=== PATIENT | male | born 1945 | race Caucasian/White ===

== ENCOUNTER → 2017-10-29 17:43 | Outpatient (CLI) | payer MEDICARE, SELFPAY ==
--- NOTE | 2017-10-29 18:02 | CT_ITS ---
STUDY: CTA OF RIGHT LOWER EXTREMITY REASON FOR EXAM: Male, 72 years old. Nonhealing right ankle ulcer. RADIATION DOSAGE (If Supplied By Facility): CTDIvol = ( 9.59 ) mGy, DLP = ( 1838.44 ) mGycm TECHNIQUE: Axial CT angiography multi-detector data acquisition was obtained from the pelvis to the right foot following intravenous administration of 100mL ml of Isovue 370 contrast. Axial images and MIP images were reconstructed from the axial data set. Post-processing of the angiographic images was performed, with multiplanar reformation and 3D reconstruction. Individualized dose optimization techniques were used for this CT. TECHNICAL QUALITY: Good COMPARISON: None. Findings: The visualized bowel demonstrates no evidence of obstruction. The appendix is normal. The visualized aorta is normal in caliber. There is no dissection. The right common iliac, internal iliac and external iliac arteries are patent and normal in caliber. The right common femoral artery, superficial femoral artery, deep femoral artery and popliteal artery are patent and normal in caliber. There is a normal three-vessel runoff in the right distal lower extremity with patent anterior tibial, posterior tibial and peroneal arteries. There are no destructive osseous lesions. CT/CTA LWR EXTR W/O & W/DYE IMPRESSION: Normal CT angiogram of the right lower extremity. Electronically Signed: Sebastián Andrade, at 5:34 EDT Tel , Service support ,
[2017-10-29 18:16] LABS: CREATININE FINGERSTICK 1.2 mg/dL (0.70-1.30); EGFR FINGERSTICK > 60.0000 mL/min (>60)
== END ==
PROVIDERS: Family Provider Family Medicine; PCP Family Medicine; Visit Provider Podiatrist Foot & Ankle Surgery
DX: L97.319 Non-pressure chronic ulcer of right ankle with unspecified severity (principal)
CPT/HCPCS: 73706; Q9967

== ENCOUNTER → 2017-12-07 11:15 | Outpatient (CLI) | payer MEDICARE, SELFPAY ==
[2017-12-07 15:38] LABS: Absolute Neutrophil Count 1.6 X10^3/uL (2.0-7.7); Basophil# 0.01 X10^3/uL; Basophil% 0.2 % (0-1); Eosinophils% 2.3 % (0-5); Hematocrit 38.8 % (40-54); Hemoglobin 12.5 g/dl (13.0-16.5); Lymphocyte % 30.2 % (19-41); Mean Corp Hgb Conc 32.2 g/gl (32-36); Mean Corpuscular Hgb 28.9 pg (27.0-32.0); Mean Corpuscular Volume 89.8 fL (80-94); Mean Platelet Vol. 12.3 fl (6.2-12.0); Monocyte# 1.27 X10^3/uL; Monocyte% 29.5 % (0-10); Neutrophil # 1.57 X10^3/uL (2.7-7.7); Neutrophil % 36.4 % (47-70); Platelet Count 140 K/mm3 (150-450); RBC Distribution Width CV 16.2 % (11.6-14.6); RBC Distribution Width SD 52.9 fl (35.1-43.9); Red Blood Count 4.32 M/mm3 (4.6-6.2); White Blood Count 4.3 K/mm3 (4.4-11.0)
[2017-12-07 16:01] LABS: POSITIVE COUNT NO; POSITIVE DIFFERENTIAL NO; POSITIVE MORPHOLOGY NO
[2017-12-07 16:02] LABS: Anion Gap 7 (5-15); BUN 26 mg/dL (7-18); BUN/Creat Ratio 20.3 RATIO (10-20); Calcium,Total 8.7 mg/dL (8.5-10.1); Chloride 109 mmol/L (98-107); Creatinine, Serum 1.28 mg/dL (0.70-1.30); EST Glomerular Filtration Rate 59 mL/min (>60); Est Glom Filt Rate - Afr Amer 71 mL/min (>60); Glucose 100 mg/dL (74-106); Potassium 4.3 mmol/L (3.5-5.1); Sodium Level 143 mmol/L (136-145); T4 Free Direct 1.02 ng/dL (0.76-1.46); Thyroid Stim Hormone (TSH) 2.61 uIU/mL (0.358-3.74)
== END ==
PROVIDERS: Family Provider Family Medicine; PCP Family Medicine; Visit Provider Family Medicine
DX: I10 Essential (primary) hypertension (principal); E03.9 Hypothyroidism, unspecified; R68.82 Decreased libido
CPT/HCPCS: 36415; 80048; 84403; 84439; 84443; 85025

== ENCOUNTER → 2017-12-29 13:17 | Outpatient (CLI) | payer MEDICARE, SELFPAY ==
[2017-12-29 15:57] LABS: Absolute Lymphocyte Count 1.59 X10^3/ul (0.83-4.51); Absolute Neutrophil Count 2.5 X10^3/uL (2.0-7.7); Basophil# 0.01 X10^3/uL; Basophil% 0.2 % (0-1); Eosinophil# 0.15 X10^3/uL; Eosinophils% 2.5 % (0-5); Hematocrit 38.1 % (40-54); Hemoglobin 12.6 g/dl (13.0-16.5); Lymphocyte # 1.59 X10^3/ul (4.0); Lymphocyte % 26.4 % (19-41); Mean Corp Hgb Conc 33.1 g/gl (32-36); Mean Corpuscular Hgb 28.9 pg (27.0-32.0); Mean Corpuscular Volume 87.4 fL (80-94); Mean Platelet Vol. 11.4 fl (6.2-12.0); Monocyte# 1.79 X10^3/uL; Monocyte% 29.7 % (0-10); Neutrophil # 2.45 X10^3/uL (2.7-7.7); Neutrophil % 40.5 % (47-70); Platelet Count 168 K/mm3 (150-450); RBC Distribution Width CV 15.9 % (11.6-14.6); Red Blood Count 4.36 M/mm3 (4.6-6.2)
[2017-12-29 16:13] LABS: Differential Indicated SCAN CRITERIA MET; POSITIVE COUNT NO; POSITIVE DIFFERENTIAL YES; POSITIVE MORPHOLOGY NO
[2017-12-29 16:19] LABS: Anisocytosis RARE; Macrocytosis RARE; Platelet Estimate ADEQUATE (ADEQ)
[2017-12-30 14:28] LABS: Pathologist Review Reviewed
== END ==
PROVIDERS: Family Provider Family Medicine; PCP Family Medicine; Visit Provider Family Medicine
DX: D61.818 Other pancytopenia (principal)
CPT/HCPCS: 36415; 85025

== ENCOUNTER → 2018-03-23 07:11 | Outpatient (CLI) | payer MEDICARE, SELFPAY | PROVIDERS: Family Provider Family Medicine; PCP Family Medicine | DX: M86.8X7 Other osteomyelitis, ankle and foot (principal); T81.31XA Disruption of external operation (surgical) wound, not elsewhere classified, initial encounter; Y83.9 Surgical procedure, unspecified as the cause of abnormal reaction of the patient, or of later complication, without mention of misadventure at the time of the procedure; I10 Essential (primary) hypertension; M10.9 Gout, unspecified; E03.9 Hypothyroidism, unspecified; E78.5 Hyperlipidemia, unspecified; E66.9 Obesity, unspecified; Z68.38 Body mass index [BMI] 38.0-38.9, adult; Z71.3 Dietary counseling and surveillance; Z79.899 Other long term (current) drug therapy | CPT/HCPCS: 11042; 73721 ==

== ENCOUNTER 2018-04-02 14:00 | Outpatient (RCR) | payer MEDICARE, SELFPAY ==
[2018-03-16 08:55] VITALS: BMI 38.1
--- NOTE | 2018-03-16 10:19 | PCM.WC.HP ---
(1) Surgical wound, non healing Status: Chronic Current Visit: Yes Qualifiers: Encounter type: initial encounter Qualified Code(s): T81.89XA - Other complications of procedures, not elsewhere classified, initial encounter Code(s): T81.89XA - Other complications of procedures, not elsewhere classified, initial encounter (2) Delayed surgical wound healing Status: Chronic Current Visit: Yes Qualifiers: Encounter type: initial encounter Qualified Code(s): T81.89XA - Other complications of procedures, not elsewhere classified, initial encounter Code(s): T81.89XA - Other complications of procedures, not elsewhere classified, initial encounter (3) Swelling of lower limb Status: Chronic Current Visit: Yes Code(s): M79.89 - Other specified soft tissue disorders (4) Edema of leg Status: Chronic Current Visit: Yes Code(s): R60.0 - Localized edema (5) Hypertension Status: Chronic Current Visit: No Code(s): I10 - Essential (primary) hypertension (6) Hypothyroidism Status: Chronic Current Visit: No Code(s): E03.9 - Hypothyroidism, unspecified (7) Gout Status: Chronic Current Visit: No Code(s): M10.9 - Gout, unspecified (8) Erectile dysfunction Status: Chronic Current Visit: No Code(s): N52.9 - Male erectile dysfunction, unspecified (9) Hyperlipidemia Status: Chronic Current Visit: No Code(s): E78.5 - Hyperlipidemia, unspecified (10) Dehiscence of surgical wound Status: Chronic Current Visit: Yes Qualifiers: Encounter type: initial encounter Qualified Code(s): T81.31XA - Disruption of external operation (surgical) wound, not elsewhere classified, initial encounter Code(s): T81.31XA - Disruption of external operation (surgical) wound, not elsewhere classified, initial encounter History of Present Illness Date of Service: 03/16/18 Chief Complaint: 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 On August 26, 2016, the patient underwent right ankle fusion by Dr. Julio Cesar Giraldo. The patient subsequently developed complications. Apparently, a screw broke, and required reoperation. Additional hardware was placed. Additional healing complications occurred, and the patient underwent a series of subsequent surgeries. A total of 6 surgical procedures have been performed. Review of records indicates that a right tibial talocalcaneal fusion and right subtalar joint fusion and calcaneal osteotomy was performed on May 08, 2017. Allogenic skin grafting was performed on September 04, 2017. Application of a soft tissue silo painter was performed on January 14, 2018. At this time, the patient has a persisting open wound on the right lateral malleolus. He has recently been evaluated by another podiatric specialist, Dr. Harper, and diagnostic testing has been ordered, which is to include an MRI of the right ankle, and noninvasive lower extremity arterial assessment. The patient indicates that he has been using collagenase Santyl topically on a daily basis. Past Medical History Past Medical History: Chronic Problems Surgical wound, non healing (Chronic) Delayed surgical wound healing (Chronic) Swelling of lower limb (Chronic) Edema of leg (Chronic) Hypertension (Chronic) Hypothyroidism (Chronic) Gout (Chronic) Erectile dysfunction (Chronic) Hyperlipidemia (Chronic) Dehiscence of surgical wound (Chronic) Past Medical History: The patient has a history of hypertension, hypothyroidism status post thyroidectomy, hyperlipidemia, gout, and erectile dysfunction. The patient's history is negative for myocardial infarction, congestive heart failure, cerebrovascular accident, cancer, diabetes mellitus, renal disease, and pulmonary disease. He has a history of kidney stones. Surgical History: - - The patient is undergone a total of 6 surgical procedures of his right ankle. He is known to have indwelling metal hardware in the right ankle joint. He has a history of thyroidectomy, lumbar surgery, and transurethral kidney stone surgery. Allergies/Adverse Reactions: Allergies indomethacin Allergy (Verified 03/15/14 14:25) Other Home Medications: Ambulatory Orders Medication Instructions Recorded Allopurinol [Zyloprim] 300 mg PO DAILY 03/15/14 Levothyroxine [Synthroid] 100 mcg PO DAILY 03/15/14 Potassium Citrate [Urocit-K] 15 meq PO BID 03/15/14 Simvastatin [Zocor] 20 mg PO QHS 03/15/14 Sulindac [Clinoril] 200 mg PO DAILY 03/15/14 - Family History Paternal - - The patient's father at age of 90 with history of cerebrovascular accident. The patient's mother at the age of 96 from old age. Social History: The patient is . He is a retired college coach and teacher. He denies use of alcohol and tobacco products. Lives: Spouse/ Significant Other Smoking Status: Never smoker Tobacco Use: Non-smoker Alcohol: None Drugs: None Review of Systems Constitutional: Denies: Chills, Fever, Weight Change Eyes: Denies: Pain, Vision Change HEENT: Denies: Difficulty Hearing, Difficulty Swallowing, Sinus Congestion Cardiovascular: Denies: Chest Pain, Palpitations Respiratory: Denies: Cough, Shortness of Breath Gastrointestinal: Denies: Diarrhea, Nausea, Vomiting Genitourinary: Denies: Dysuria, Hematuria Endocrine: Denies: Heat/ Cold Intolerance, Polydipsia, Polyuria Hematologic/ Lymphatic: Denies: Easy Bruising, Easy Bleeding - Physical Exam General: Alert, Oriented x3, Cooperative, No apparent distress, Well developed, Well nourished HEENT: Atraumatic, PERRLA, EOMI, Normocephalic Oral: Moist Mucosa, No Gingival or Mucosal Lesions/ Ulcerations Neck: Supple, No JVD, Negative Carotid Bruits, Negative Hepatojugular Reflux, No Nodes, No Nuchal Rigidity, Trachea Midline Lungs: Clear to auscultation, Normal air movement, No rhonchi, No wheeze, No rales Cardiovascular: Regular rate, Regular Rhythm, Normal S1, Normal S2, No murmurs Abdomen: Soft, Non Tender, Non-Distended, Obese Extremities: No clubbing, No cyanosis, No Calf Tenderness, - - Swelling is noted about the right ankle. A long longitudinal surgical incision is noted on the lateral aspect of the distal right calf extending over the right lateral malleolus. In the inferior portion of this surgical incision, which is generally well approximated and healed, there is an open wound overlying the right lateral malleolus. Probing and visualization does not reveal exposed bone. There is a moderate amount of bioburden. Dimensions are documented elsewhere. There is no sign of obvious infection or cellulitis. However, cultures have been obtained by swab, for both aerobic and anaerobic growth. Skin: No rashes Wound Measurements and Assessment WC - Nurse 1 - General Ulcer Measurement Start: 03/16/18 08:55 Freq: Status: Active Protocol: Activity Type Activity Date Activity User E-Sign Co-Sign Detail Recorded Client Recorded Date Recorded By Document 03/16/18 08:55 [id number] 03/16/18 09:32 08/14/18 08:55 Wound Center Nurse 1 [Ulcer Assessment] #2 LEFT 4TH TOE -Combined with other wound No -Current Size (cm) - Length 0.2 -Current Size (cm) - Width 0.2 -Current Size (cm) - Depth 0.1 -Total Square Cm 0.04 -Date of Last Picture (Recall this 03/16/18 field) -Photo Taken Yes -Epithelialization Large 67-100% -Exudate Amt None Present (0 %) -Wound Margin Thickened -Granulation Amt None Present (0 %) -Texture (Jennifer-wound Skin Appearance) Callus -Temperature (Jennifer-wound Skin No Abnormality Appearance) (Pt Warm) -Tenderness on Palpation (Jennifer-wound No Skin Appearance) -Ulcer Cleansing Rinsed/ Irrigated with Saline -Foul Odor after Cleansing No -Anesthetic Used 5% Lidocaine Gel #1 RIGHT ANKLE -Combined with other wound No -Current Size (cm) - Length 2.5 -Current Size (cm) - Width 0.8 -Current Size (cm) - Depth 1.8 -Total Square Cm 2.00 -Date of Last Picture (Recall this 03/16/18 field) -Photo Taken Yes -Epithelialization None Present -Tunneling No -Undermining/Tunneling No -Circular Undermining No -Exudate Amt Medium (34-66%) -Exudate Type Serosanguineous -Wound Margin Distinct, Outline Attached -Granulation Amt Small (1-33%) -Granulation Quality [place]assett Red -Slough/Fibrin Yes -Necrosis Amt None Present (0 %) -Necrotic Tissue Type Adherent Slough -Texture (Jennifer-wound Skin Appearance) Assessed Localized Edema -Moisture (Jennifer-wound Skin Appearance No Abnormality ) Assessed -Color (Jennifer-wound Skin Appearance) No Abnormality Assessed -Temperature (Jennifer-wound Skin No Abnormality Appearance) (Pt Warm) -Tenderness on Palpation (Jennifer-wound No Skin Appearance) -Ulcer Cleansing Rinsed/ Irrigated with Saline -Foul Odor after Cleansing No -Anesthetic Used 5% Lidocaine Gel [Edema Assessment] -Lower Limb Edema Present Yes -Right Calf (cm) 40.5 -Right Ankle (cm) 30 -Left Calf (cm) 40 -Left Ankle (cm) 25 WC - Nurse 2 - General Ulcer CM Notes Start: 03/16/18 08:55 Freq: Status: Active Protocol: Activity Type Activity Date Activity User E-Sign Co-Sign Detail Recorded Client Recorded Date Recorded By Document 03/16/18 09:54 [id number] 03/16/18 10:11 03/16/18 09:54 Wound Center Nurse 2 [Procedure/Treatment] #2 LEFT 4TH TOE -Time 09:54 #1 RIGHT ANKLE -Time 09:54 -Correct Patient Yes -Correct Side, Site, Position Yes -Correct Procedure Yes -Procedure Performed Yes -Type of Procedure Debridement -Clinical Debridement Subcutaneous -Post Debridement Size (cm) - Length 3.3 -Post Debridement Size (cm) - Width 0.9 -Post Debridement Size (cm) - Depth 2.0 -Total Square Cm 2.97 -Wound/Ulcer Outcome Not Healed -Ulcer Cleansing Rinsed/ Irrigated with Saline -Foul Odor after Cleansing No -Bioengineered Tissue No -Topical Lidocaine (%) 4 -Lidocaine (ml) 5 -Bleeding Controlled with NA -Treatment Response Procedure Tolerated Well [See Physician Procedure note for Specifics] Pain Scale: 0-10 Numeric [Pain] -Is Patient Pain Free? Yes Neurological: Cranial nerves II-XII grossly intact, Neuro grossly intact Psych/Mental Status: Normal Affect, Appropriate, Alert and oriented to time, place, person, mood and affect Debridement Note Post-Debridement Measurements/Treatment WC - Nurse 2 - General Ulcer CM Notes Start: 03/16/18 08:55 Freq: Status: Active Protocol: Activity Type Activity Date Activity User E-Sign Co-Sign Detail Recorded Client Recorded Date Recorded By Document 03/16/18 09:54 [id number] 03/16/18 10:11 03/16/18 09:54 Wound Center Nurse 2 #2 LEFT 4TH TOE -Time 09:54 #1 RIGHT ANKLE -Time 09:54 -Correct Patient Yes -Correct Side, Site, Position Yes -Correct Procedure Yes -Procedure Performed Yes -Type of Procedure Debridement -Clinical Debridement Subcutaneous -Post Debridement Size (cm) - Length 3.3 -Post Debridement Size (cm) - Width 0.9 -Post Debridement Size (cm) - Depth 2.0 -Total Square Cm 2.97 -Wound/Ulcer Outcome Not Healed -Ulcer Cleansing Rinsed/ Irrigated with Saline -Foul Odor after Cleansing No -Bioengineered Tissue No -Topical Lidocaine (%) 4 -Lidocaine (ml) 5 -Bleeding Controlled with NA -Treatment Response Procedure Tolerated Well Pain Scale: 0-10 Numeric Is Patient Pain Free? Yes Laterality: Right - Lateral ankle dehiscence Type of Debridement: Excisional debridement Anesthesia Used: 4% Lidocaine Solution Depth: Down to and including healthy tissue, in the subcutaneous layer Percentage of wound debrided: 100 Instrument Used: 3mm curette Severity: Fat Layer Exposed Amount of bleeding with debridement: Mild Bleeding Controlled with: Compression and gauze Patient tolerated procedure well Assessment/Plan Active Problems Surgical wound, non healing (Chronic) Delayed surgical wound healing (Chronic) Swelling of lower limb (Chronic) Edema of leg (Chronic) Dehiscence of surgical wound (Chronic) Assessment: This is a 72-year-old male who underwent right ankle surgery in August 2016. He has undergone 5 subsequent surgeries, related to complications from the initial surgical event. He presents at this time with a surgical wound dehiscence/nonhealing surgical wound on the right lateral malleolus. He is otherwise generally healthy, but for gout, erectile dysfunction, and hypertension. Plan: We have instructed the patient to continue the use of collagenase Santyl topically on a daily basis. Leg elevation has been recommended, to minimize the swelling of the right ankle. He is to avoid prolonged idle sitting. Nutritional optimization has been recommended, though the patient admits to a good inadequate diet. We are to obtain laboratory studies, including a CBC, conference of metabolic profile, and a serum prealbumin. One of the patient's foot and ankle specialists, Dr. Harper, has ordered an MRI of the right ankle, as well as a noninvasive lower extremity arterial study. The MRI will help to discern the possible presence of osteomyelitis. Issues in this regard have been discussed with the patient, and his at the bedside. We will await the results of these diagnostic studies. We will also await the results of wound cultures, obtained today. Patient is to return in 1 week for reassessment. If osteomyelitis is confirmed, the patient may be a candidate for hyperbaric oxygen therapy. This has been briefly discussed with the patient and his . The patient is not a smoker. Influenza vaccine was not administered today. Patient weighs 266 pounds. He stands 5 feet 10 inches tall. His BMI is 38.1, which places him in a class II obesity category. Weight loss has been recommended, and collaboration with his primary care physician has been recommended.
[2018-03-16 12:41] LABS: Hematocrit 39.2 % (40-54); Hemoglobin 12.9 g/dl (13.0-16.5); Mean Corp Hgb Conc 32.9 g/gl (32-36); Mean Corpuscular Hgb 29.9 pg (27.0-32.0); Mean Corpuscular Volume 90.7 fL (80-94); Mean Platelet Vol. 12.6 fl (6.2-12.0); Platelet Count 124 K/mm3 (150-450); RBC Distribution Width CV 15.8 % (11.6-14.6); RBC Distribution Width SD 51.5 fl (35.1-43.9); Red Blood Count 4.32 M/mm3 (4.6-6.2); Scan Indicated on CBC? Y/N NO; White Blood Count 5.9 K/mm3 (4.4-11.0)
[2018-03-16 13:29] LABS: ALB/GLOB Ratio 1.1 RATIO (0.9-2.4); AST(SGOT) 11 U/L (15-37); Alanine Aminotransfer ALT/SGPT 19 U/L (16-61); Albumin, Serum 3.8 g/dL (3.2-5.0); Alkaline Phosphatase 133 U/L (45-117); Anion Gap 6 (5-15); BUN 26 mg/dL (7-18); BUN/Creat Ratio 23.4 RATIO (10-20); Calcium,Total 8.5 mg/dL (8.5-10.1); Chloride 108 mmol/L (98-107); Creatinine, Serum 1.11 mg/dL (0.70-1.30); EST Glomerular Filtration Rate 69 mL/min (>60); Est Glom Filt Rate - Afr Amer 84 mL/min (>60); Estimated Creatinine Clearance 63.03 ml/min; Globulin 3.4 g/dL (2.2-4.2); Glucose 80 mg/dL (74-106); Potassium 4.4 mmol/L (3.5-5.1); Protein, Total 7.2 g/dL (6.4-8.2); Sodium Level 140 mmol/L (136-145)
[2018-03-23 09:52] VITALS: BP 134/78; PULSE 64; RESP 16; TEMP 36.3; BMI 38.1
--- NOTE | 2018-03-23 10:31 | PCM.WC.HP ---
(1) Surgical wound, non healing Status: Chronic Current Visit: Yes Qualifiers: Encounter type: initial encounter Qualified Code(s): T81.89XA - Other complications of procedures, not elsewhere classified, initial encounter Code(s): T81.89XA - Other complications of procedures, not elsewhere classified, initial encounter (2) Delayed surgical wound healing Status: Chronic Current Visit: Yes Qualifiers: Encounter type: initial encounter Qualified Code(s): T81.89XA - Other complications of procedures, not elsewhere classified, initial encounter Code(s): T81.89XA - Other complications of procedures, not elsewhere classified, initial encounter (3) Swelling of lower limb Status: Chronic Current Visit: Yes Code(s): M79.89 - Other specified soft tissue disorders (4) Edema of leg Status: Chronic Current Visit: Yes Code(s): R60.0 - Localized edema (5) Hypertension Status: Chronic Current Visit: No Code(s): I10 - Essential (primary) hypertension (6) Hypothyroidism Status: Chronic Current Visit: No Code(s): E03.9 - Hypothyroidism, unspecified (7) Gout Status: Chronic Current Visit: No Code(s): M10.9 - Gout, unspecified (8) Erectile dysfunction Status: Chronic Current Visit: No Code(s): N52.9 - Male erectile dysfunction, unspecified (9) Hyperlipidemia Status: Chronic Current Visit: No Code(s): E78.5 - Hyperlipidemia, unspecified (10) Dehiscence of surgical wound Status: Chronic Current Visit: Yes Qualifiers: Encounter type: initial encounter Qualified Code(s): T81.31XA - Disruption of external operation (surgical) wound, not elsewhere classified, initial encounter Code(s): T81.31XA - Disruption of external operation (surgical) wound, not elsewhere classified, initial encounter History of Present Illness Date of Service: 03/23/18 Chief Complaint: 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 On August 26, 2016, the patient underwent right ankle fusion by Dr. Julio Cesar Giraldo. The patient subsequently developed complications. Apparently, a screw broke, and required reoperation. Additional hardware was placed. Additional healing complications occurred, and the patient underwent a series of subsequent surgeries. A total of 6 surgical procedures have been performed. Review of records indicates that a right tibial talocalcaneal fusion and right subtalar joint fusion and calcaneal osteotomy was performed on May 08, 2017. Allogenic skin grafting was performed on September 04, 2017. Application of a soft tissue first front ventilator was performed on January 14, 2018. At this time, the patient has a persisting open wound on the right lateral malleolus. He has recently been evaluated by another podiatric specialist, Dr. oHod, and diagnostic testing has been ordered, which is to include an MRI of the right ankle, and noninvasive lower extremity arterial assessment. The patient indicates that he has been using collagenase Santyl topically on a daily basis. Past Medical History Past Medical History: Chronic Problems Surgical wound, non healing (Chronic) Delayed surgical wound healing (Chronic) Swelling of lower limb (Chronic) Edema of leg (Chronic) Hypertension (Chronic) Hypothyroidism (Chronic) Gout (Chronic) Erectile dysfunction (Chronic) Hyperlipidemia (Chronic) Dehiscence of surgical wound (Chronic) Surgical History: - - The patient is undergone a total of 6 surgical procedures of his right ankle. He is known to have indwelling metal hardware in the right ankle joint. He has a history of thyroidectomy, lumbar surgery, and transurethral kidney stone surgery. Allergies/Adverse Reactions: Allergies indomethacin Allergy (Verified 03/15/14 14:25) Other Home Medications: Ambulatory Orders Medication Instructions Recorded Allopurinol [Zyloprim] 300 mg PO DAILY 03/15/14 Levothyroxine [Synthroid] 100 mcg PO DAILY 03/15/14 Potassium Citrate [Urocit-K] 15 meq PO BID 03/15/14 Simvastatin [Zocor] 20 mg PO QHS 03/15/14 Sulindac [Clinoril] 200 mg PO DAILY 03/15/14 - Family History Paternal - - The patient's father at age of 90 with history of cerebrovascular accident. The patient's mother at the age of 96 from old age. Lives: Spouse/ Significant Other Smoking Status: Never smoker Tobacco Use: Non-smoker Alcohol: None Drugs: None Review of Systems Constitutional: Denies: Chills, Fever, Weight Change Eyes: Denies: Pain, Vision Change HEENT: Denies: Difficulty Hearing, Difficulty Swallowing, Sinus Congestion Cardiovascular: Denies: Chest Pain, Palpitations Respiratory: Denies: Cough, Shortness of Breath Gastrointestinal: Denies: Diarrhea, Nausea, Vomiting Genitourinary: Denies: Dysuria, Hematuria Endocrine: Denies: Heat/ Cold Intolerance, Polydipsia, Polyuria Hematologic/ Lymphatic: Denies: Easy Bruising, Easy Bleeding - Physical Exam Vital Signs Temp Pulse Resp BP 97.3 F L 64 16 134/78 H 03/23/18 09:52 03/23/18 09:52 03/23/18 09:52 03/23/18 09:52 General: Alert, Oriented x3, Cooperative, No apparent distress, Well developed, Well nourished HEENT: Atraumatic, PERRLA, EOMI, Normocephalic Oral: Moist Mucosa Neck: No JVD Lungs: Normal air movement Abdomen: Non-Distended Extremities: No clubbing, No cyanosis, No Calf Tenderness, - - Slight swelling edema persist in the right ankle. The open wound on the right lateral malleolus persists, but appears slightly smaller in size. Dimensions are documented elsewhere. The wound is generally pink and healthy in appearance, with a moderate amount of bioburden. Skin: No rashes Wound Measurements and Assessment WC - Nurse 1 - General Ulcer Measurement Start: 03/16/18 08:55 Freq: Status: Active Protocol: Activity Type Activity Date Activity User E-Sign Co-Sign Detail Recorded Client Recorded Date Recorded By Document 03/23/18 09:52 [facility] [id number] 03/23/18 10:00 [facility] 03/23/18 09:52 Wound Center Nurse 1 [Ulcer Assessment] #1 RIGHT ANKLE -Combined with other wound No -Current Size (cm) - Length 3.3 -Current Size (cm) - Width 0.8 -Current Size (cm) - Depth 1.2 -Total Square Cm 2.64 -Photo Taken No -Epithelialization None Present -Tunneling No -Undermining/Tunneling No -Circular Undermining No -Exudate Amt Small (1-33%) -Exudate Type Serosanguineous -Wound Margin Distinct, Outline Attached -Granulation Amt Small (1-33%) -Granulation Quality Red -Slough/Fibrin Yes -Necrosis Amt Large (67-100%) -Necrotic Tissue Type Adherent Slough -Texture (Jennifer-wound Skin Appearance) Scarring -Moisture (Jennifer-wound Skin Appearance Dry/Scaly ) -Color (Jennifer-wound Skin Appearance) Assessed -Temperature (Jennifer-wound Skin No Abnormality Appearance) (Pt Warm) -Tenderness on Palpation (Jennifer-wound No Skin Appearance) -Ulcer Cleansing Rinsed/ Irrigated with Saline -Foul Odor after Cleansing No -Anesthetic Used 4% Lidocaine Solution [Edema Assessment] -Lower Limb Edema Present Yes -Right Calf (cm) 38 -Right Ankle (cm) 27.1 Musculoskeletal: No Muscle Wasting Neurological: Cranial nerves II-XII grossly intact, Neuro grossly intact Psych/Mental Status: Normal Affect, Appropriate, Alert and oriented to time, place, person, mood and affect Debridement Note Post-Debridement Measurements/Treatment WC - Nurse 2 - General Ulcer CM Notes Start: 03/16/18 08:55 Freq: Status: Active Protocol: Activity Type Activity Date Activity User E-Sign Co-Sign Detail Recorded Client Recorded Date Recorded By Document 03/16/18 09:54 [facility] [id number] 03/16/18 10:11 [facility] 03/16/18 09:54 Wound Center Nurse 2 #2 LEFT 4TH TOE -Time 09:54 #1 RIGHT ANKLE -Time 09:54 -Correct Patient Yes -Correct Side, Site, Position Yes -Correct Procedure Yes -Procedure Performed Yes -Type of Procedure Debridement -Clinical Debridement Subcutaneous -Post Debridement Size (cm) - Length 3.3 -Post Debridement Size (cm) - Width 0.9 -Post Debridement Size (cm) - Depth 2.0 -Total Square Cm 2.97 -Wound/Ulcer Outcome Not Healed -Ulcer Cleansing Rinsed/ Irrigated with Saline -Foul Odor after Cleansing No -Bioengineered Tissue No -Topical Lidocaine (%) 4 -Lidocaine (ml) 5 -Bleeding Controlled with NA -Treatment Response Procedure Tolerated Well Pain Scale: 0-10 Numeric Is Patient Pain Free? Yes Laterality: Right - Lateral malleolus Type of Debridement: Excisional debridement Anesthesia Used: 4% Lidocaine Solution Depth: Down to and including healthy tissue, in the subcutaneous layer Percentage of wound debrided: 100 Instrument Used: 3mm curette Severity: Fat Layer Exposed Amount of bleeding with debridement: Mild Bleeding Controlled with: Compression and gauze Patient tolerated procedure well Assessment/Plan Active Problems Surgical wound, non healing (Chronic) Delayed surgical wound healing (Chronic) Swelling of lower limb (Chronic) Edema of leg (Chronic) Dehiscence of surgical wound (Chronic) Assessment: This is a 72-year-old male who underwent right ankle surgery in August 2016. He has undergone 5 subsequent surgeries, related to complications from the initial surgical event. He presents at this time with a surgical wound dehiscence/nonhealing surgical wound on the right lateral malleolus. He is otherwise generally healthy, but for gout, erectile dysfunction, and hypertension. Culture results have revealed the presence of Klebsiella oxytoca, and the patient has been started on Augmentin 875 mg twice daily for 10 days. A Corynebacterium species has also been isolated, which would likely require intravenous antibiotic treatment with an agent such as vancomycin, if felt to be warranted and clinically significant. The patient has undergone laboratory testing, with results as follows: White blood count 5.9, hemoglobin 12.9, hematocrit 39.2, platelets 124,000, glucose 80, BUN 26, creatinine 1.11, total protein 7.2, albumin 3.8, AST 11, alkaline phosphatase 133, ALT 19, sodium 140, potassium 4.4, chloride 108, serum prealbumin 19.0. An MRI of the right ankle has been performed earlier today, the results of which remain pending. Plan: We have instructed the patient to continue the use of collagenase Santyl topically on a daily basis. This will be continued on a daily basis. Leg elevation has been recommended, to minimize the swelling of the right ankle. He is to avoid prolonged idle sitting. Nutritional optimization has been recommended, though the patient admits to a well-balanced, adequate diet. One of the patient's foot and ankle specialists, Dr. Hood, has ordered an MRI of the right ankle, and we will await results. The MRI will help to discern the possible presence of osteomyelitis. Issues in this regard have been discussed with the patient. Because of the results of the patient's cultures, and the concerns as to the possible presence of osteomyelitis, we are to request a consultation with the Infectious Disease service. The patient is to be started on Augmentin 875 mg p.o. twice daily for 10 days. We will await consultation with the Infectious Disease service as to additional recommendations. Patient is to return in 1 week for reassessment. If osteomyelitis is confirmed, the patient may be a candidate for hyperbaric oxygen therapy. This has been briefly discussed with the patient. We are to consider the use of negative pressure therapy, such as the SNAP VAC, and we will seek preliminary preapproval. The patient is to return in 1 week for reassessment. It is noted that the patient's Podiatric surgeon, Dr. Hood, has ordered angiography of the right lower extremity. However, the patient underwent a CTA of the right lower extremity in October of this year, revealing no evidence of significant arterial occlusive disease in the right lower extremity. These results will be brought to Dr. Hood's attention. The patient is not a smoker. Influenza vaccine was not administered today. Patient weighs 266 pounds. He stands 5 feet 10 inches tall. His BMI is 38.1, which places him in a class II obesity category. Weight loss has been recommended, and collaboration with his primary care physician has been recommended.
[2018-03-30 08:11] VITALS: BP 129/75; PULSE 70; RESP 16; TEMP 35.8; BMI 38.1
--- NOTE | 2018-03-30 08:51 | PCM.WC.HP ---
(1) Surgical wound, non healing Status: Chronic Current Visit: Yes Qualifiers: Encounter type: subsequent encounter Qualified Code(s): T81.89XD - Other complications of procedures, not elsewhere classified, subsequent encounter Code(s): T81.89XA - Other complications of procedures, not elsewhere classified, initial encounter (2) Delayed surgical wound healing Status: Chronic Current Visit: Yes Qualifiers: Encounter type: subsequent encounter Qualified Code(s): T81.89XD - Other complications of procedures, not elsewhere classified, subsequent encounter Code(s): T81.89XA - Other complications of procedures, not elsewhere classified, initial encounter (3) Swelling of lower limb Status: Chronic Current Visit: Yes Code(s): M79.89 - Other specified soft tissue disorders (4) Edema of leg Status: Chronic Current Visit: Yes Code(s): R60.0 - Localized edema (5) Hypertension Status: Chronic Current Visit: No Code(s): I10 - Essential (primary) hypertension (6) Hypothyroidism Status: Chronic Current Visit: No Code(s): E03.9 - Hypothyroidism, unspecified (7) Gout Status: Chronic Current Visit: No Code(s): M10.9 - Gout, unspecified (8) Erectile dysfunction Status: Chronic Current Visit: No Code(s): N52.9 - Male erectile dysfunction, unspecified (9) Hyperlipidemia Status: Chronic Current Visit: No Code(s): E78.5 - Hyperlipidemia, unspecified (10) Dehiscence of surgical wound Status: Chronic Current Visit: Yes Qualifiers: Encounter type: subsequent encounter Qualified Code(s): T81.31XD - Disruption of external operation (surgical) wound, not elsewhere classified, subsequent encounter Code(s): T81.31XA - Disruption of external operation (surgical) wound, not elsewhere classified, initial encounter (11) Osteomyelitis of ankle Status: Chronic Current Visit: Yes Qualifiers: Laterality: right Code(s): M86.9 - Osteomyelitis, unspecified History of Present Illness Date of Service: 03/30/18 Chief Complaint: 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 On August 26, 2016, the patient underwent right ankle fusion by Dr. Julio Cesar Giraldo. The patient subsequently developed complications. Apparently, a screw broke, and required reoperation. Additional hardware was placed. Additional healing complications occurred, and the patient underwent a series of subsequent surgeries. A total of 6 surgical procedures have been performed. Review of records indicates that a right tibial talocalcaneal fusion and right subtalar joint fusion and calcaneal osteotomy was performed on May 08, 2017. Allogenic skin grafting was performed on September 04, 2017. Application of a soft tissue tooth cutter spur was performed on January 14, 2018. At this time, the patient has a persisting open wound on the right lateral malleolus. He has recently been evaluated by another podiatric specialist, Dr. Hood, and diagnostic testing has been ordered, which is to include an MRI of the right ankle, and noninvasive lower extremity arterial assessment. The patient indicates that he has been using collagenase Santyl topically on a daily basis. Past Medical History Past Medical History: Chronic Problems Surgical wound, non healing (Chronic) Delayed surgical wound healing (Chronic) Swelling of lower limb (Chronic) Edema of leg (Chronic) Hypertension (Chronic) Hypothyroidism (Chronic) Gout (Chronic) Erectile dysfunction (Chronic) Hyperlipidemia (Chronic) Dehiscence of surgical wound (Chronic) Osteomyelitis of ankle (Chronic) Surgical History: - - The patient is undergone a total of 6 surgical procedures of his right ankle. He is known to have indwelling metal hardware in the right ankle joint. He has a history of thyroidectomy, lumbar surgery, and transurethral kidney stone surgery. Allergies/Adverse Reactions: Allergies indomethacin Allergy (Verified 03/15/14 14:25) Other Home Medications: Ambulatory Orders Medication Instructions Recorded Allopurinol [Zyloprim] 300 mg PO DAILY 03/15/14 Levothyroxine [Synthroid] 100 mcg PO DAILY 03/15/14 Potassium Citrate [Urocit-K] 15 meq PO BID 03/15/14 Simvastatin [Zocor] 20 mg PO QHS 03/15/14 Sulindac [Clinoril] 200 mg PO DAILY 03/15/14 - Family History Paternal - - The patient's father at age of 90 with history of cerebrovascular accident. The patient's mother at the age of 96 from old age. Lives: Spouse/ Significant Other Smoking Status: Never smoker Tobacco Use: Non-smoker Alcohol: None Drugs: None Review of Systems Constitutional: Denies: Chills, Fever, Weight Change Eyes: Denies: Pain, Vision Change HEENT: Denies: Difficulty Hearing, Difficulty Swallowing, Sinus Congestion Cardiovascular: Denies: Chest Pain, Palpitations Respiratory: Denies: Cough, Shortness of Breath Gastrointestinal: Denies: Diarrhea, Nausea, Vomiting Genitourinary: Denies: Dysuria, Hematuria Endocrine: Denies: Heat/ Cold Intolerance, Polydipsia, Polyuria Hematologic/ Lymphatic: Denies: Easy Bruising, Easy Bleeding - Physical Exam Vital Signs Temp Pulse Resp BP 96.4 F L 70 16 129/75 H 03/30/18 08:11 03/30/18 08:11 03/30/18 08:11 03/30/18 08:11 General: Alert, Oriented x3, Cooperative, No apparent distress, Well developed, Well nourished HEENT: Atraumatic, PERRLA, EOMI, Normocephalic Oral: Moist Mucosa Neck: No JVD Lungs: Normal air movement Abdomen: Non-Distended Extremities: No clubbing, No cyanosis, No Calf Tenderness, - - Only minimal edema is noted in the right lower extremity. The chronic, nonhealing wound on the right lateral malleolus is little changed in appearance. It is generally clean, pink, and healthy. There is a moderate amount of bioburden. There is no obvious sign of infection or cellulitis. Dimensions are documented elsewhere. Skin: No rashes Wound Measurements and Assessment - Nurse 1 - General Ulcer Measurement Start: 03/16/18 08:55 Freq: Status: Active Protocol: Activity Type Activity Date Activity User E-Sign Co-Sign Detail Recorded Client Recorded Date Recorded By Document 03/30/18 08:11 [id number] 03/30/18 08:17 03/30/18 08:11 Wound Center Nurse 1 [Ulcer Assessment] #1 RIGHT ANKLE -Combined with other wound No -Current Size (cm) - Length 2.7 -Current Size (cm) - Width 0.6 -Current Size (cm) - Depth 0.5 -Total Square Cm 1.62 -Photo Taken No -Epithelialization None Present -Tunneling No -Undermining/Tunneling No -Circular Undermining No -Exudate Amt Medium (34-66%) -Exudate Type Serosanguineous -Wound Margin Distinct, Outline Attached -Granulation Amt Medium (34-66%) -Granulation Quality [place] Red -Slough/Fibrin Yes -Necrosis Amt None Present (0 %) -Necrotic Tissue Type Adherent Slough -Texture (Jennifer-wound Skin Appearance) No Abnormality Assessed -Moisture (Jennifer-wound Skin Appearance No Abnormality ) Assessed -Color (Jennifer-wound Skin Appearance) No Abnormality Assessed -Temperature (Jennifer-wound Skin No Abnormality Appearance) (Pt Warm) -Tenderness on Palpation (Jennifer-wound Yes Skin Appearance) -Ulcer Cleansing Rinsed/ Irrigated with Saline -Foul Odor after Cleansing No -Anesthetic Used 4% Lidocaine Solution [Edema Assessment] -Lower Limb Edema Present NA Musculoskeletal: No Muscle Wasting Neurological: Cranial nerves II-XII grossly intact, Neuro grossly intact Psych/Mental Status: Normal Affect, Appropriate, Alert and oriented to time, place, person, mood and affect Debridement Note Post-Debridement Measurements/Treatment WC - Nurse 2 - General Ulcer CM Notes Start: 03/16/18 08:55 Freq: Status: Active Protocol: Activity Type Activity Date Activity User E-Sign Co-Sign Detail Recorded Client Recorded Date Recorded By Document 03/16/18 09:54 [id number] 03/16/18 10:11 03/16/18 09:54 Wound Center Nurse 2 #2 LEFT 4TH TOE -Time 09:54 #1 RIGHT ANKLE -Time 09:54 -Correct Patient Yes -Correct Side, Site, Position Yes -Correct Procedure Yes -Procedure Performed Yes -Type of Procedure Debridement -Clinical Debridement Subcutaneous -Post Debridement Size (cm) - Length 3.3 -Post Debridement Size (cm) - Width 0.9 -Post Debridement Size (cm) - Depth 2.0 -Total Square Cm 2.97 -Wound/Ulcer Outcome Not Healed -Ulcer Cleansing Rinsed/ Irrigated with Saline -Foul Odor after Cleansing No -Bioengineered Tissue No -Topical Lidocaine (%) 4 -Lidocaine (ml) 5 -Bleeding Controlled with NA -Treatment Response Procedure Tolerated Well Pain Scale: 0-10 Numeric Is Patient Pain Free? Yes Laterality: Right - Lateral malleolus Type of Debridement: Excisional debridement Anesthesia Used: 4% Lidocaine Solution Depth: Down to and including healthy tissue, in the subcutaneous layer Percentage of wound debrided: 100 Instrument Used: 5mm curette Severity: Fat Layer Exposed Amount of bleeding with debridement: Mild Bleeding Controlled with: Compression and gauze Patient tolerated procedure well Assessment/Plan Active Problems Surgical wound, non healing (Chronic) Delayed surgical wound healing (Chronic) Swelling of lower limb (Chronic) Edema of leg (Chronic) Dehiscence of surgical wound (Chronic) Osteomyelitis of ankle (Chronic) Assessment: This is a 72-year-old male who underwent right ankle surgery in August 2016. He has undergone 5 subsequent surgeries, related to complications from the initial surgical event. He presents at this time with a surgical wound dehiscence/nonhealing surgical wound on the right lateral malleolus. He is otherwise generally healthy, but for gout, erectile dysfunction, and hypertension. Culture results have revealed the presence of Klebsiella oxytoca, and the patient has been started on Augmentin 875 mg twice daily for 10 days. A Corynebacterium species has also been isolated, which would likely require intravenous antibiotic treatment with an agent such as vancomycin, if felt to be warranted and clinically significant. The patient has undergone laboratory testing, with results as follows: White blood count 5.9, hemoglobin 12.9, hematocrit 39.2, platelets 124,000, glucose 80, BUN 26, creatinine 1.11, total protein 7.2, albumin 3.8, AST 11, alkaline phosphatase 133, ALT 19, sodium 140, potassium 4.4, chloride 108, serum prealbumin 19.0. An MRI of the right ankle has been performed on 03/23/2018, which reveals postoperative changes, resection of the distal fibula, and findings consistent with osteomyelitis. Plan: We are to transition from the use of collagenase Santyl topically, to the use of the Snap VAC. The Snap VAC will be applied today, and changed twice weekly. Leg elevation has been recommended, to minimize the swelling of the right ankle. He is to avoid prolonged idle sitting. Nutritional optimization has been recommended, though the patient admits to a well-balanced, adequate diet. The patient is currently taking Augmentin 875 mg p.o. twice daily. This is to be continued for the next 10-14 days. He has an appointment with Dr. Jolly, infectious disease specialist. His appointment is next week on Thursday. In addition, it is felt that the patient will warrant continued management by a podiatric surgeon. He has requested that we seek such expertise locally. Therefore, we will consult Dr. Ellis, a member of our wound center clinical panel. Of note, with documented osteomyelitis, there is concern about the presence of remaining hardware in the right ankle joint. Review of the patient's MRI images may determine whether there is a likelihood of involvement of the stabilizing metal hardware. Patient is to return in 1 week for reassessment. As mentioned, consultations are to be arranged with the Podiatry service and Infectious Disease service. The complicated nature of the patient's medical issues will benefit from a multidisciplinary approach. The issue of possible role for hyperbaric oxygen therapy has also been considered. All issues have been discussed with the patient. The patient is to return in 1 week for reassessment. The patient is not a smoker. Influenza vaccine was not administered today. Patient weighs 266 pounds. He stands 5 feet 10 inches tall. His BMI is 38.1, which places him in a class II obesity category. Weight loss has been recommended, and collaboration with his primary care physician has been recommended.
[2018-04-02 13:54] VITALS: BP 131/80; PULSE 74; RESP 16; TEMP 36; BMI 38.1
== END 2018-04-02 23:59 ==
LOC: WC 14:00
PROVIDERS: Family Provider Family Medicine; PCP Family Medicine; Visit Provider Surgery
DX: T81.31XA Disruption of external operation (surgical) wound, not elsewhere classified, initial encounter (principal); Y83.9 Surgical procedure, unspecified as the cause of abnormal reaction of the patient, or of later complication, without mention of misadventure at the time of the procedure; M10.9 Gout, unspecified; E03.9 Hypothyroidism, unspecified; E78.5 Hyperlipidemia, unspecified; I10 Essential (primary) hypertension; Z79.899 Other long term (current) drug therapy; E66.9 Obesity, unspecified; Z68.38 Body mass index [BMI] 38.0-38.9, adult; Z71.3 Dietary counseling and surveillance
CPT/HCPCS: 11042; 80053; 84134; 85027; 87070; 87075; 87077; 87186; 87205; 97607; 99212; 99213; G0463

== ENCOUNTER 2018-04-23 09:00 | Outpatient (RCR) | payer MEDICARE, SELFPAY ==
[2018-04-03 01:43] VITALS: BP 131/80; PULSE 74; RESP 16; TEMP 36
[2018-04-06 10:58] VITALS: BP 124/78; PULSE 68; RESP 18; TEMP 36.7
--- NOTE | 2018-04-06 12:09 | PCM.WC.HP ---
(1) Surgical wound, non healing Status: Chronic Current Visit: Yes Qualifiers: Encounter type: subsequent encounter Code(s): T81.89XA - Other complications of procedures, not elsewhere classified, initial encounter (2) Delayed surgical wound healing Status: Chronic Current Visit: Yes Qualifiers: Encounter type: subsequent encounter Code(s): T81.89XA - Other complications of procedures, not elsewhere classified, initial encounter (3) Swelling of lower limb Status: Chronic Current Visit: Yes Code(s): M79.89 - Other specified soft tissue disorders (4) Edema of leg Status: Chronic Current Visit: Yes Code(s): R60.0 - Localized edema (5) Hypertension Status: Chronic Current Visit: No Code(s): I10 - Essential (primary) hypertension (6) Hypothyroidism Status: Chronic Current Visit: No Code(s): E03.9 - Hypothyroidism, unspecified (7) Gout Status: Chronic Current Visit: No Code(s): M10.9 - Gout, unspecified (8) Erectile dysfunction Status: Chronic Current Visit: No Code(s): N52.9 - Male erectile dysfunction, unspecified (9) Hyperlipidemia Status: Chronic Current Visit: No Code(s): E78.5 - Hyperlipidemia, unspecified (10) Dehiscence of surgical wound Status: Chronic Current Visit: Yes Qualifiers: Encounter type: subsequent encounter Code(s): T81.31XA - Disruption of external operation (surgical) wound, not elsewhere classified, initial encounter (11) Osteomyelitis of ankle Status: Chronic Current Visit: Yes Qualifiers: Laterality: right Code(s): M86.9 - Osteomyelitis, unspecified History of Present Illness Date of Service: 04/06/18 Chief Complaint: 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 On August 26, 2016, the patient underwent right ankle fusion by Dr. Julio Cesar Giraldo. The patient subsequently developed complications. Apparently, a screw broke, and required reoperation. Additional hardware was placed. Additional healing complications occurred, and the patient underwent a series of subsequent surgeries. A total of 6 surgical procedures have been performed. Review of records indicates that a right tibial talocalcaneal fusion and right subtalar joint fusion and calcaneal osteotomy was performed on May 08, 2017. Allogenic skin grafting was performed on September 04, 2017. Application of a soft tissue body and frame man was performed on January 14, 2018. At this time, the patient has a persisting open wound on the right lateral malleolus. He has recently been evaluated by another podiatric specialist, Dr. Hood, and diagnostic testing has been ordered, which is to include an MRI of the right ankle, and noninvasive lower extremity arterial assessment. The patient indicates that he had been using collagenase Santyl topically on a daily basis. Past Medical History Past Medical History: Chronic Problems Surgical wound, non healing (Chronic) Delayed surgical wound healing (Chronic) Swelling of lower limb (Chronic) Edema of leg (Chronic) Hypertension (Chronic) Hypothyroidism (Chronic) Gout (Chronic) Erectile dysfunction (Chronic) Hyperlipidemia (Chronic) Dehiscence of surgical wound (Chronic) Osteomyelitis of ankle (Chronic) Surgical History: - - The patient is undergone a total of 6 surgical procedures of his right ankle. He is known to have indwelling metal hardware in the right ankle joint. He has a history of thyroidectomy, lumbar surgery, and transurethral kidney stone surgery. Allergies/Adverse Reactions: Allergies indomethacin Allergy (Verified 03/15/14 14:25) Other Home Medications: Ambulatory Orders Medication Instructions Recorded Allopurinol [Zyloprim] 300 mg PO DAILY 03/15/14 Levothyroxine [Synthroid] 100 mcg PO DAILY 03/15/14 Potassium Citrate [Urocit-K] 15 meq PO BID 03/15/14 Simvastatin [Zocor] 20 mg PO QHS 03/15/14 Sulindac [Clinoril] 200 mg PO DAILY 03/15/14 - Family History Paternal - - The patient's father at age of 90 with history of cerebrovascular accident. The patient's mother at the age of 96 from old age. Smoking Status: Never smoker Tobacco Use: Non-smoker Review of Systems Constitutional: Denies: Chills, Fever, Weight Change Eyes: Denies: Pain, Vision Change HEENT: Denies: Difficulty Hearing, Difficulty Swallowing, Sinus Congestion Cardiovascular: Denies: Chest Pain, Palpitations Respiratory: Denies: Cough, Shortness of Breath Gastrointestinal: Denies: Diarrhea, Nausea, Vomiting Genitourinary: Denies: Dysuria, Hematuria Endocrine: Denies: Heat/ Cold Intolerance, Polydipsia, Polyuria Hematologic/ Lymphatic: Denies: Easy Bruising, Easy Bleeding - Physical Exam Vital Signs Temp Pulse Resp BP 98.0 F 68 18 124/78 H 04/06/18 10:58 04/06/18 10:58 04/06/18 10:58 04/06/18 10:58 General: Alert, Oriented x3, Cooperative, No apparent distress, Well developed, Well nourished HEENT: Atraumatic, PERRLA, EOMI, Normocephalic Oral: Moist Mucosa Neck: No JVD Lungs: Normal air movement Abdomen: Non-Distended Extremities: No clubbing, No cyanosis, No Calf Tenderness, - - Mild swelling and edema persist in the right lower extremity. The surgical wound on the right lateral malleolus is little changed in appearance. It is slightly smaller in size. There is no significant periwound erythema or cellulitis. The wound itself is generally pink and healthy in appearance. Dimensions are documented elsewhere. Skin: No rashes Wound Measurements and Assessment WC - Nurse 1 - General Ulcer Measurement Start: 04/06/18 10:58 Freq: Status: Active Protocol: Activity Type Activity Date Activity User E-Sign Co-Sign Detail Recorded Client Recorded Date Recorded By Document 04/06/18 10:58 [email or web address] [id number] 04/06/18 11:07 ANDREW 04/06/18 10:58 Wound Center Nurse 1 [Ulcer Assessment] #1 RIGHT ANKLE -Combined with other wound No -Current Size (cm) - Length 2.4 -Current Size (cm) - Width 0.6 -Current Size (cm) - Depth 1.4 -Total Square Cm 1.44 -Photo Taken No -Epithelialization Small 1-33% -Tunneling No -Undermining/Tunneling No -Circular Undermining No -Exudate Amt Small (1-33%) -Exudate Type Serosanguineous -Wound Margin Flat & Intact -Granulation Amt Large (67-100%) -Granulation Quality Red -Slough/Fibrin Yes -Necrosis Amt Small (1-33%) -Necrotic Tissue Type Adherent Slough -Structure Exposed N/A -Texture (Jennifer-wound Skin Appearance) Assessed Localized Edema Scarring -Moisture (Jennifer-wound Skin Appearance Assessed ) Dry/Scaly -Color (Jennifer-wound Skin Appearance) Assessed -Temperature (Jennifer-wound Skin No Abnormality Appearance) (Pt Warm) -Tenderness on Palpation (Jennifer-wound No Skin Appearance) -Ulcer Cleansing Wound Cleanser -Foul Odor after Cleansing No -Anesthetic Used 4% Lidocaine Solution [Edema Assessment] -Lower Limb Edema Present Yes -Right Calf (cm) 39.5 -Right Ankle (cm) 28.6 Neurological: Cranial nerves II-XII grossly intact, Neuro grossly intact Psych/Mental Status: Normal Affect, Appropriate, Alert and oriented to time, place, person, mood and affect Debridement Note Laterality: Right - Lateral malleolus Type of Debridement: Excisional debridement Anesthesia Used: 4% Lidocaine Solution Depth: Down to and including healthy tissue, in the subcutaneous layer Percentage of wound debrided: 100 Instrument Used: 5mm curette Severity: Fat Layer Exposed Amount of bleeding with debridement: Mild Bleeding Controlled with: Compression and gauze Patient tolerated procedure well Assessment/Plan Active Problems Surgical wound, non healing (Chronic) Delayed surgical wound healing (Chronic) Swelling of lower limb (Chronic) Edema of leg (Chronic) Dehiscence of surgical wound (Chronic) Osteomyelitis of ankle (Chronic) Assessment: This is a 72-year-old male who underwent right ankle surgery in August 2016. He has undergone 5 subsequent surgeries, related to complications from the initial surgical event. He presents at this time with a surgical wound dehiscence/nonhealing surgical wound on the right lateral malleolus. He is otherwise generally healthy, but for gout, erectile dysfunction, and hypertension. Culture results have revealed the presence of Klebsiella oxytoca, and the patient has been started on Augmentin 875 mg twice daily for 10 days. A Corynebacterium species has also been isolated, which would likely require intravenous antibiotic treatment with an agent such as vancomycin, if felt to be warranted and clinically significant. The patient has undergone laboratory testing, with results as follows: White blood count 5.9, hemoglobin 12.9, hematocrit 39.2, platelets 124,000, glucose 80, BUN 26, creatinine 1.11, total protein 7.2, albumin 3.8, AST 11, alkaline phosphatase 133, ALT 19, sodium 140, potassium 4.4, chloride 108, serum prealbumin 19.0. An MRI of the right ankle has been performed on 03/23/2018, which reveals postoperative changes, resection of the distal fibula, and findings consistent with osteomyelitis. Plan: The Snap VAC will be continued, and changed twice weekly. Leg elevation has been recommended, to minimize the swelling of the right ankle. He is to avoid prolonged idle sitting. Nutritional optimization has been recommended, though the patient admits to a well-balanced, adequate diet. The patient is currently taking Augmentin 875 mg p.o. twice daily. This is to be continued for the next 7-10 days. He has an appointment with Dr. Jolly, infectious disease specialist, tomorrow. Dr. Jolly's recommendations will be awaited. In addition, it is felt that the patient will warrant continued management by a podiatric surgeon. He has requested that we seek such expertise locally. Therefore, we will consult Dr. Ellis, a member of our wound center clinical panel. Of note, with documented osteomyelitis, there is concern about the presence of remaining hardware in the right ankle joint. Review of the patient's MRI images may determine whether there is a likelihood of involvement of the stabilizing metal hardware. Patient is to return in 1 week for reassessment. As mentioned, consultations are to be arranged with the Podiatry service and Infectious Disease service. The complicated nature of the patient's medical issues will benefit from a multidisciplinary approach. The issue of possible role for hyperbaric oxygen therapy has also been considered. All issues have been discussed with the patient. The patient is to return in 1 week for reassessment. The patient is not a smoker. Influenza vaccine was not administered today. Patient weighs 266 pounds. He stands 5 feet 10 inches tall. His BMI is 38.1, which places him in a class II obesity category. Weight loss has been recommended, and collaboration with his primary care physician has been recommended.
[2018-04-07 10:20] VITALS: BP 129/76; PULSE 72; RESP 16; TEMP 36.7
--- NOTE | 2018-04-07 10:26 | WC ---
Seen in Consult with Infection Disease (Dr. Bonifacio Jolly) SNaP VAC applied after consult appointment.
--- NOTE | 2018-04-07 12:15 | PCM.HP.ID ---
Problem List (1) Osteomyelitis of ankle Status: Chronic Qualifiers: Laterality: right Reason for Consult: osteo Consulted by: Dr. 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 Reports previous surgeries were done in [place] but was told he did have infection at that time. Did have some short courses of abx around time of surgeries. Referred to wound care center here. MRI showed osteo. Swab (+) for klebs and diphtheroids. He reports being on augmentin for about a month now, and leg is doing better. Minimal drainage, no redness, no pain. No fever, no n/v/d with abx. Full ROS performed and neg except as noted above. - Medical History Past Medical History (Chronic Problems): Chronic Problems Surgical wound, non healing (Chronic) Delayed surgical wound healing (Chronic) Swelling of lower limb (Chronic) Edema of leg (Chronic) Hypertension (Chronic) Hypothyroidism (Chronic) Gout (Chronic) Erectile dysfunction (Chronic) Hyperlipidemia (Chronic) Dehiscence of surgical wound (Chronic) Osteomyelitis of ankle (Chronic) Allergies/Adverse Reactions: Allergies indomethacin Allergy (Verified 03/15/14 14:25) Other Home Medications: Ambulatory Orders Medication Instructions Recorded Allopurinol [Zyloprim] 300 mg PO DAILY 03/15/14 Levothyroxine [Synthroid] 100 mcg PO DAILY 03/15/14 Potassium Citrate [Urocit-K] 15 meq PO BID 03/15/14 Simvastatin [Zocor] 20 mg PO QHS 03/15/14 Sulindac [Clinoril] 200 mg PO DAILY 03/15/14 - Social History Tobacco Use: non-smoker Vital Signs Temp Pulse Resp BP 98.0 F 72 16 129/76 H 04/07/18 10:20 04/07/18 10:20 04/07/18 10:20 04/07/18 10:20 Weight: 120.656 kg - Other Studies Radiology: [] reviewed Other Studies: [] Route of nutrition/ use of supplements: [] Nutritional Intake: [] IV Site: [] Cespedes Catheter: [] - Physical Exam General: Alert, Oriented x3, Cooperative, No apparent distress HEENT: Atraumatic, PERRLA, EOMI Neck: Supple, No Nodes Lungs: Clear to auscultation, Normal air movement Cardiovascular: Regular rate, Regular Rhythm, Murmur Abdomen: Bowel Sounds Present, Soft, Non Tender, Non-Distended Extremities: Edema - mild Skin: Ulcer/ Wound - R lateral ankle ulcer with packing in place, no surrounding redness Musculoskeletal: No Tenderness to Palpation of Joints or Extremities Neurological: Cranial nerves II-XII grossly intact - Assessment/Plan Antibiotics: [] Assessment/Plan: [] R ankle osteo with hardware in place - recent superficial cx with k.oxytoca and corynebacterium. Hard to say if the same bacteria are present in the bone, but he does seem to be responding well to augmentin. I don't see a need at this point to add any iv abx. With hardware in place, likely cannot cure this infection. Options would be surgical debridement and hardware removal vs continuing with po abx indefinitely. Would have him complete 2 more weeks of augmentin and after that point may be able to decrease to once daily dosing of keflex 500mg for fci suppression. Dr. Ellis is going to eval as well. I wrote rx for augmentin. Thank you, d/w nursing, will follow as needed.
[2018-04-13 12:05] VITALS: BP 143/83; PULSE 65; RESP 18; TEMP 36.1
--- NOTE | 2018-04-13 12:48 | PCM.WC.HP ---
(1) Surgical wound, non healing Status: Chronic Current Visit: Yes Qualifiers: Encounter type: subsequent encounter Code(s): T81.89XA - Other complications of procedures, not elsewhere classified, initial encounter (2) Delayed surgical wound healing Status: Chronic Current Visit: Yes Qualifiers: Encounter type: subsequent encounter Code(s): T81.89XA - Other complications of procedures, not elsewhere classified, initial encounter (3) Swelling of lower limb Status: Chronic Current Visit: Yes Code(s): M79.89 - Other specified soft tissue disorders (4) Edema of leg Status: Chronic Current Visit: Yes Code(s): R60.0 - Localized edema (5) Hypertension Status: Chronic Current Visit: No Code(s): I10 - Essential (primary) hypertension (6) Hypothyroidism Status: Chronic Current Visit: No Code(s): E03.9 - Hypothyroidism, unspecified (7) Gout Status: Chronic Current Visit: No Code(s): M10.9 - Gout, unspecified (8) Erectile dysfunction Status: Chronic Current Visit: No Code(s): N52.9 - Male erectile dysfunction, unspecified (9) Hyperlipidemia Status: Chronic Current Visit: No Code(s): E78.5 - Hyperlipidemia, unspecified (10) Dehiscence of surgical wound Status: Chronic Current Visit: Yes Qualifiers: Encounter type: subsequent encounter Code(s): T81.31XA - Disruption of external operation (surgical) wound, not elsewhere classified, initial encounter (11) Osteomyelitis of ankle Status: Chronic Current Visit: Yes Qualifiers: Laterality: right Code(s): M86.9 - Osteomyelitis, unspecified History of Present Illness Date of Service: 04/13/18 Chief Complaint: 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 On August 26, 2016, the patient underwent right ankle fusion by Dr. Julio Cesar Giraldo. The patient subsequently developed complications. Apparently, a screw broke, and required reoperation. Additional hardware was placed. Additional healing complications occurred, and the patient underwent a series of subsequent surgeries. A total of 6 surgical procedures have been performed. Review of records indicates that a right tibial talocalcaneal fusion and right subtalar joint fusion and calcaneal osteotomy was performed on May 08, 2017. Allogenic skin grafting was performed on September 04, 2017. Application of a soft tissue recovery auditor was performed on January 14, 2018. At this time, the patient has a persisting open wound on the right lateral malleolus. He has recently been evaluated by another podiatric specialist, Dr. Hood, and diagnostic testing was ordered, which included an MRI of the right ankle. On an MRI performed on March 23, 2018, there is evidence of osteomyelitis. Past Medical History Past Medical History: Chronic Problems Surgical wound, non healing (Chronic) Delayed surgical wound healing (Chronic) Swelling of lower limb (Chronic) Edema of leg (Chronic) Hypertension (Chronic) Hypothyroidism (Chronic) Gout (Chronic) Erectile dysfunction (Chronic) Hyperlipidemia (Chronic) Dehiscence of surgical wound (Chronic) Osteomyelitis of ankle (Chronic) Surgical History: - - The patient is undergone a total of 6 surgical procedures of his right ankle. He is known to have indwelling metal hardware in the right ankle joint. He has a history of thyroidectomy, lumbar surgery, and transurethral kidney stone surgery. Allergies/Adverse Reactions: Allergies indomethacin Allergy (Verified 03/15/14 14:25) Other Home Medications: Ambulatory Orders Medication Instructions Recorded Allopurinol [Zyloprim] 300 mg PO DAILY 03/15/14 Levothyroxine [Synthroid] 100 mcg PO DAILY 03/15/14 Potassium Citrate [Urocit-K] 15 meq PO BID 03/15/14 Simvastatin [Zocor] 20 mg PO QHS 03/15/14 Sulindac [Clinoril] 200 mg PO DAILY 03/15/14 - Family History Paternal - - The patient's father at age of 90 with history of cerebrovascular accident. The patient's mother at the age of 96 from old age. Smoking Status: Never smoker Tobacco Use: Non-smoker Review of Systems Constitutional: Denies: Chills, Fever, Weight Change Eyes: Denies: Pain, Vision Change HEENT: Denies: Difficulty Hearing, Difficulty Swallowing, Sinus Congestion Cardiovascular: Denies: Chest Pain, Palpitations Respiratory: Denies: Cough, Shortness of Breath Gastrointestinal: Denies: Diarrhea, Nausea, Vomiting Genitourinary: Denies: Dysuria, Hematuria Endocrine: Denies: Heat/ Cold Intolerance, Polydipsia, Polyuria Hematologic/ Lymphatic: Denies: Easy Bruising, Easy Bleeding - Physical Exam Vital Signs Temp Pulse Resp BP 97.0 F L 65 18 143/83 H 04/13/18 12:05 04/13/18 12:05 04/13/18 12:05 04/13/18 12:05 General: Alert, Oriented x3, Cooperative, No apparent distress, Well developed, Well nourished HEENT: Atraumatic, PERRLA, EOMI, Normocephalic Oral: Moist Mucosa Neck: No JVD Lungs: Normal air movement Abdomen: Non-Distended Extremities: No clubbing, No cyanosis, No Calf Tenderness, - - Swelling about the right ankle persists. The open surgical wound overlying the right lateral malleolus persists, though is slightly smaller in size. There is no significant drainage noted. There is no significant erythema or cellulitis. The ulceration is generally pink and healthy in appearance. Dimensions are documented elsewhere. Skin: No rashes Wound Measurements and Assessment WC - Nurse 1 - General Ulcer Measurement Start: 04/06/18 10:58 Freq: Status: Active Protocol: Activity Type Activity Date Activity User E-Sign Co-Sign Detail Recorded Client Recorded Date Recorded By Document 04/13/18 12:05 [id number] 04/13/18 12:07 04/13/18 12:05 Wound Center Nurse 1 [Ulcer Assessment] #1 RIGHT ANKLE -Combined with other wound No -Current Size (cm) - Length 2.1 -Current Size (cm) - Width 0.4 -Current Size (cm) - Depth 1.7 -Total Square Cm 0.84 -Date of Last Picture (Recall this 04/13/18 field) -Photo Taken Yes -Epithelialization Small 1-33% -Tunneling No -Undermining/Tunneling No -Circular Undermining No -Classification - Thickness Full Thickness without Exposed Support Structure -Exudate Amt Small (1-33%) -Exudate Type Serosanguineous -Wound Margin Distinct, Outline Attached -Granulation Amt Large (67-100%) -Granulation Quality Red -Slough/Fibrin Yes -Necrosis Amt Small (1-33%) -Necrotic Tissue Type Adherent Slough -Structure Exposed Fascia Fat Layer Exposed -Texture (Jennifer-wound Skin Appearance) Assessed Localized Edema -Moisture (Jennifer-wound Skin Appearance No Abnormality ) Assessed -Color (Jennifer-wound Skin Appearance) No Abnormality Assessed -Temperature (Jennifer-wound Skin No Abnormality Appearance) (Pt Warm) -Tenderness on Palpation (Jennifer-wound No Skin Appearance) -Ulcer Cleansing Rinsed/ Irrigated with Saline -Foul Odor after Cleansing No -Anesthetic Used 5% Lidocaine Gel [Edema Assessment] -Lower Limb Edema Present Yes -Right Calf (cm) 36.0 -Right Ankle (cm) 27.0 - Nurse 2 - General Ulcer CM Notes Start: 04/06/18 10:58 Freq: Status: Active Protocol: Activity Type Activity Date Activity User E-Sign Co-Sign Detail Recorded Client Recorded Date Recorded By Document 04/13/18 12:32 [id number] 04/13/18 12:45 04/13/18 12:32 Wound Center Nurse 2 [Procedure/Treatment] #1 RIGHT ANKLE -Time 12:32 -Correct Patient Yes -Correct Side, Site, Position Yes -Correct Procedure Yes -Procedure Performed Yes -Type of Procedure Debridement -Clinical Debridement Subcutaneous -Post Debridement Size (cm) - Length 3.0 -Post Debridement Size (cm) - Width 0.8 -Post Debridement Size (cm) - Depth 1.2 -Total Square Cm 2.40 -Wound/Ulcer Outcome Not Healed -Ulcer Cleansing Rinsed/ Irrigated with Saline -Foul Odor after Cleansing No -Bioengineered Tissue No -Bleeding Controlled with NA -Treatment Response Procedure Tolerated Well [See Physician Procedure note for Specifics] Pain Scale: 0-10 Numeric [Pain] -Is Patient Pain Free? Yes Neurological: Cranial nerves II-XII grossly intact, Neuro grossly intact Psych/Mental Status: Normal Affect, Appropriate, Alert and oriented to time, place, person, mood and affect Debridement Note Post-Debridement Measurements/Treatment - Nurse 2 - General Ulcer CM Notes Start: 04/06/18 10:58 Freq: Status: Active Protocol: Activity Type Activity Date Activity User E-Sign Co-Sign Detail Recorded Client Recorded Date Recorded By Document 04/06/18 12:10 [id number] 04/06/18 12:11 Document 04/13/18 12:32 [id number] 04/13/18 12:45 04/06/18 04/13/18 12:10 12:32 Wound Center Nurse 2 #1 RIGHT ANKLE -Time 12:11 12:32 -Correct Patient Yes Yes -Correct Side, Site, Position Yes Yes -Correct Procedure Yes Yes -Procedure Performed Yes Yes -Type of Procedure Debridement Debridement -Clinical Debridement Subcutaneous Subcutaneous -Post Debridement Size (cm) - Length 2.6 3.0 -Post Debridement Size (cm) - Width 1.8 0.8 -Post Debridement Size (cm) - Depth 0.9 1.2 -Total Square Cm 4.68 2.40 -Wound/Ulcer Outcome Not Healed Not Healed -Ulcer Cleansing Rinsed/ Rinsed/ Irrigated with Irrigated with Saline Saline -Foul Odor after Cleansing No No -Bioengineered Tissue No No -Bleeding Controlled with NA NA -Treatment Response Procedure Procedure Tolerated Well Tolerated Well Pain Scale: 0-10 Numeric Is Patient Pain Free? Yes Yes Laterality: Right - Lateral malleolus Type of Debridement: Excisional debridement Anesthesia Used: 4% Lidocaine Solution Depth: Down to and including healthy tissue, in the subcutaneous layer Percentage of wound debrided: 100 Instrument Used: 5mm curette Severity: Fat Layer Exposed Amount of bleeding with debridement: Mild Bleeding Controlled with: Compression and gauze Patient tolerated procedure well Assessment/Plan Active Problems Surgical wound, non healing (Chronic) Delayed surgical wound healing (Chronic) Swelling of lower limb (Chronic) Edema of leg (Chronic) Dehiscence of surgical wound (Chronic) Osteomyelitis of ankle (Chronic) Assessment: This is a 72-year-old male who underwent right ankle surgery in August 2016. He has undergone 5 subsequent surgeries, related to complications from the initial surgical event. He presents at this time with a surgical wound dehiscence/nonhealing surgical wound on the right lateral malleolus. He is otherwise generally healthy, but for gout, erectile dysfunction, and hypertension. Culture results have revealed the presence of Klebsiella oxytoca, and the patient has been started on Augmentin 875 mg twice daily for 10 days. A Corynebacterium species has also been isolated, which would likely require intravenous antibiotic treatment with an agent such as vancomycin, if felt to be warranted and clinically significant. The patient has undergone laboratory testing, with results as follows: White blood count 5.9, hemoglobin 12.9, hematocrit 39.2, platelets 124,000, glucose 80, BUN 26, creatinine 1.11, total protein 7.2, albumin 3.8, AST 11, alkaline phosphatase 133, ALT 19, sodium 140, potassium 4.4, chloride 108, serum prealbumin 19.0. An MRI of the right ankle has been performed on 03/23/2018, which reveals postoperative changes, resection of the distal fibula, and findings consistent with osteomyelitis. The patient has recently been evaluated by Dr. Jolly, Infectious Disease specialist. Dr. Jolly has indicated that I do not see a need at this point to add any intravenous antibiotics. With hardware in place, likely cannot cure this infection. Options would be surgical debridement and hardware removal versus continuing with p.o. antibiotics indefinitely. Dr. Jolly has extended his oral antibiotic regimen of augmentation for 2 more weeks, followed by Keflex 500 mg p.o. daily for long-term suppression. Plan: The Snap VAC will be continued, and changed twice weekly. Leg elevation has been recommended, to minimize the swelling of the right ankle. He is to avoid prolonged idle sitting. Nutritional optimization has been recommended, though the patient admits to a well-balanced, adequate diet. The patient is currently taking Augmentin 875 mg p.o. twice daily. Thereafter, the recommendations of Dr. Jolly will be implemented. It is felt that the patient will require continued management by a podiatric surgeon. He has requested that we seek such expertise locally. Therefore, we will consult Dr. Ellis, a member of our wound center clinical panel. Of note, with documented osteomyelitis, there is concern about the presence of remaining hardware in the right ankle joint. We will await the recommendations of podiatry consultation. Patient is to return in 1 week for reassessment. The complicated nature of the patient's medical issues will benefit from a multidisciplinary approach. The issue of possible role for hyperbaric oxygen therapy has also been considered. All issues have been discussed with the patient. The patient is to return in 1 week for reassessment. The patient is not a smoker. Influenza vaccine was not administered today. Patient weighs 266 pounds. He stands 5 feet 10 inches tall. His BMI is 38.1, which places him in a class II obesity category. Weight loss has been recommended, and collaboration with his primary care physician has been recommended.
--- NOTE | 2018-04-13 12:53 | HP.PCM_ITS ---
(1) Surgical wound, non healing Status: Chronic Current Visit: Yes Qualifiers: Encounter type: subsequent encounter Code(s): T81.89XA - Other complications of procedures, not elsewhere classified , initial encounter (2) Delayed surgical wound healing Status: Chronic Current Visit: Yes Qualifiers: Encounter type: subsequent encounter Code(s): T81.89XA - Other complications of procedures, not elsewhere classified , initial encounter (3) Swelling of lower limb Status: Chronic Current Visit: Yes Code(s): M79.89 - Other specified soft tissue disorders (4) Edema of leg Status: Chronic Current Visit: Yes Code(s): R60.0 - Localized edema (5) Hypertension Status: Chronic Current Visit: No Code(s): I10 - Essential (primary) hypertension (6) Hypothyroidism Status: Chronic Current Visit: No Code(s): E03.9 - Hypothyroidism, unspecified (7) Gout Status: Chronic Current Visit: No Code(s): M10.9 - Gout, unspecified (8) Erectile dysfunction Status: Chronic Current Visit: No Code(s): N52.9 - Male erectile dysfunction , unspecified (9) Hyperlipidemia Status: Chronic Current Visit: No Code(s): E78.5 - Hyperlipidemia, unspecified (10) Dehiscence of surgical wound Status: Chronic Current Visit: Yes Qualifiers: Encounter type: subsequent encounter Code(s): T81.31XA - Disruption of external operation (surgical) wound, not elsewhere classified, initial encounter (11) Osteomyelitis of ankle Status: Chronic Current Visit: Yes Qualifiers: Laterality: right Code(s): M86.9 - Osteomyelitis, unspecified History of Present Illness Date of Service: 04/13/18 Chief Complaint: 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 On August 26, 2016, the patient underwent right ankle fusion by Dr. Julio Cesar Giraldo. The patient subsequently developed complications. Apparently, a screw broke, and required reoperation. Additional hardware was placed. Additional healing complications occurred, and the patient underwent a series of subsequent surgeries. A total of 6 surgical procedures have been performed. Review of records indicates that a right tibial talocalcaneal fusion and right subtalar joint fusion and calcaneal osteotomy was performed on May 08, 2017. Allogenic skin grafting was performed on September 04, 2017. Application of a soft tissue long chain beamer was performed on January 14, 2018. At this time, the patient has a persisting open wound on the right lateral malleolus. He has recently been evaluated by another podiatric specialist, Dr. Hood, and diagnostic testing was ordered, which included an MRI of the right ankle. On an MRI performed on March 23, 2018, there is evidence of osteomyelitis. Past Medical History Past Medical History: Chronic Problems Surgical wound, non healing (Chronic) Delayed surgical wound healing (Chronic) Swelling of lower limb (Chronic) Edema of leg (Chronic) Hypertension (Chronic) Hypothyroidism (Chronic) Gout (Chronic) Erectile dysfunction (Chronic) Hyperlipidemia (Chronic) Dehiscence of surgical wound (Chronic) Osteomyelitis of ankle (Chronic) Surgical History: - - The patient is undergone a total of 6 surgical procedures of his right ankle. He is known to have indwelling metal hardware in the right ankle joint. He has a history of thyroidectomy, lumbar surgery, and transurethral kidney stone surgery. Allergies/Adverse Reactions: Allergies indomethacin Allergy (Verified 03/15/14 14:25) Other Home Medications: Ambulatory Orders Medication Instructions Recorded Allopurinol [Zyloprim] 300 mg PO DAILY 03/15/14 Levothyroxine [Synthroid] 100 mcg PO DAILY 03/15/14 Potassium Citrate [Urocit-K] 15 meq PO BID 03/15/14 Simvastatin [Zocor] 20 mg PO QHS 03/15/14 Sulindac [Clinoril] 200 mg PO DAILY 03/15/14 - Family History Paternal - - The patient's father at age of 90 with history of cerebrovascular accident. The patient's mother at the age of 96 from old age. Smoking Status: Never smoker Tobacco Use: Non-smoker Review of Systems Constitutional: Denies: Chills, Fever, Weight Change Eyes: Denies: Pain, Vision Change HEENT: Denies: Difficulty Hearing, Difficulty Swallowing, Sinus Congestion Cardiovascular: Denies: Chest Pain, Palpitations Respiratory: Denies: Cough, Shortness of Breath Gastrointestinal: Denies: Diarrhea, Nausea, Vomiting Genitourinary: Denies: Dysuria, Hematuria Endocrine: Denies: Heat/ Cold Intolerance, Polydipsia, Polyuria Hematologic/ Lymphatic: Denies: Easy Bruising, Easy Bleeding - Physical Exam Vital Signs Temp Pulse Resp BP 97.0 F L 65 18 143/83 H 04/13/18 12:05 04/13/18 12:05 04/13/18 12:05 04/13/18 12:05 General: Alert, Oriented x3, Cooperative, No apparent distress, Well developed, Well nourished HEENT: Atraumatic, PERRLA, EOMI, Normocephalic Oral: Moist Mucosa Neck: No JVD Lungs: Normal air movement Abdomen: Non-Distended Extremities: No clubbing, No cyanosis, No Calf Tenderness, - - Swelling about the right ankle persists. The open surgical wound overlying the right lateral malleolus persists, though is slightly smaller in size. There is no significant drainage noted. There is no significant erythema or cellulitis. The ulceration is generally pink and healthy in appearance. Dimensions are documented elsewhere. Skin: No rashes Wound Measurements and Assessment WC - Nurse 1 - General Ulcer Measurement Start: 04/06/18 10:58 Freq: Status: Active Protocol: Activity Type Activity Date Activity User E-Sign Co-Sign Detail Recorded Client Recorded Date Recorded By Document 04/13/18 12:05 [id number] 04/13/18 12:07 04/13/18 12:05 Wound Center Nurse 1 [Ulcer Assessment] #1 RIGHT ANKLE -Combined with other wound No -Current Size (cm) - Length 2.1 -Current Size (cm) - Width 0.4 -Current Size (cm) - Depth 1.7 -Total Square Cm 0.84 -Date of Last Picture (Recall this 04/13/18 field) -Photo Taken Yes -Epithelialization Small 1-33% -Tunneling No -Undermining/Tunneling No -Circular Undermining No -Classification - Thickness Full Thickness without Exposed Support Structure -Exudate Amt Small (1-33%) -Exudate Type Serosanguineous -Wound Margin Distinct, Outline Attached -Granulation Amt Large (67-100%) -Granulation Quality Red -Slough/Fibrin Yes -Necrosis Amt Small (1-33%) -Necrotic Tissue Type Adherent Slough -Structure Exposed Fascia Fat Layer Exposed -Texture (Jennifer-wound Skin Appearance) Assessed Localized Edema -Moisture (Jennifer-wound Skin Appearance No Abnormality ) Assessed -Color (Jennifer-wound Skin Appearance) No Abnormality Assessed -Temperature (Jennifer-wound Skin No Abnormality Appearance) (Pt Warm) -Tenderness on Palpation (Jennifer-wound No Skin Appearance) -Ulcer Cleansing Rinsed/ Irrigated with Saline -Foul Odor after Cleansing No -Anesthetic Used 5% Lidocaine Gel [Edema Assessment] -Lower Limb Edema Present Yes -Right Calf (cm) 36.0 -Right Ankle (cm) 27.0 - Nurse 2 - General Ulcer CM Notes Start: 04/06/18 10:58 Freq: Status: Active Protocol: Activity Type Activity Date Activity User E-Sign Co-Sign Detail Recorded Client Recorded Date Recorded By Document 04/13/18 12:32 [id number] 04/13/18 12:45 04/13/18 12:32 Wound Center Nurse 2 [Procedure/Treatment] #1 RIGHT ANKLE -Time 12:32 -Correct Patient Yes -Correct Side, Site, Position Yes -Correct Procedure Yes -Procedure Performed Yes -Type of Procedure Debridement -Clinical Debridement Subcutaneous -Post Debridement Size (cm) - Length 3.0 -Post Debridement Size (cm) - Width 0.8 -Post Debridement Size (cm) - Depth 1.2 -Total Square Cm 2.40 -Wound/Ulcer Outcome Not Healed -Ulcer Cleansing Rinsed/ Irrigated with Saline -Foul Odor after Cleansing No -Bioengineered Tissue No -Bleeding Controlled with NA -Treatment Response Procedure Tolerated Well [See Physician Procedure note for Specifics] Pain Scale: 0-10 Numeric [Pain] -Is Patient Pain Free? Yes Neurological: Cranial nerves II-XII grossly intact, Neuro grossly intact Psych/Mental Status: Normal Affect, Appropriate, Alert and oriented to time, place, person, mood and affect Debridement Note Post-Debridement Measurements/Treatment - Nurse 2 - General Ulcer CM Notes Start: 04/06/18 10:58 Freq: Status: Active Protocol: Activity Type Activity Date Activity User E-Sign Co-Sign Detail Recorded Client Recorded Date Recorded By Document 04/06/18 12:10 [id number] 04/06/18 12:11 Document 04/13/18 12:32 [id number] 04/13/18 12:45 04/06/18 04/13/18 12:10 12:32 Wound Center Nurse 2 #1 RIGHT ANKLE -Time 12:11 12:32 -Correct Patient Yes Yes -Correct Side, Site, Position Yes Yes -Correct Procedure Yes Yes -Procedure Performed Yes Yes -Type of Procedure Debridement Debridement -Clinical Debridement Subcutaneous Subcutaneous -Post Debridement Size (cm) - Length 2.6 3.0 -Post Debridement Size (cm) - Width 1.8 0.8 -Post Debridement Size (cm) - Depth 0.9 1.2 -Total Square Cm 4.68 2.40 -Wound/Ulcer Outcome Not Healed Not Healed -Ulcer Cleansing Rinsed/ Rinsed/ Irrigated with Irrigated with Saline Saline -Foul Odor after Cleansing No No -Bioengineered Tissue No No -Bleeding Controlled with NA NA -Treatment Response Procedure Procedure Tolerated Well Tolerated Well Pain Scale: 0-10 Numeric Is Patient Pain Free? Yes Yes Laterality: Right - Lateral malleolus Type of Debridement: Excisional debridement Anesthesia Used: 4% Lidocaine Solution Depth: Down to and including healthy tissue, in the subcutaneous layer Percentage of wound debrided: 100 Instrument Used: 5mm curette Severity: Fat Layer Exposed Amount of bleeding with debridement: Mild Bleeding Controlled with: Compression and gauze Patient tolerated procedure well Assessment/Plan Active Problems Surgical wound, non healing (Chronic) Delayed surgical wound healing (Chronic) Swelling of lower limb (Chronic) Edema of leg (Chronic) Dehiscence of surgical wound (Chronic) Osteomyelitis of ankle (Chronic) Assessment: This is a 72-year-old male who underwent right ankle surgery in August 2016. He has undergone 5 subsequent surgeries, related to complications from the initial surgical event. He presents at this time with a surgical wound dehiscence/nonhealing surgical wound on the right lateral malleolus. He is otherwise generally healthy, but for gout, erectile dysfunction, and hypertension. Culture results have revealed the presence of Klebsiella oxytoca, and the patient has been started on Augmentin 875 mg twice daily for 10 days. A Corynebacterium species has also been isolated, which would likely require intravenous antibiotic treatment with an agent such as vancomycin, if felt to be warranted and clinically significant. The patient has undergone laboratory testing, with results as follows: White blood count 5.9 , hemoglobin 12.9, hematocrit 39.2, platelets 124,000, glucose 80, BUN 26, creatinine 1.11, total protein 7.2, albumin 3.8, AST 11, alkaline phosphatase 133, ALT 19, sodium 140, potassium 4.4, chloride 108, serum prealbumin 19.0. An MRI of the right ankle has been performed on 03/23/2018, which reveals postoperative changes, resection of the distal fibula, and findings consistent with osteomyelitis. The patient has recently been evaluated by Dr. Jolly, Infectious Disease specialist. Dr. Jolly has indicated that I do not see a need at this point to add any intravenous antibiotics. With hardware in place , likely cannot cure this infection. Options would be surgical debridement and hardware removal versus continuing with p.o. antibiotics indefinitely. Dr. Jolly has extended his oral antibiotic regimen of augmentation for 2 more weeks, followed by Keflex 500 mg p.o. daily for long-term suppression. Plan: The Snap VAC will be continued, and changed twice weekly. Leg elevation has been recommended, to minimize the swelling of the right ankle. He is to avoid prolonged idle sitting. Nutritional optimization has been recommended, though the patient admits to a well-balanced, adequate diet. The patient is currently taking Augmentin 875 mg p.o. twice daily. Thereafter, the recommendations of Dr. Jolly will be implemented. It is felt that the patient will require continued management by a podiatric surgeon. He has requested that we seek such expertise locally. Therefore, we will consult Dr. Ellis, a member of our wound center clinical panel. Of note, with documented osteomyelitis, there is concern about the presence of remaining hardware in the right ankle joint. We will await the recommendations of podiatry consultation. Patient is to return in 1 week for reassessment. The complicated nature of the patient's medical issues will benefit from a multidisciplinary approach. The issue of possible role for hyperbaric oxygen therapy has also been considered. All issues have been discussed with the patient. The patient is to return in 1 week for reassessment. The patient is not a smoker. Influenza vaccine was not administered today. Patient weighs 266 pounds. He stands 5 feet 10 inches tall. His BMI is 38.1, which places him in a class II obesity category. Weight loss has been recommended, and collaboration with his primary care physician has been recommended.
--- NOTE | 2018-04-14 09:34 | WC ---
CONSULT-Dr. Abebe Ellis from referral Dr. Shamika Lundberg Spoke with Dr. Ellis today during her clinic regarding consult. She reviewed recent MRI. Plan is to schedule Mr. Martinez in her office for work-up, then transition back to the Wound Center. Demographics and Dr. Iverson faxed to her office.
[2018-04-20 11:25] VITALS: BP 127/79; PULSE 72; RESP 18; TEMP 36.3
--- NOTE | 2018-04-20 12:01 | PCM.WC.HP ---
(1) Surgical wound, non healing Status: Chronic Current Visit: Yes Qualifiers: Encounter type: subsequent encounter Code(s): T81.89XA - Other complications of procedures, not elsewhere classified, initial encounter (2) Delayed surgical wound healing Status: Chronic Current Visit: Yes Qualifiers: Encounter type: subsequent encounter Code(s): T81.89XA - Other complications of procedures, not elsewhere classified, initial encounter (3) Swelling of lower limb Status: Chronic Current Visit: Yes Code(s): M79.89 - Other specified soft tissue disorders (4) Edema of leg Status: Chronic Current Visit: Yes Code(s): R60.0 - Localized edema (5) Hypertension Status: Chronic Current Visit: No Code(s): I10 - Essential (primary) hypertension (6) Hypothyroidism Status: Chronic Current Visit: No Code(s): E03.9 - Hypothyroidism, unspecified (7) Gout Status: Chronic Current Visit: No Code(s): M10.9 - Gout, unspecified (8) Erectile dysfunction Status: Chronic Current Visit: No Code(s): N52.9 - Male erectile dysfunction, unspecified (9) Hyperlipidemia Status: Chronic Current Visit: No Code(s): E78.5 - Hyperlipidemia, unspecified (10) Dehiscence of surgical wound Status: Chronic Current Visit: Yes Qualifiers: Encounter type: subsequent encounter Code(s): T81.31XA - Disruption of external operation (surgical) wound, not elsewhere classified, initial encounter (11) Osteomyelitis of ankle Status: Chronic Current Visit: Yes Qualifiers: Laterality: right Code(s): M86.9 - Osteomyelitis, unspecified History of Present Illness Date of Service: 04/20/18 Chief Complaint: 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 On August 26, 2016, the patient underwent right ankle fusion by Dr. Julio Cesar Giraldo. The patient subsequently developed complications. Apparently, a screw broke, and required reoperation. Additional hardware was placed. Additional healing complications occurred, and the patient underwent a series of subsequent surgeries. A total of 6 surgical procedures have been performed. Review of records indicates that a right tibial talocalcaneal fusion and right subtalar joint fusion and calcaneal osteotomy was performed on May 08, 2017. Allogenic skin grafting was performed on September 04, 2017. Application of a soft tissue caddy was performed on January 14, 2018. At this time, the patient has a persisting open wound on the right lateral malleolus. He has recently been evaluated by another podiatric specialist, Dr. Hood, and diagnostic testing was ordered, which included an MRI of the right ankle. On an MRI performed on March 23, 2018, there is evidence of osteomyelitis. Past Medical History Past Medical History: Chronic Problems Surgical wound, non healing (Chronic) Delayed surgical wound healing (Chronic) Swelling of lower limb (Chronic) Edema of leg (Chronic) Hypertension (Chronic) Hypothyroidism (Chronic) Gout (Chronic) Erectile dysfunction (Chronic) Hyperlipidemia (Chronic) Dehiscence of surgical wound (Chronic) Osteomyelitis of ankle (Chronic) Surgical History: - - The patient is undergone a total of 6 surgical procedures of his right ankle. He is known to have indwelling metal hardware in the right ankle joint. He has a history of thyroidectomy, lumbar surgery, and transurethral kidney stone surgery. Allergies/Adverse Reactions: Allergies indomethacin Allergy (Verified 03/15/14 14:25) Other Home Medications: Ambulatory Orders Medication Instructions Recorded Allopurinol [Zyloprim] 300 mg PO DAILY 03/15/14 Levothyroxine [Synthroid] 100 mcg PO DAILY 03/15/14 Potassium Citrate [Urocit-K] 15 meq PO BID 03/15/14 Simvastatin [Zocor] 20 mg PO QHS 03/15/14 Sulindac [Clinoril] 200 mg PO DAILY 03/15/14 - Family History Paternal - - The patient's father at age of 90 with history of cerebrovascular accident. The patient's mother at the age of 96 from old age. Smoking Status: Never smoker Tobacco Use: Non-smoker Review of Systems Constitutional: Denies: Chills, Fever, Weight Change Eyes: Denies: Pain, Vision Change HEENT: Denies: Difficulty Hearing, Difficulty Swallowing, Sinus Congestion Cardiovascular: Denies: Chest Pain, Palpitations Respiratory: Denies: Cough, Shortness of Breath Gastrointestinal: Denies: Diarrhea, Nausea, Vomiting Genitourinary: Denies: Dysuria, Hematuria Endocrine: Denies: Heat/ Cold Intolerance, Polydipsia, Polyuria Hematologic/ Lymphatic: Denies: Easy Bruising, Easy Bleeding - Physical Exam Vital Signs Temp Pulse Resp BP 97.3 F L 72 18 127/79 H 04/20/18 11:25 04/20/18 11:25 04/20/18 11:25 04/20/18 11:25 General: Alert, Oriented x3, Cooperative, No apparent distress, Well developed, Well nourished HEENT: Atraumatic, PERRLA, EOMI, Normocephalic Oral: Moist Mucosa Neck: No JVD Lungs: Normal air movement Abdomen: Non-Distended Extremities: No clubbing, No cyanosis, No edema, No Calf Tenderness, - - The open surgical wound on the lateral aspect of the right ankle is slightly smaller in size. It is pink and generally healthy in appearance. There is no sign of infection or cellulitis. Dimensions are documented elsewhere. Skin: No rashes Wound Measurements and Assessment WC - Nurse 1 - General Ulcer Measurement Start: 04/06/18 10:58 Freq: Status: Active Protocol: Activity Type Activity Date Activity User E-Sign Co-Sign Detail Recorded Client Recorded Date Recorded By Document 04/20/18 11:25 DL [id number] 04/20/18 11:34 DL 04/20/18 11:25 Wound Center Nurse 1 [Ulcer Assessment] #1 RIGHT ANKLE -Current Size (cm) - Length 1.7 -Current Size (cm) - Width 0.5 -Current Size (cm) - Depth 0.2 -Total Square Cm 0.85 -Photo Taken No -Exudate Amt Small (1-33%) -Exudate Type Serosanguineous -Wound Margin Distinct, Outline Attached -Granulation Amt Large (67-100%) -Granulation Quality Red -Necrosis Amt None Present (0 %) -Structure Exposed N/A -Texture (Jennifer-wound Skin Appearance) Scarring -Moisture (Jennifer-wound Skin Appearance No Abnormality ) -Color (Jennifer-wound Skin Appearance) No Abnormality -Temperature (Jennifer-wound Skin No Abnormality Appearance) (Pt Warm) -Ulcer Cleansing Wound Cleanser -Foul Odor after Cleansing No -Anesthetic Used 4% Lidocaine Solution [Edema Assessment] -Right Calf (cm) 38.5 -Right Ankle (cm) 26.5 WC - Nurse 2 - General Ulcer CM Notes Start: 04/06/18 10:58 Freq: Status: Active Protocol: Activity Type Activity Date Activity User E-Sign Co-Sign Detail Recorded Client Recorded Date Recorded By Document 04/20/18 11:43 [id number] 04/20/18 11:51 04/20/18 11:43 Wound Center Nurse 2 [Procedure/Treatment] #1 RIGHT ANKLE -Time 11:46 -Correct Patient Yes -Correct Side, Site, Position Yes -Correct Procedure Yes -Procedure Performed Yes -Type of Procedure Debridement -Clinical Debridement Subcutaneous -Post Debridement Size (cm) - Length 1.7 -Post Debridement Size (cm) - Width 0.5 -Post Debridement Size (cm) - Depth 0.2 -Total Square Cm 0.85 -Wound/Ulcer Outcome Not Healed -Ulcer Cleansing Not Cleansed -Bioengineered Tissue No -Bleeding Controlled with NA -Treatment Response Procedure Tolerated Well [See Physician Procedure note for Specifics] Pain Scale: 0-10 Numeric [Pain] -Is Patient Pain Free? Yes Musculoskeletal: No Muscle Wasting Neurological: Cranial nerves II-XII grossly intact, Neuro grossly intact Psych/Mental Status: Normal Affect, Appropriate, Alert and oriented to time, place, person, mood and affect Debridement Note Post-Debridement Measurements/Treatment WC - Nurse 2 - General Ulcer CM Notes Start: 04/06/18 10:58 Freq: Status: Active Protocol: Activity Type Activity Date Activity User E-Sign Co-Sign Detail Recorded Client Recorded Date Recorded By Document 04/06/18 12:10 [id number] 04/06/18 12:11 Document 04/13/18 12:32 [id number] 04/13/18 12:45 Document 04/20/18 11:43 [id number] 04/20/18 11:51 04/06/18 04/13/18 04/20/18 12:10 12:32 11:43 Wound Center Nurse 2 #1 RIGHT ANKLE -Time 12:11 12:32 11:46 -Correct Patient Yes Yes Yes -Correct Side, Site, Position Yes Yes Yes -Correct Procedure Yes Yes Yes -Procedure Performed Yes Yes Yes -Type of Procedure Debridement Debridement Debridement -Clinical Debridement Subcutaneous Subcutaneous Subcutaneous -Post Debridement Size (cm) - Length 2.6 3.0 1.7 -Post Debridement Size (cm) - Width 1.8 0.8 0.5 -Post Debridement Size (cm) - Depth 0.9 1.2 0.2 -Total Square Cm 4.68 2.40 0.85 -Wound/Ulcer Outcome Not Healed Not Healed Not Healed -Ulcer Cleansing Rinsed/ Rinsed/ Not Cleansed Irrigated with Irrigated with Saline Saline -Foul Odor after Cleansing No No -Bioengineered Tissue No No No -Bleeding Controlled with NA NA NA -Treatment Response Procedure Procedure Procedure Tolerated Well Tolerated Well Tolerated Well Pain Scale: 0-10 Numeric Is Patient Pain Free? Yes Yes Yes Laterality: Right - Lateral malleolus Type of Debridement: Excisional debridement Anesthesia Used: 4% Lidocaine Solution Depth: Down to and including healthy tissue, in the subcutaneous layer Percentage of wound debrided: 100 Instrument Used: 7mm curette Severity: Fat Layer Exposed Amount of bleeding with debridement: Mild Bleeding Controlled with: Compression and gauze Patient tolerated procedure well Assessment/Plan Active Problems Surgical wound, non healing (Chronic) Delayed surgical wound healing (Chronic) Swelling of lower limb (Chronic) Edema of leg (Chronic) Dehiscence of surgical wound (Chronic) Osteomyelitis of ankle (Chronic) Assessment: This is a 72-year-old male who underwent right ankle surgery in August 2016. He has undergone 5 subsequent surgeries, related to complications from the initial surgical event. He presents at this time with a surgical wound dehiscence/nonhealing surgical wound on the right lateral malleolus. He is otherwise generally healthy, but for gout, erectile dysfunction, and hypertension. Culture results have revealed the presence of Klebsiella oxytoca, and the patient has been started on Augmentin 875 mg twice daily for 10 days. A Corynebacterium species has also been isolated, which would likely require intravenous antibiotic treatment with an agent such as vancomycin, if felt to be warranted and clinically significant. The patient has been seen by Dr. Jolly, infectious disease specialist, and his recommendations have been noted. He has recommended completion of the current prescription for augmentation, then long-term suppression using Keflex 500 mg p.o. daily. The patient has undergone laboratory testing, with results as follows: White blood count 5.9, hemoglobin 12.9, hematocrit 39.2, platelets 124,000, glucose 80, BUN 26, creatinine 1.11, total protein 7.2, albumin 3.8, AST 11, alkaline phosphatase 133, ALT 19, sodium 140, potassium 4.4, chloride 108, serum prealbumin 19.0. An MRI of the right ankle has been performed on 03/23/2018, which reveals postoperative changes, resection of the distal fibula, and findings consistent with osteomyelitis. As mentioned, the patient has recently been evaluated by Dr. Jolly, Infectious Disease specialist. Dr. Jolly has indicated that I do not see a need at this point to add any intravenous antibiotics. With hardware in place, likely cannot cure this infection. Options would be surgical debridement and hardware removal versus continuing with p.o. antibiotics indefinitely. Dr. Jolly has extended his oral antibiotic regimen of augmentation for 2 more weeks, followed by Keflex 500 mg p.o. daily for long-term suppression. Plan: The Snap VAC will be continued, and changed twice weekly. Leg elevation has been recommended, to minimize the swelling of the right ankle. He is to avoid prolonged idle sitting. Nutritional optimization has been recommended, though the patient admits to a well-balanced, adequate diet. The patient is currently taking Augmentin 875 mg p.o. twice daily. Thereafter, the recommendations of Dr. Jolly will be implemented. It is felt that the patient will require continued management by a podiatric surgeon. He has requested that we seek such expertise locally. We have consulted with Dr. Ellis, and her recommendations have been reviewed. She has scheduled the patient for CT scan in the near future, and surgical intervention may subsequently be warranted or recommended. Of note, with documented osteomyelitis, there is concern about the presence of remaining hardware in the right ankle joint. Patient is to return in 2 weeks for reassessment. In the interim, he will be traveling to [place] to visit family. The complicated nature of the patient's medical issues will benefit from a continue multidisciplinary approach. The issue of possible role for hyperbaric oxygen therapy has also been considered. All issues have been discussed with the patient. The patient is to return in 2 weeks for reassessment. The patient is not a smoker. Influenza vaccine was not administered today. Patient weighs 266 pounds. He stands 5 feet 10 inches tall. His BMI is 38.1, which places him in a class II obesity category. Weight loss has been recommended, and collaboration with his primary care physician has been recommended.
--- NOTE | 2018-04-20 12:07 | HP.PCM_ITS ---
(1) Surgical wound, non healing Status: Chronic Current Visit: Yes Qualifiers: Encounter type: subsequent encounter Code(s): T81.89XA - Other complications of procedures, not elsewhere classified , initial encounter (2) Delayed surgical wound healing Status: Chronic Current Visit: Yes Qualifiers: Encounter type: subsequent encounter Code(s): T81.89XA - Other complications of procedures, not elsewhere classified , initial encounter (3) Swelling of lower limb Status: Chronic Current Visit: Yes Code(s): M79.89 - Other specified soft tissue disorders (4) Edema of leg Status: Chronic Current Visit: Yes Code(s): R60.0 - Localized edema (5) Hypertension Status: Chronic Current Visit: No Code(s): I10 - Essential (primary) hypertension (6) Hypothyroidism Status: Chronic Current Visit: No Code(s): E03.9 - Hypothyroidism, unspecified (7) Gout Status: Chronic Current Visit: No Code(s): M10.9 - Gout, unspecified (8) Erectile dysfunction Status: Chronic Current Visit: No Code(s): N52.9 - Male erectile dysfunction , unspecified (9) Hyperlipidemia Status: Chronic Current Visit: No Code(s): E78.5 - Hyperlipidemia, unspecified (10) Dehiscence of surgical wound Status: Chronic Current Visit: Yes Qualifiers: Encounter type: subsequent encounter Code(s): T81.31XA - Disruption of external operation (surgical) wound, not elsewhere classified, initial encounter (11) Osteomyelitis of ankle Status: Chronic Current Visit: Yes Qualifiers: Laterality: right Code(s): M86.9 - Osteomyelitis, unspecified History of Present Illness Date of Service: 04/20/18 Chief Complaint: 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 On August 26, 2016, the patient underwent right ankle fusion by Dr. Julio Cesar Giraldo. The patient subsequently developed complications. Apparently, a screw broke, and required reoperation. Additional hardware was placed. Additional healing complications occurred, and the patient underwent a series of subsequent surgeries. A total of 6 surgical procedures have been performed. Review of records indicates that a right tibial talocalcaneal fusion and right subtalar joint fusion and calcaneal osteotomy was performed on May 08, 2017. Allogenic skin grafting was performed on September 04, 2017. Application of a soft tissue home companion was performed on January 14, 2018. At this time, the patient has a persisting open wound on the right lateral malleolus. He has recently been evaluated by another podiatric specialist, Dr. Hood, and diagnostic testing was ordered, which included an MRI of the right ankle. On an MRI performed on March 23, 2018, there is evidence of osteomyelitis. Past Medical History Past Medical History: Chronic Problems Surgical wound, non healing (Chronic) Delayed surgical wound healing (Chronic) Swelling of lower limb (Chronic) Edema of leg (Chronic) Hypertension (Chronic) Hypothyroidism (Chronic) Gout (Chronic) Erectile dysfunction (Chronic) Hyperlipidemia (Chronic) Dehiscence of surgical wound (Chronic) Osteomyelitis of ankle (Chronic) Surgical History: - - The patient is undergone a total of 6 surgical procedures of his right ankle. He is known to have indwelling metal hardware in the right ankle joint. He has a history of thyroidectomy, lumbar surgery, and transurethral kidney stone surgery. Allergies/Adverse Reactions: Allergies indomethacin Allergy (Verified 03/15/14 14:25) Other Home Medications: Ambulatory Orders Medication Instructions Recorded Allopurinol [Zyloprim] 300 mg PO DAILY 03/15/14 Levothyroxine [Synthroid] 100 mcg PO DAILY 03/15/14 Potassium Citrate [Urocit-K] 15 meq PO BID 03/15/14 Simvastatin [Zocor] 20 mg PO QHS 03/15/14 Sulindac [Clinoril] 200 mg PO DAILY 03/15/14 - Family History Paternal - - The patient's father at age of 90 with history of cerebrovascular accident. The patient's mother at the age of 96 from old age. Smoking Status: Never smoker Tobacco Use: Non-smoker Review of Systems Constitutional: Denies: Chills, Fever, Weight Change Eyes: Denies: Pain, Vision Change HEENT: Denies: Difficulty Hearing, Difficulty Swallowing, Sinus Congestion Cardiovascular: Denies: Chest Pain, Palpitations Respiratory: Denies: Cough, Shortness of Breath Gastrointestinal: Denies: Diarrhea, Nausea, Vomiting Genitourinary: Denies: Dysuria, Hematuria Endocrine: Denies: Heat/ Cold Intolerance, Polydipsia, Polyuria Hematologic/ Lymphatic: Denies: Easy Bruising, Easy Bleeding - Physical Exam Vital Signs Temp Pulse Resp BP 97.3 F L 72 18 127/79 H 04/20/18 11:25 04/20/18 11:25 04/20/18 11:25 04/20/18 11:25 General: Alert, Oriented x3, Cooperative, No apparent distress, Well developed, Well nourished HEENT: Atraumatic, PERRLA, EOMI, Normocephalic Oral: Moist Mucosa Neck: No JVD Lungs: Normal air movement Abdomen: Non-Distended Extremities: No clubbing, No cyanosis, No edema, No Calf Tenderness, - - The open surgical wound on the lateral aspect of the right ankle is slightly smaller in size. It is pink and generally healthy in appearance. There is no sign of infection or cellulitis. Dimensions are documented elsewhere. Skin: No rashes Wound Measurements and Assessment WC - Nurse 1 - General Ulcer Measurement Start: 04/06/18 10:58 Freq: Status: Active Protocol: Activity Type Activity Date Activity User E-Sign Co-Sign Detail Recorded Client Recorded Date Recorded By Document 04/20/18 11:25 DL [id number] 04/20/18 11:34 DL 04/20/18 11:25 Wound Center Nurse 1 [Ulcer Assessment] #1 RIGHT ANKLE -Current Size (cm) - Length 1.7 -Current Size (cm) - Width 0.5 -Current Size (cm) - Depth 0.2 -Total Square Cm 0.85 -Photo Taken No -Exudate Amt Small (1-33%) -Exudate Type Serosanguineous -Wound Margin Distinct, Outline Attached -Granulation Amt Large (67-100%) -Granulation Quality Red -Necrosis Amt None Present (0 %) -Structure Exposed N/A -Texture (Jennifer-wound Skin Appearance) Scarring -Moisture (Jennifer-wound Skin Appearance No Abnormality ) -Color (Jennifer-wound Skin Appearance) No Abnormality -Temperature (Jennifer-wound Skin No Abnormality Appearance) (Pt Warm) -Ulcer Cleansing Wound Cleanser -Foul Odor after Cleansing No -Anesthetic Used 4% Lidocaine Solution [Edema Assessment] -Right Calf (cm) 38.5 -Right Ankle (cm) 26.5 WC - Nurse 2 - General Ulcer CM Notes Start: 04/06/18 10:58 Freq: Status: Active Protocol: Activity Type Activity Date Activity User E-Sign Co-Sign Detail Recorded Client Recorded Date Recorded By Document 04/20/18 11:43 [id number] 04/20/18 11:51 04/20/18 11:43 Wound Center Nurse 2 [Procedure/Treatment] #1 RIGHT ANKLE -Time 11:46 -Correct Patient Yes -Correct Side, Site, Position Yes -Correct Procedure Yes -Procedure Performed Yes -Type of Procedure Debridement -Clinical Debridement Subcutaneous -Post Debridement Size (cm) - Length 1.7 -Post Debridement Size (cm) - Width 0.5 -Post Debridement Size (cm) - Depth 0.2 -Total Square Cm 0.85 -Wound/Ulcer Outcome Not Healed -Ulcer Cleansing Not Cleansed -Bioengineered Tissue No -Bleeding Controlled with NA -Treatment Response Procedure Tolerated Well [See Physician Procedure note for Specifics] Pain Scale: 0-10 Numeric [Pain] -Is Patient Pain Free? Yes Musculoskeletal: No Muscle Wasting Neurological: Cranial nerves II-XII grossly intact, Neuro grossly intact Psych/Mental Status: Normal Affect, Appropriate, Alert and oriented to time, place, person, mood and affect Debridement Note Post-Debridement Measurements/Treatment WC - Nurse 2 - General Ulcer CM Notes Start: 04/06/18 10:58 Freq: Status: Active Protocol: Activity Type Activity Date Activity User E-Sign Co-Sign Detail Recorded Client Recorded Date Recorded By Document 04/06/18 12:10 [email or web address] 04/06/18 12:11 Document 04/13/18 12:32 [id number] 04/13/18 12:45 Document 04/20/18 11:43 [id number] 04/20/18 11:51 04/06/18 04/13/18 04/20/18 12:10 12:32 11:43 Wound Center Nurse 2 #1 RIGHT ANKLE -Time 12:11 12:32 11:46 -Correct Patient Yes Yes Yes -Correct Side, Site, Position Yes Yes Yes -Correct Procedure Yes Yes Yes -Procedure Performed Yes Yes Yes -Type of Procedure Debridement Debridement Debridement -Clinical Debridement Subcutaneous Subcutaneous Subcutaneous -Post Debridement Size (cm) - Length 2.6 3.0 1.7 -Post Debridement Size (cm) - Width 1.8 0.8 0.5 -Post Debridement Size (cm) - Depth 0.9 1.2 0.2 -Total Square Cm 4.68 2.40 0.85 -Wound/Ulcer Outcome Not Healed Not Healed Not Healed -Ulcer Cleansing Rinsed/ Rinsed/ Not Cleansed Irrigated with Irrigated with Saline Saline -Foul Odor after Cleansing No No -Bioengineered Tissue No No No -Bleeding Controlled with NA NA NA -Treatment Response Procedure Procedure Procedure Tolerated Well Tolerated Well Tolerated Well Pain Scale: 0-10 Numeric Is Patient Pain Free? Yes Yes Yes Laterality: Right - Lateral malleolus Type of Debridement: Excisional debridement Anesthesia Used: 4% Lidocaine Solution Depth: Down to and including healthy tissue, in the subcutaneous layer Percentage of wound debrided: 100 Instrument Used: 7mm curette Severity: Fat Layer Exposed Amount of bleeding with debridement: Mild Bleeding Controlled with: Compression and gauze Patient tolerated procedure well Assessment/Plan Active Problems Surgical wound, non healing (Chronic) Delayed surgical wound healing (Chronic) Swelling of lower limb (Chronic) Edema of leg (Chronic) Dehiscence of surgical wound (Chronic) Osteomyelitis of ankle (Chronic) Assessment: This is a 72-year-old male who underwent right ankle surgery in August 2016. He has undergone 5 subsequent surgeries, related to complications from the initial surgical event. He presents at this time with a surgical wound dehiscence/nonhealing surgical wound on the right lateral malleolus. He is otherwise generally healthy, but for gout, erectile dysfunction, and hypertension. Culture results have revealed the presence of Klebsiella oxytoca, and the patient has been started on Augmentin 875 mg twice daily for 10 days. A Corynebacterium species has also been isolated, which would likely require intravenous antibiotic treatment with an agent such as vancomycin, if felt to be warranted and clinically significant. The patient has been seen by Dr. Jolly, infectious disease specialist, and his recommendations have been noted. He has recommended completion of the current prescription for augmentation, then long-term suppression using Keflex 500 mg p.o. daily. The patient has undergone laboratory testing, with results as follows: White blood count 5.9, hemoglobin 12.9, hematocrit 39.2, platelets 124, 000, glucose 80, BUN 26, creatinine 1.11, total protein 7.2, albumin 3.8, AST 11 , alkaline phosphatase 133, ALT 19, sodium 140, potassium 4.4, chloride 108, serum prealbumin 19.0. An MRI of the right ankle has been performed on 2017, which reveals postoperative changes, resection of the distal fibula, and findings consistent with osteomyelitis. As mentioned, the patient has recently been evaluated by Dr. Jolly, Infectious Disease specialist. Dr. Jolly has indicated that I do not see a need at this point to add any intravenous antibiotics. With hardware in place, likely cannot cure this infection. Options would be surgical debridement and hardware removal versus continuing with p.o. antibiotics indefinitely. Dr. Jolly has extended his oral antibiotic regimen of augmentation for 2 more weeks, followed by Keflex 500 mg p.o. daily for long-term suppression. Plan: The Snap VAC will be continued, and changed twice weekly. Leg elevation has been recommended, to minimize the swelling of the right ankle. He is to avoid prolonged idle sitting. Nutritional optimization has been recommended, though the patient admits to a well-balanced, adequate diet. The patient is currently taking Augmentin 875 mg p.o. twice daily. Thereafter, the recommendations of Dr. Jolly will be implemented. It is felt that the patient will require continued management by a podiatric surgeon. He has requested that we seek such expertise locally. We have consulted with Dr. Ellis, and her recommendations have been reviewed. She has scheduled the patient for CT scan in the near future, and surgical intervention may subsequently be warranted or recommended. Of note, with documented osteomyelitis, there is concern about the presence of remaining hardware in the right ankle joint. Patient is to return in 2 weeks for reassessment. In the interim, he will be traveling to [place] to visit family. The complicated nature of the patient's medical issues will benefit from a continue multidisciplinary approach. The issue of possible role for hyperbaric oxygen therapy has also been considered. All issues have been discussed with the patient. The patient is to return in 2 weeks for reassessment. The patient is not a smoker. Influenza vaccine was not administered today. Patient weighs 266 pounds. He stands 5 feet 10 inches tall. His BMI is 38.1, which places him in a class II obesity category. Weight loss has been recommended, and collaboration with his primary care physician has been recommended.
[2018-04-23 09:17] VITALS: BP 131/71; PULSE 70; RESP 18; TEMP 36.3
== END 2018-05-02 23:59 ==
LOC: WC 09:00
PROVIDERS: Family Provider Family Medicine; PCP Family Medicine; Visit Provider Surgery
DX: T81.31XA Disruption of external operation (surgical) wound, not elsewhere classified, initial encounter (principal); E78.5 Hyperlipidemia, unspecified; I10 Essential (primary) hypertension; M79.89 Other specified soft tissue disorders; R60.0 Localized edema; M86.671 Other chronic osteomyelitis, right ankle and foot; M10.9 Gout, unspecified; Z79.899 Other long term (current) drug therapy; E03.9 Hypothyroidism, unspecified; E66.9 Obesity, unspecified; Z68.38 Body mass index [BMI] 38.0-38.9, adult; Z71.3 Dietary counseling and surveillance
CPT/HCPCS: 11042; 97607; 99212; 99213; G0463

== ENCOUNTER → 2018-05-04 13:14 | Outpatient (CLI) | payer MEDICARE, SELFPAY ==
--- NOTE | 2018-05-04 13:18 | CT_ITS ---
STUDY: CT RIGHT ANKLE WITHOUT CONTRAST REASON FOR EXAM: Male, 72 years old. OSTEOMYELITIS RT LOWER EXT, SURG X 7, NON UNION ANKLE FUSION RADIATION DOSAGE (If Supplied By Facility): CTDIvol = ( 15.35 ) mGy, DLP = ( 466.28 ) mGycm TECHNIQUE: Thin section transaxial imaging of the ankle was obtained, with sagittal and coronal reconstructed images. Individualized dose optimization techniques were used for this CT. COMPARISON: None. FINDINGS: There is arthrodesis of the tibiotalar joint with solid bony bridging involving 60% of the anterior aspect of the joint space. There is arthrodesis of the subtalar joint is at least 70% bony bridging at the posterior subtalar joint space. There is periosteal bone formation in the distal tibia consistent with chronic osteomyelitis. There is demineralization of the osseous structures suggesting osteopenia due to disuse. Normal navicular-cuneiform, cuneiform tarsal bones and intercuneiform articulations. Normal tarsometatarsal articulations and visualized metatarsi. There is a skin defect at the lateral aspect of the ankle. CT/Extremity Lower without Contra IMPRESSION: There is periosteal bone formation in the distal tibia consistent with chronic osteomyelitis. There is arthrodesis of the tibiotalar joint with solid bony bridging involving 60% of the anterior aspect of the joint space. There is arthrodesis of the subtalar joint is at least 70% bony bridging at the posterior subtalar joint space. Electronically Signed: Radha Murphy MD at 9:49 EDT Tel , Service support ,
== END ==
PROVIDERS: Family Provider Family Medicine; PCP Family Medicine; Referring Provider Podiatrist; Visit Provider Podiatrist
DX: M86.271 Subacute osteomyelitis, right ankle and foot (principal); M96.0 Pseudarthrosis after fusion or arthrodesis; T81.31XA Disruption of external operation (surgical) wound, not elsewhere classified, initial encounter; Y83.8 Other surgical procedures as the cause of abnormal reaction of the patient, or of later complication, without mention of misadventure at the time of the procedure; I10 Essential (primary) hypertension; E78.5 Hyperlipidemia, unspecified; M79.89 Other specified soft tissue disorders; R60.0 Localized edema; E03.9 Hypothyroidism, unspecified; M10.9 Gout, unspecified; Z79.899 Other long term (current) drug therapy
CPT/HCPCS: 71046; 73700

== ENCOUNTER → 2018-05-26 08:38 | Outpatient (CLI) | payer SELFPAY ==
[2018-05-26 12:23] LABS: ALB/GLOB Ratio 1.1 RATIO (0.9-2.4); AST(SGOT) 11 U/L (15-37); Alanine Aminotransfer ALT/SGPT 20 U/L (16-61); Alkaline Phosphatase 152 U/L (45-117); Anion Gap 7 (5-15); BUN 27 mg/dL (7-18); BUN/Creat Ratio 23.5 RATIO (10-20); Calcium,Total 8.5 mg/dL (8.5-10.1); Chloride 106 mmol/L (98-107); Creatinine, Serum 1.15 mg/dL (0.70-1.30); EST Glomerular Filtration Rate 67 mL/min (>60); Est Glom Filt Rate - Afr Amer 80 mL/min (>60); Globulin 3.5 g/dL (2.2-4.2); Glucose 99 mg/dL (74-106); Protein, Total 7.5 g/dL (6.4-8.2); Sodium Level 141 mmol/L (136-145)
[2018-05-26 12:24] LABS: Absolute Neutrophil Count 3.2 X10^3/uL (2.0-7.7); Basophil# 0.01 X10^3/uL; Basophil% 0.2 % (0-1); Eosinophil# 0.08 X10^3/uL; Eosinophils% 1.2 % (0-5); Hematocrit 39.6 % (40-54); Hemoglobin 12.8 g/dl (13.0-16.5); Lymphocyte % 21.1 % (19-41); Mean Corp Hgb Conc 32.3 g/gl (32-36); Mean Corpuscular Hgb 29.4 pg (27.0-32.0); Mean Platelet Vol. 12.6 fl (6.2-12.0); Monocyte% 27.1 % (0-10); Platelet Count 125 K/mm3 (150-450); RBC Distribution Width CV 15.1 % (11.6-14.6); RBC Distribution Width SD 49.4 fl (35.1-43.9); Red Blood Count 4.35 M/mm3 (4.6-6.2); White Blood Count 6.7 K/mm3 (4.4-11.0)
[2018-05-26 12:26] LABS: Differential Indicated SCAN CRITERIA MET; POSITIVE COUNT YES; POSITIVE DIFFERENTIAL YES; POSITIVE MORPHOLOGY YES
[2018-05-27 13:27] LABS: Pathologist Review Reviewed
== END ==
PROVIDERS: Family Provider Family Medicine; PCP Family Medicine; Visit Provider Family Medicine
DX: Z01.818 Encounter for other preprocedural examination (principal)
CPT/HCPCS: 36415; 80053; 85025

== ENCOUNTER 2018-06-01 09:30 | Outpatient (RCR) | payer MEDICARE, SELFPAY ==
[2018-05-03 01:17] VITALS: BP 131/71; PULSE 70; RESP 18; TEMP 36.3
[2018-05-04 09:06] VITALS: BP 137/76; PULSE 66; RESP 16; TEMP 36.2
--- NOTE | 2018-05-04 10:03 | PCM.WC.HP ---
(1) Surgical wound, non healing Status: Chronic Current Visit: Yes Qualifiers: Encounter type: subsequent encounter Code(s): T81.89XA - Other complications of procedures, not elsewhere classified, initial encounter (2) Delayed surgical wound healing Status: Chronic Current Visit: Yes Qualifiers: Encounter type: subsequent encounter Code(s): T81.89XA - Other complications of procedures, not elsewhere classified, initial encounter (3) Swelling of lower limb Status: Chronic Current Visit: Yes Code(s): M79.89 - Other specified soft tissue disorders (4) Edema of leg Status: Chronic Current Visit: Yes Code(s): R60.0 - Localized edema (5) Hypertension Status: Chronic Current Visit: No Code(s): I10 - Essential (primary) hypertension (6) Hypothyroidism Status: Chronic Current Visit: No Code(s): E03.9 - Hypothyroidism, unspecified (7) Gout Status: Chronic Current Visit: No Code(s): M10.9 - Gout, unspecified (8) Erectile dysfunction Status: Chronic Current Visit: No Code(s): N52.9 - Male erectile dysfunction, unspecified (9) Hyperlipidemia Status: Chronic Current Visit: No Code(s): E78.5 - Hyperlipidemia, unspecified (10) Dehiscence of surgical wound Status: Chronic Current Visit: Yes Qualifiers: Encounter type: subsequent encounter Code(s): T81.31XA - Disruption of external operation (surgical) wound, not elsewhere classified, initial encounter (11) Osteomyelitis of ankle Status: Chronic Current Visit: Yes Code(s): M86.9 - Osteomyelitis, unspecified History of Present Illness Chief Complaint: 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 On August 26, 2016, the patient underwent right ankle fusion by Dr. Julio Cesar Giraldo. The patient subsequently developed complications. Apparently, a screw broke, and required reoperation. Additional hardware was placed. Additional healing complications occurred, and the patient underwent a series of subsequent surgeries. A total of 6 surgical procedures have been performed. Review of records indicates that a right tibial talocalcaneal fusion and right subtalar joint fusion and calcaneal osteotomy was performed on May 08, 2017. Allogenic skin grafting was performed on September 04, 2017. Application of a soft tissue packing line worker was performed on January 14, 2018. At this time, the patient has a persisting open wound on the right lateral malleolus. On an MRI performed on March 23, 2018, there is evidence of osteomyelitis. Past Medical History Past Medical History: Chronic Problems Surgical wound, non healing (Chronic) Delayed surgical wound healing (Chronic) Swelling of lower limb (Chronic) Edema of leg (Chronic) Hypertension (Chronic) Hypothyroidism (Chronic) Gout (Chronic) Erectile dysfunction (Chronic) Hyperlipidemia (Chronic) Dehiscence of surgical wound (Chronic) Osteomyelitis of ankle (Chronic) Surgical History: - - The patient is undergone a total of 6 surgical procedures of his right ankle. He is known to have indwelling metal hardware in the right ankle joint. He has a history of thyroidectomy, lumbar surgery, and transurethral kidney stone surgery. Allergies/Adverse Reactions: Allergies indomethacin Allergy (Verified 03/15/14 14:25) Other Home Medications: Ambulatory Orders Medication Instructions Recorded Allopurinol [Zyloprim] 300 mg PO DAILY 03/15/14 Levothyroxine [Synthroid] 100 mcg PO DAILY 03/15/14 Potassium Citrate [Urocit-K] 15 meq PO BID 03/15/14 Simvastatin [Zocor] 20 mg PO QHS 03/15/14 Sulindac [Clinoril] 200 mg PO DAILY 03/15/14 - Family History Paternal - - The patient's father at age of 90 with history of cerebrovascular accident. The patient's mother at the age of 96 from old age. Smoking Status: Never smoker Tobacco Use: Non-smoker Review of Systems Constitutional: Denies: Chills, Fever, Weight Change Eyes: Denies: Pain, Vision Change HEENT: Denies: Difficulty Hearing, Difficulty Swallowing, Sinus Congestion Cardiovascular: Denies: Chest Pain, Palpitations Respiratory: Denies: Cough, Shortness of Breath Gastrointestinal: Denies: Diarrhea, Nausea, Vomiting Genitourinary: Denies: Dysuria, Hematuria Endocrine: Denies: Heat/ Cold Intolerance, Polydipsia, Polyuria Hematologic/ Lymphatic: Denies: Easy Bruising, Easy Bleeding - Physical Exam Vital Signs Temp Pulse Resp BP 97.1 F L 66 16 137/76 H 05/04/18 09:06 05/04/18 09:06 05/04/18 09:06 05/04/18 09:06 General: Alert, Oriented x3, Cooperative, No apparent distress, Well developed, Well nourished HEENT: Atraumatic, PERRLA, EOMI, Normocephalic Oral: Moist Mucosa Neck: No JVD Lungs: Normal air movement Abdomen: Non-Distended Extremities: No clubbing, No cyanosis, No Calf Tenderness, - - Mild swelling and edema persists in the distal right lower extremity. The open wound on the right lateral malleolus is relatively unchanged, though slightly smaller in size. The base of the wound is generally pink and healthy in appearance, with active granulation tissue. There is no obvious sign of infection or cellulitis. There is a moderate amount of bioburden. Dimensions are documented elsewhere. Skin: No rashes Wound Measurements and Assessment WC - Nurse 1 - General Ulcer Measurement Start: 05/04/18 09:06 Freq: Status: Active Protocol: Activity Type Activity Date Activity User E-Sign Co-Sign Detail Recorded Client Recorded Date Recorded By Document 05/04/18 09:06 ANDREW [id number] 05/04/18 09:12 ANDREW 05/04/18 09:06 Wound Center Nurse 1 [Ulcer Assessment] #1 RIGHT ANKLE -Combined with other wound No -Current Size (cm) - Length 2.3 -Current Size (cm) - Width 0.5 -Current Size (cm) - Depth 1.0 -Total Square Cm 1.15 -Photo Taken No -Epithelialization Small 1-33% -Tunneling No -Undermining/Tunneling No -Circular Undermining No -Exudate Amt Small (1-33%) -Exudate Type Serosanguineous -Wound Margin Thickened & Rolled Under -Granulation Amt Large (67-100%) -Granulation Quality Red -Slough/Fibrin Yes -Necrosis Amt Small (1-33%) -Necrotic Tissue Type Adherent Slough -Structure Exposed N/A -Texture (Jennifer-wound Skin Appearance) Assessed Localized Edema Scarring -Moisture (Jennifer-wound Skin Appearance Assessed ) Dry/Scaly -Color (Jennifer-wound Skin Appearance) Assessed -Temperature (Jennifer-wound Skin No Abnormality Appearance) (Pt Warm) -Tenderness on Palpation (Jennifer-wound No Skin Appearance) -Ulcer Cleansing Wound Cleanser -Foul Odor after Cleansing No -Anesthetic Used 4% Lidocaine Solution [Edema Assessment] -Lower Limb Edema Present Yes -Right Calf (cm) 38.7 -Right Ankle (cm) 26.4 WC - Nurse 2 - General Ulcer CM Notes Start: 05/04/18 09:06 Freq: Status: Active Protocol: Activity Type Activity Date Activity User E-Sign Co-Sign Detail Recorded Client Recorded Date Recorded By Document 05/04/18 09:45 DV [id number] 05/04/18 09:53 DV 05/04/18 09:45 Wound Center Nurse 2 [Procedure/Treatment] #1 RIGHT ANKLE -Time 09:50 -Correct Patient Yes -Correct Side, Site, Position Yes -Correct Procedure Yes -Procedure Performed Yes -Type of Procedure Debridement -Clinical Debridement Subcutaneous -Post Debridement Size (cm) - Length 2.5 -Post Debridement Size (cm) - Width 0.5 -Post Debridement Size (cm) - Depth 1.5 -Total Square Cm 1.25 -Wound/Ulcer Outcome Not Healed -Foul Odor after Cleansing Yes -Bioengineered Tissue No -Bleeding Controlled with Pressure -Treatment Response Procedure Tolerated Well [See Physician Procedure note for Specifics] Pain Scale: 0-10 Numeric [Pain] -Is Patient Pain Free? Yes Musculoskeletal: No Muscle Wasting Neurological: Cranial nerves II-XII grossly intact, Neuro grossly intact Psych/Mental Status: Normal Affect, Appropriate, Alert and oriented to time, place, person, mood and affect Debridement Note Post-Debridement Measurements/Treatment - Nurse 2 - General Ulcer CM Notes Start: 05/04/18 09:06 Freq: Status: Active Protocol: Activity Type Activity Date Activity User E-Sign Co-Sign Detail Recorded Client Recorded Date Recorded By Document 05/04/18 09:45 DV [id number] 05/04/18 09:53 DV 05/04/18 09:45 Wound Center Nurse 2 #1 RIGHT ANKLE -Time 09:50 -Correct Patient Yes -Correct Side, Site, Position Yes -Correct Procedure Yes -Procedure Performed Yes -Type of Procedure Debridement -Clinical Debridement Subcutaneous -Post Debridement Size (cm) - Length 2.5 -Post Debridement Size (cm) - Width 0.5 -Post Debridement Size (cm) - Depth 1.5 -Total Square Cm 1.25 -Wound/Ulcer Outcome Not Healed -Foul Odor after Cleansing Yes -Bioengineered Tissue No -Bleeding Controlled with Pressure -Treatment Response Procedure Tolerated Well Pain Scale: 0-10 Numeric Is Patient Pain Free? Yes Laterality: Right - Lateral malleolus Type of Debridement: Excisional debridement Anesthesia Used: 4% Lidocaine Solution Depth: Down to and including healthy tissue, in the subcutaneous layer Percentage of wound debrided: 100 Instrument Used: 3mm curette Severity: Fat Layer Exposed Amount of bleeding with debridement: Mild Bleeding Controlled with: Compression and gauze Patient tolerated procedure well Assessment/Plan Active Problems Surgical wound, non healing (Chronic) Delayed surgical wound healing (Chronic) Swelling of lower limb (Chronic) Edema of leg (Chronic) Dehiscence of surgical wound (Chronic) Osteomyelitis of ankle (Chronic) Assessment: This is a 72-year-old male who underwent right ankle surgery in August 2016. He has undergone 5 subsequent surgeries, related to complications from the initial surgical event. He presents at this time with a surgical wound dehiscence/nonhealing surgical wound on the right lateral malleolus. He is otherwise generally healthy, but for gout, erectile dysfunction, and hypertension. Culture results have revealed the presence of Klebsiella oxytoca, and the patient was treated with Augmentin 875 mg twice daily. A Corynebacterium species has also been isolated, which would likely require intravenous antibiotic treatment with an agent such as vancomycin, if felt to be warranted and clinically significant. The patient has been seen by Dr. Jolly, infectious disease specialist, and his recommendations have been noted. He has recommended completion of the current prescription for augmentation, then long-term suppression using Keflex 500 mg p.o. daily. The patient has undergone laboratory testing, with results as follows: White blood count 5.9, hemoglobin 12.9, hematocrit 39.2, platelets 124,000, glucose 80, BUN 26, creatinine 1.11, total protein 7.2, albumin 3.8, AST 11, alkaline phosphatase 133, ALT 19, sodium 140, potassium 4.4, chloride 108, serum prealbumin 19.0. An MRI of the right ankle has been performed on 03/23/2018, which reveals postoperative changes, resection of the distal fibula, and findings consistent with osteomyelitis. As mentioned, the patient has recently been evaluated by Dr. Jolly, Infectious Disease specialist. Dr. Jolly has indicated that I do not see a need at this point to add any intravenous antibiotics. With hardware in place, likely cannot cure this infection. Options would be surgical debridement and hardware removal versus continuing with p.o. antibiotics indefinitely. Dr. Jolly has extended his oral antibiotic regimen of Keflex 500 mg p.o. daily for long-term suppression. Plan: The Snap VAC will be continued, and changed twice weekly. Leg elevation has been recommended, to minimize the swelling of the right ankle. He is to avoid prolonged idle sitting. Nutritional optimization has been recommended, though the patient admits to a well-balanced, adequate diet. The patient is currently taking Keflex 500 mg p.o. daily. We have consulted with Dr. Ellis, and her recommendations have been reviewed. She has scheduled the patient for CT scan, which is scheduled for later today. Depending on the findings of CT scan, surgical intervention may subsequently be warranted or recommended. Of note, with documented osteomyelitis, there is concern about the presence of remaining hardware in the right ankle joint. Patient is to return in 1 week for reassessment. The complicated nature of the patient's medical issues will benefit from a continued multidisciplinary approach. The issue of possible role for hyperbaric oxygen therapy has also been considered. All issues have been discussed with the patient. Management will continue with the assistance of Dr. Jolly and Dr. Ellis. The patient is not a smoker. Influenza vaccine was not administered today. Patient weighs 266 pounds. He stands 5 feet 10 inches tall. His BMI is 38.1, which places him in a class II obesity category. Weight loss has been recommended, and collaboration with his primary care physician has been recommended.
[2018-05-11 09:38] VITALS: BP 141/79; PULSE 62; RESP 18; TEMP 36.5
--- NOTE | 2018-05-11 10:06 | HP.PCM_ITS ---
(1) Surgical wound, non healing Status: Chronic Current Visit: Yes Qualifiers: Encounter type: subsequent encounter Code(s): T81.89XA - Other complications of procedures, not elsewhere classified, initial encounter (2) Delayed surgical wound healing Status: Chronic Current Visit: Yes Qualifiers: Encounter type: subsequent encounter Code(s): T81.89XA - Other complications of procedures, not elsewhere classified, initial encounter (3) Swelling of lower limb Status: Chronic Current Visit: Yes Code(s): M79.89 - Other specified soft tissue disorders (4) Edema of leg Status: Chronic Current Visit: Yes Code(s): R60.0 - Localized edema (5) Hypertension Status: Chronic Current Visit: No Code(s): I10 - Essential (primary) hypertension (6) Hypothyroidism Status: Chronic Current Visit: No Code(s): E03.9 - Hypothyroidism, unspecified (7) Gout Status: Chronic Current Visit: No Code(s): M10.9 - Gout, unspecified (8) Erectile dysfunction Status: Chronic Current Visit: No Code(s): N52.9 - Male erectile dysfunction, unspecified (9) Hyperlipidemia Status: Chronic Current Visit: No Code(s): E78.5 - Hyperlipidemia, unspecified (10) Dehiscence of surgical wound Status: Chronic Current Visit: Yes Qualifiers: Encounter type: subsequent encounter Code(s): T81.31XA - Disruption of external operation (surgical) wound, not elsewhere classified, initial encounter (11) Osteomyelitis of ankle Status: Chronic Current Visit: Yes Code(s): M86.9 - Osteomyelitis, unspecified History of Present Illness Chief Complaint: 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 On August 26, 2016, the patient underwent right ankle fusion by Dr. Julio Cesar Giraldo. The patient subsequently developed complications. Apparently, a screw broke, and required reoperation. Additional hardware was placed. Additional healing complications occurred, and the patient underwent a series of subsequent surgeries. A total of 6 surgical procedures have been performed. Review of records indicates that a right tibial talocalcaneal fusion and right subtalar joint fusion and calcaneal osteotomy was performed on May 08, 2017. Allogenic skin grafting was performed on September 04, 2017. Application of a soft tissue backing in machine tender was performed on January 14, 2018. At this time, the patient has a persisting open wound on the right lateral malleolus. On an MRI performed on March 23, 2018, there is evidence of osteomyelitis. Past Medical History Past Medical History: Chronic Problems Surgical wound, non healing (Chronic) Delayed surgical wound healing (Chronic) Swelling of lower limb (Chronic) Edema of leg (Chronic) Hypertension (Chronic) Hypothyroidism (Chronic) Gout (Chronic) Erectile dysfunction (Chronic) Hyperlipidemia (Chronic) Dehiscence of surgical wound (Chronic) Osteomyelitis of ankle (Chronic) Surgical History: - - The patient is undergone a total of 6 surgical procedures of his right ankle. He is known to have indwelling metal hardware in the right ankle joint. He has a history of thyroidectomy, lumbar surgery, and transurethral kidney stone surgery. Allergies/Adverse Reactions: Allergies indomethacin Allergy (Verified 03/15/14 14:25) Other Home Medications: Ambulatory Orders Medication Instructions Recorded Allopurinol [Zyloprim] 300 mg PO DAILY 03/15/14 Levothyroxine [Synthroid] 100 mcg PO DAILY 03/15/14 Potassium Citrate [Urocit-K] 15 meq PO BID 03/15/14 Simvastatin [Zocor] 20 mg PO QHS 03/15/14 Sulindac [Clinoril] 200 mg PO DAILY 03/15/14 - Family History Paternal - - The patient's father at age of 90 with history of cerebrovascular accident. The patient's mother at the age of 96 from old age. Smoking Status: Never smoker Tobacco Use: Non-smoker Review of Systems Constitutional: Denies: Chills, Fever, Weight Change Eyes: Denies: Pain, Vision Change HEENT: Denies: Difficulty Hearing, Difficulty Swallowing, Sinus Congestion Cardiovascular: Denies: Chest Pain, Palpitations Respiratory: Denies: Cough, Shortness of Breath Gastrointestinal: Denies: Diarrhea, Nausea, Vomiting Genitourinary: Denies: Dysuria, Hematuria Endocrine: Denies: Heat/ Cold Intolerance, Polydipsia, Polyuria Hematologic/ Lymphatic: Denies: Easy Bruising, Easy Bleeding - Physical Exam Vital Signs Temp Pulse Resp BP 97.7 F L 62 18 141/79 H 05/11/18 09:38 05/11/18 09:38 05/11/18 09:38 05/11/18 09:38 General: Alert, Oriented x3, Cooperative, No apparent distress, Well developed, Well nourished HEENT: Atraumatic, PERRLA, EOMI, Normocephalic Oral: Moist Mucosa Neck: No JVD Lungs: Normal air movement Abdomen: Non-Distended Extremities: No clubbing, No cyanosis, No Calf Tenderness, - - Slight swelling is noted in the distal right lower extremity. The open surgical wound of the right lateral malleolus persists. It is slightly smaller in size. Dimensions are documented elsewhere. There is no sign of infection or cellulitis involving the soft tissues. There is a small amount of bioburden. Skin: No rashes Wound Measurements and Assessment WC - Nurse 1 - General Ulcer Measurement Start: 05/04/18 09:06 Freq: Status: Active Protocol: Activity Type Activity Date Activity User E-Sign Co-Sign Detail Recorded Client Recorded Date Recorded By Document 05/11/18 09:38 DL [id number] 10 09:40 DL 05/11/18 09:38 Wound Center Nurse 1 [Ulcer Assessment] #1 RIGHT ANKLE -Current Size (cm) - Length 2.2 -Current Size (cm) - Width 0.5 -Current Size (cm) - Depth 0.3 -Total Square Cm 1.10 -Photo Taken No -Exudate Amt Small (1-33%) -Exudate Type Serosanguineous -Wound Margin Distinct, Outline Attached -Granulation Amt Large (67-100%) -Granulation Quality Red -Necrosis Amt Small (1-33%) -Necrotic Tissue Type Adherent Slough -Structure Exposed N/A -Texture (Jennifer-wound Skin Appearance) Scarring -Moisture (Jennifer-wound Skin Appearance No Abnormality ) -Color (Jennifer-wound Skin Appearance) No Abnormality -Temperature (Jennifer-wound Skin No Abnormality Appearance) (Pt Warm) -Tenderness on Palpation (Jennifer-wound No Skin Appearance) -Ulcer Cleansing Wound Cleanser -Foul Odor after Cleansing No -Anesthetic Used 4% Lidocaine Solution [Edema Assessment] -Right Calf (cm) 37.5 -Right Ankle (cm) 27 WC - Nurse 2 - General Ulcer CM Notes Start: 05/04/18 09:06 Freq: Status: Active Protocol: Activity Type Activity Date Activity User E-Sign Co-Sign Detail Recorded Client Recorded Date Recorded By Document 05/11/18 09:46 JS [id number] 05/11/18 09:47 05/11/18 09:46 Wound Center Nurse 2 [Procedure/Treatment] #1 RIGHT ANKLE -Time 09:46 -Correct Patient Yes -Correct Side, Site, Position Yes -Correct Procedure Yes -Wound/Ulcer Outcome Not Healed -Ulcer Cleansing Rinsed/ Irrigated with Saline -Foul Odor after Cleansing No -Bioengineered Tissue No -Bleeding Controlled with NA [See Physician Procedure note for Specifics] Pain Scale: 0-10 Numeric [Pain] -Is Patient Pain Free? Yes Musculoskeletal: No Muscle Wasting Neurological: Cranial nerves II-XII grossly intact, Neuro grossly intact Psych/Mental Status: Normal Affect, Appropriate, Alert and oriented to time, place, person, mood and affect Debridement Note Post-Debridement Measurements/Treatment WC - Nurse 2 - General Ulcer CM Notes Start: 05/04/18 09:06 Freq: Status: Active Protocol: Activity Type Activity Date Activity User E-Sign Co-Sign Detail Recorded Client Recorded Date Recorded By Document 05/04/18 09:45 [id number] 05/04/18 09:53 DV Document 05/11/18 09:46 [id number] 05/11/18 09:47 05/04/18 05/11/18 09:45 09:46 Wound Center Nurse 2 #1 RIGHT ANKLE -Time 09:50 09:46 -Correct Patient Yes Yes -Correct Side, Site, Position Yes Yes -Correct Procedure Yes Yes -Procedure Performed Yes -Type of Procedure Debridement -Clinical Debridement Subcutaneous -Post Debridement Size (cm) - Length 2.5 -Post Debridement Size (cm) - Width 0.5 -Post Debridement Size (cm) - Depth 1.5 -Total Square Cm 1.25 -Wound/Ulcer Outcome Not Healed Not Healed -Ulcer Cleansing Rinsed/ Irrigated with Saline -Foul Odor after Cleansing Yes No -Bioengineered Tissue No No -Bleeding Controlled with Pressure NA -Treatment Response Procedure Tolerated Well Pain Scale: 0-10 Numeric Is Patient Pain Free? Yes Yes Laterality: Right - Lateral malleolus Type of Debridement: Excisional debridement Anesthesia Used: 4% Lidocaine Solution Depth: Down to and including healthy tissue, in the subcutaneous layer Percentage of wound debrided: 100 Instrument Used: 7mm curette Severity: Fat Layer Exposed Amount of bleeding with debridement: Mild Bleeding Controlled with: Compression and gauze Patient tolerated procedure well Assessment/Plan Active Problems Surgical wound, non healing (Chronic) Delayed surgical wound healing (Chronic) Swelling of lower limb (Chronic) Edema of leg (Chronic) Dehiscence of surgical wound (Chronic) Osteomyelitis of ankle (Chronic) Assessment: This is a 72-year-old male who underwent right ankle surgery in August 2016. He has undergone 5 subsequent surgeries, related to complications from the initial surgical event. He presents at this time with a surgical wound dehiscence/nonhealing surgical wound on the right lateral malleolus. He is otherwise generally healthy, but for gout, erectile dysfunction, and hypertension. Culture results have revealed the presence of Klebsiella oxytoca, and the patient was treated with Augmentin 875 mg twice daily. A Corynebacterium species has also been isolated, which would likely require intravenous antibiotic treatment with an agent such as vancomycin, if felt to be warranted and clinically significant. The patient has been seen by Dr. Jolly, infectious disease specialist, and his recommendations have been noted. He has recommended completion of the current prescription for augmentation, then long-term suppression using Keflex 500 mg p.o. daily. The patient has undergone laboratory testing, with results as follows: White blood count 5.9, hemoglobin 12.9, hematocrit 39.2, platelets 124,000, glucose 80, BUN 26, creatinine 1.11, total protein 7.2, albumin 3.8, AST 11, alkaline phosphatase 133, ALT 19, sodium 140, potassium 4.4, chloride 108, serum prealbumin 19.0. An MRI of the right ankle has been performed on 03/23/2018, which reveals postoperative changes, resection of the distal fibula, and findings consistent with osteomyelitis. As mentioned, the patient has recently been evaluated by Dr. Jolly, Infectious Disease specialist. Dr. Jolly has indicated that I do not see a need at this point to add any intravenous antibiotics. With hardware in place, likely cannot cure this infection. Options would be surgical debridement and hardware removal versus continuing with p.o. antibiotics indefinitely. Dr. Jolly has extended his oral antibiotic regimen of Keflex 500 mg p.o. daily for long-term suppression. A CT scan of the right ankle has been performed, as requested by Dr. Ellis. The results reveal findings consistent with chronic osteomyelitis. Plan: The Snap VAC will be continued, and changed twice weekly. Leg elevation has been recommended, to minimize the swelling of the right ankle. He is to avoid prolonged idle sitting. Nutritional optimization has been recommended, though the patient admits to a well-balanced, adequate diet. The patient is currently taking Keflex 500 mg p.o. daily. We have consulted with Dr. Ellis, and her recommendations have been reviewed. It is understood that she has reviewed the patient's recent CT scan results, and has plans to proceed with surgical intervention, and removal of some hardware. It is understood that Dr. Ellis will proceed with surgery once insurance preauthorization has been fin alized. The patient is to remain on oral antibiotic, as previously recommended by Dr. Jolly. With documented chronic osteomyelitis, it appears as though the patient is a candidate for hyperbaric oxygen therapy. This has been discussed with the patient in detail. Dictations for hyperbaric oxygen therapy appear to exist, and a review of the patient's past medical history reveals no evidence of significant medical problems which would contraindicate the initiation of hyperbaric oxygen therapy. The patient denies a history of significant cardiovascular, pulmonary, or other medical problems which would serve as a contraindication to hyperbaric oxygen therapy. In this regard, a chest x-ray will be obtained to assure no presence of significant cardiopulmonary diseases. Patient is to return in 1 week for reassessment. The complicated nature of the patient's medical issues will benefit from a continued multidisciplinary approach. Management will continue with the assistance of Dr. Jolly and Dr. Ellis. The patient is not a smoker. Influenza vaccine was not administered today. Patient weighs 266 pounds. He stands 5 feet 10 inches tall. His BMI is 38.1, which places him in a class II obesity category. Weight loss has been recommended, and collaboration with his primary care physician has been recommended.
--- NOTE | 2018-05-11 10:40 | RAD_ITS ---
STUDY: X-RAY CHEST REASON FOR EXAM: Male, 72 years old. HBO therapy. TECHNIQUE: Frontal and lateral views of the chest. COMPARISON: Chest x-ray report of March 20, 2012. FINDINGS: The lungs are mildly hyperexpanded and there are granulomatous calcifications. There is no demonstrated pleural abnormality. There is borderline cardiomegaly. Normal mediastinum and mónica. Normal visualized pulmonary arteries. There is atherosclerotic calcification of the aortic arch with tortuosity. Normal visualized thoracic spine. Normal visualized ribs, clavicles, and shoulders. There is no demonstrated abnormality of the visualized soft tissue structures of the upper abdomen. RAD/Chest PA and Lateral IMPRESSION: Borderline cardiomegaly with mild hyperexpansion. No acute pathology. Electronically Signed: David Thompson MD at 14:37 EDT , Service support ,
[2018-05-18 09:25] VITALS: BP 141/73; PULSE 65; RESP 18; TEMP 35.6
--- NOTE | 2018-05-18 10:22 | PCM.WC.HP ---
(1) Surgical wound, non healing Status: Chronic Current Visit: Yes Qualifiers: Encounter type: subsequent encounter Code(s): T81.89XA - Other complications of procedures, not elsewhere classified, initial encounter (2) Delayed surgical wound healing Status: Chronic Current Visit: Yes Qualifiers: Encounter type: subsequent encounter Code(s): T81.89XA - Other complications of procedures, not elsewhere classified, initial encounter (3) Swelling of lower limb Status: Chronic Current Visit: Yes Code(s): M79.89 - Other specified soft tissue disorders (4) Edema of leg Status: Chronic Current Visit: Yes Code(s): R60.0 - Localized edema (5) Hypertension Status: Chronic Current Visit: No Code(s): I10 - Essential (primary) hypertension (6) Hypothyroidism Status: Chronic Current Visit: No Code(s): E03.9 - Hypothyroidism, unspecified (7) Gout Status: Chronic Current Visit: No Code(s): M10.9 - Gout, unspecified (8) Erectile dysfunction Status: Chronic Current Visit: No Code(s): N52.9 - Male erectile dysfunction, unspecified (9) Hyperlipidemia Status: Chronic Current Visit: No Code(s): E78.5 - Hyperlipidemia, unspecified (10) Dehiscence of surgical wound Status: Chronic Current Visit: Yes Qualifiers: Encounter type: subsequent encounter Code(s): T81.31XA - Disruption of external operation (surgical) wound, not elsewhere classified, initial encounter (11) Osteomyelitis of ankle Status: Chronic Current Visit: Yes Code(s): M86.9 - Osteomyelitis, unspecified History of Present Illness Chief Complaint: 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 On August 26, 2016, the patient underwent right ankle fusion by Dr. Julio Cesar Giraldo. The patient subsequently developed complications. Apparently, a screw broke, and required reoperation. Additional hardware was placed. Additional healing complications occurred, and the patient underwent a series of subsequent surgeries. A total of 6 surgical procedures have been performed. Review of records indicates that a right tibial talocalcaneal fusion and right subtalar joint fusion and calcaneal osteotomy was performed on May 08, 2017. Allogenic skin grafting was performed on September 04, 2017. Application of a soft tissue fraternity adviser was performed on January 14, 2018. At this time, the patient has a persisting open wound on the right lateral malleolus. On an MRI performed on March 23, 2018, there is evidence of osteomyelitis. Past Medical History Past Medical History: Chronic Problems Surgical wound, non healing (Chronic) Delayed surgical wound healing (Chronic) Swelling of lower limb (Chronic) Edema of leg (Chronic) Hypertension (Chronic) Hypothyroidism (Chronic) Gout (Chronic) Erectile dysfunction (Chronic) Hyperlipidemia (Chronic) Dehiscence of surgical wound (Chronic) Osteomyelitis of ankle (Chronic) Surgical History: - - The patient is undergone a total of 6 surgical procedures of his right ankle. He is known to have indwelling metal hardware in the right ankle joint. He has a history of thyroidectomy, lumbar surgery, and transurethral kidney stone surgery. Allergies/Adverse Reactions: Allergies indomethacin Allergy (Verified 03/15/14 14:25) Other Home Medications: Ambulatory Orders Medication Instructions Recorded Allopurinol [Zyloprim] 300 mg PO DAILY 03/15/14 Levothyroxine [Synthroid] 100 mcg PO DAILY 03/15/14 Potassium Citrate [Urocit-K] 15 meq PO BID 03/15/14 Simvastatin [Zocor] 20 mg PO QHS 03/15/14 Sulindac [Clinoril] 200 mg PO DAILY 03/15/14 - Family History Paternal - - The patient's father at age of 90 with history of cerebrovascular accident. The patient's mother at the age of 96 from old age. Smoking Status: Never smoker Tobacco Use: Non-smoker Review of Systems Constitutional: Denies: Chills, Fever, Weight Change Eyes: Denies: Pain, Vision Change HEENT: Denies: Difficulty Hearing, Difficulty Swallowing, Sinus Congestion Cardiovascular: Denies: Chest Pain, Palpitations Respiratory: Denies: Cough, Shortness of Breath Gastrointestinal: Denies: Diarrhea, Nausea, Vomiting Genitourinary: Denies: Dysuria, Hematuria Endocrine: Denies: Heat/ Cold Intolerance, Polydipsia, Polyuria Hematologic/ Lymphatic: Denies: Easy Bruising, Easy Bleeding - Physical Exam Vital Signs Temp Pulse Resp BP 96.0 F L 65 18 141/73 H 05/18/18 09:25 05/18/18 09:25 05/18/18 09:25 10/16/18 09:25 General: Alert, Oriented x3, Cooperative, No apparent distress, Well developed, Well nourished HEENT: Atraumatic, PERRLA, EOMI, Normocephalic Oral: Moist Mucosa Neck: No JVD Lungs: Normal air movement Abdomen: Non-Distended Extremities: No clubbing, No cyanosis, No Calf Tenderness, - - Mild edema is noted of the right ankle. The open surgical wound on the lateral aspect of the right ankle persists, but is much smaller in size. There is evidence of peripheral epithelialization. The base of the wound is pink and healthy in appearance, with active granulation tissue. There is no obvious sign of infection or cellulitis Skin: No rashes Wound Measurements and Assessment WC - Nurse 1 - General Ulcer Measurement Start: 05/04/18 09:06 Freq: Status: Active Protocol: Activity Type Activity Date Activity User E-Sign Co-Sign Detail Recorded Client Recorded Date Recorded By Document 05/18/18 09:25 [id number] 05/18/18 09:32 ANDREW 05/18/18 09:25 Wound Center Nurse 1 [Ulcer Assessment] #1 RIGHT ANKLE -Combined with other wound No -Current Size (cm) - Length 1.4 -Current Size (cm) - Width 0.3 -Current Size (cm) - Depth 0.9 -Total Square Cm 0.42 -Photo Taken Yes -Epithelialization Medium 34-66% -Tunneling No -Undermining/Tunneling No -Circular Undermining No -Exudate Amt Small (1-33%) -Exudate Type Serosanguineous -Wound Margin Flat & Intact -Granulation Amt Large (67-100%) -Granulation Quality Red -Slough/Fibrin Yes -Necrosis Amt Small (1-33%) -Necrotic Tissue Type Adherent Slough -Structure Exposed N/A -Texture (Jennifer-wound Skin Appearance) Assessed Localized Edema Scarring -Moisture (Jennifer-wound Skin Appearance Assessed ) Dry/Scaly -Color (Jennifer-wound Skin Appearance) Assessed -Temperature (Jennifer-wound Skin No Abnormality Appearance) (Pt Warm) -Tenderness on Palpation (Jennifer-wound No Skin Appearance) -Ulcer Cleansing Wound Cleanser -Foul Odor after Cleansing No -Anesthetic Used 4% Lidocaine Solution [Edema Assessment] -Lower Limb Edema Present Yes -Right Calf (cm) 38.0 -Right Ankle (cm) 28.3 WC - Nurse 2 - General Ulcer CM Notes Start: 05/04/18 09:06 Freq: Status: Active Protocol: Activity Type Activity Date Activity User E-Sign Co-Sign Detail Recorded Client Recorded Date Recorded By Document 05/18/18 10:19 JS [id number] 05/18/18 10:20 JS 05/18/18 10:19 Wound Center Nurse 2 [Procedure/Treatment] #1 RIGHT ANKLE -Time 10:19 -Correct Patient Yes -Correct Side, Site, Position Yes -Correct Procedure Yes -Procedure Performed Yes -Type of Procedure Debridement -Clinical Debridement Subcutaneous -Post Debridement Size (cm) - Length 1.5 -Post Debridement Size (cm) - Width 0.4 -Post Debridement Size (cm) - Depth 0.9 -Total Square Cm 0.60 -Wound/Ulcer Outcome Not Healed -Ulcer Cleansing Rinsed/ Irrigated with Saline -Foul Odor after Cleansing No -Bioengineered Tissue No -Topical Lidocaine (%) 4 -Lidocaine (ml) 5 -Bleeding Controlled with NA -Treatment Response Procedure Tolerated Well [See Physician Procedure note for Specifics] Pain Scale: 0-10 Numeric [Pain] -Is Patient Pain Free? Yes Musculoskeletal: No Muscle Wasting Neurological: Cranial nerves II-XII grossly intact, Neuro grossly intact Psych/Mental Status: Normal Affect, Appropriate, Alert and oriented to time, place, person, mood and affect Debridement Note Post-Debridement Measurements/Treatment - Nurse 2 - General Ulcer CM Notes Start: 05/04/18 09:06 Freq: Status: Active Protocol: Activity Type Activity Date Activity User E-Sign Co-Sign Detail Recorded Client Recorded Date Recorded By Document 05/04/18 09:45 DV [id number] 05/04/18 09:53 DV Document 05/11/18 09:46 JS [id number] 05/11/18 09:47 JS Document 05/18/18 10:19 JS [id number] 05/18/18 10:20 JS 05/04/18 05/11/18 05/18/18 09:45 09:46 10:19 Wound Center Nurse 2 #1 RIGHT ANKLE -Time 09:50 09:46 10:19 -Correct Patient Yes Yes Yes -Correct Side, Site, Position Yes Yes Yes -Correct Procedure Yes Yes Yes -Procedure Performed Yes Yes Yes -Type of Procedure Debridement Debridement Debridement -Clinical Debridement Subcutaneous Subcutaneous Subcutaneous -Post Debridement Size (cm) - Length 2.5 2.2 1.5 -Post Debridement Size (cm) - Width 0.5 0.5 0.4 -Post Debridement Size (cm) - Depth 1.5 0.3 0.9 -Total Square Cm 1.25 1.10 0.60 -Wound/Ulcer Outcome Not Healed Failed Flap Not Healed -Ulcer Cleansing Rinsed/ Rinsed/ Irrigated with Irrigated with Saline Saline -Foul Odor after Cleansing Yes No No -Bioengineered Tissue No No No -Topical Lidocaine (%) 4 -Lidocaine (ml) 5 -Bleeding Controlled with Pressure NA NA -Treatment Response Procedure Procedure Tolerated Well Tolerated Well Pain Scale: 0-10 Numeric Is Patient Pain Free? Yes Yes Yes Laterality: Right - Lateral malleolus Type of Debridement: Excisional debridement Anesthesia Used: 4% Lidocaine Solution Depth: Down to and including healthy tissue, in the subcutaneous layer Percentage of wound debrided: 100 Instrument Used: - - 1 mm curette Severity: Fat Layer Exposed Amount of bleeding with debridement: Mild Bleeding Controlled with: Compression and gauze Patient tolerated procedure well Assessment/Plan Clinical Impression(s) from Imaging Studies Chest X-Ray 05/11/18 10:40 IMPRESSION: Borderline cardiomegaly with mild hyperexpansion. No acute pathology. Electronically Signed: David Thompson MD at 14:37 EDT , Service support , Active Problems Nonunion of arthrodesis (Acute) Infected hardware in right lower extremity (Acute) Ulcer of right lower extremity with fat layer exposed (Acute) Surgical wound, non healing (Chronic) Delayed surgical wound healing (Chronic) Swelling of lower limb (Chronic) Edema of leg (Chronic) Dehiscence of surgical wound (Chronic) Osteomyelitis of ankle (Chronic) Assessment: This is a 72-year-old male who underwent right ankle surgery in August 2016. He has undergone 5 subsequent surgeries, related to complications from the initial surgical event. He presents at this time with a surgical wound dehiscence/nonhealing surgical wound on the right lateral malleolus. He is otherwise generally healthy, but for gout, erectile dysfunction, and hypertension. Culture results have revealed the presence of Klebsiella oxytoca, and the patient was treated with Augmentin 875 mg twice daily. A Corynebacterium species has also been isolated, which would likely require intravenous antibiotic treatment with an agent such as vancomycin, if felt to be warranted and clinically significant. The patient has been seen by Dr. Jolly, infectious disease specialist, and his recommendations have been noted. He has recommended completion of the current prescription for augmentation, then long-term suppression using Keflex 500 mg p.o. daily. The patient has undergone laboratory testing, with results as follows: White blood count 5.9, hemoglobin 12.9, hematocrit 39.2, platelets 124,000, glucose 80, BUN 26, creatinine 1.11, total protein 7.2, albumin 3.8, AST 11, alkaline phosphatase 133, ALT 19, sodium 140, potassium 4.4, chloride 108, serum prealbumin 19.0. An MRI of the right ankle has been performed on 03/23/2018, which reveals postoperative changes, resection of the distal fibula, and findings consistent with osteomyelitis. As mentioned, the patient has recently been evaluated by Dr. Jolly, Infectious Disease specialist. Dr. Jolly has indicated that I do not see a need at this point to add any intravenous antibiotics. With hardware in place, likely cannot cure this infection. Options would be surgical debridement and hardware removal versus continuing with p.o. antibiotics indefinitely. Dr. Jolly has extended his oral antibiotic regimen of Keflex 500 mg p.o. daily for long-term suppression. A CT scan of the right ankle has been performed, as requested by Dr. Ellis. The results reveal findings consistent with chronic osteomyelitis. Plan: The Snap VAC will be continued, and changed twice weekly. Leg elevation has been recommended, to minimize the swelling of the right ankle. He is to avoid prolonged idle sitting. Nutritional optimization has been recommended, though the patient admits to a well-balanced, adequate diet. The patient is currently taking Keflex 500 mg p.o. daily. His prescription has been renewed. We have consulted with Dr. Ellis, and her recommendations have been reviewed. It is understood that she has reviewed the patient's recent CT scan results, and has plans to proceed with surgical intervention, and removal of hardware. The patient's surgical intervention is scheduled for June 08, 2018. The patient is to remain on oral antibiotic, as previously recommended by Dr. Jolly. With documented chronic osteomyelitis, it appears as though the patient is a candidate for hyperbaric oxygen therapy. This has been discussed with the patient in detail. Indications for hyperbaric oxygen therapy appear to exist, and a review of the patient's past medical history reveals no evidence of significant medical problems which would contraindicate the initiation of hyperbaric oxygen therapy. The patient denies a history of significant cardiovascular, pulmonary, or other medical problems which would serve as a contraindication to hyperbaric oxygen therapy. In this regard, a chest x-ray will be obtained to assure no presence of significant cardiopulmonary diseases. Patient is to return in 1 week for reassessment. The complicated nature of the patient's medical issues will benefit from a continued multidisciplinary approach. Management will continue with the assistance of Dr. Jolly and Dr. Ellis. The patient will return in 2 weeks for reassessment. In the interim, the Snap VAC will be changed weekly. The patient is not a smoker. Influenza vaccine was not administered today. Patient weighs 266 pounds. He stands 5 feet 10 inches tall. His BMI is 38.1, which places him in a class II obesity category. Weight loss has been recommended, and collaboration with his primary care physician has been recommended.
--- NOTE | 2018-05-18 10:27 | HP.PCM_ITS ---
(1) Surgical wound, non healing Status: Chronic Current Visit: Yes Qualifiers: Encounter type: subsequent encounter Code(s): T81.89XA - Other complications of procedures, not elsewhere classified, initial encounter (2) Delayed surgical wound healing Status: Chronic Current Visit: Yes Qualifiers: Encounter type: subsequent encounter Code(s): T81.89XA - Other complications of procedures, not elsewhere classified, initial encounter (3) Swelling of lower limb Status: Chronic Current Visit: Yes Code(s): M79.89 - Other specified soft tissue disorders (4) Edema of leg Status: Chronic Current Visit: Yes Code(s): R60.0 - Localized edema (5) Hypertension Status: Chronic Current Visit: No Code(s): I10 - Essential (primary) hypertension (6) Hypothyroidism Status: Chronic Current Visit: No Code(s): E03.9 - Hypothyroidism, unspecified (7) Gout Status: Chronic Current Visit: No Code(s): M10.9 - Gout, unspecified (8) Erectile dysfunction Status: Chronic Current Visit: No Code(s): N52.9 - Male erectile dysfunction, unspecified (9) Hyperlipidemia Status: Chronic Current Visit: No Code(s): E78.5 - Hyperlipidemia, unspecified (10) Dehiscence of surgical wound Status: Chronic Current Visit: Yes Qualifiers: Encounter type: subsequent encounter Code(s): T81.31XA - Disruption of external operation (surgical) wound, not elsewhere classified, initial encounter (11) Osteomyelitis of ankle Status: Chronic Current Visit: Yes Code(s): M86.9 - Osteomyelitis, unspecified History of Present Illness Chief Complaint: 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 On August 26, 2016, the patient underwent right ankle fusion by Dr. Julio Cesar Giraldo. The patient subsequently developed complications. Apparently, a screw broke, and required reoperation. Additional hardware was placed. Additional healing complications occurred, and the patient underwent a series of subsequent surgeries. A total of 6 surgical procedures have been performed. Review of records indicates that a right tibial talocalcaneal fusion and right subtalar joint fusion and calcaneal osteotomy was performed on May 08, 2017. Allogenic skin grafting was performed on September 04, 2017. Application of a soft tissue entry level accounting clerk was performed on January 14, 2018. At this time, the patient has a persisting open wound on the right lateral malleolus. On an MRI performed on March 23, 2018, there is evidence of osteomyelitis. Past Medical History Past Medical History: Chronic Problems Surgical wound, non healing (Chronic) Delayed surgical wound healing (Chronic) Swelling of lower limb (Chronic) Edema of leg (Chronic) Hypertension (Chronic) Hypothyroidism (Chronic) Gout (Chronic) Erectile dysfunction (Chronic) Hyperlipidemia (Chronic) Dehiscence of surgical wound (Chronic) Osteomyelitis of ankle (Chronic) Surgical History: - - The patient is undergone a total of 6 surgical procedures of his right ankle. He is known to have indwelling metal hardware in the right ankle joint. He has a history of thyroidectomy, lumbar surgery, and transurethral kidney stone surgery. Allergies/Adverse Reactions: Allergies indomethacin Allergy (Verified 03/15/14 14:25) Other Home Medications: Ambulatory Orders Medication Instructions Recorded Allopurinol [Zyloprim] 300 mg PO DAILY 03/15/14 Levothyroxine [Synthroid] 100 mcg PO DAILY 03/15/14 Potassium Citrate [Urocit-K] 15 meq PO BID 03/15/14 Simvastatin [Zocor] 20 mg PO QHS 03/15/14 Sulindac [Clinoril] 200 mg PO DAILY 03/15/14 - Family History Paternal - - The patient's father at age of 90 with history of cerebrovascular accident. The patient's mother at the age of 96 from old age. Smoking Status: Never smoker Tobacco Use: Non-smoker Review of Systems Constitutional: Denies: Chills, Fever, Weight Change Eyes: Denies: Pain, Vision Change HEENT: Denies: Difficulty Hearing, Difficulty Swallowing, Sinus Congestion Cardiovascular: Denies: Chest Pain, Palpitations Respiratory: Denies: Cough, Shortness of Breath Gastrointestinal: Denies: Diarrhea, Nausea, Vomiting Genitourinary: Denies: Dysuria, Hematuria Endocrine: Denies: Heat/ Cold Intolerance, Polydipsia, Polyuria Hematologic/ Lymphatic: Denies: Easy Bruising, Easy Bleeding - Physical Exam Vital Signs Temp Pulse Resp BP 96.0 F L 65 18 141/73 H 05/18/18 09:25 05/18/18 09:25 05/18/18 09:25 10/16/18 09:25 General: Alert, Oriented x3, Cooperative, No apparent distress, Well developed, Well nourished HEENT: Atraumatic, PERRLA, EOMI, Normocephalic Oral: Moist Mucosa Neck: No JVD Lungs: Normal air movement Abdomen: Non-Distended Extremities: No clubbing, No cyanosis, No Calf Tenderness, - - Mild edema is noted of the right ankle. The open surgical wound on the lateral aspect of the right ankle persists, but is much smaller in size. There is evidence of peripheral epithelialization. The base of the wound is pink and healthy in appearance, with active granulation tissue. There is no obvious sign of infection or cellulitis Skin: No rashes Wound Measurements and Assessment WC - Nurse 1 - General Ulcer Measurement Start: 05/04/18 09:06 Freq: Status: Active Protocol: Activity Type Activity Date Activity User E-Sign Co-Sign Detail Recorded Client Recorded Date Recorded By Document 05/18/18 09:25 [id number] 05/18/18 09:32 ANDREW 05/18/18 09:25 Wound Center Nurse 1 [Ulcer Assessment] #1 RIGHT ANKLE -Combined with other wound No -Current Size (cm) - Length 1.4 -Current Size (cm) - Width 0.3 -Current Size (cm) - Depth 0.9 -Total Square Cm 0.42 -Photo Taken Yes -Epithelialization Medium 34-66% -Tunneling No -Undermining/Tunneling No -Circular Undermining No -Exudate Amt Small (1-33%) -Exudate Type Serosanguineous -Wound Margin Flat & Intact -Granulation Amt Large (67-100%) -Granulation Quality Red -Slough/Fibrin Yes -Necrosis Amt Small (1-33%) -Necrotic Tissue Type Adherent Slough -Structure Exposed N/A -Texture (Jennifer-wound Skin Appearance) Assessed Localized Edema Scarring -Moisture (Jennifer-wound Skin Appearance Assessed ) Dry/Scaly -Color (Jennifer-wound Skin Appearance) Assessed -Temperature (Jennifer-wound Skin No Abnormality Appearance) (Pt Warm) -Tenderness on Palpation (Jennifer-wound No Skin Appearance) -Ulcer Cleansing Wound Cleanser -Foul Odor after Cleansing No -Anesthetic Used 4% Lidocaine Solution [Edema Assessment] -Lower Limb Edema Present Yes -Right Calf (cm) 38.0 -Right Ankle (cm) 28.3 WC - Nurse 2 - General Ulcer CM Notes Start: 05/04/18 09:06 Freq: Status: Active Protocol: Activity Type Activity Date Activity User E-Sign Co-Sign Detail Recorded Client Recorded Date Recorded By Document 05/18/18 10:19 JS [id number] 05/18/18 10:20 JS 05/18/18 10:19 Wound Center Nurse 2 [Procedure/Treatment] #1 RIGHT ANKLE -Time 10:19 -Correct Patient Yes -Correct Side, Site, Position Yes -Correct Procedure Yes -Procedure Performed Yes -Type of Procedure Debridement -Clinical Debridement Subcutaneous -Post Debridement Size (cm) - Length 1.5 -Post Debridement Size (cm) - Width 0.4 -Post Debridement Size (cm) - Depth 0.9 -Total Square Cm 0.60 -Wound/Ulcer Outcome Not Healed -Ulcer Cleansing Rinsed/ Irrigated with Saline -Foul Odor after Cleansing No -Bioengineered Tissue No -Topical Lidocaine (%) 4 -Lidocaine (ml) 5 -Bleeding Controlled with NA -Treatment Response Procedure Tolerated Well [See Physician Procedure note for Specifics] Pain Scale: 0-10 Numeric [Pain] -Is Patient Pain Free? Yes Musculoskeletal: No Muscle Wasting Neurological: Cranial nerves II-XII grossly intact, Neuro grossly intact Psych/Mental Status: Normal Affect, Appropriate, Alert and oriented to time, place, person, mood and affect Debridement Note Post-Debridement Measurements/Treatment - Nurse 2 - General Ulcer CM Notes Start: 05/04/18 09:06 Freq: Status: Active Protocol: Activity Type Activity Date Activity User E-Sign Co-Sign Detail Recorded Client Recorded Date Recorded By Document 05/04/18 09:45 DV [id number] 05/04/18 09:53 DV Document 05/11/18 09:46 JS [id number] 05/11/18 09:47 JS Document 05/18/18 10:19 JS [id number] 05/18/18 10:20 JS 05/04/18 05/11/18 05/18/18 09:45 09:46 10:19 Wound Center Nurse 2 #1 RIGHT ANKLE -Time 09:50 09:46 10:19 -Correct Patient Yes Yes Yes -Correct Side, Site, Position Yes Yes Yes -Correct Procedure Yes Yes Yes -Procedure Performed Yes Yes Yes -Type of Procedure Debridement Debridement Debridement -Clinical Debridement Subcutaneous Subcutaneous Subcutaneous -Post Debridement Size (cm) - Length 2.5 2.2 1.5 -Post Debridement Size (cm) - Width 0.5 0.5 0.4 -Post Debridement Size (cm) - Depth 1.5 0.3 0.9 -Total Square Cm 1.25 1.10 0.60 -Wound/Ulcer Outcome Not Healed Failed Flap Not Healed -Ulcer Cleansing Rinsed/ Rinsed/ Irrigated with Irrigated with Saline Saline -Foul Odor after Cleansing Yes No No -Bioengineered Tissue No No No -Topical Lidocaine (%) 4 -Lidocaine (ml) 5 -Bleeding Controlled with Pressure NA NA -Treatment Response Procedure Procedure Tolerated Well Tolerated Well Pain Scale: 0-10 Numeric Is Patient Pain Free? Yes Yes Yes Laterality: Right - Lateral malleolus Type of Debridement: Excisional debridement Anesthesia Used: 4% Lidocaine Solution Depth: Down to and including healthy tissue, in the subcutaneous layer Percentage of wound debrided: 100 Instrument Used: - - 1 mm curette Severity: Fat Layer Exposed Amount of bleeding with debridement: Mild Bleeding Controlled with: Compression and gauze Patient tolerated procedure well Assessment/Plan Clinical Impression(s) from Imaging Studies Chest X-Ray 05/11/18 10:40 IMPRESSION: Borderline cardiomegaly with mild hyperexpansion. No acute pathology. Electronically Signed: David Thompson MD at 14:37 EDT , Service support , Active Problems Nonunion of arthrodesis (Acute) Infected hardware in right lower extremity (Acute) Ulcer of right lower extremity with fat layer exposed (Acute) Surgical wound, non healing (Chronic) Delayed surgical wound healing (Chronic) Swelling of lower limb (Chronic) Edema of leg (Chronic) Dehiscence of surgical wound (Chronic) Osteomyelitis of ankle (Chronic) Assessment: This is a 72-year-old male who underwent right ankle surgery in August 2016. He has undergone 5 subsequent surgeries, related to complications from the initial surgical event. He presents at this time with a surgical wound dehiscence/nonhealing surgical wound on the right lateral malleolus. He is otherwise generally healthy, but for gout, erectile dysfunction, and hypertension. Culture results have revealed the presence of Klebsiella oxytoca, and the patient was treated with Augmentin 875 mg twice daily. A Corynebacterium species has also been isolated, which would likely require intravenous antibiotic treatment with an agent such as vancomycin, if felt to be warranted and clinically significant. The patient has been seen by Dr. Jolly, infectious disease specialist, and his recommendations have been note d. He has recommended completion of the current prescription for augmentation, then long-term suppression using Keflex 500 mg p.o. daily. The patient has undergone laboratory testing, with results as follows: White blood count 5.9, hemoglobin 12.9, hematocrit 39.2, platelets 124,000, glucose 80, BUN 26, creatinine 1.11, total protein 7.2, albumin 3.8, AST 11, alkaline phosphatase 133, ALT 19, sodium 140, potassium 4.4, chloride 108, serum prealbumin 19.0. An MRI of the right ankle has been performed on 03/23/2018, which reveals postoperative changes, resection of the distal fibula, and findings consistent with osteomyelitis. As mentioned, the patient has recently been evaluated by Dr. Jolly, Infectious Disease specialist. Dr. Jolly has indicated that I do not see a need at this point to add any intravenous antibiotics. With hardware in place, likely cannot cure this infection. Options would be surgical debridement and hardware removal versus continuing with p.o. antibiotics indefinitely. Dr. Jolly has extended his oral antibiotic regimen of Keflex 500 mg p.o. daily for long-term suppression. A CT scan of the right ankle has been performed, as requested by Dr. Ellis. The results reveal findings consistent with chronic osteomyelitis. Plan: The Snap VAC will be continued, and changed twice weekly. Leg elevation has been recommended, to minimize the swelling of the right ankle. He is to avoid prolonged idle sitting. Nutritional optimization has been recommended, though the patient admits to a well-balanced, adequate diet. The patient is currently taking Keflex 500 mg p.o. daily. His prescription has been renewed. We have consulted with Dr. Ellis, and her recommendations have been reviewed. It is understood that she has reviewed the patient's recent CT scan results, and has plans to proceed with surgical intervention, and removal of hardware. The patient's surgical intervention is scheduled for June 08, 2018. The patient is to remain on oral antibiotic, as previously recommended by Dr. Jolly. With documented chronic osteomyelitis, it appears as though the patient is a candidate for hyperbaric oxygen therapy. This has been discussed with the patient in detail. Indications for hyperbaric oxygen therapy appear to exist, and a review of the patient's past medical history reveals no evidence o f significant medical problems which would contraindicate the initiation of hyperbaric oxygen therapy. The patient denies a history of significant cardiovascular, pulmonary, or other medical problems which would serve as a contraindication to hyperbaric oxygen therapy. In this regard, a chest x-ray will be obtained to assure no presence of significant cardiopulmonary diseases. Patient is to return in 1 week for reassessment. The complicated nature of the patient's medical issues will benefit from a continued multidisciplinary approach. Management will continue with the assistance of Dr. Jolly and Dr. Ellis. The patient will return in 2 weeks for reassessment. In the interim, the Snap VAC will be changed weekly. The patient is not a smoker. Influenza vaccine was not administered today. Patient weighs 266 pounds. He stands 5 feet 10 inches tall. His BMI is 38.1, which places him in a class II obesity category. Weight loss has been recommended, and collaboration with his primary care physician has been recommended.
[2018-05-25 09:20] VITALS: BP 133/62; PULSE 69; RESP 18; TEMP 36.8
[2018-06-01 09:25] VITALS: BP 137/78; PULSE 71; RESP 18; TEMP 36.2
--- NOTE | 2018-06-01 10:20 | PCM.WC.HP ---
(1) Surgical wound, non healing Status: Chronic Current Visit: Yes Qualifiers: Encounter type: subsequent encounter Code(s): T81.89XA - Other complications of procedures, not elsewhere classified, initial encounter (2) Delayed surgical wound healing Status: Chronic Current Visit: Yes Qualifiers: Encounter type: subsequent encounter Code(s): T81.89XA - Other complications of procedures, not elsewhere classified, initial encounter (3) Swelling of lower limb Status: Chronic Current Visit: Yes Code(s): M79.89 - Other specified soft tissue disorders (4) Edema of leg Status: Chronic Current Visit: Yes Code(s): R60.0 - Localized edema (5) Hypertension Status: Chronic Current Visit: No Code(s): I10 - Essential (primary) hypertension (6) Hypothyroidism Status: Chronic Current Visit: No Code(s): E03.9 - Hypothyroidism, unspecified (7) Gout Status: Chronic Current Visit: No Code(s): M10.9 - Gout, unspecified (8) Erectile dysfunction Status: Chronic Current Visit: No Code(s): N52.9 - Male erectile dysfunction, unspecified (9) Hyperlipidemia Status: Chronic Current Visit: No Code(s): E78.5 - Hyperlipidemia, unspecified (10) Dehiscence of surgical wound Status: Chronic Current Visit: Yes Qualifiers: Encounter type: subsequent encounter Code(s): T81.31XA - Disruption of external operation (surgical) wound, not elsewhere classified, initial encounter (11) Osteomyelitis of ankle Status: Chronic Current Visit: Yes Code(s): M86.9 - Osteomyelitis, unspecified History of Present Illness Chief Complaint: 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 On August 26, 2016, the patient underwent right ankle fusion by Dr. Julio Cesar Giraldo. The patient subsequently developed complications. Apparently, a screw broke, and required reoperation. Additional hardware was placed. Additional healing complications occurred, and the patient underwent a series of subsequent surgeries. A total of 6 surgical procedures have been performed. Review of records indicates that a right tibial talocalcaneal fusion and right subtalar joint fusion and calcaneal osteotomy was performed on May 08, 2017. Allogenic skin grafting was performed on September 04, 2017. Application of a soft tissue director food safety was performed on January 14, 2018. At this time, the patient has a persisting open wound on the right lateral malleolus. On an MRI performed on March 23, 2018, there is evidence of osteomyelitis. On a CT scan performed on May 04, 2018, there is also evidence of osteomyelitis. Past Medical History Past Medical History: Chronic Problems Surgical wound, non healing (Chronic) Delayed surgical wound healing (Chronic) Swelling of lower limb (Chronic) Edema of leg (Chronic) Hypertension (Chronic) Hypothyroidism (Chronic) Gout (Chronic) Erectile dysfunction (Chronic) Hyperlipidemia (Chronic) Dehiscence of surgical wound (Chronic) Osteomyelitis of ankle (Chronic) Surgical History: - - The patient is undergone a total of 6 surgical procedures of his right ankle. He is known to have indwelling metal hardware in the right ankle joint. He has a history of thyroidectomy, lumbar surgery, and transurethral kidney stone surgery. Allergies/Adverse Reactions: Allergies indomethacin Allergy (Verified 03/15/14 14:25) Other Home Medications: Ambulatory Orders Medication Instructions Recorded Allopurinol [Zyloprim] 300 mg PO DAILY 03/15/14 Levothyroxine [Synthroid] 100 mcg PO DAILY 03/15/14 Potassium Citrate [Urocit-K] 15 meq PO BID 03/15/14 Simvastatin [Zocor] 20 mg PO QHS 03/15/14 Sulindac [Clinoril] 200 mg PO DAILY 03/15/14 - Family History Paternal - - The patient's father at age of 90 with history of cerebrovascular accident. The patient's mother at the age of 96 from old age. Smoking Status: Never smoker Tobacco Use: Non-smoker Review of Systems Constitutional: Denies: Chills, Fever, Weight Change Eyes: Denies: Pain, Vision Change HEENT: Denies: Difficulty Hearing, Difficulty Swallowing, Sinus Congestion Cardiovascular: Denies: Chest Pain, Palpitations Respiratory: Denies: Cough, Shortness of Breath Gastrointestinal: Denies: Diarrhea, Nausea, Vomiting Genitourinary: Denies: Dysuria, Hematuria Endocrine: Denies: Heat/ Cold Intolerance, Polydipsia, Polyuria Hematologic/ Lymphatic: Denies: Easy Bruising, Easy Bleeding - Physical Exam Vital Signs Temp Pulse Resp BP 97.1 F L 71 18 137/78 H 06/01/18 09:25 06/01/18 09:25 06/01/18 09:25 06/01/18 09:25 General: Alert, Oriented x3, Cooperative, No apparent distress, Well developed, Well nourished HEENT: Atraumatic, PERRLA, EOMI, Normocephalic Oral: Moist Mucosa Neck: No JVD Lungs: Normal air movement Abdomen: Non-Distended Extremities: No clubbing, No cyanosis, No Calf Tenderness, - - The surgical wound on the right lateral malleolus is slightly smaller in size. There is no sign of infection or cellulitis. Dimensions are documented elsewhere. There is a small amount of bioburden. Skin: No rashes Wound Measurements and Assessment WC - Nurse 1 - General Ulcer Measurement Start: 05/04/18 09:06 Freq: Status: Active Protocol: Activity Type Activity Date Activity User E-Sign Co-Sign Detail Recorded Client Recorded Date Recorded By Document 06/01/18 09:25 DL [id number] 06/01/18 09:32 DL 06/01/18 09:25 Wound Center Nurse 1 [Ulcer Assessment] #1 RIGHT ANKLE -Current Size (cm) - Length 0.5 -Current Size (cm) - Width 0.2 -Current Size (cm) - Depth 0.3 -Total Square Cm 0.10 -Photo Taken No -Exudate Amt None Present (0 %) -Wound Margin Distinct, Outline Attached -Granulation Amt Large (67-100%) -Granulation Quality Apollo -Necrosis Amt Small (1-33%) -Necrotic Tissue Type Adherent Slough -Structure Exposed N/A -Texture (Jennifer-wound Skin Appearance) Scarring -Moisture (Jennifer-wound Skin Appearance Maceration ) -Color (Jennifer-wound Skin Appearance) No Abnormality -Temperature (Jennifer-wound Skin No Abnormality Appearance) (Pt Warm) -Ulcer Cleansing Wound Cleanser -Foul Odor after Cleansing No -Anesthetic Used 5% Lidocaine Gel [Edema Assessment] -Right Calf (cm) 36 -Right Ankle (cm) 26.2 WC - Nurse 2 - General Ulcer CM Notes Start: 05/04/18 09:06 Freq: Status: Active Protocol: Activity Type Activity Date Activity User E-Sign Co-Sign Detail Recorded Client Recorded Date Recorded By Document 06/01/18 10:05 [email or web address] [id number] 06/01/18 10:14 JS 06/01/18 10:05 Wound Center Nurse 2 [Procedure/Treatment] #1 RIGHT ANKLE -Time 10:06 -Correct Patient Yes -Correct Side, Site, Position Yes -Correct Procedure Yes -Procedure Performed Yes -Type of Procedure Debridement -Clinical Debridement Subcutaneous -Post Debridement Size (cm) - Length 0.5 -Post Debridement Size (cm) - Width 0.2 -Post Debridement Size (cm) - Depth 0.3 -Total Square Cm 0.10 -Wound/Ulcer Outcome Not Healed -Ulcer Cleansing Rinsed/ Irrigated with Saline -Foul Odor after Cleansing No -Bioengineered Tissue No -Topical Lidocaine (%) 5 -Bleeding Controlled with NA -Treatment Response Procedure Tolerated Well [See Physician Procedure note for Specifics] Pain Scale: 0-10 Numeric [Pain] -Is Patient Pain Free? Yes Musculoskeletal: No Muscle Wasting Neurological: Cranial nerves II-XII grossly intact, Neuro grossly intact Psych/Mental Status: Normal Affect, Appropriate, Alert and oriented to time, place, person, mood and affect Debridement Note Post-Debridement Measurements/Treatment WC - Nurse 2 - General Ulcer CM Notes Start: 05/04/18 09:06 Freq: Status: Active Protocol: Activity Type Activity Date Activity User E-Sign Co-Sign Detail Recorded Client Recorded Date Recorded By Document 05/04/18 09:45 DV [id number] 05/04/18 09:53 DV Document 05/11/18 09:46 JS [id number] 05/11/18 09:47 JS Document 05/18/18 10:19 JS [id number] 05/18/18 10:20 JS Document 06/01/18 10:05 JS [id number] 06/01/18 10:14 JS 05/04/18 05/11/18 05/18/18 09:45 09:46 10:19 Wound Center Nurse 2 #1 RIGHT ANKLE -Time 09:50 09:46 10:19 -Correct Patient Yes Yes Yes -Correct Side, Site, Position Yes Yes Yes -Correct Procedure Yes Yes Yes -Procedure Performed Yes Yes Yes -Type of Procedure Debridement Debridement Debridement -Clinical Debridement Subcutaneous Subcutaneous Subcutaneous -Post Debridement Size (cm) - Length 2.5 2.2 1.5 -Post Debridement Size (cm) - Width 0.5 0.5 0.4 -Post Debridement Size (cm) - Depth 1.5 0.3 0.9 -Total Square Cm 1.25 1.10 0.60 -Wound/Ulcer Outcome Not Healed Failed Flap Not Healed -Ulcer Cleansing Rinsed/ Rinsed/ Irrigated with Irrigated with Saline Saline -Foul Odor after Cleansing Yes No No -Bioengineered Tissue No No No -Topical Lidocaine (%) 4 -Lidocaine (ml) 5 -Bleeding Controlled with Pressure NA NA -Treatment Response Procedure Procedure Tolerated Well Tolerated Well Pain Scale: 0-10 Numeric Is Patient Pain Free? Yes Yes Yes 06/01/18 10:05 Wound Center Nurse 2 #1 RIGHT ANKLE -Time 10:06 -Correct Patient Yes -Correct Side, Site, Position Yes -Correct Procedure Yes -Procedure Performed Yes -Type of Procedure Debridement -Clinical Debridement Subcutaneous -Post Debridement Size (cm) - Length 0.5 -Post Debridement Size (cm) - Width 0.2 -Post Debridement Size (cm) - Depth 0.3 -Total Square Cm 0.10 -Wound/Ulcer Outcome Not Healed -Ulcer Cleansing Rinsed/ Irrigated with Saline -Foul Odor after Cleansing No -Bioengineered Tissue No -Topical Lidocaine (%) 5 -Lidocaine (ml) -Bleeding Controlled with NA -Treatment Response Procedure Tolerated Well Pain Scale: 0-10 Numeric Is Patient Pain Free? Yes Laterality: Right - Lateral malleolus Type of Debridement: Excisional debridement Anesthesia Used: 5% Lidocaine Gel Depth: Down to and including healthy tissue, in the subcutaneous layer Percentage of wound debrided: 100 Instrument Used: - - 1 mm curette Severity: Fat Layer Exposed Amount of bleeding with debridement: Mild Bleeding Controlled with: Compression and gauze Patient tolerated procedure well Assessment/Plan Clinical Impression(s) from Imaging Studies Chest X-Ray 05/11/18 10:40 IMPRESSION: Borderline cardiomegaly with mild hyperexpansion. No acute pathology. Electronically Signed: David Thompson MD at 14:37 EDT , Service support , Active Problems Nonunion of arthrodesis (Acute) Infected hardware in right lower extremity (Acute) Ulcer of right lower extremity with fat layer exposed (Acute) Surgical wound, non healing (Chronic) Delayed surgical wound healing (Chronic) Swelling of lower limb (Chronic) Edema of leg (Chronic) Dehiscence of surgical wound (Chronic) Osteomyelitis of ankle (Chronic) Assessment: This is a 72-year-old male who underwent right ankle surgery in August 2016. He has undergone 5 subsequent surgeries, related to complications from the initial surgical event. He presents at this time with a surgical wound dehiscence/nonhealing surgical wound on the right lateral malleolus. He is otherwise generally healthy, but for gout, erectile dysfunction, and hypertension. Culture results have revealed the presence of Klebsiella oxytoca, and the patient was treated with Augmentin 875 mg twice daily. A Corynebacterium species has also been isolated, which would likely require intravenous antibiotic treatment with an agent such as vancomycin, if felt to be warranted and clinically significant. The patient has been seen by Dr. Jolly, infectious disease specialist, and his recommendations have been noted. He has recommended completion of the current prescription for augmentation, then long-term suppression using Keflex 500 mg p.o. daily. The patient has undergone laboratory testing, with results as follows: White blood count 5.9, hemoglobin 12.9, hematocrit 39.2, platelets 124,000, glucose 80, BUN 26, creatinine 1.11, total protein 7.2, albumin 3.8, AST 11, alkaline phosphatase 133, ALT 19, sodium 140, potassium 4.4, chloride 108, serum prealbumin 19.0. An MRI of the right ankle has been performed on 03/23/2018, which reveals postoperative changes, resection of the distal fibula, and findings consistent with osteomyelitis. As mentioned, the patient has recently been evaluated by Dr. Jolly, Infectious Disease specialist. Dr. Jolly has indicated that I do not see a need at this point to add any intravenous antibiotics. With hardware in place, likely cannot cure this infection. Options would be surgical debridement and hardware removal versus continuing with p.o. antibiotics indefinitely. Dr. Jolly has extended his oral antibiotic regimen of Keflex 500 mg p.o. daily for long-term suppression. A CT scan and MRI of the right ankle have been performed. The results reveal findings consistent with chronic osteomyelitis. Plan: The Snap VAC will be continued, and changed twice weekly. Leg elevation has been recommended, to minimize the swelling of the right ankle. He is to avoid prolonged idle sitting. Nutritional optimization has been recommended, though the patient admits to a well-balanced, adequate diet. The patient is currently taking Keflex 500 mg p.o. daily. His prescription has been renewed. We have consulted with Dr. Ellis, and her recommendations have been reviewed. It is understood that she has reviewed the patient's recent CT scan results, and has plans to proceed with surgical intervention, and removal of hardware. The patient's surgical intervention is scheduled for June 08, 2018. The patient is to remain on oral antibiotic, as previously recommended by Dr. Jolly. With documented chronic osteomyelitis, it appears as though the patient is a candidate for hyperbaric oxygen therapy. This has been discussed with the patient in detail. Indications for hyperbaric oxygen therapy appear to exist, and a review of the patient's past medical history reveals no evidence of significant medical problems which would contraindicate the initiation of hyperbaric oxygen therapy. The patient denies a history of significant cardiovascular, pulmonary, or other medical problems which would serve as a contraindication to hyperbaric oxygen therapy. In this regard, a chest x-ray will be obtained to assure no presence of significant cardiopulmonary diseases. Patient is to return in 1 week for reassessment. The complicated nature of the patient's medical issues will benefit from a continued multidisciplinary approach. Management will continue with the assistance of Dr. Jolly and Dr. Ellis. The patient has an appointment with Dr. Ellis later this week, and surgery scheduled for next week. His follow-up will likely continue with her subsequently. In the interim, the Snap VAC will be continued. The patient is not a smoker. Influenza vaccine was not administered today. Patient weighs 266 pounds. He stands 5 feet 10 inches tall. His BMI is 38.1, which places him in a class II obesity category. Weight loss has been recommended, and collaboration with his primary care physician has been recommended.
--- NOTE | 2018-06-01 10:25 | HP.PCM_ITS ---
(1) Surgical wound, non healing Status: Chronic Current Visit: Yes Qualifiers: Encounter type: subsequent encounter Code(s): T81.89XA - Other complications of procedures, not elsewhere classified, initial encounter (2) Delayed surgical wound healing Status: Chronic Current Visit: Yes Qualifiers: Encounter type: subsequent encounter Code(s): T81.89XA - Other complications of procedures, not elsewhere classified, initial encounter (3) Swelling of lower limb Status: Chronic Current Visit: Yes Code(s): M79.89 - Other specified soft tissue disorders (4) Edema of leg Status: Chronic Current Visit: Yes Code(s): R60.0 - Localized edema (5) Hypertension Status: Chronic Current Visit: No Code(s): I10 - Essential (primary) hypertension (6) Hypothyroidism Status: Chronic Current Visit: No Code(s): E03.9 - Hypothyroidism, unspecified (7) Gout Status: Chronic Current Visit: No Code(s): M10.9 - Gout, unspecified (8) Erectile dysfunction Status: Chronic Current Visit: No Code(s): N52.9 - Male erectile dysfunction, unspecified (9) Hyperlipidemia Status: Chronic Current Visit: No Code(s): E78.5 - Hyperlipidemia, unspecified (10) Dehiscence of surgical wound Status: Chronic Current Visit: Yes Qualifiers: Encounter type: subsequent encounter Code(s): T81.31XA - Disruption of external operation (surgical) wound, not elsewhere classified, initial encounter (11) Osteomyelitis of ankle Status: Chronic Current Visit: Yes Code(s): M86.9 - Osteomyelitis, unspecified History of Present Illness Chief Complaint: 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 On August 26, 2016, the patient underwent right ankle fusion by Dr. Julio Cesar Giraldo. The patient subsequently developed complications. Apparently, a screw broke, and required reoperation. Additional hardware was placed. Additional healing complications occurred, and the patient underwent a series of subsequent surgeries. A total of 6 surgical procedures have been performed. Review of records indicates that a right tibial talocalcaneal fusion and right subtalar joint fusion and calcaneal osteotomy was performed on May 08, 2017. Allogenic skin grafting was performed on September 04, 2017. Application of a soft tissue final finisher was performed on January 14, 2018. At this time, the patient has a persisting open wound on the right lateral malleolus. On an MRI performed on March 23, 2018, there is evidence of osteomyelitis. On a CT scan performed on May 04, 2018, there is also evidence of osteomyelitis. Past Medical History Past Medical History: Chronic Problems Surgical wound, non healing (Chronic) Delayed surgical wound healing (Chronic) Swelling of lower limb (Chronic) Edema of leg (Chronic) Hypertension (Chronic) Hypothyroidism (Chronic) Gout (Chronic) Erectile dysfunction (Chronic) Hyperlipidemia (Chronic) Dehiscence of surgical wound (Chronic) Osteomyelitis of ankle (Chronic) Surgical History: - - The patient is undergone a total of 6 surgical procedures of his right ankle. He is known to have indwelling metal hardware in the right ankle joint. He has a history of thyroidectomy, lumbar surgery, and transurethral kidney stone surgery. Allergies/Adverse Reactions: Allergies indomethacin Allergy (Verified 03/15/14 14:25) Other Home Medications: Ambulatory Orders Medication Instructions Recorded Allopurinol [Zyloprim] 300 mg PO DAILY 03/15/14 Levothyroxine [Synthroid] 100 mcg PO DAILY 03/15/14 Potassium Citrate [Urocit-K] 15 meq PO BID 03/15/14 Simvastatin [Zocor] 20 mg PO QHS 03/15/14 Sulindac [Clinoril] 200 mg PO DAILY 03/15/14 - Family History Paternal - - The patient's father at age of 90 with history of cerebrovascular accident. The patient's mother at the age of 96 from old age. Smoking Status: Never smoker Tobacco Use: Non-smoker Review of Systems Constitutional: Denies: Chills, Fever, Weight Change Eyes: Denies: Pain, Vision Change HEENT: Denies: Difficulty Hearing, Difficulty Swallowing, Sinus Congestion Cardiovascular: Denies: Chest Pain, Palpitations Respiratory: Denies: Cough, Shortness of Breath Gastrointestinal: Denies: Diarrhea, Nausea, Vomiting Genitourinary: Denies: Dysuria, Hematuria Endocrine: Denies: Heat/ Cold Intolerance, Polydipsia, Polyuria Hematologic/ Lymphatic: Denies: Easy Bruising, Easy Bleeding - Physical Exam Vital Signs Temp Pulse Resp BP 97.1 F L 71 18 137/78 H 06/01/18 09:25 06/01/18 09:25 06/01/18 09:25 06/01/18 09:25 General: Alert, Oriented x3, Cooperative, No apparent distress, Well developed, Well nourished HEENT: Atraumatic, PERRLA, EOMI, Normocephalic Oral: Moist Mucosa Neck: No JVD Lungs: Normal air movement Abdomen: Non-Distended Extremities: No clubbing, No cyanosis, No Calf Tenderness, - - The surgical wound on the right lateral malleolus is slightly smaller in size. There is no s ign of infection or cellulitis. Dimensions are documented elsewhere. There is a small amount of bioburden. Skin: No rashes Wound Measurements and Assessment WC - Nurse 1 - General Ulcer Measurement Start: 05/04/18 09:06 Freq: Status: Active Protocol: Activity Type Activity Date Activity User E-Sign Co-Sign Detail Recorded Client Recorded Date Recorded By Document 06/01/18 09:25 DL [id number] 06/01/18 09:32 DL 06/01/18 09:25 Wound Center Nurse 1 [Ulcer Assessment] #1 RIGHT ANKLE -Current Size (cm) - Length 0.5 -Current Size (cm) - Width 0.2 -Current Size (cm) - Depth 0.3 -Total Square Cm 0.10 -Photo Taken No -Exudate Amt None Present (0 %) -Wound Margin Distinct, Outline Attached -Granulation Amt Large (67-100%) -Granulation Quality [place] -Necrosis Amt Small (1-33%) -Necrotic Tissue Type Adherent Slough -Structure Exposed N/A -Texture (Jennifer-wound Skin Appearance) Scarring -Moisture (Jennifer-wound Skin Appearance Maceration ) -Color (Jennifer-wound Skin Appearance) No Abnormality -Temperature (Jennifer-wound Skin No Abnormality Appearance) (Pt Warm) -Ulcer Cleansing Wound Cleanser -Foul Odor after Cleansing No -Anesthetic Used 5% Lidocaine Gel [Edema Assessment] -Right Calf (cm) 36 -Right Ankle (cm) 26.2 WC - Nurse 2 - General Ulcer CM Notes Start: 05/04/18 09:06 Freq: Status: Active Protocol: Activity Type Activity Date Activity User E-Sign Co-Sign Detail Recorded Client Recorded Date Recorded By Document 06/01/18 10:05 [email or web address] [id number] 06/01/18 10:14 JS 06/01/18 10:05 Wound Center Nurse 2 [Procedure/Treatment] #1 RIGHT ANKLE -Time 10:06 -Correct Patient Yes -Correct Side, Site, Position Yes -Correct Procedure Yes -Procedure Performed Yes -Type of Procedure Debridement -Clinical Debridement Subcutaneous -Post Debridement Size (cm) - Length 0.5 -Post Debridement Size (cm) - Width 0.2 -Post Debridement Size (cm) - Depth 0.3 -Total Square Cm 0.10 -Wound/Ulcer Outcome Not Healed -Ulcer Cleansing Rinsed/ Irrigated with Saline -Foul Odor after Cleansing No -Bioengineered Tissue No -Topical Lidocaine (%) 5 -Bleeding Controlled with NA -Treatment Response Procedure Tolerated Well [See Physician Procedure note for Specifics] Pain Scale: 0-10 Numeric [Pain] -Is Patient Pain Free? Yes Musculoskeletal: No Muscle Wasting Neurological: Cranial nerves II-XII grossly intact, Neuro grossly intact Psych/Mental Status: Normal Affect, Appropriate, Alert and oriented to time, place, person, mood and affect Debridement Note Post-Debridement Measurements/Treatment WC - Nurse 2 - General Ulcer CM Notes Start: 05/04/18 09:06 Freq: Status: Active Protocol: Activity Type Activity Date Activity User E-Sign Co-Sign Detail Recorded Client Recorded Date Recorded By Document 05/04/18 09:45 DV [id number] 05/04/18 09:53 DV Document 05/11/18 09:46 JS [id number] 05/11/18 09:47 JS Document 05/18/18 10:19 JS [id number] 05/18/18 10:20 JS Document 06/01/18 10:05 JS [id number] 06/01/18 10:14 JS 05/04/18 05/11/18 05/18/18 09:45 09:46 10:19 Wound Center Nurse 2 #1 RIGHT ANKLE -Time 09:50 09:46 10:19 -Correct Patient Yes Yes Yes -Correct Side, Site, Position Yes Yes Yes -Correct Procedure Yes Yes Yes -Procedure Performed Yes Yes Yes -Type of Procedure Debridement Debridement Debridement -Clinical Debridement Subcutaneous Subcutaneous Subcutaneous -Post Debridement Size (cm) - Length 2.5 2.2 1.5 -Post Debridement Size (cm) - Width 0.5 0.5 0.4 -Post Debridement Size (cm) - Depth 1.5 0.3 0.9 -Total Square Cm 1.25 1.10 0.60 -Wound/Ulcer Outcome Not Healed Failed Flap Not Healed -Ulcer Cleansing Rinsed/ Rinsed/ Irrigated with Irrigated with Saline Saline -Foul Odor after Cleansing Yes No No -Bioengineered Tissue No No No -Topical Lidocaine (%) 4 -Lidocaine (ml) 5 -Bleeding Controlled with Pressure NA NA -Treatment Response Procedure Procedure Tolerated Well Tolerated Well Pain Scale: 0-10 Numeric Is Patient Pain Free? Yes Yes Yes 06/01/18 10:05 Wound Center Nurse 2 #1 RIGHT ANKLE -Time 10:06 -Correct Patient Yes -Correct Side, Site, Position Yes -Correct Procedure Yes -Procedure Performed Yes -Type of Procedure Debridement -Clinical Debridement Subcutaneous -Post Debridement Size (cm) - Length 0.5 -Post Debridement Size (cm) - Width 0.2 -Post Debridement Size (cm) - Depth 0.3 -Total Square Cm 0.10 -Wound/Ulcer Outcome Not Healed -Ulcer Cleansing Rinsed/ Irrigated with Saline -Foul Odor after Cleansing No -Bioengineered Tissue No -Topical Lidocaine (%) 5 -Lidocaine (ml) -Bleeding Controlled with NA -Treatment Response Procedure Tolerated Well Pain Scale: 0-10 Numeric Is Patient Pain Free? Yes Laterality: Right - Lateral malleolus Type of Debridement: Excisional debridement Anesthesia Used: 5% Lidocaine Gel Depth: Down to and including healthy tissue, in the subcutaneous layer Percentage of wound debrided: 100 Instrument Used: - - 1 mm curette Severity: Fat Layer Exposed Amount of bleeding with debridement: Mild Bleeding Controlled with: Compression and gauze Patient tolerated procedure well Assessment/Plan Clinical Impression(s) from Imaging Studies Chest X-Ray 05/11/18 10:40 IMPRESSION: Borderline cardiomegaly with mild hyperexpansion. No acute pathology. Electronically Signed: David Thompson MD at 14:37 EDT , Service support , Active Problems Nonunion of arthrodesis (Acute) Infected hardware in right lower extremity (Acute) Ulcer of right lower extremity with fat layer exposed (Acute) Surgical wound, non healing (Chronic) Delayed surgical wound healing (Chronic) Swelling of lower limb (Chronic) Edema of leg (Chronic) Dehiscence of surgical wound (Chronic) Osteomyelitis of ankle (Chronic) Assessment: This is a 72-year-old male who underwent right ankle surgery in August 2016. He has undergone 5 subsequent surgeries, related to complications from the initial surgical event. He presents at this time with a surgical wound dehiscence/nonhealing surgical wound on the right lateral malleolus. He is otherwise generally healthy, but for gout, erectile dysfunction, and hypertension. Culture results have revealed the presence of Klebsiella oxytoca, and the patient was treated with Augmentin 875 mg twice daily. A Corynebacterium species has also been isolated, which would likely require intravenous antibiotic treatment with an agent such as vancomycin, if felt to be warranted and clinically significant. The patient has been seen by Dr. Jolly, infectious disease specialist, and his recommendations have been noted. He has recommended completion of the current prescription for augmentation, then long-term suppression using Keflex 500 mg p.o. daily. The patient has undergone laboratory testing, with results as follows: White blood count 5.9, hemoglobin 12.9, hematocrit 39.2, platelets 124,000, glucose 80, BUN 26, creatinine 1.11, total protein 7.2, albumin 3.8, AST 11, alkaline p hosphatase 133, ALT 19, sodium 140, potassium 4.4, chloride 108, serum prealbumin 19.0. An MRI of the right ankle has been performed on 03/23/2018, which reveals postoperative changes, resection of the distal fibula, and findings consistent with osteomyelitis. As mentioned, the patient has recently been evaluated by Dr. Jolly, Infectious Disease specialist. Dr. Jolly has indicated that I do not see a need at this point to add any intravenous antibiotics. With hardware in place, likely cannot cure this infection. Options would be surgical debridement and hardware removal versus continuing with p.o. antibiotics indefinitely. Dr. Jolly has extended his oral antibiotic regimen of Keflex 500 mg p.o. daily for long-term suppression. A CT scan and MRI of the right ankle have been performed. The results reveal findings consistent with chronic osteomyelitis. Plan: The Snap VAC will be continued, and changed twice weekly. Leg elevation has been recommended, to minimize the swelling of the right ankle. He is to avoid prolonged idle sitting. Nutritional optimization has been recommended, though the patient admits to a well-balanced, adequate diet. The patient is currently taking Keflex 500 mg p.o. daily. His prescription has been renewed. We have consulted with Dr. Ellis, and her recommendations have been reviewed. It is understood that she has reviewed the patient's recent CT scan results, and has plans to proceed with surgical intervention, and removal of hardware. The patient's surgical intervention is scheduled for June 08, 2018. The patient is to remain on oral antibiotic, as previously recommended by Dr. Jolly. With documented chronic osteomyelitis, it appears as though the patient is a candidate for hyperbaric oxygen therapy. This has been discussed with the patient in detail. Indications for hyperbaric oxygen therapy appear to exist, and a review of the patient's past medical history reveals no evidence of significant medical problems which would contraindicate the initiation of hyperbaric oxygen therapy. The patient denies a history of significant cardiovascular, pulmonary, or other medical problems which would serve as a contraindication to hyperbaric oxygen therapy. In this regard, a chest x-ray will be obtained to assure no presence of significant cardiopulmonary diseases. Patient is to return in 1 week for reassessment. The complicated nature of the patient's medical issues will benefit from a continued multidisciplinary approach. Management will continue with the assistance of Dr. Jolly and Dr. Ellis. The patient has an appointment with Dr. Ellis later this week, and surgery scheduled for next week. His follow-up will likely continue with her subsequently. In the interim, the Snap VAC will be continued. The patient is not a smoker. Influenza vaccine was not administered today. Patient weighs 266 pounds. He stands 5 feet 10 inches tall. His BMI is 38.1, which places him in a class II obesity category. Weight loss has been recommended, and collaboration with his primary care physician has been recommended.
== END 2018-06-02 23:59 ==
LOC: WC 09:30
PROVIDERS: Family Provider Family Medicine; PCP Family Medicine; Referring Provider Surgery; Visit Provider Surgery
DX: T81.31XA Disruption of external operation (surgical) wound, not elsewhere classified, initial encounter (principal); Y83.8 Other surgical procedures as the cause of abnormal reaction of the patient, or of later complication, without mention of misadventure at the time of the procedure; R60.0 Localized edema; I10 Essential (primary) hypertension; M79.89 Other specified soft tissue disorders; E03.9 Hypothyroidism, unspecified; E78.5 Hyperlipidemia, unspecified; M10.9 Gout, unspecified; Z79.899 Other long term (current) drug therapy
CPT/HCPCS: 11042; 71046; 97605; 97607

== ENCOUNTER 2018-06-11 07:27 | Day surgery (SDC) | payer MEDICARE, SELFPAY ==
[2018-06-11] VITALS (7 sets, daily range): BP systolic 94–137; BP diastolic 69–77; PULSE 55–63; RESP 16; TEMP 36.2–36.9; O2SAT 92–97; BMI 37.2
--- NOTE | 2018-06-11 | BON_PTH ---
PATIENT: THEODORA COLMENARES LOC: [facility] – [place] U#:[id number] AGE/SX: 72/M ROOM: RE06/11/[address]: Dr. Tali Ellis DPM : 1945 BED: DIS: 06/11/2018 SPEC #: [id number] RECD: 06/11/18 15:48 STATUS: LOIDA RETed #: [id number] ABDI: 06/11/18 00:[address]: Tali Ellis DEPT: SURGICAL PATHOLOGY RECD BY: Andrez Grimes ENTERED: 06/14/18 08:13 SP TYPE: Bone OTHR DR: Dr. Aurelio Sierra MD Tissues: A - Bone of ankle, NOS C - Bone of ankle, NOS Procedures: Decalcification bone/plaque Surgery Specimen Level III HEADER OPERATION: Foot, removal hardware, debridement ankle, arthrodesis with bone PRE-OP DIAGNOSIS: Osteomyelitis of right ankle TISSUE SUBMITTED: A. Talus bone biopsy, B. Calcaneus bone biopsy MICROSCOPIC DIAGNOSIS A. Talus bone, biopsy: A piece of bone with reactive changes, negative for acute osteomyelitis. B. Calcaneus bone, biopsy: A piece of bone with attached soft tissue with reactive changes, negative for acute osteomyelitis. TAHIRA:mitchell 06/17/18 MICROSCOPIC DESCRIPTION Slides are reviewed. GROSS DESCRIPTION A. Received in fixative is one container labeled with the patient's name and designated talus bone. The specimen consists of piece of melchor bone measuring 0.5 x 0.5 x 0.3 cm. The entire specimen is submitted in one cassette after decalcification. B. Received in fixative is one container labeled with the patient's name and designated calcaneal bone. The specimen consists of a core biopsy of melchor bone measuring 0.7 cm in length and 0.3 cm in diameter. The entire specimen is submitted in one cassette after decalcification. TAHIRA:mitchell 06/14/18 TC: 5 CPT: 06238j5, 80291i0
--- NOTE | 2018-06-11 09:00 | RAD_ITS ---
STUDY: X-RAY - RIGHT FOOT CLINICAL: Male, 72 years old. Hardware removal. Debridement. Bone graft. TECHNIQUE: 7 C-arm view(s) of the foot. 126.5 seconds fluoroscopy time. COMPARISON: None. FINDINGS: Numerous C-arm views from the OR show removal and replacement of screws through the distal ankle and visualized foot. Correlate with procedure note. Electronically Signed: Sharad Vasquez MD at 16:13 EST , Service support , RAD/Foot min 3 Views
[2018-06-11] MEDS: Cefazolin 2 GM in 0.9% Normal Saline 100 ML IV (09:12)
[2018-06-11] MEDS: Bupivacaine Mpf 0.5% 30 ML VIAL (09:25)
[2018-06-11] MEDS: Calcium Chloride 1 GM/10 ML Syringe (12:50)
[2018-06-11] MEDS: Heparin 10,000 UNITS/10 ML Vial 10000 UNITS (12:50)
--- NOTE | 2018-06-11 14:01 | DCINST_ITS ---
Discharge Activity: May Not Drive Weight Bearing Status: No weight bearing Keep extremity elevated above heart level: Right Leg Call your doctor if your incision/area has: Continuous Slow Oozing, Sudden Increased Bleeding, Increased Pain/ Swelling, Increased Redness, Foul Smelling Discharge Call your doctor if you observe: Fever of 101 or Higher, Calf discomfort, Uncontrolled pain Cleanse incision/area with: Keep Dressing Clean & Dry Allergies/Adverse Reactions: Allergies indomethacin Allergy (Verified 06/04/18 09:57) Other Medications to take at Discharge Allopurinol [Zyloprim] 300 mg PO DAILY 03/15/14 Levothyroxine [Synthroid] 150 mcg PO DAILY 03/15/14 Potassium Citrate [Urocit-K] 15 meq PO BID 03/15/14 Simvastatin [Zocor] 20 mg PO QHS 03/15/14 Sulindac [Clinoril] 200 mg PO BID 03/15/14 Cephalexin [Keflex] 500 mg PO DAILY 06/04/18 Primary Care Physician: Aurelio Sierra MD [Primary Care Provider] - Test Results: Test results from this visit will be discussed in further detail at your follow- up appointment, if applicable. Please Follow Up With: Tali Ellis DPM When: next wed at wound healing center. call [phone] sooner if questions Proposed Discharge Date: 06/11/18
--- NOTE | 2018-06-11 14:07 | OP.PN_ITS ---
Problem List (1) Hardware complicating wound infection Status: Chronic Qualifiers: Encounter type: sequela Qualified Code(s): T84.7XXS - Infection and inflammatory reaction due to other internal orthopedic prosthetic devices, implants and grafts, sequela (2) Osteomyelitis Status: Suspected Qualifiers: Osteomyelitis type: other chronic Osteomyelitis location: ankle Laterality: right Qualified Code(s): M86.671 - Other chronic osteomyelitis, right ankle and foot (3) Ulcer of right lower extremity with fat layer exposed Status: Chronic (4) Nonunion of arthrodesis Status: Chronic Immediate Post-Op Note Date of Procedure: 06/11/18 - Assistants: Grover Mora, PGY3, Felipa Faulkner PGY2 Primary Surgeon/Physician: Tali Ellis DPM missile inspector preflight: none Pre-Operative Diagnosis: retained hardware right ankle and foot. rule out osteomyelitis of talus and calcaneus right. non healing lateral ankle ulcer. partial non union ankle arthrodesis Post-Operative Diagnosis: retained hardware right ankle and foot. rule out osteomyelitis of talus and calcaneus right. non healing lateral ankle ulcer. partial non union ankle arthrodesis Surgery/Procedure Performed:: attempted hardware removal right foot and ankle. application of bone graft and bone marrow aspirate to non union part of ankle arthrodesis (harvested from ipsilateral tibia), right. debridement of ankle ulcer and application of advanced wound care product, amniofill. bone biopsy of right talus and calcaneus Description of Surgical Findings:: hemostasis controlled no purulence see detailed operation report complication: retained screw with hardware removal attempt The patient tolerated the procedure and anesthesia well. He was transported to the pacu with vitals stable and vascular status intact to right lower extremity. Post operative xrays were reviewed. Orders were placed electronically Estimated Blood Loss: <200 mL Specimen's removed: -talus bone biopsy (pathology and microbiology for aerobic, anearobic, acid fast, fungal). -calcaneus bone biopsy (pathology and microbiology for aerobic, anearobic, acid fast, fungal) Type of Anesthesia:: General, Local - Preoperative: 17 cc of 1: 1 mixture of 1% lidocaine plain and 0.5% Marcaine plain administered in standard ankle block fashion right lower extremity Postoperative: 15 cc of 1: 1 mixture of 1% lidocaine plain and 0.5% Marcaine plain administered in standard ankle block and infiltrated surgical site fashion right lower extremity - Admit VTE Documentation VTE Present on Admission: No VTE Mechan Device Prophylaxis: SCD's VTE Pharm Prophylaxis ordered?: No Reason prophylaxis not ordered:: Treatment Not Indicated
--- NOTE | 2018-06-11 23:48 | OP.PCM_ITS ---
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 rule out osteomyelitis of talus and calcaneus rig ht. non healing lateral ankle ulcer. partial non union ankle arthrodesis Post-Operative Diagnosis: retained hardware right ankle and foot (painful and suspected infectious source). rule out osteomyelitis of talus and calcaneus right. non healing lateral ankle ulcer. partial non union ankle arthrodesis Surgery/Procedure Performed:: attempted hardware removal right foot and ankle. application of bone graft and bone marrow aspirate to non union part of ankle arthrodesis (harvested from ipsilateral tibia), right. debridement of ankle ulcer and application of advanced wound care product, amniofill. bone biopsy of right talus and calcaneus Description of Surgical Findings:: hemostasis: Well-padded pneumatic right thigh tourniquet, 350 mmHg Materials: Demineralized bone matrix (5cc) mixed with bone marrow aspirate harvested and processed with arteriocyte protocol (4cc), 100 mg amniofill (mimedx), 2-0 Vicryl, 3-0 nylon Findings: no purulence Complications: retained screw with hardware removal attempt manager multimedia: none Type of Anesthesia:: General, Local - Preoperative: 17 cc of 1: 1 mixture of 1% lidocaine plain and 0.5% Marcaine plain administered in standard ankle block fashion right lower extremity Postoperative: 15 cc of 1: 1 mixture of 1% lidoca ine plain and 0.5% Marcaine plain administered in standard ankle block and infiltrated surgical site fashion right lower extremity Specimen's removed: -talus bone biopsy (pathology and microbiology for aerobic, anearobic, acid fast, fungal). -calcaneus bone biopsy (pathology and microbiology for aerobic, anearobic, acid fast, fungal) Estimated Blood Loss (mL): <200 mL Description of Procedure: Indications: This 72-year-old male with significant past medical history of hypothyroidism, history of gout, hypertension, anemia, obesity underwent previous ankle arthrodesis with multiple revisions. He has continued ongoing delays in ulcer healing with recurrent intermittent infections. He has seen multiple providers for these conditions and had numerous revisional surgeries. He presented to me for additional opinion and for hardware removal attempt per infectious disease recommendations. Clinically he does have some irritation with the posterior calcaneus screw. He has an ongoing deep probing nonhealing wound to the lateral ankle which has demonstrated multiple bacterial growth scenarios. He has been treated at the wound healing center with Dr. Lundberg and has most recently had wound VAC applied. A recent MRI that was ordered for his infectious workup demonstrated edema in the talus and calcaneus with some cystic changes in which osteomyelitis was a concern versus this this also may be a finding of trauma from multiple revisional surgeries. Given his intermittent infection scenarios and positive wound cultures the former is a concern. He obtained a preoperative CT scan and x-rays to get a better understanding of the trajectory of the hardware and also to confirm arthrodesis success. Approximately 70% of the subtalar joint is successfully fused and the 60% of the anterior ankle arthrodesis site has osseous bridging. Clinically his vascular status is intact and his right ankle remains in a rectus position. The preoperative indications, planned procedure, possible benefits, risks, complications, and anticipated healing time management were discussed in detail the patient. No guarantees are made. He understands complications and risks include but are not limited to the following: Swelling, pain, scarring, continued delayed or nonhealing, continued retained hardware after attempted removal, infection, blood clot, allergic reaction, need for revisional surgery, amputation, loss of limb, function, life. The surgical limb and consent were signed. I answered all his questions. His preoperative H & P, clearance, and all diagnostic data was closely reviewed. Procedure in detail: The patient was transported to the operating room via cart and placed on the operating table in supine position. Final verification patient, surgery, limb designation was performed via the timeout procedure. A well-padded pneumatic right thigh tourniquet was placed and the right limb was bumped to allow good exposure. General anesthesia was initiated by the anesthesia team and local anesthesia was administered by the podiatry team. The right lower extremity was prepped and draped in the usual aseptic manner. Surgery began in the following manner: Attention was first directed to the proximal medial tibia just adjacent to the tibial tuberosity. This site was selected to obtain the bone marrow aspirate. A 1 cm incision was made through the skin and blunt dissection was performed right down to the tibial crest. A trocar was entered with gentle tamping, and 60 cc of bone marrow aspirate was obtained. The trocar was removed and saline irrigation was performed. The skin was reapproximated with nylon suture. A gauze and Tegaderm were applied. This was processed according to standard protocol via arteriocyte, and was set aside for later incorporation into the arthrodesis revisional site. Next, under intraoperative fluoroscopy guidance to the calcaneus screw entry point to the posterior lateral aspect was confirmed. A 1 cm linear incision was made through the skin and blunt dissection was performed down through the soft tissue until the screw was identified. Care was taken to identify, protect, and retract all neurovascular structures at this point and throughout the remainder of surgery. This was a headless compression cannulated screw from [employer] and an osteotome was used to chisel the bony overgrowth away from the screw head. This was removed in total without difficulty. Next attention was directed to the screw that entered from the anterior lateral ankle and further extended across the tibiotalar arthrodesis site. Again fluoroscopy was utilized to find the screw entry point through the lateral talus area. An Esmarch bandage was used to exsanguinate the limb and the tourniquet was inflated at this time. A 2 cm linear incision was made through the skin and blunt dissection was performed through the soft tissue and adjacent to the tendinous structure site until the screw was directly visualized. Bony overgrowth was removed from around the screw head and was noted that the guidepin was not able to enter into this screw. There was deformity of the screw head and there appeared to be an item in the screw shaft that did not allow the guidewire entry. I suspect part of the wire or previous screw snaker tractor driver may have been cold welded into this area. Attempted removal of the screw with standard screwdriver, screw extraction device, drilling into the screw with hardware removal instruments, and resection with winston bur, trephine around the screw and manual removal via pliar instrumentation was performed. The screw was not removed and attempted removal was discontinued to avoid adjacent tissue damage and to preserve the remaining anterior ankle arthrodesis site. Saline irrigation was performed. Attention was next directed to the anterior medial ankle where the other screw head was buried and located to the dorsal medial aspect of the talus. Fluoroscopy was used to identify this location and the guidewire was slipped into the screw canal. Osteotome was used to resect bony overgrowth and a screwdriver was used to remove this in total without difficulty. Other buried and broken hardware deep within the subtalar joint with adjacent bone overgrowth were left intact to avoid destruction of other tissue structures. The tourniquet was deflated at this time and capillary refill time was brisk to all digits of the right foot. No pulsatile bleeding was noted. The adjacent hardware bone and soft tissue appeared healthy without purulence, necrosis or local signs of infection. Next a Edvin needle biopsy instrument trocar was entered into the talus at the lateral site and a bone biopsy was obtained; this was sent to pathology and microbiology. Attention was next directed to the lateral sinus tarsi area in which a linear incision was made distal to the ulcer site of the skin and a Edvin needle biopsy kit was entered into both areas of the calcaneus. This was taken as a bone biopsy from an area that had increased bone marrow edema as noted on the previously reviewed MRI images, and this was an area of potential c oncern for osteomyelitis. This was sent to pathology and microbiology for further testing as well. Next, the lateral incision was extended and the nonunion portion of the posterior aspect of the tibiotalar joint was identified under fluoroscopy and a drill was used to debride this site. An Esmarch bandage was used to exsanguinate the limb and the tourniquet was inflated at this time to allow good exposure and to prevent the next applied bone graft and bone marrow aspirate from being washed away with hematogenous drainage. The previously extracted bone marrow aspirate was mixed with demineralized bone matrix and was applied into the created aformentioned voids and previous nonunion site with the goal of scaffolding and healing. Next, attention was directed to the previous nonhealing ulcer site. It is noted that there has been progressive epithelialization at this site however there is still a defect. It measures about 5 mm x 3 mm with a depth of 7 millimeters. Post debridement the ulcer site measured 7 mm x 5 mm by 18 mm. This excision of the ulcer now communicated with the previously aformentioned lateral foot and ankle incision site that was used to augment the nonunion site. One hundred milligrams of amniofill was gently placed into this chronic site and incorporation into the adjacent tissues was noted once moistened with the hematogenous drainage. Deep closure was obtained to all sites with 2-0 Vicryl and the skin edges were reapproximated with 3-0 nylon utilizing horizontal mattress technique. The ulcer site was partially closed with retention sutures. The tourniquet was deflated and capillary refill time was noted to all digits of the right foot. His dorsalis pedis pulse was also palpable. Additional PPP was administered to all incision sites and this was covered with Adaptic, 4 x 4 gauze, abdominal pads, Kerlix, lateral, and Boris wrap. An additional posterior mold was applied with the ankle in a rectus position in a well-padded manner. After procedure: The patient tolerated the procedure and anesthesia well. He was transferred to the PACU with vital signs stable and vascular status intact to the right lower extremity. He was advised to ice and elevate his lower extremity for pain and inflammation management. He was advised to remain nonweightbearing to the right lower extremity and to keep his dressing and posterior mold splint clean, dry, and intact until follow-up next Thursday at the wound healing center. It is noted he has a knee roller and other assistive devices to help with this. He was prescribed tramadol for pain control and he was already advised on safe and proper use. He was advised to keep pressure off of the wound site. To avoid too much external rotation of his limb to keep pressure off of the lateral inc ision sites. His obtained microbiology and pathology specimens are noted and I will follow the reports closely. Postoperative x-rays were obtained demonstrating removal of some of the hardware. There were no acute injuries. Clinically his ankle remains in stable position. All of his postoperative orders were entered electronically. He will be discharged home upon continued stability. Tali Ellis DPM, [facility]
== END 2018-06-11 15:15 | disposition home or self-care (01) ==
LOC: SDC 07:28 → AC 07:30
PROVIDERS: Family Provider Family Medicine; PCP Family Medicine; Referring Provider Podiatrist; Visit Provider Podiatrist
PROC: (CPT 11042; principal; 2018-06-11 08:45)
DX: T84.7XXA Infection and inflammatory reaction due to other internal orthopedic prosthetic devices, implants and grafts, initial encounter (principal); L97.912 Non-pressure chronic ulcer of unspecified part of right lower leg with fat layer exposed; M96.0 Pseudarthrosis after fusion or arthrodesis; I10 Essential (primary) hypertension; E78.5 Hyperlipidemia, unspecified; E03.9 Hypothyroidism, unspecified; M10.9 Gout, unspecified; E66.9 Obesity, unspecified; Z68.37 Body mass index [BMI] 37.0-37.9, adult; Z79.899 Other long term (current) drug therapy
CPT/HCPCS: 11042; 20220; 20240; 20680; 27870; 38220; 73630; 76000; 87015; 87070; 87075; 87102; 87116; 87205; 87206; 88304; 88311; J7120; J2405

== ENCOUNTER 2018-06-30 10:00 | Outpatient (RCR) | payer SELFPAY ==
[2018-06-03 01:17] VITALS: BP 137/78; PULSE 71; RESP 18; TEMP 36.2
[2018-06-16 09:32] VITALS: BP 139/83; PULSE 71; RESP 18; TEMP 36.4
--- NOTE | 2018-06-16 10:40 | PN.PCM_ITS ---
(1) Ulcer of right lower extremity with fat layer exposed Status: Acute Current Visit: Yes Code(s): L97.912 - Non-pressure chronic ulcer of unspecified part of right lower leg with fat layer exposed (2) Delayed wound healing Status: Chronic Current Visit: Yes Code(s): T14.8XXD - Other injury of unspecified body region, subsequent encounter (3) Malnutrition Status: Chronic Current Visit: Yes Code(s): E46 - Unspecified protein- calorie malnutrition (4) Edema of leg Status: Chronic Current Visit: Yes Code(s): R60.0 - Localized edema (5) Infected hardware in right lower extremity Status: Suspected Current Visit: Yes Code(s): T84.7XXA - Infection and inflammatory reaction due to other internal orthopedic prosthetic devices, implants and grafts, initial encounter (6) Nonunion of arthrodesis Status: Chronic Current Visit: Yes (7) Osteomyelitis Status: Suspected Current Visit: Yes Qualifiers: Code(s): M86.9 - Osteomyelitis, unspecified Type of Wound Date of Service: 06/16/18 Chief Complaint: Chronic nonhealing surgical wound of the right lateral malleolus. Concern of osteomyelitis and infected hardware. 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 Additional healing complications occurred, and the patient underwent a series of subsequent surgeries. He had surgery on June 11, 2018 for removal of potentially infected hardware, bone biopsy of the talus and the calcaneus for workup of osteomyelitis, minimally invasive debridement of the posterior aspect of the nonunion ankle arthrodesis site with application of bone marrow aspirate (harvested from the right limb) and bone graft, excisional debridement of the nonhealing ulcer site with application of advanced wound care product (amniofil). he denies fever, chill, nausea, vomiting, Shortness of breath, chest pain, calf pain. He denies pain to the surgical site. He is with his today. He is His dressing clean dry and intact as advised and elevates this limb. His Anette brace is being made at this time and he is already been casted. Progress of Wound: Stable - Physical Exam Vital Signs Temp Pulse Resp BP 97.5 F L 71 18 139/83 H 06/16/18 09:32 06/16/18 09:32 06/16/18 09:32 06/16/18 09:32 General: Alert, Oriented x3, Cooperative HEENT: Atraumatic Extremities: No cyanosis, Capillary Refill Less than 3 Seconds, No Calf Tenderness - Negative Polo bilateral, Edema - Mild, Peripheral Pulses Normal, - - Rectus stable ankle maintained right lower extremity no passive motion available at this arthrodesis site Skin: Ulcer/ Wound - Surgical incision site are well coapted in the line with nylon sutures in place and located at the lateral hindfoot/ankle, anterior medial and anterior lateral ankle/foot the ulcer excision site is also intact with amnio fill incorporating in nicely. There is no deep tissue exposure visualized Wound Measurements and Assessment WC - Nurse 1 - General Ulcer Measurement Start: 06/16/18 09:31 Freq: Status: Active Protocol: Activity Type Activity Date Activity User E-Sign Co-Sign Detail Recorded Client Recorded Date Recorded By Document 06/16/18 09:32 DL [id number] 06/16/18 09:52 DL 06/16/18 09:32 Wound Center Nurse 1 [Ulcer Assessment] #1 RIGHT ANKLE, Incision -Current Size (cm) - Length 0.1 -Current Size (cm) - Width 0.1 -Current Size (cm) - Depth 0.1 -Total Square Cm 0.01 -Photo Taken Yes -Exudate Amt Small (1-33%) -Exudate Type Serosanguineous -Wound Margin Flat & Intact -Texture (Jennifer-wound Skin Appearance) Localized Edema Scarring -Moisture (Jennifer-wound Skin Appearance No Abnormality ) -Color (Jennifer-wound Skin Appearance) Hemosiderin Staining -Temperature (Jennifer-wound Skin No Abnormality Appearance) (Pt Warm) -Tenderness on Palpation (Jennifer-wound No Skin Appearance) -Ulcer Cleansing Wound Cleanser -Foul Odor after Cleansing No [Edema Assessment] -Right Calf (cm) 35 -Right Ankle (cm) 25.5 WC - Nurse 2 - General Ulcer CM Notes Start: 06/16/18 09:31 Freq: Status: Active Protocol: Activity Type Activity Date Activity User E-Sign Co-Sign Detail Recorded Client Recorded Date Recorded By Document 06/16/18 10:15 TM [id number] 06/16/18 10:23 TM 06/16/18 10:15 Wound Center Nurse 2 [Procedure/Treatment] #1 RIGHT ANKLE, Incision -Time 10:15 -Correct Patient Yes -Correct Side, Site, Position Yes -Correct Procedure Yes -Procedure Performed Yes -Wound/Ulcer Outcome Healed- Surgical Closure -Ulcer Cleansing Rinsed/ Irrigated with Saline -Foul Odor after Cleansing No -Bioengineered Tissue No -Bleeding Controlled with NA -Other sutures intact covered with wound veil steri strips betadine to suture -Treatment Response Procedure Tolerated Well [See Physician Procedure note for Specifics] Pain Scale: 0-10 Numeric [Pain] -Is Patient Pain Free? Yes Debridement Note Post-Debridement Measurements/Treatment WC - Nurse 2 - General Ulcer CM Notes Start: 06/16/18 09:31 Freq: Status: Active Protocol: Activity Type Activity Date Activity User E-Sign Co-Sign Detail Recorded Client Recorded Date Recorded By Document 06/16/18 10:15 [id number] 06/16/18 10:23 06/16/18 10:15 Wound Center Nurse 2 #1 RIGHT ANKLE, Incision -Time 10:15 -Correct Patient Yes -Correct Side, Site, Position Yes -Correct Procedure Yes -Procedure Performed Yes -Wound/Ulcer Outcome Healed- Surgical Closure -Ulcer Cleansing Rinsed/ Irrigated with Saline -Foul Odor after Cleansing No -Bioengineered Tissue No -Bleeding Controlled with NA -Other sutures intact covered with wound veil steri strips betadine to suture -Treatment Response Procedure Tolerated Well Pain Scale: 0-10 Numeric Is Patient Pain Free? Yes No debridement was completed today - The amniofill is incorporating and well and no debridement was performed to this site or the surgical incision sites that have sutures in place Assessment/Plan Active Problems (Last Updated 06/04/18 @ 10:26 by Jessica Benavides) Edema of leg (Chronic) Ulcer of right lower extremity with fat layer exposed (Acute) Nonunion of arthrodesis (Chronic) Delayed wound healing (Chronic) Malnutrition (Chronic) Assessment: He is now status post right lower extremity hardware removal, bone biopsy of the talus and calcaneus, minimally invasive debridement and augmentation of the nonunion posterior ankle arthrodesis site with bone marrow aspirate and bone graft, excisional debridement of nonhealing ulcer with application of advanced wound care products, amniofil performed on 06/11/2018. 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 Rule out osteomyelitis of the talus and calcaneus. Infectious and painful hardware right foot and ankle. Nonunion posterior aspect of ankle arthrodesis. Delayed healing. Malnutrition Plan: I reviewed and discussed his case today. Debridement was not performed. The surgical site was evaluated. Adaptic and gauze bolster was applied to the nonhealing chronic ulcer excision site that had the advanced wound care product place. This was secured in place with Steri-Strips. Additional Betadine light gauze were applied to the other incision sites and this was wrapped with additional gauze abdominal pads Kerlix, cast padding, and the posterior mold splint was reapplied to keep the ankle in a rectus position. He was reassured no signs of infection or necrosis are noted. To keep this clean dry and intact until follow-up in clinic next week. His preliminary microbiology reports from the bone biopsies are back without bacterial growth so far. I will monitor for these final results. His pathology on biopsy results are also pending. He understands his most symptomatic screws were successfully removed and the one screw course and ankle was unable to be retrieved without causing significant surrounding tissue damage; this was left in place. He has been casted for ankle-foot orthotic, Anette brace, and this will be applied upon receipt and once his incision sites are healed. He understands this is a complicated course and his already demonstrated significant delays in healing. I recommend he continue with improved nutrition supplements with Blair to optimize healing and to keep pressure off of all sites. To return to the wound healing center in 1 week or call sooner if he has any questions or concerns.
[2018-06-23 09:58] VITALS: BP 125/75; PULSE 70; RESP 18; TEMP 36.6
--- NOTE | 2018-06-23 11:06 | PN.PCM_ITS ---
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 Code(s): L97.912 - Non-pressure chronic ulcer of unspecified part of right lower leg with fat layer exposed (2) Delayed wound healing Status: Chronic Code(s): T14.8XXD - Other injury of unspecified body region, subsequent encounter (3) Malnutrition Status: Chronic Code(s): E46 - Unspecified protein-calorie malnutrition (4) Edema of leg Status: Chronic Code(s): R60.0 - Localized edema (5) Infected hardware in right lower extremity Status: Resolved Code(s): T84.7XXA - Infection and inflammatory reaction due to other internal orthopedic prosthetic devices, implants and grafts, initial encounter (6) Nonunion of arthrodesis Status: Chronic (7) Osteomyelitis Status: Ruled-out Qualifiers: Code(s): M86.9 - Osteomyelitis, unspecified Type of Wound Date of Service: 06/23/18 Chief Complaint: Chronic nonhealing surgical wound of the right lateral malleolus. Concern of osteomyelitis and infected hardware. 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 Additional healing complications occurred, and the patient underwent a series of subsequent surgeries. He had surgery on June 11, 2018 for removal of potentially infected hardware, bone biopsy of the talus and the calcaneus for workup of osteomyelitis, minimally invasive debridement of the posterior aspect of the nonunion ankle arthrodesis site with application of bone marrow aspirate (harvested from the right limb) and bone graft, excisional debridement of the nonhealing ulcer site with application of advanced wound care product (amniofil). he denies fever, chill, nausea, vomiting, Shortness of breath, chest pain, calf pain. He denies pain to the surgical site. He is with his today. He is kept his dressing clean dry and intact as advised and elevates this limb. His Anette brace is being made at this time and he is already been casted. Progress of Wound: Stable - Physical Exam Vital Signs Temp Pulse Resp BP 97.8 F 70 18 125/75 H 06/23/18 09:58 06/23/18 09:58 06/23/18 09:58 06/23/18 09:58 General: Alert, Oriented x3, Cooperative Extremities: No cyanosis, Capillary Refill Less than 3 Seconds, No Calf Tenderness - Negative [place] right, Diminished Peripheral Pulses, Edema, - - Rectus right ankle noted arthrodesis site without motion available passively Skin: Ulcer/ Wound - No purulence, erythema, streaking, odor, or infection. Granulation tissue to the ulcer site that had amnio fill previously applied. The other incision sites are well aligned and coapted with nylon suture in plac e. The peripheral skin is hairless and atrophic. Wound Measurements and Assessment WC - Nurse 1 - General Ulcer Measurement Start: 06/16/18 09:31 Freq: Status: Active Protocol: Activity Type Activity Date Activity User E-Sign Co-Sign Detail Recorded Client Recorded Date Recorded By Document 06/23/18 09:58 [email or web address] [id number] 06/23/18 10:09 SKYLA 06/23/18 09:58 Wound Center Nurse 1 [Ulcer Assessment] #1 RIGHT ANKLE, Incision -Current Size (cm) - Length 0.1 -Current Size (cm) - Width 0.1 -Current Size (cm) - Depth 0.1 -Total Square Cm 0.01 -Photo Taken No -Exudate Amt Small (1-33%) -Exudate Type Sanguineous -Wound Margin Distinct, Outline Attached -Granulation Amt Large (67-100%) -Granulation Quality [place] -Necrosis Amt Small (1-33%) -Necrotic Tissue Type Adherent Slough -Structure Exposed N/A -Texture (Jennifer-wound Skin Appearance) Localized Edema Scarring -Moisture (Jennifer-wound Skin Appearance Dry/Scaly ) -Color (Jennifer-wound Skin Appearance) Erythema Hemosiderin Staining -Temperature (Jennifer-wound Skin No Abnormality Appearance) (Pt Warm) -Ulcer Cleansing Wound Cleanser -Foul Odor after Cleansing No -Anesthetic Used 4% Lidocaine Solution [Edema Assessment] -Right Calf (cm) 35 -Right Ankle (cm) 25.2 - Nurse 2 - General Ulcer CM Notes Start: 06/16/18 09:31 Freq: Status: Active Protocol: Activity Type Activity Date Activity User E-Sign Co-Sign Detail Recorded Client Recorded Date Recorded By Document 06/23/18 10:32 ANDREW [id number] 06/23/18 10:33 ANDREW 06/23/18 10:32 Wound Center Nurse 2 [Procedure/Treatment] #1 RIGHT ANKLE, Incision -Correct Patient No -Correct Side, Site, Position No -Correct Procedure No -Procedure Performed No [See Physician Procedure note for Specifics] Pain Scale: 0-10 Numeric [Pain] -Is Patient Pain Free? Yes Musculoskeletal: No Tenderness to Palpation of Joints or Extremities, Muscle Wasting Neurological: - - Lack of normal epicritic sensation noted to light touch Psych/Mental Status: Normal Affect, Appropriate Debridement Note Post-Debridement Measurements/Treatment WC - Nurse 2 - General Ulcer CM Notes Start: 06/16/18 09:31 Freq: Status: Active Protocol: Activity Type Activity Date Activity User E-Sign Co-Sign Detail Recorded Client Recorded Date Recorded By Document 06/16/18 10:15 TM [id number] 06/16/18 10:23 Document 06/23/18 10:32 [id number] 06/23/18 10:33 06/16/18 06/23/18 10:15 10:32 Wound Center Nurse 2 #1 RIGHT ANKLE, Incision -Time 10:15 -Correct Patient Yes No -Correct Side, Site, Position Yes No -Correct Procedure Yes No -Procedure Performed Yes No -Wound/Ulcer Outcome Healed- Surgical Closure -Ulcer Cleansing Rinsed/ Irrigated with Saline -Foul Odor after Cleansing No -Bioengineered Tissue No -Bleeding Controlled with NA -Other sutures intact covered with wound veil steri strips betadine to suture -Treatment Response Procedure Tolerated Well Pain Scale: 0-10 Numeric Is Patient Pain Free? Yes Yes No debridement was completed today Assessment/Plan Assessment: He is now status post right lower extremity hardware removal, bone biopsy of the talus and calcaneus, minimally invasive debridement and augmentation of the nonunion posterior ankle arthrodesis site with bone marrow aspirate and bone graft, excisional debridement of nonhealing ulcer with application of advanced wound care products, amniofil performed on 06/11/2018. 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 Rule out osteomyelitis of the talus and calcaneus. Infectious and painful hardware r ight foot and ankle. Nonunion posterior aspect of ankle arthrodesis. Delayed healing. Malnutrition Plan: I reviewed and discussed his case today. Debridement was not performed. The surgical site was evaluated. Jackeline and gauze bolster was applied to the nonhealing chronic ulcer excision site that had the advanced wound care product place in the operating room previously. He was advised to changes every 1-2 days. Additional plain gauze were applied to the other incision sites and this was wrapped with additional gauze abdominal pads Kerlix, cast padding, and the posterior mold splint was reapplied to keep the ankle in a rectus position. He was reassured no signs of infection or necrosis are noted. His final microbiology reports from the bone biopsies are back without bacterial growth so far. His final pathology on biopsy results were reviewed and discussed as negative for osteomyelitis. He understands his most symptomatic screws were successfully removed and the one screw course and ankle was unable to be retrieved without causing significant surrounding tissue damage; this was left in place. He has been casted for ankle-foot orthotic, Anette brace, and this will be applied upon receipt and once his incision sites are healed. He understands this is a complicated course and his already demonstrated significant delays in healing. I recommend he continue with improved nutrition supplements with Blair to optimize healing and to keep pressure off of all sites. To return to the wound healing center in 1 week or call sooner if he has any questions or concerns.
[2018-06-30 09:53] VITALS: BP 139/79; PULSE 77; RESP 18; TEMP 36
--- NOTE | 2018-06-30 11:48 | PN.PCM_ITS ---
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 Current Visit: Yes Code(s): L97.912 - Non-pressure chronic ulcer of unspecified part of right lower leg with fat layer exposed (2) Delayed wound healing Status: Chronic Current Visit: Yes Code(s): T14.8XXD - Other injury of unspecified body region, subsequent encounter (3) Malnutrition Status: Chronic Current Visit: Yes Code(s): E46 - Unspecified protein- calorie malnutrition (4) Edema of leg Status: Chronic Current Visit: Yes Code(s): R60.0 - Localized edema (5) Infected hardware in right lower extremity Status: Resolved Current Visit: Yes Qualifiers: Encounter type: sequela Qualified Code(s): T84.7XXS - Infection and inflammatory reaction due to other internal orthopedic prosthetic devices, implants and grafts, sequela Code(s): T84.7XXA - Infection and inflammatory reaction due to other internal orthopedic prosthetic devices, implants and grafts, initial encounter (6) Nonunion of arthrodesis Status: Chronic Current Visit: Yes (7) Osteomyelitis Status: Ruled-out Current Visit: Yes Qualifiers: Code(s): M86.9 - Osteomyelitis, unspecified Type of Wound Date of Service: 06/30/18 Chief Complaint: Chronic nonhealing surgical wound of the right lateral ankle. 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 Additional healing complications occurred, and the patient underwent a series of subsequent surgeries. He had surgery on June 11, 2018 for removal of potentially infected hardware, bone biopsy of the talus and the calcaneus for workup of osteomyelitis which was negative, minimally invasive debridement of the posterior aspect of the nonunion ankle arthrodesis site with application of bone marrow aspirate (harvested from the right limb) and bone graft, excisional debridement of the nonhealing ulcer site with application of advanced wound care product (amniofil). He denies fever, chill, nausea, vomiting, shortness of breath, chest pain, and calf pain. He denies pain to the surgical site. He is with his today. Progress of Wound: Stable - Physical Exam Vital Signs Temp Pulse Resp BP 96.8 F L 77 18 139/79 H 06/30/18 09:53 06/30/18 09:53 06/30/18 09:53 06/30/18 09:53 General: Alert, Oriented x3, Cooperative Extremities: No cyanosis, Capillary Refill Less than 3 Seconds, No Calf Tenderness, Edema, Peripheral Pulses Normal - Palpable DP pulse right Skin: Ulcer/ Wound - No purulence, erythema, skin, odor, or infection or probe to bone right lower extremity. The incision sites are well coapted and aligned even with suture removal performed today. There is no dehiscence. Steri-Strips were applied. The peripheral skin is hairless and atrophic. The wound bed remains granular Wound Measurements and Assessment WC - Nurse 1 - General Ulcer Measurement Start: 06/16/18 09:31 Freq: Status: Active Protocol: Activity Type Activity Date Activity User E-Sign Co-Sign Detail Recorded Client Recorded Date Recorded By Document 06/30/18 09:53 DL [id number] 06/30/18 10:02 DL 06/30/18 09:53 Wound Center Nurse 1 [Ulcer Assessment] #1 RIGHT ANKLE, Incision -Current Size (cm) - Length 1 -Current Size (cm) - Width 1 -Current Size (cm) - Depth 0.2 -Total Square Cm 1 -Photo Taken No -Exudate Amt Small (1-33%) -Exudate Type Serosanguineous -Wound Margin Thickened & Rolled Under -Granulation Amt Small (1-33%) -Granulation Quality Red -Necrosis Amt Small (1-33%) -Necrotic Tissue Type Adherent Slough -Structure Exposed N/A -Texture (Jennifer-wound Skin Appearance) Scarring -Moisture (Jennifer-wound Skin Appearance No Abnormality ) -Color (Jennifer-wound Skin Appearance) No Abnormality -Temperature (Jennifer-wound Skin No Abnormality Appearance) (Pt Warm) -Tenderness on Palpation (Jennifer-wound No Skin Appearance) -Ulcer Cleansing Wound Cleanser -Foul Odor after Cleansing No -Anesthetic Used 5% Lidocaine Gel [Edema Assessment] -Right Calf (cm) 35 -Right Ankle (cm) 24 WC - Nurse 2 - General Ulcer CM Notes Start: 06/16/18 09:31 Freq: Status: Active Protocol: Activity Type Activity Date Activity User E-Sign Co-Sign Detail Recorded Client Recorded Date Recorded By Document 06/30/18 10:34 TM [id number] 06/30/18 10:35 TM 06/30/18 10:34 Wound Center Nurse 2 [Procedure/Treatment] #1 RIGHT ANKLE, Incision -Time 10:35 -Correct Patient Yes -Correct Side, Site, Position Yes -Correct Procedure Yes -Procedure Performed Yes -Type of Procedure Debridement -Clinical Debridement Subcutaneous -Post Debridement Size (cm) - Length 0.6 -Post Debridement Size (cm) - Width 1.5 -Post Debridement Size (cm) - Depth 0.8 -Total Square Cm 0.90 -Wound/Ulcer Outcome Not Healed -Ulcer Cleansing Rinsed/ Irrigated with Saline -Foul Odor after Cleansing No -Bioengineered Tissue No -Topical Lidocaine (%) 4 -Bleeding Controlled with Pressure -Treatment Response Procedure Tolerated Well [See Physician Procedure note for Specifics] Pain Scale: 0-10 Numeric [Pain] -Is Patient Pain Free? Yes Musculoskeletal: No Tenderness to Palpation of Joints or Extremities, Muscle Wasting, - - Rectus right ankle with no passive range of motion available at the arthrodesis site. Active range of motion digits right foot Neurological: - - Lack of epicritic sensation normal light touch right lower extremity Psych/Mental Status: Normal Affect, Appropriate Debridement Note Post-Debridement Measurements/Treatment WC - Nurse 2 - General Ulcer CM Notes Start: 06/16/18 09:31 Freq: Status: Active Protocol: Activity Type Activity Date Activity User E-Sign Co-Sign Detail Recorded Client Recorded Date Recorded By Document 06/16/18 10:15 [id number] 06/16/18 10:23 Document 06/23/18 10:32 [id number] 06/23/18 10:33 Document 06/30/18 10:34 [id number] 06/30/18 10:35 06/16/18 06/23/18 06/30/18 10:15 10:32 10:34 Wound Center Nurse 2 #1 RIGHT ANKLE, Incision -Time 10:15 10:35 -Correct Patient Yes No Yes -Correct Side, Site, Position Yes No Yes -Correct Procedure Yes No Yes -Procedure Performed Yes No Yes -Type of Procedure Debridement -Clinical Debridement Subcutaneous -Post Debridement Size (cm) - Length 0.6 -Post Debridement Size (cm) - Width 1.5 -Post Debridement Size (cm) - Depth 0.8 -Total Square Cm 0.90 -Wound/Ulcer Outcome Healed- Not Healed Surgical Closure -Ulcer Cleansing Rinsed/ Rinsed/ Irrigated with Irrigated with Saline Saline -Foul Odor after Cleansing No No -Bioengineered Tissue No No -Topical Lidocaine (%) 4 -Bleeding Controlled with NA Pressure -Other sutures intact covered with wound veil steri strips betadine to suture -Treatment Response Procedure Procedure Tolerated Well Tolerated Well Pain Scale: 0-10 Numeric Is Patient Pain Free? Yes Yes Yes Wound debrided: lateral ankle Laterality: Right Type of Debridement: Excisional debridement Anesthesia Used: 5% Lidocaine Gel Depth: in the subcutaneous layer Percentage of wound debrided: 100 Instrument Used: #15 blade Tissue Removed: fibrous, devitalized subcutaneous, biofilm, slough Severity: Fat Layer Exposed Amount of bleeding with debridement: Mild Bleeding Controlled with: Pressure Patient tolerated procedure well Assessment/Plan Active Problems (Last Updated 06/04/18 @ 10:26 by Jessica Benavides) Edema of leg (Chronic) Ulcer of right lower extremity with fat layer exposed (Chronic) Nonunion of arthrodesis (Chronic) Delayed wound healing (Chronic) Malnutrition (Chronic) Assessment: He is now status post right lower extremity hardware removal, bone biopsy of the talus and calcaneus which was negative for osteomyelitis, minimally invasive debridement and augmentation of the nonunion posterior ankle arthrodesis site with bone marrow aspirate and bone graft, excisional debridement of nonhealing ulcer with application of advanced wound care products, amniofil performed on 06/11/2018. 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 Nonunion posterior aspect of ankle arthrodesis. Delayed healing. Malnutrition Plan: I reviewed and discussed his case today. Debridement was performed today as noted in the clinical panel. The surgical site was evaluated. Jackeline and gauze bolster was applied to the nonhealing chronic ulcer excision site that had the advanced wound care product place in the operating room previously. He was advised to changes every 1-2 days. Suture removal was performed. Additional plain gauze were applied to the other incision sites and this was wrapped with additional gauze abdominal pads Kerlix, cast padding, and the posterior mold splint was reapplied to keep the ankle in a rectus position. He was reassured no signs of infection or necrosis are noted. I do recommend application of advanced wound care product, epi cord. Prior authorization will be initiated at this time. The indication, planned procedure, benefits, risks, and anticipated healing time management was discussed in detail with him. He understands this is a staged application. He is amenable to proceed forward. His final microbiology reports from the bone biopsies are back without bacterial growth so far. His final pathology on biopsy results were reviewed and discussed as negative for osteomyelitis. He understands his most symptomatic screws were successfully removed and the one screw course and ankle was unable to be re trieved without causing significant surrounding tissue damage; this was left in place. He has been casted for ankle-foot orthotic, Anette brace, and he will get fitted for this at the foot [facility] ankle Center next Thursday. He understands this is a complicated course and his already demonstrated significant delays in healing. I recommend he continue with improved nutrition supplements with Blair to optimize healing and to keep pressure off of all sites. To return to the wound healing center in 1 week or call sooner if he has any questions or concerns.
== END 2018-07-02 23:59 ==
LOC: WC 10:00
PROVIDERS: Family Provider Family Medicine; PCP Family Medicine; Referring Provider Surgery; Visit Provider Podiatrist
DX: T84.7XXA Infection and inflammatory reaction due to other internal orthopedic prosthetic devices, implants and grafts, initial encounter (principal); Y79.8 Miscellaneous orthopedic devices associated with adverse incidents, not elsewhere classified; R60.0 Localized edema; L97.312 Non-pressure chronic ulcer of right ankle with fat layer exposed
CPT/HCPCS: 11042; 99212; 99213; G0463

== ENCOUNTER 2018-07-28 09:45 | Outpatient (RCR) | payer MEDICARE, SELFPAY ==
[2018-06-14 15:21] VITALS: BMI 37.7
[2018-07-03 01:07] VITALS: BP 139/79; PULSE 77; RESP 18; TEMP 36
[2018-07-07 08:14] VITALS: BP 133/82; PULSE 72; RESP 16; TEMP 36.5; BMI 37.7
--- NOTE | 2018-07-07 09:56 | PCM.WC.PN ---
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 Additional healing complications occurred, and the patient underwent a series of subsequent surgeries. He had surgery on June 11, 2018 for removal of potentially infected hardware, bone biopsy of the talus and the calcaneus for workup of osteomyelitis which was negative, minimally invasive debridement of the posterior aspect of the nonunion ankle arthrodesis site with application of bone marrow aspirate (harvested from the right limb) and bone graft, excisional debridement of the nonhealing ulcer site with application of advanced wound care product (amniofil). He denies fever, chill, nausea, vomiting, shortness of breath, chest pain, and calf pain. He denies pain to the surgical site. He is with his today. Progress of Wound: Stable - Physical Exam Vital Signs Temp Pulse Resp BP 97.7 F L 72 16 133/82 H 07/07/18 08:14 07/07/18 08:14 07/07/18 08:14 07/07/18 08:14 General: Alert, Oriented x3, Cooperative Extremities: No cyanosis, No edema, Capillary Refill Less than 3 Seconds, No Calf Tenderness - Negative Luis Daniel and Polo signs, Diminished Peripheral Pulses Skin: Ulcer/ Wound - No purulence, erythema, streaking, odor, or infection. Peripheral skin is atrophic. Wound Measurements and Assessment WC - Nurse 1 - General Ulcer Measurement Start: 07/07/18 08:14 Freq: Status: Active Protocol: Activity Type Activity Date Activity User E-Sign Co-Sign Detail Recorded Client Recorded Date Recorded By Document 07/07/18 08:14 MW [id number] 07/07/18 08:17 MW 07/07/18 08:14 Wound Center Nurse 1 [Ulcer Assessment] #1 RIGHT ANKLE, Incision -Combined with other wound No -Current Size (cm) - Length 2.0 -Current Size (cm) - Width 0.5 -Current Size (cm) - Depth 0.4 -Total Square Cm 1.00 -Photo Taken No -Epithelialization None Present -Tunneling No -Undermining/Tunneling No -Circular Undermining No -Exudate Amt Small (1-33%) -Exudate Type Serosanguineous -Wound Margin Distinct, Outline Attached -Granulation Amt Small (1-33%) -Granulation Quality [place] -Slough/Fibrin Yes -Necrosis Amt Large (67-100%) -Necrotic Tissue Type Adherent Slough -Structure Exposed N/A -Texture (Jennifer-wound Skin Appearance) Assessed Scarring -Moisture (Jennifer-wound Skin Appearance Assessed ) Dry/Scaly -Color (Jennifer-wound Skin Appearance) No Abnormality Assessed -Temperature (Jennifer-wound Skin No Abnormality Appearance) (Pt Warm) -Tenderness on Palpation (Jennifer-wound No Skin Appearance) -Ulcer Cleansing Rinsed/ Irrigated with Saline -Foul Odor after Cleansing No -Anesthetic Used 4% Lidocaine Solution [Edema Assessment] -Lower Limb Edema Present Yes -Right Calf (cm) 37.0 -Right Ankle (cm) 25.5 WC - Nurse 2 - General Ulcer CM Notes Start: 07/07/18 08:14 Freq: Status: Active Protocol: Activity Type Activity Date Activity User E-Sign Co-Sign Detail Recorded Client Recorded Date Recorded By Document 07/07/18 08:36 JF [id number] 07/07/18 08:39 JF 07/07/18 08:36 Wound Center Nurse 2 [Procedure/Treatment] #1 RIGHT ANKLE, Incision -Time 08:37 -Correct Patient Yes -Correct Side, Site, Position Yes -Correct Procedure Yes -Procedure Performed Yes -Type of Procedure Debridement -Clinical Debridement Subcutaneous -Post Debridement Size (cm) - Length 2.0 -Post Debridement Size (cm) - Width 0.6 -Post Debridement Size (cm) - Depth 0.4 -Total Square Cm 1.20 -Wound/Ulcer Outcome Not Healed -Ulcer Cleansing Rinsed/ Irrigated with Saline -Foul Odor after Cleansing No -Bioengineered Tissue Yes -Type of bioengineered Tissue EPIFIX -Expiration Date 01/31/23 -Product Lot Number [id number] -Percent Used 100 -Saline Lot Number [id number] -Bleeding Controlled with Pressure -Offloading No -Treatment Response Procedure Tolerated Well [See Physician Procedure note for Specifics] Pain Scale: 0-10 Numeric [Pain] -Is Patient Pain Free? Yes Musculoskeletal: No Tenderness to Palpation of Joints or Extremities, Muscle Wasting, - - Rectus right ankle with no passive motion available at the arthrodesis site Neurological: - Psych/Mental Status: Normal Affect, Appropriate Debridement Note Post-Debridement Measurements/Treatment WC - Nurse 2 - General Ulcer CM Notes Start: 07/07/18 08:14 Freq: Status: Active Protocol: Activity Type Activity Date Activity User E-Sign Co-Sign Detail Recorded Client Recorded Date Recorded By Document 07/07/18 08:36 JF [id number] 07/07/18 08:39 ANDREW 07/07/18 08:36 Wound Center Nurse 2 #1 RIGHT ANKLE, Incision -Time 08:37 -Correct Patient Yes -Correct Side, Site, Position Yes -Correct Procedure Yes -Procedure Performed Yes -Type of Procedure Debridement -Clinical Debridement Subcutaneous -Post Debridement Size (cm) - Length 2.0 -Post Debridement Size (cm) - Width 0.6 -Post Debridement Size (cm) - Depth 0.4 -Total Square Cm 1.20 -Wound/Ulcer Outcome Not Healed -Ulcer Cleansing Rinsed/ Irrigated with Saline -Foul Odor after Cleansing No -Bioengineered Tissue Yes -Type of bioengineered Tissue EPIFIX -Expiration Date 01/31/23 -Product Lot Number [id number] -Percent Used 100 -Saline Lot Number [id number] -Bleeding Controlled with Pressure -Offloading No -Treatment Response Procedure Tolerated Well Pain Scale: 0-10 Numeric Is Patient Pain Free? Yes Wound debrided: lateral ankle Laterality: Right Type of Debridement: Excisional debridement Anesthesia Used: 5% Lidocaine Gel Depth: in the subcutaneous layer Percentage of wound debrided: 100 Instrument Used: #15 blade Tissue Removed: fibrous, devitalized subcutaneous, biofilm, slough Severity: Fat Layer Exposed Amount of bleeding with debridement: Mild Bleeding Controlled with: Pressure Patient tolerated procedure well Assessment/Plan Assessment: He is now status post right lower extremity hardware removal, bone biopsy of the talus and calcaneus which was negative for osteomyelitis, minimally invasive debridement and augmentation of the nonunion posterior ankle arthrodesis site with bone marrow aspirate and bone graft, excisional debridement of nonhealing ulcer with application of advanced wound care products, amniofil performed on 06/11/2018. 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 Nonunion posterior aspect of ankle arthrodesis. Delayed healing. Malnutrition Plan: I reviewed and discussed his case today. Debridement was performed today as noted in the clinical panel. The surgical site was evaluated. Advanced wound care product, epi fix, was approved and applied today according to standard protocol. Verbal consent was obtained and this was secured in place at the wound veil and Steri-Strips. He tolerated this well. He was advised to keep this clean, dry, and intact until follow-up next week. Additional plain gauze were applied to the other incision sites and this was wrapped with additional gauze abdominal pads Kerlix, cast padding, and the posterior mold splint was reapplied to keep the ankle in a rectus position. He was reassured no signs of infection or necrosis are noted. His final microbiology reports from the bone biopsies are back without bacterial growth so far. His final pathology on biopsy results were reviewed and discussed as negative for osteomyelitis. He understands his most symptomatic screws were successfully removed and the one screw course and ankle was unable to be retrieved without causing significant surrounding tissue damage; this was left in place. He has been casted for ankle-foot orthotic, Anette brace, and he will get fitted for this at the foot [facility] ankle Center this upcoming Thursday. He understands this is a complicated course and his already demonstrated significant delays in healing. I recommend he continue with improved nutrition supplements with Blair to optimize healing and to keep pressure off of all sites. To return to the wound healing center in 1 week or call sooner if he has any questions or concerns.
[2018-07-14 08:49] VITALS: BP 146/71; PULSE 70; RESP 16; TEMP 37.1; BMI 37.7
--- NOTE | 2018-07-14 09:54 | PCM.WC.PN ---
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 Additional healing complications occurred, and the patient underwent a series of subsequent surgeries. He had surgery on June 11, 2018 for removal of potentially infected hardware, bone biopsy of the talus and the calcaneus for workup of osteomyelitis which was negative, minimally invasive debridement of the posterior aspect of the nonunion ankle arthrodesis site with application of bone marrow aspirate (harvested from the right limb) and bone graft, excisional debridement of the nonhealing ulcer site with application of advanced wound care product (amniofil). He denies fever, chill, nausea, vomiting, shortness of breath, chest pain, and calf pain. He denies pain to the surgical site. He has is recently dispensed a [employer] brace with him today. Progress of Wound: Stable - Physical Exam Vital Signs Temp Pulse Resp BP 98.7 F 70 16 146/71 H 07/14/18 08:49 07/14/18 08:49 07/14/18 08:49 07/14/18 08:49 General: Alert, Oriented x3, Cooperative Extremities: No cyanosis, Capillary Refill Less than 3 Seconds, No Calf Tenderness - Negative Polo sign right, Diminished Peripheral Pulses, Edema - Controlled and mild right lower extremity, - - Rectus right ankle position maintained without passive motion available Skin: Ulcer/ Wound - No purulence, erythema, streaking, odor, or infection lower extremity. The lateral ankle ulcer site is deep with granular base or sinus drainage. There is no probe to bone or joint. There is a skin discontinuity also to the dorsal right foot with granulation tissue and peripheral skin peeling. There is no deep tissue exposure here necrosis. All the peripheral skin is hairless and atrophic right lower extremity Wound Measurements and Assessment WC - Nurse 1 - General Ulcer Measurement Start: 07/07/18 08:14 Freq: Status: Active Protocol: Activity Type Activity Date Activity User E-Sign Co-Sign Detail Recorded Client Recorded Date Recorded By Document 07/14/18 08:49 [id number] 07/14/18 08:54 DV 07/14/18 08:49 Wound Center Nurse 1 [Ulcer Assessment] #1 RIGHT ANKLE, Incision -Combined with other wound No -Current Size (cm) - Length 1.0 -Current Size (cm) - Width 0.5 -Current Size (cm) - Depth 0.5 -Total Square Cm 0.50 -Photo Taken Yes -Epithelialization None Present -Tunneling No -Undermining/Tunneling No -Circular Undermining No -Classification - Thickness Full Thickness without Exposed Support Structure -Exudate Amt Small (1-33%) -Exudate Type Serous -Wound Margin Indistinct, Non -Visible -Granulation Amt None Present (0 %) -Necrosis Amt None Present (0 %) -Necrotic Tissue Type Adherent Slough -Structure Exposed N/A -Texture (Jennifer-wound Skin Appearance) No Abnormality Assessed -Moisture (Jennifer-wound Skin Appearance No Abnormality ) Assessed -Color (Jennifer-wound Skin Appearance) No Abnormality Assessed -Temperature (Jennifer-wound Skin No Abnormality Appearance) (Pt Warm) -Tenderness on Palpation (Jennifer-wound No Skin Appearance) -Ulcer Cleansing Rinsed/ Irrigated with Saline -Foul Odor after Cleansing No WC - Nurse 2 - General Ulcer CM Notes Start: 07/07/18 08:14 Freq: Status: Active Protocol: Activity Type Activity Date Activity User E-Sign Co-Sign Detail Recorded Client Recorded Date Recorded By Document 07/14/18 09:05 [id number] 07/14/18 09:06 07/14/18 09:05 Wound Center Nurse 2 [Procedure/Treatment] -Time 09:05 -Correct Patient Yes -Correct Side, Site, Position Yes -Correct Procedure Yes -Procedure Performed Yes -Type of Procedure Debridement -Clinical Debridement Subcutaneous -Post Debridement Size (cm) - Length 1.1 -Post Debridement Size (cm) - Width 0.5 -Post Debridement Size (cm) - Depth 0.5 -Total Square Cm 0.55 -Wound/Ulcer Outcome Not Healed -Ulcer Cleansing Rinsed/ Irrigated with Saline -Foul Odor after Cleansing No -Bioengineered Tissue Yes -Type of bioengineered Tissue EPIFIX -Expiration Date 01/31/23 -Product Lot Number [id number] -Percent Used 100 -Saline Lot Number [id number] -Bleeding Controlled with Pressure -Offloading No -Treatment Response Procedure Tolerated Well [See Physician Procedure note for Specifics] Pain Scale: 0-10 Numeric [Pain] -Is Patient Pain Free? Yes Musculoskeletal: No Tenderness to Palpation of Joints or Extremities, Muscle Wasting Neurological: - - Lack of epicritic sensation light touch right lower extremity Psych/Mental Status: Normal Affect, Appropriate Debridement Note Post-Debridement Measurements/Treatment WC - Nurse 2 - General Ulcer CM Notes Start: 07/07/18 08:14 Freq: Status: Active Protocol: Activity Type Activity Date Activity User E-Sign Co-Sign Detail Recorded Client Recorded Date Recorded By Document 07/07/18 08:36 [id number] 07/07/18 08:39 Document 07/14/18 09:05 [id number] 07/14/18 09:06 07/07/18 07/14/18 08:36 09:05 Wound Center Nurse 2 #1 RIGHT ANKLE, Incision -Time 08:37 09:05 -Correct Patient Yes Yes -Correct Side, Site, Position Yes Yes -Correct Procedure Yes Yes -Procedure Performed Yes Yes -Type of Procedure Debridement Debridement -Clinical Debridement Subcutaneous Subcutaneous -Post Debridement Size (cm) - Length 2.0 1.1 -Post Debridement Size (cm) - Width 0.6 0.5 -Post Debridement Size (cm) - Depth 0.4 0.5 -Total Square Cm 1.20 0.55 -Wound/Ulcer Outcome Not Healed Not Healed -Ulcer Cleansing Rinsed/ Rinsed/ Irrigated with Irrigated with Saline Saline -Foul Odor after Cleansing No No -Bioengineered Tissue Yes Yes -Type of bioengineered Tissue EPIFIX EPIFIX -Expiration Date 01/31/23 01/31/23 -Product Lot Number [id number] -Percent Used 100 100 -Saline Lot Number [id number] -Bleeding Controlled with Pressure Pressure -Offloading No No -Treatment Response Procedure Procedure Tolerated Well Tolerated Well Pain Scale: 0-10 Numeric Is Patient Pain Free? Yes Yes Wound debrided: dorsal rearfoot Laterality: Right Type of Debridement: Excisional debridement Anesthesia Used: 5% Lidocaine Gel Depth: in the subcutaneous layer Percentage of wound debrided: 100 Instrument Used: #15 blade Tissue Removed: fibrous, devitalized subcutaneous, biofilm, slough Severity: Fat Layer Exposed Amount of bleeding with debridement: Mild Bleeding Controlled with: Pressure Patient tolerated procedure well - Additional Wound Wound debrided: lateral ankle Laterality: Right Type of Debridement: Excisional debridement Anesthesia Used: 5% Lidocaine Gel Depth: in the subcutaneous layer Percentage of wound debrided: 100 Instrument Used: #15 blade Tissue Removed: fibrous, devitalized subcutaneous, biofilm, slough Severity: Fat Layer Exposed Amount of bleeding with debridement: Mild Bleeding Controlled with: Pressure Patient tolerated procedure: Patient tolerated procedure well Assessment/Plan Active Problems (Last Updated 06/04/18 @ 10:26 by Jessica Benavides) 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 Nonunion posterior aspect of ankle arthrodesis. Delayed healing. Malnutrition Plan: I reviewed and discussed his case today. Debridement was performed today as noted in the clinical panel. The surgical site was evaluated. Advanced wound care product, epi fix, was approved and applied today according to standard protocol to the lateral ankle and also the dorsal rear foot locations. Verbal consent was obtained and this was secured in place at the wound veil and Steri-Strips. A snap wound VAC was also applied according to standard protocol and he was advised to keep this in place for a week. He tolerated this well. He was advised to keep this clean, dry, and intact until follow-up next week. To continue Anette brace use to keep his ankle in a rectus position at this time and to reduce tension and forces at his recently arthrodesis revision site. Compliance importance was discussed. He was reassured no signs of infection or necrosis are noted. His final microbiology reports from the bone biopsies are back without bacterial growth so far. His final pathology on biopsy results were reviewed and discussed as negative for osteomyelitis. He understands this is a complicated course and his already demonstrated significant delays in healing. I recommend he continue with improved nutrition supplements with Blair to optimize healing and to keep pressure off of all sites. To return to the wound healing center in 1 week or call sooner if he has any questions or concerns.
--- NOTE | 2018-07-14 09:59 | PN.PCM_ITS ---
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 Additional healing complications occurred, and the patient underwent a series of subsequent surgeries. He had surgery on June 11, 2018 for removal of potentially infected hardware, bone biopsy of the talus and the calcaneus for workup of osteomyelitis which was negative, minimally invasive debridement of the posterior aspect of the nonunion ankle arthrodesis site with application of bone marrow aspirate (harvested from the right limb) and bone graft, excisional debridement of the nonhealing ulcer site with application of advanced wound care product (amniofil). He denies fever, chill, nausea, vomiting, shortness of breath, chest pain, and calf pain. He denies pain to the surgical site. He has is recently dispensed a [employer] brace with him today. Progress of Wound: Stable - Physical Exam Vital Signs Temp Pulse Resp BP 98.7 F 70 16 146/71 H 07/14/18 08:49 07/14/18 08:49 07/14/18 08:49 07/14/18 08:49 General: Alert, Oriented x3, Cooperative Extremities: No cyanosis, Capillary Refill Less than 3 Seconds, No Calf Tenderness - Negative Polo sign right, Diminished Peripheral Pulses, Edema - Controlled and mild right lower extremity, - - Rectus right ankle position maintained without passive motion available Skin: Ulcer/ Wound - No purulence, erythema, streaking, odor, or infection lower extremity. The lateral ankle ulcer site is deep with granular base or sinus drainage. There is no probe to bone or joint. There is a skin discontinuity also to the dorsal right foot with granulation tissue and peripheral skin peeling. There is no deep tissue exposure here necrosis. All the peripheral skin is hairless and atrophic right lower extremity Wound Measurements and Assessment WC - Nurse 1 - General Ulcer Measurement Start: 07/07/18 08:14 Freq: Status: Active Protocol: Activity Type Activity Date Activity User E-Sign Co-Sign Detail Recorded Client Recorded Date Recorded By Document 07/14/18 08:49 [id number] 07/14/18 08:54 DV 07/14/18 08:49 Wound Center Nurse 1 [Ulcer Assessment] #1 RIGHT ANKLE, Incision -Combined with other wound No -Current Size (cm) - Length 1.0 -Current Size (cm) - Width 0.5 -Current Size (cm) - Depth 0.5 -Total Square Cm 0.50 -Photo Taken Yes -Epithelialization None Present -Tunneling No -Undermining/Tunneling No -Circular Undermining No -Classification - Thickness Full Thickness without Exposed Support Structure -Exudate Amt Small (1-33%) -Exudate Type Serous -Wound Margin Indistinct, Non -Visible -Granulation Amt None Present (0 %) -Necrosis Amt None Present (0 %) -Necrotic Tissue Type Adherent Slough -Structure Exposed N/A -Texture (Jennifer-wound Skin Appearance) No Abnormality Assessed -Moisture (Jennifer-wound Skin Appearance No Abnormality ) Assessed -Color (Jennifer-wound Skin Appearance) No Abnormality Assessed -Temperature (Jennifer-wound Skin No Abnormality Appearance) (Pt Warm) -Tenderness on Palpation (Jennifer-wound No Skin Appearance) -Ulcer Cleansing Rinsed/ Irrigated with Saline -Foul Odor after Cleansing No WC - Nurse 2 - General Ulcer CM Notes Start: 07/07/18 08:14 Freq: Status: Active Protocol: Activity Type Activity Date Activity User E-Sign Co-Sign Detail Recorded Client Recorded Date Recorded By Document 07/14/18 09:05 [id number] 07/14/18 09:06 07/14/18 09:05 Wound Center Nurse 2 [Procedure/Treatment] -Time 09:05 -Correct Patient Yes -Correct Side, Site, Position Yes -Correct Procedure Yes -Procedure Performed Yes -Type of Procedure Debridement -Clinical Debridement Subcutaneous -Post Debridement Size (cm) - Length 1.1 -Post Debridement Size (cm) - Width 0.5 -Post Debridement Size (cm) - Depth 0.5 -Total Square Cm 0.55 -Wound/Ulcer Outcome Not Healed -Ulcer Cleansing Rinsed/ Irrigated with Saline -Foul Odor after Cleansing No -Bioengineered Tissue Yes -Type of bioengineered Tissue EPIFIX -Expiration Date 01/31/23 -Product Lot Number [id number] -Percent Used 100 -Saline Lot Number [id number] -Bleeding Controlled with Pressure -Offloading No -Treatment Response Procedure Tolerated Well [See Physician Procedure note for Specifics] Pain Scale: 0-10 Numeric [Pain] -Is Patient Pain Free? Yes Musculoskeletal: No Tenderness to Palpation of Joints or Extremities, Muscle Wasting Neurological: - - Lack of epicritic sensation light touch right lower extremity Psych/Mental Status: Normal Affect, Appropriate Debridement Note Post-Debridement Measurements/Treatment WC - Nurse 2 - General Ulcer CM Notes Start: 07/07/18 08:14 Freq: Status: Active Protocol: Activity Type Activity Date Activity User E-Sign Co-Sign Detail Recorded Client Recorded Date Recorded By Document 07/07/18 08:36 [id number] 07/07/18 08:39 Document 07/14/18 09:05 [id number] 07/14/18 09:06 07/07/18 07/14/18 08:36 09:05 Wound Center Nurse 2 #1 RIGHT ANKLE, Incision -Time 08:37 09:05 -Correct Patient Yes Yes -Correct Side, Site, Position Yes Yes -Correct Procedure Yes Yes -Procedure Performed Yes Yes -Type of Procedure Debridement Debridement -Clinical Debridement Subcutaneous Subcutaneous -Post Debridement Size (cm) - Length 2.0 1.1 -Post Debridement Size (cm) - Width 0.6 0.5 -Post Debridement Size (cm) - Depth 0.4 0.5 -Total Square Cm 1.20 0.55 -Wound/Ulcer Outcome Not Healed Not Healed -Ulcer Cleansing Rinsed/ Rinsed/ Irrigated with Irrigated with Saline Saline -Foul Odor after Cleansing No No -Bioengineered Tissue Yes Yes -Type of bioengineered Tissue EPIFIX EPIFIX -Expiration Date 01/31/23 01/31/23 -Product Lot Number [id number] -Percent Used 100 100 -Saline Lot Number [id number] -Bleeding Controlled with Pressure Pressure -Offloading No No -Treatment Response Procedure Procedure Tolerated Well Tolerated Well Pain Scale: 0-10 Numeric Is Patient Pain Free? Yes Yes Wound debrided: dorsal rearfoot Laterality: Right Type of Debridement: Excisional debridement Anesthesia Used: 5% Lidocaine Gel Depth: in the subcutaneous layer Percentage of wound debrided: 100 Instrument Used: #15 blade Tissue Removed: fibrous, devitalized subcutaneous, biofilm, slough Severity: Fat Layer Exposed Amount of bleeding with debridement: Mild Bleeding Controlled with: Pressure Patient tolerated procedure well - Additional Wound Wound debrided: lateral ankle Laterality: Right Type of Debridement: Excisional debridement Anesthesia Used: 5% Lidocaine Gel Depth: in the subcutaneous layer Percentage of wound debrided: 100 Instrument Used: #15 blade Tissue Removed: fibrous, devitalized subcutaneous, biofilm, slough Severity: Fat Layer Exposed Amount of bleeding with debridement: Mild Bleeding Controlled with: Pressure Patient tolerated procedure: Patient tolerated procedure well Assessment/Plan Active Problems (Last Updated 06/04/18 @ 10:26 by Jessica Benavides) 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 Nonunion posterior aspect of ankle arthrodesis. Delayed healing. Malnutrition Plan: I reviewed and discussed his case today. Debridement was performed today as noted in the clinical panel. The surgical site was evaluated. Advanced wound care product, epi fix, was approved and applied today according to standard protocol to the lateral ankle and also the dorsal rear foot locations. Verbal consent was obtained and this was secured in place at the wound veil and Steri-Strips. A snap wound VAC was also applied according to standard protocol and he was advised to keep this in place for a week. He tolerated this well. He was advised to keep this clean, dry, and intact until follow-up next week. To continue Anette brace use to keep his ankle in a rectus position at this time and to reduce tension and forces at his recently arthrodesis revision site. Compliance importance was discussed. He was reassured no signs of infection or necrosis are noted. His final microbiology reports from the bone biopsies are back without bacterial growth so far. His final pathology on biopsy results were reviewed and discussed as negative for osteomyelitis. He understands this is a complicated course and his already demonstrated significant delays in healing. I recommend he continue with improved nutrition supplements with Blair to optimize healing and to keep pressure off of all sites. To return to the wound healing center in 1 week or call sooner if he has any questions or concerns.
[2018-07-21 08:52] VITALS: BP 125/53; PULSE 72; RESP 16; TEMP 36.6; BMI 37.7
--- NOTE | 2018-07-21 10:26 | PN.PCM_ITS ---
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 Additional healing complications occurred, and the patient underwent a series of subsequent surgeries. He had surgery on June 11, 2018 for removal of potentially infected hardware, bone biopsy of the talus and the calcaneus for workup of osteomyelitis which was negative, minimally invasive debridement of the posterior aspect of the nonunion ankle arthrodesis site with application of bone marrow aspirate (harvested from the right limb) and bone graft, excisional debridement of the nonhealing ulcer site with application of advanced wound care product (amniofil). He denies fever, chill, nausea, vomiting, shortness of breath, chest pain, and calf pain. He denies pain to the surgical site. He wore a wound vac and posterior splint this past week. Progress of Wound: improving - Physical Exam Vital Signs Temp Pulse Resp BP 97.8 F 72 16 125/53 H 07/21/18 08:52 07/21/18 08:52 07/21/18 08:52 07/21/18 08:52 General: Alert, Oriented x3, Cooperative Extremities: No cyanosis, Capillary Refill Less than 3 Seconds, No Calf Tendern ess - negative aguilar sign right, Diminished Peripheral Pulses, Edema - mild right lower extremity Skin: Ulcer/ Wound - no purulence, no erythema, no streaking, no infection, no deep probing noted. peripheral skin is atrophic. granulation tissue noted in the ulcer bed Wound Measurements and Assessment WC - Nurse 1 - General Ulcer Measurement Start: 07/07/18 08:14 Freq: Status: Active Protocol: Activity Type Activity Date Activity User E-Sign Co-Sign Detail Recorded Client Recorded Date Recorded By Document 07/21/18 08:52 DV [id number] 07/21/18 09:07 DV 07/21/18 08:52 Wound Center Nurse 1 [Ulcer Assessment] #1 RIGHT ANKLE, Incision -Combined with other wound No -Current Size (cm) - Length 1.0 -Current Size (cm) - Width 0.5 -Current Size (cm) - Depth 0.5 -Total Square Cm 0.50 -Photo Taken No -Epithelialization Small 1-33% -Tunneling No -Undermining/Tunneling No -Circular Undermining No -Classification - Thickness Full Thickness without Exposed Support Structure -Exudate Amt Small (1-33%) -Exudate Type Serous -Wound Margin Thickened -Granulation Amt None Present (0 %) -Granulation Quality N/A -Slough/Fibrin No -Necrosis Amt None Present (0 %) -Structure Exposed N/A -Texture (Jennifer-wound Skin Appearance) Assessed Localized Edema -Moisture (Jennifer-wound Skin Appearance No Abnormality ) Assessed -Color (Jennifer-wound Skin Appearance) No Abnormality Assessed -Temperature (Jennifer-wound Skin No Abnormality Appearance) (Pt Warm) -Tenderness on Palpation (Jennifer-wound No Skin Appearance) -Ulcer Cleansing soap -Foul Odor after Cleansing No WC - Nurse 2 - General Ulcer CM Notes Start: 07/07/18 08:14 Freq: Status: Active Protocol: Activity Type Activity Date Activity User E-Sign Co-Sign Detail Recorded Client Recorded Date Recorded By Document 07/21/18 09:20 ANDREW [id number] 07/21/18 09:21 ANDREW 07/21/18 09:20 Wound Center Nurse 2 [Procedure/Treatment] -Time 09:20 -Correct Patient Yes -Correct Side, Site, Position Yes -Correct Procedure Yes -Procedure Performed Yes -Type of Procedure Debridement -Clinical Debridement Subcutaneous -Post Debridement Size (cm) - Length 0.4 -Post Debridement Size (cm) - Width 0.6 -Post Debridement Size (cm) - Depth 0.3 -Total Square Cm 0.24 -Wound/Ulcer Outcome Not Healed -Ulcer Cleansing Rinsed/ Irrigated with Saline -Foul Odor after Cleansing No -Bioengineered Tissue Yes -Type of bioengineered Tissue EPIFIX -Expiration Date 01/31/23 -Product Lot Number [id number] -Percent Used 100 -Saline Lot Number [id number] -Bleeding Controlled with Pressure -Offloading No -Treatment Response Procedure Tolerated Well [See Physician Procedure note for Specifics] Pain Scale: 0-10 Numeric [Pain] -Is Patient Pain Free? Yes Musculoskeletal: No Tenderness to Palpation of Joints or Extremities, Muscle Wasting, - - rectus ankle Neurological: - - lack of normal epicritic sensation via light touch Psych/Mental Status: Normal Affect, Appropriate Debridement Note Post-Debridement Measurements/Treatment WC - Nurse 2 - General Ulcer CM Notes Start: 07/07/18 08:14 Freq: Status: Active Protocol: Activity Type Activity Date Activity User E-Sign Co-Sign Detail Recorded Client Recorded Date Recorded By Document 07/07/18 08:36 [id number] 07/07/18 08:39 Document 07/14/18 09:05 [id number] 07/14/18 09:06 Document 07/21/18 09:20 [id number] 07/21/18 09:21 07/07/18 07/14/18 07/21/18 08:36 09:05 09:20 Wound Center Nurse 2 #1 RIGHT ANKLE, Incision -Time 08:37 09:05 09:20 -Correct Patient Yes Yes Yes -Correct Side, Site, Position Yes Yes Yes -Correct Procedure Yes Yes Yes -Procedure Performed Yes Yes Yes -Type of Procedure Debridement Debridement Debridement -Clinical Debridement Subcutaneous Subcutaneous Subcutaneous -Post Debridement Size (cm) - Length 2.0 1.1 0.4 -Post Debridement Size (cm) - Width 0.6 0.5 0.6 -Post Debridement Size (cm) - Depth 0.4 0.5 0.3 -Total Square Cm 1.20 0.55 0.24 -Wound/Ulcer Outcome Not Healed Not Healed Not Healed -Ulcer Cleansing Rinsed/ Rinsed/ Rinsed/ Irrigated with Irrigated with Irrigated with Saline Saline Saline -Foul Odor after Cleansing No No No -Bioengineered Tissue Yes Yes Yes -Type of bioengineered Tissue EPIFIX EPIFIX EPIFIX -Expiration Date 01/31/23 01/31/23 01/31/23 -Product Lot Number [id number] -Percent Used 100 100 100 -Saline Lot Number [id number] -Bleeding Controlled with Pressure Pressure Pressure -Offloading No No No -Treatment Response Procedure Procedure Procedure Tolerated Well Tolerated Well Tolerated Well Pain Scale: 0-10 Numeric Is Patient Pain Free? 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 Nonunion posterior aspect of ankle arthrodesis. Delayed healing. Malnutrition Plan: I reviewed and discussed his case today. Debridement was performed today as noted in the clinical panel. The surgical site was evaluated. Advanced wound care product, epi fix, was approved and applied today according to standard protocol to the lateral ankle and also the dorsal rear foot locations. Verbal consent was obtained and this was secured in place at the wound veil and Steri-Strips. A snap wound VAC was also applied according to standard protocol and he was advised to keep this in place for a week. He tolerated this well. He was advised to keep this clean, dry, and intact until follow-up next week. To continue Anette or posterior mold brace use to keep his ankle in a rectus position at this time and to reduce tension and forces at his recently arthrodesis revision site. Compliance importance was discussed. He was reassured no signs of infection or necrosis are noted. His final microbiology reports from the bone biopsies are back without bacterial growth so far. His final pathology on biopsy results were reviewed and discussed as negative for osteomyelitis. He understands this is a complicated course and his already demonstrated significant delays in healing. I recommend he continue with improved nutrition supplements with Blair to optimize healing and to keep pressure off of all sites. To return to the wound healing center in 1 week or call sooner if he has any questions or concerns.
[2018-07-28 10:12] VITALS: BMI 37.7
--- NOTE | 2018-07-28 10:53 | PCM.WC.PN ---
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 Additional healing complications occurred, and the patient underwent a series of subsequent surgeries. He had surgery on June 11, 2018 for removal of potentially infected hardware, bone biopsy of the talus and the calcaneus for workup of osteomyelitis which was negative, minimally invasive debridement of the posterior aspect of the nonunion ankle arthrodesis site with application of bone marrow aspirate (harvested from the right limb) and bone graft, excisional debridement of the nonhealing ulcer site with application of advanced wound care product (amniofil). He denies fever, chill, nausea, vomiting, shortness of breath, chest pain, and calf pain. He denies pain to the surgical site. He wore a wound vac and right lower extremity CAM Walker this past week. He is only placed 30% weight on this limb. Progress of Wound: improving - Physical Exam Vital Signs Temp Pulse Resp BP 97.8 F 72 16 125/53 H 07/21/18 08:52 07/21/18 08:52 07/21/18 08:52 07/21/18 08:52 General: Alert, Oriented x3, Cooperative Extremities: No cyanosis, Capillary Refill Less than 3 Seconds, No Calf Tenderness - Negative Luis Daniel and Polo right lower extremity, Diminished Peripheral Pulses, Edema - Mild right lower extremity Skin: Ulcer/ Wound - No purulence, erythema, streaking, odor, or acute signs of infection. The peripheral skin is atrophic. There is a granular healthy base noted. No additional ulcers are noted Wound Measurements and Assessment WC - Nurse 1 - General Ulcer Measurement Start: 07/07/18 08:14 Freq: Status: Active Protocol: Activity Type Activity Date Activity User E-Sign Co-Sign Detail Recorded Client Recorded Date Recorded By Document 07/28/18 10:12 DV [id number] 07/28/18 10:14 DV 12/26/18 10:12 Wound Center Nurse 1 [Ulcer Assessment] #1 RIGHT ANKLE, Incision -Combined with other wound No -Current Size (cm) - Length 1.0 -Current Size (cm) - Width 0.3 -Current Size (cm) - Depth 0.3 -Total Square Cm 0.30 -Photo Taken No -Epithelialization Small 1-33% -Tunneling No -Undermining/Tunneling No -Circular Undermining No -Exudate Amt Small (1-33%) -Exudate Type Serous -Wound Margin Indistinct, Non -Visible -Granulation Amt None Present (0 %) -Granulation Quality N/A -Slough/Fibrin Yes -Necrosis Amt Small (1-33%) -Necrotic Tissue Type Adherent Slough -Structure Exposed N/A -Texture (Jennifer-wound Skin Appearance) No Abnormality Assessed -Moisture (Jennifer-wound Skin Appearance Assessed ) Dry/Scaly -Color (Jennifer-wound Skin Appearance) No Abnormality Assessed -Temperature (Jennifer-wound Skin No Abnormality Appearance) (Pt Warm) -Ulcer Cleansing Rinsed/ Irrigated with Saline -Foul Odor after Cleansing No -Anesthetic Used 4% Lidocaine Solution [Edema Assessment] -Lower Limb Edema Present No -Right Calf (cm) 38.0 -Right Ankle (cm) 25.0 WC - Nurse 2 - General Ulcer CM Notes Start: 07/07/18 08:14 Freq: Status: Active Protocol: Activity Type Activity Date Activity User E-Sign Co-Sign Detail Recorded Client Recorded Date Recorded By Document 07/28/18 10:34 ANDREW [id number] 07/28/18 10:36 JF 07/28/18 10:34 Wound Center Nurse 2 [Procedure/Treatment] #1 RIGHT ANKLE, Incision -Time 10:35 -Correct Patient Yes -Correct Side, Site, Position Yes -Correct Procedure Yes -Procedure Performed Yes -Type of Procedure Debridement -Clinical Debridement Subcutaneous -Post Debridement Size (cm) - Length 1.0 -Post Debridement Size (cm) - Width 0.3 -Post Debridement Size (cm) - Depth 0.3 -Total Square Cm 0.30 -Wound/Ulcer Outcome Not Healed -Ulcer Cleansing Rinsed/ Irrigated with Saline -Foul Odor after Cleansing No -Bioengineered Tissue Yes -Type of bioengineered Tissue EPIFIX -Expiration Date 01/31/23 -Product Lot Number [id number] -Percent Used 100 -Saline Lot Number [id number] -Bleeding Controlled with Pressure -Offloading No -Type of Offloading Camwalker -Treatment Response Procedure Tolerated Well [See Physician Procedure note for Specifics] Pain Scale: 0-10 Numeric [Pain] -Is Patient Pain Free? Yes Musculoskeletal: No Tenderness to Palpation of Joints or Extremities, Muscle Wasting, - - Rectus right ankle unchanged position Neurological: - - lack of sensation to light touch Psych/Mental Status: Normal Affect, Appropriate Debridement Note Post-Debridement Measurements/Treatment WC - Nurse 2 - General Ulcer CM Notes Start: 07/07/18 08:14 Freq: Status: Active Protocol: Activity Type Activity Date Activity User E-Sign Co-Sign Detail Recorded Client Recorded Date Recorded By Document 07/07/18 08:36 [id number] 07/07/18 08:39 Document 07/14/18 09:05 [id number] 07/14/18 09:06 Document 07/21/18 09:20 [id number] 07/21/18 09:21 Document 07/28/18 10:34 [id number] 07/28/18 10:36 07/07/18 07/14/18 07/21/18 08:36 09:05 09:20 Wound Center Nurse 2 #1 RIGHT ANKLE, Incision -Time 08:37 09:05 09:20 -Correct Patient Yes Yes Yes -Correct Side, Site, Position Yes Yes Yes -Correct Procedure Yes Yes Yes -Procedure Performed Yes Yes Yes -Type of Procedure Debridement Debridement Debridement -Clinical Debridement Subcutaneous Subcutaneous Subcutaneous -Post Debridement Size (cm) - Length 2.0 1.1 0.4 -Post Debridement Size (cm) - Width 0.6 0.5 0.6 -Post Debridement Size (cm) - Depth 0.4 0.5 0.3 -Total Square Cm 1.20 0.55 0.24 -Wound/Ulcer Outcome Not Healed Not Healed Not Healed -Ulcer Cleansing Rinsed/ Rinsed/ Rinsed/ Irrigated with Irrigated with Irrigated with Saline Saline Saline -Foul Odor after Cleansing No No No -Bioengineered Tissue Yes Yes Yes -Type of bioengineered Tissue EPIFIX EPIFIX EPIFIX -Expiration Date 01/31/23 01/31/23 01/31/23 -Product Lot Number [id number] -Percent Used 100 100 100 -Saline Lot Number [id number] -Bleeding Controlled with Pressure Pressure Pressure -Offloading No No No -Type of Offloading -Treatment Response Procedure Procedure Procedure Tolerated Well Tolerated Well Tolerated Well Pain Scale: 0-10 Numeric Is Patient Pain Free? Yes Yes Yes 07/28/18 10:34 Wound Center Nurse 2 #1 RIGHT ANKLE, Incision -Time 10:35 -Correct Patient Yes -Correct Side, Site, Position Yes -Correct Procedure Yes -Procedure Performed Yes -Type of Procedure Debridement -Clinical Debridement Subcutaneous -Post Debridement Size (cm) - Length 1.0 -Post Debridement Size (cm) - Width 0.3 -Post Debridement Size (cm) - Depth 0.3 -Total Square Cm 0.30 -Wound/Ulcer Outcome Not Healed -Ulcer Cleansing Rinsed/ Irrigated with Saline -Foul Odor after Cleansing No -Bioengineered Tissue Yes -Type of bioengineered Tissue EPIFIX -Expiration Date 01/31/23 -Product Lot Number [id number] -Percent Used 100 -Saline Lot Number [id number] -Bleeding Controlled with Pressure -Offloading No -Type of Offloading Camwalker -Treatment Response Procedure Tolerated Well Pain Scale: 0-10 Numeric Is Patient Pain Free? 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 Nonunion posterior aspect of ankle arthrodesis. Delayed healing. Malnutrition Plan: I reviewed and discussed his case today. Debridement was performed today as noted in the clinical panel. The surgical site was evaluated. Advanced wound care product, epi fix, was approved and applied today according to standard protocol to the lateral ankle and also the dorsal rear foot locations. Verbal consent was obtained and this was secured in place at the wound veil and Steri-Strips. A snap wound VAC was also applied according to standard protocol and he was advised to keep this in place for a week. He tolerated this well. He was advised to keep this clean, dry, and intact until follow-up next week. To continue Anette or posterior mold brace use to keep his ankle in a rectus position at this time and to reduce tension and forces at his recently arthrodesis revision site. Compliance importance was discussed. He was reassured no signs of infection or necrosis are noted. His final microbiology reports from the bone biopsies are back without bacterial growth so far. His final pathology on biopsy results were reviewed and discussed as negative for osteomyelitis. He understands this is a complicated course and his already demonstrated significant delays in healing. I recommend he continue with improved nutrition supplements with Blair to optimize healing and to keep pressure off of all sites. To wear cam walker and only apply up to 50% weight to the right lower extremity to return to the wound healing center in 1 week or call sooner if he has any questions or concerns.
== END 2018-08-02 23:59 ==
LOC: WC 09:45
PROVIDERS: Family Provider Family Medicine; PCP Family Medicine; Referring Provider Surgery; Visit Provider Podiatrist
DX: M96.0 Pseudarthrosis after fusion or arthrodesis (principal); L97.312 Non-pressure chronic ulcer of right ankle with fat layer exposed; Y83.8 Other surgical procedures as the cause of abnormal reaction of the patient, or of later complication, without mention of misadventure at the time of the procedure
CPT/HCPCS: 15271; 15275; 97607; Q4131

== ENCOUNTER 2018-08-18 09:30 | Outpatient (RCR) | payer MEDICARE, SELFPAY ==
[2018-08-03 00:49] VITALS: BP 125/53; PULSE 72; RESP 16; TEMP 36.6
[2018-08-04 09:58] VITALS: BP 134/75; PULSE 68; RESP 20; TEMP 36; BMI 37.7
--- NOTE | 2018-08-04 10:57 | PN.PCM_ITS ---
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 Right foot ulcer with fat layer exposed, new. 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 Additional healing complications occurred, and the patient underwent a series of subsequent surgeries. He had surgery on June 11, 2018 for removal of potentially infected hardware, bone biopsy of the talus and the calcaneus for workup of osteomyelitis which was negative, minimally inva sive debridement of the posterior aspect of the nonunion ankle arthrodesis site with application of bone marrow aspirate (harvested from the right limb) and bone graft, excisional debridement of the nonhealing ulcer site with application of advanced wound care product (amniofil). He denies fever, chill, nausea, vomiting, shortness of breath, chest pain, and calf pain. He denies pain to the surgical site. He wore a wound vac and right lower extremity CAM Walker this past week. He is only placed 50% weight on this limb. Progress of Wound: improving - Physical Exam Vital Signs Temp Pulse Resp BP 96.8 F L 68 20 H 134/75 H 08/04/18 09:58 08/04/18 09:58 08/04/18 09:58 08/04/18 09:58 General: Alert, Oriented x3, Cooperative Extremities: No cyanosis, Capillary Refill Less than 3 Seconds, No Calf Tenderness - Negative Polo sign right lower extremity. No motion available at the arthrodesis ankle site and this remains in a rectus position. Compartments remain soft on palpation right lower extremity, Diminished Peripheral Pulses, Edema Skin: Ulcer/ Wound - No purulence, erythema, streaking, odor, or infection. There is peripheral epithelialization progressive and noted to the lateral ankle ulcer site. There is a new skin discontinuity to the dorsal right foot at the previous incision site that is granular. There is no deep probing or infection or necrosis. The peripheral skin is very hairless and atrophic. Wound Measurements and Assessment WC - Nurse 1 - General Ulcer Measurement Start: 08/04/18 09:57 Freq: Status: Active Protocol: Activity Type Activity Date Activity User E-Sign Co-Sign Detail Recorded Client Recorded Date Recorded By Document 08/04/18 09:58 [facility] [id number] 08/04/18 10:09 [facility] 08/04/18 09:58 Wound Center Nurse 1 [Ulcer Assessment] #3 R Ant Ankle/Incision site -Current Size (cm) - Length 0.2 -Current Size (cm) - Width 0.2 -Current Size (cm) - Depth 0.3 -Total Square Cm 0.04 -Photo Taken Yes -Exudate Amt Small (1-33%) -Exudate Type Sanguineous -Wound Margin Distinct, Outline Attached -Granulation Amt Small (1-33%) -Granulation Quality Red -Necrosis Amt None Present (0 %) -Structure Exposed N/A -Texture (Jennifer-wound Skin Appearance) Scarring -Moisture (Jennifer-wound Skin Appearance No Abnormality ) -Color (Jennifer-wound Skin Appearance) No Abnormality Hemosiderin Staining -Temperature (Jennifer-wound Skin No Abnormality Appearance) (Pt Warm) -Tenderness on Palpation (Jennifer-wound No Skin Appearance) -Ulcer Cleansing Wound Cleanser -Foul Odor after Cleansing No -Anesthetic Used 4% Lidocaine Solution #1 RIGHT ANKLE, Incision -Current Size (cm) - Length 0.5 -Current Size (cm) - Width 0.2 -Current Size (cm) - Depth 0.1 -Total Square Cm 0.10 -Photo Taken No -Exudate Amt None Present (0 %) -Wound Margin Distinct, Outline Attached -Granulation Amt Large (67-100%) -Granulation Quality [place] -Necrosis Amt Small (1-33%) -Necrotic Tissue Type Adherent Slough -Structure Exposed N/A -Texture (Jennifer-wound Skin Appearance) Scarring -Moisture (Jennifer-wound Skin Appearance No Abnormality ) -Color (Jennifer-wound Skin Appearance) Hemosiderin Staining Rubor -Temperature (Jennifer-wound Skin No Abnormality Appearance) (Pt Warm) -Tenderness on Palpation (Jennifer-wound No Skin Appearance) -Ulcer Cleansing Wound Cleanser -Foul Odor after Cleansing No -Anesthetic Used 4% Lidocaine Solution [Edema Assessment] -Right Calf (cm) 35.5 -Right Ankle (cm) 25 WC - Nurse 2 - General Ulcer CM Notes Start: 08/04/18 09:57 Freq: Status: Active Protocol: Activity Type Activity Date Activity User E-Sign Co-Sign Detail Recorded Client Recorded Date Recorded By Document 08/04/18 10:31 ANDREW [id number] 08/04/18 10:34 ANDREW 08/04/18 10:31 Wound Center Nurse 2 [Procedure/Treatment] #3 R Ant Ankle/Incision site -Time 10:31 -Correct Patient Yes -Correct Side, Site, Position Yes -Correct Procedure Yes -Procedure Performed Yes -Type of Procedure Debridement -Clinical Debridement Subcutaneous -Post Debridement Size (cm) - Length 0.3 -Post Debridement Size (cm) - Width 0.2 -Post Debridement Size (cm) - Depth 0.3 -Total Square Cm 0.06 -Wound/Ulcer Outcome Not Healed -Ulcer Cleansing Rinsed/ Irrigated with Saline -Foul Odor after Cleansing No -Bioengineered Tissue Yes -Type of bioengineered Tissue EPIFIX -Expiration Date 03/03/23 -Product Lot Number [id number] -Percent Used 100 -Saline Lot Number [id number] -Bleeding Controlled with Pressure -Offloading Yes -Type of Offloading Knee Walker -Treatment Response Procedure Tolerated Well #1 RIGHT ANKLE, Incision -Time 10:32 -Correct Patient Yes -Correct Side, Site, Position Yes -Correct Procedure Yes -Procedure Performed Yes -Type of Procedure Debridement -Clinical Debridement Subcutaneous -Post Debridement Size (cm) - Length 0.5 -Post Debridement Size (cm) - Width 0.3 -Post Debridement Size (cm) - Depth 0.1 -Total Square Cm 0.15 -Wound/Ulcer Outcome Not Healed -Ulcer Cleansing Rinsed/ Irrigated with Saline -Foul Odor after Cleansing No -Bioengineered Tissue Yes -Type of bioengineered Tissue EPIFIX -Expiration Date 03/03/23 -Product Lot Number [id number] -Percent Used 100 -Saline Lot Number [id number] -Bleeding Controlled with Pressure -Offloading Yes -Type of Offloading Wedge Shoe -Treatment Response Procedure Tolerated Well [See Physician Procedure note for Specifics] Pain Scale: 0-10 Numeric [Pain] -Is Patient Pain Free? Yes Musculoskeletal: No Tenderness to Palpation of Joints or Extremities, Muscle Wasting Neurological: - - Lack of epicritic sensation light touch right lower extremity Psych/Mental Status: Normal Affect, Appropriate Debridement Note Post-Debridement Measurements/Treatment WC - Nurse 2 - General Ulcer CM Notes Start: 08/04/18 09:57 Freq: Status: Active Protocol: Activity Type Activity Date Activity User E-Sign Co-Sign Detail Recorded Client Recorded Date Recorded By Document 08/04/18 10:31 ANDREW [id number] 08/04/18 10:34 ANDREW 08/04/18 10:31 Wound Center Nurse 2 #3 R Ant Ankle/Incision site -Time 10:31 -Correct Patient Yes -Correct Side, Site, Position Yes -Correct Procedure Yes -Procedure Performed Yes -Type of Procedure Debridement -Clinical Debridement Subcutaneous -Post Debridement Size (cm) - Length 0.3 -Post Debridement Size (cm) - Width 0.2 -Post Debridement Size (cm) - Depth 0.3 -Total Square Cm 0.06 -Wound/Ulcer Outcome Not Healed -Ulcer Cleansing Rinsed/ Irrigated with Saline -Foul Odor after Cleansing No -Bioengineered Tissue Yes -Type of bioengineered Tissue EPIFIX -Expiration Date 03/03/23 -Product Lot Number [id number] -Percent Used 100 -Saline Lot Number [id number] -Bleeding Controlled with Pressure -Offloading Yes -Type of Offloading Knee Walker -Treatment Response Procedure Tolerated Well #1 RIGHT ANKLE, Incision -Time 10:32 -Correct Patient Yes -Correct Side, Site, Position Yes -Correct Procedure Yes -Procedure Performed Yes -Type of Procedure Debridement -Clinical Debridement Subcutaneous -Post Debridement Size (cm) - Length 0.5 -Post Debridement Size (cm) - Width 0.3 -Post Debridement Size (cm) - Depth 0.1 -Total Square Cm 0.15 -Wound/Ulcer Outcome Not Healed -Ulcer Cleansing Rinsed/ Irrigated with Saline -Foul Odor after Cleansing No -Bioengineered Tissue Yes -Type of bioengineered Tissue EPIFIX -Expiration Date 03/03/23 -Product Lot Number [id number] -Percent Used 100 -Saline Lot Number [id number] -Bleeding Controlled with Pressure -Offloading Yes -Type of Offloading Wedge Shoe -Treatment Response Procedure Tolerated Well Pain Scale: 0-10 Numeric Is Patient Pain Free? Yes Wound debrided: dorsal foot Laterality: Right Type of Debridement: Excisional debridement Anesthesia Used: 5% Lidocaine Gel Depth: in the subcutaneous layer Percentage of wound debrided: 100 Instrument Used: #15 blade Tissue Removed: fibrous, devitalized subcutaneous, biofilm, slough Severity: Fat Layer Exposed Amount of bleeding with debridement: Mild Bleeding Controlled with: Pressure Patient tolerated procedure well - Additional Wound Wound debrided: lateral ankle Laterality: Right Type of Debridement: Excisional debridement Anesthesia Used: 5% Lidocaine Gel Depth: in the subcutaneous layer Percentage of wound debrided: 100 Instrument Used: #15 blade Tissue Removed: fibrous, devitalized subcutaneous, biofilm, slough Severity: Fat Layer Exposed Amount of bleeding with debridement: Mild Bleeding Controlled with: Pressure Patient tolerated procedure: Patient tolerated procedure well Assessment/Plan Active Problems (Last Updated 06/04/18 @ 10:26 by Jessica Benavides) Edema of leg (Chronic) 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 Nonunion posterior aspect of ankle arthrodesis. Delayed healing. Malnutrition Plan: I reviewed and discussed his case today. Debridement was performed today as noted in the clinical panel. The surgical site was evaluated. Advanced wound care product, epi fix, was approved and applied today according to standard protocol to the lateral ankle and also the dorsal rear foot locations. Verbal consent was obtained and this was secured in place to both sites at the wound veil and Steri-Strips. A snap wound VAC was also applied according to standard protocol and he was advised to keep this in place for a week. His new right foot ulcer site is noted and this was debrided. He was reassured no infections noted. He tolerated this well. He was advised to keep this clean, dry, and intact until follow-up next week. To continue Anette or posterior mold brace use to keep his ankle in a rectus position at this time and to reduce tension and forces at his recently arthrodesis revision site. Compliance importance was discussed. He was reassured no signs of infection or necrosis are noted. His final microbiology reports from the bone biopsies are back without bacterial growth so far. His final pathology on biopsy results were reviewed and discussed as negative for osteomyelitis. He understands this is a complicated course and his already demonstrated significant delays in healing. I recommend he continue with improved nutrition supplements with Blair to optimize healing and to keep pressure off of all sites. To wear cam walker and only apply up to 50% weight to the right lower extremity to return to the wound healing center in 1 week or call sooner if he has any questions or concerns.
[2018-08-11 10:11] VITALS: BP 144/80; PULSE 65; RESP 16; TEMP 36; BMI 37.7
--- NOTE | 2018-08-11 10:40 | RAD_ITS ---
STUDY: X-RAY - RIGHT ANKLE REASON FOR EXAM: Male, 73 years old. Nonunion ankle. TECHNIQUE: 3 view(s) of the ankle. COMPARISON: None. FINDINGS: Resected distal fibula. Screws are present at the subtalar joint, with a talotibial screw lateral aspect. Severe rotation and disorganization of the talar dome. At least partial fusion between the talar dome and the tibia. At least partial fusion of the subtalar joint, incomplete union. One of the subtalar fixation screws appears to be a fractured screw remnant. Thoracal oblique fracture through the proximal calcaneus, emerging posterior to the subtalar joint, appears to be partially fused. 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 Calcaneus fracture and alignment without loss of Boehler's angle, at least partially fused. Distal fibular resection. Electronically Signed: Shubham Ibarra MD at 8:21 EST Tel , Service support ,
--- NOTE | 2018-08-11 12:20 | PCM.WC.PN ---
(1) Ulcer of right lower extremity with fat layer exposed Status: Resolved Current Visit: Yes Code(s): L97.912 - Non-pressure chronic ulcer of unspecified part of right lower leg with fat layer exposed (2) Ulcer of right foot with fat layer exposed Status: Resolved Current Visit: Yes Code(s): L97.512 - Non-pressure chronic ulcer of other part of right foot with fat layer exposed (3) Edema of leg Status: Chronic Current Visit: Yes Code(s): R60.0 - Localized edema (4) Nonunion of arthrodesis Status: Chronic Current Visit: Yes Type of Wound Date of Service: 08/11/18 Chief Complaint: Chronic ulcer of the right lateral ankle. Right foot ulcer with fat layer exposed. 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 Additional healing complications occurred, and the patient underwent a series of subsequent surgeries. He had surgery on June 11, 2018 for removal of potentially infected hardware, bone biopsy of the talus and the calcaneus for workup of osteomyelitis which was negative, minimally invasive debridement of the posterior aspect of the nonunion ankle arthrodesis site with application of bone marrow aspirate (harvested from the right limb) and bone graft, excisional debridement of the nonhealing ulcer site with application of advanced wound care product (amniofil). He denies fever, chill, nausea, vomiting, shortness of breath, chest pain, and calf pain. He denies pain to the surgical site. He wore a wound vac and right lower extremity CAM Walker this past week. He is only placed 50% weight on this limb. Progress of Wound: Healed - Physical Exam Vital Signs Temp Pulse Resp BP 96.8 F L 65 16 144/80 H 08/11/18 10:11 08/11/18 10:11 08/11/18 10:11 08/11/18 10:11 General: Alert, Oriented x3, Cooperative Extremities: No cyanosis, Capillary Refill Less than 3 Seconds, No Calf Tenderness - Negative Polo sign right lower extremity, Diminished Peripheral Pulses, Edema - Mild right lower extremity, - - Ankle arthrodesis site remains rectus and there is no passive motion available Skin: Ulcer/ Wound - Full epithelialization is noted to the lateral ankle as well as the dorsal right foot. And there is no purulence, erythema, streaking, odor, or infection. The skin is very atrophic and hairless Wound Measurements and Assessment WC - Nurse 1 - General Ulcer Measurement Start: 08/04/18 09:57 Freq: Status: Active Protocol: Activity Type Activity Date Activity User E-Sign Co-Sign Detail Recorded Client Recorded Date Recorded By Document 08/11/18 10:11 ADOLFO [id number] 08/11/18 10:16 DV 08/11/18 10:11 Wound Center Nurse 1 [Ulcer Assessment] #3 R Ant Ankle/Incision site -Combined with other wound No -Current Size (cm) - Length 0.1 -Current Size (cm) - Width 0.1 -Current Size (cm) - Depth 0.1 -Total Square Cm 0.01 -Photo Taken No -Epithelialization Small 1-33% -Tunneling No -Undermining/Tunneling No -Circular Undermining No -Classification - Thickness Full Thickness without Exposed Support Structure -Wound Margin Flat & Intact -Granulation Amt None Present (0 %) -Granulation Quality N/A -Slough/Fibrin No -Necrosis Amt None Present (0 %) -Structure Exposed N/A -Texture (Jennifer-wound Skin Appearance) No Abnormality Assessed -Moisture (Jennifer-wound Skin Appearance No Abnormality ) Assessed -Color (Jennifer-wound Skin Appearance) No Abnormality Assessed -Temperature (Jennifer-wound Skin No Abnormality Appearance) (Pt Warm) -Tenderness on Palpation (Jennifer-wound No Skin Appearance) -Ulcer Cleansing Rinsed/ Irrigated with Saline -Foul Odor after Cleansing No [Edema Assessment] -Lower Limb Edema Present No -Right Calf (cm) 36.7 -Right Ankle (cm) 25.7 - Nurse 2 - General Ulcer CM Notes Start: 08/04/18 09:57 Freq: Status: Active Protocol: Activity Type Activity Date Activity User E-Sign Co-Sign Detail Recorded Client Recorded Date Recorded By Document 08/11/18 10:18 ANDREW [id number] 08/11/18 10:19 ANDREW 08/11/18 10:18 Wound Center Nurse 2 [Procedure/Treatment] #3 R Ant Ankle/Incision site -Correct Patient No -Correct Side, Site, Position No -Correct Procedure No -Procedure Performed No -Post Debridement Size (cm) - Length 0 -Post Debridement Size (cm) - Width 0 -Post Debridement Size (cm) - Depth 0 -Total Square Cm 0 -Wound/Ulcer Outcome Healed- Epithelialized #1 RIGHT ANKLE, Incision -Correct Patient No -Correct Side, Site, Position No -Correct Procedure No -Procedure Performed No -Post Debridement Size (cm) - Length 0 -Post Debridement Size (cm) - Width 0 -Post Debridement Size (cm) - Depth 0 -Total Square Cm 0 -Wound/Ulcer Outcome Healed- Epithelialized [See Physician Procedure note for Specifics] Pain Scale: 0-10 Numeric [Pain] -Is Patient Pain Free? Yes Musculoskeletal: No Tenderness to Palpation of Joints or Extremities, Muscle Wasting, - - Active range of motion digits right foot Neurological: - - Lack of normal epicritic sensation light touch consistent with some neuropathy Psych/Mental Status: Normal Affect, Appropriate Debridement Note Post-Debridement Measurements/Treatment WC - Nurse 2 - General Ulcer CM Notes Start: 08/04/18 09:57 Freq: Status: Active Protocol: Activity Type Activity Date Activity User E-Sign Co-Sign Detail Recorded Client Recorded Date Recorded By Document 08/04/18 10:31 [id number] 08/04/18 10:34 Document 08/11/18 10:18 [id number] 08/11/18 10:19 08/04/18 08/11/18 10:31 10:18 Wound Center Nurse 2 #3 R Ant Ankle/Incision site -Time 10:31 -Correct Patient Yes No -Correct Side, Site, Position Yes No -Correct Procedure Yes No -Procedure Performed Yes No -Type of Procedure Debridement -Clinical Debridement Subcutaneous -Post Debridement Size (cm) - Length 0.3 0 -Post Debridement Size (cm) - Width 0.2 0 -Post Debridement Size (cm) - Depth 0.3 0 -Total Square Cm 0.06 0 -Wound/Ulcer Outcome Not Healed Healed- Epithelialized -Ulcer Cleansing Rinsed/ Irrigated with Saline -Foul Odor after Cleansing No -Bioengineered Tissue Yes -Type of bioengineered Tissue EPIFIX -Expiration Date 03/03/23 -Product Lot Number [id number] -Percent Used 100 -Saline Lot Number [id number] -Bleeding Controlled with Pressure -Offloading Yes -Type of Offloading Knee Walker -Treatment Response Procedure Tolerated Well #1 RIGHT ANKLE, Incision -Time 10:32 -Correct Patient Yes No -Correct Side, Site, Position Yes No -Correct Procedure Yes No -Procedure Performed Yes No -Type of Procedure Debridement -Clinical Debridement Subcutaneous -Post Debridement Size (cm) - Length 0.5 0 -Post Debridement Size (cm) - Width 0.3 0 -Post Debridement Size (cm) - Depth 0.1 0 -Total Square Cm 0.15 0 -Wound/Ulcer Outcome Not Healed Healed- Epithelialized -Ulcer Cleansing Rinsed/ Irrigated with Saline -Foul Odor after Cleansing No -Bioengineered Tissue Yes -Type of bioengineered Tissue EPIFIX -Expiration Date 03/03/23 -Product Lot Number [id number] -Percent Used 100 -Saline Lot Number [id number] -Bleeding Controlled with Pressure -Offloading Yes -Type of Offloading Wedge Shoe -Treatment Response Procedure Tolerated Well Pain Scale: 0-10 Numeric Is Patient Pain Free? Yes Yes No debridement was completed today - The ulcer site has healed Assessment/Plan Active Problems (Last Updated 06/04/18 @ 10:26 by Jessica Benavides) Edema of leg (Chronic) Nonunion of arthrodesis (Chronic) Assessment: He is now status post right lower extremity hardware removal, bone biopsy of the talus and calcaneus which was negative for osteomyelitis, minimally invasive debridement and augmentation of the nonunion posterior ankle arthrodesis site with bone marrow aspirate and bone graft, excisional debridement of nonhealing ulcer with application of advanced wound care products, amniofil performed on 06/11/2018. Right foot ulcer site dorsal -healed today. Chronic right lateral ankle ulcer site -healed today. Nonunion posterior aspect of ankle arthrodesis. Delayed healing. Malnutrition Plan: I reviewed and discussed his case today. Both ulcer sites are healed today with full epithelialization. He was reassured no ulcers or infections are noted. To monitor this closely for return. To discontinue daily dressing changes. I do recommend covering his recently healed lateral ankle heel ulcer site with a bolstered dry gauze; keep this clean and intact until follow-up next week. This will allow continued skin remodeling. To continue Anette or posterior mold brace use to keep his ankle in a rectus position at this time and to reduce tension and forces at his recently arthrodesis revision site. Compliance importance was discussed. To wear cam walker and only apply up to 50% weight to the right lower extremity. An updated right ankle x-ray was ordered and weightbearing progression will be considered after these are reviewed. To return to the wound healing center in 1 week or call sooner if he has any questions or concerns.
--- NOTE | 2018-08-11 12:25 | PN.PCM_ITS ---
(1) Ulcer of right lower extremity with fat layer exposed Status: Resolved Current Visit: Yes Code(s): L97.912 - Non-pressure chronic ulcer of unspecified part of right lower leg with fat layer exposed (2) Ulcer of right foot with fat layer exposed Status: Resolved Current Visit: Yes Code(s): L97.512 - Non-pressure chronic ulcer of other part of right foot with fat layer exposed (3) Edema of leg Status: Chronic Current Visit: Yes Code(s): R60.0 - Localized edema (4) Nonunion of arthrodesis Status: Chronic Current Visit: Yes Type of Wound Date of Service: 08/11/18 Chief Complaint: Chronic ulcer of the right lateral ankle. Right foot ulcer with fat layer exposed. 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 Additional healing complications occurred, and the patient underwent a series of subsequent surgeries. He had surgery on June 11, 2018 for removal of potentially infected hardware, bone biopsy of the talus and the calcaneus for workup of osteomyelitis which was negative, minimally invasive debridement of the posterior aspect of the nonunion ankle arthrodesis site with application of bone marrow aspirate (harvested from the right limb) and bone graft, excisional debridement of the nonhealing ulcer site with application of advanced wound care product (amniofil). He denies fever, chill, nausea, vomiting, shortness of breath, chest pain, and calf pain. He denies pain to the surgical site. He wore a wound vac and right lower extremity CAM Walker this past week. He is only placed 50% weight on this limb. Progress of Wound: Healed - Physical Exam Vital Signs Temp Pulse Resp BP 96.8 F L 65 16 144/80 H 08/11/18 10:11 08/11/18 10:11 08/11/18 10:11 08/11/18 10:11 General: Alert, Oriented x3, Cooperative Extremities: No cyanosis, Capillary Refill Less than 3 Seconds, No Calf Tenderness - Negative Polo sign right lower extremity, Diminished Peripheral Pulses, Edema - Mild right lower extremity, - - Ankle arthrodesis site remains rectus and there is no passive motion available Skin: Ulcer/ Wound - Full epithelialization is noted to the lateral ankle as well as the dorsal right foot. And there is no purulence, erythema, streaking, odor, or infection. The skin is very atrophic and hairless Wound Measurements and Assessment WC - Nurse 1 - General Ulcer Measurement Start: 08/04/18 09:57 Freq: Status: Active Protocol: Activity Type Activity Date Activity User E-Sign Co-Sign Detail Recorded Client Recorded Date Recorded By Document 08/11/18 10:11 ADOLFO [id number] 08/11/18 10:16 DV 08/11/18 10:11 Wound Center Nurse 1 [Ulcer Assessment] #3 R Ant Ankle/Incision site -Combined with other wound No -Current Size (cm) - Length 0.1 -Current Size (cm) - Width 0.1 -Current Size (cm) - Depth 0.1 -Total Square Cm 0.01 -Photo Taken No -Epithelialization Small 1-33% -Tunneling No -Undermining/Tunneling No -Circular Undermining No -Classification - Thickness Full Thickness without Exposed Support Structure -Wound Margin Flat & Intact -Granulation Amt None Present (0 %) -Granulation Quality N/A -Slough/Fibrin No -Necrosis Amt None Present (0 %) -Structure Exposed N/A -Texture (Jennifer-wound Skin Appearance) No Abnormality Assessed -Moisture (Jennifer-wound Skin Appearance No Abnormality ) Assessed -Color (Jennifer-wound Skin Appearance) No Abnormality Assessed -Temperature (Jennifer-wound Skin No Abnormality Appearance) (Pt Warm) -Tenderness on Palpation (Jennifer-wound No Skin Appearance) -Ulcer Cleansing Rinsed/ Irrigated with Saline -Foul Odor after Cleansing No [Edema Assessment] -Lower Limb Edema Present No -Right Calf (cm) 36.7 -Right Ankle (cm) 25.7 - Nurse 2 - General Ulcer CM Notes Start: 08/04/18 09:57 Freq: Status: Active Protocol: Activity Type Activity Date Activity User E-Sign Co-Sign Detail Recorded Client Recorded Date Recorded By Document 08/11/18 10:18 ANDREW [id number] 08/11/18 10:19 ANDREW 08/11/18 10:18 Wound Center Nurse 2 [Procedure/Treatment] #3 R Ant Ankle/Incision site -Correct Patient No -Correct Side, Site, Position No -Correct Procedure No -Procedure Performed No -Post Debridement Size (cm) - Length 0 -Post Debridement Size (cm) - Width 0 -Post Debridement Size (cm) - Depth 0 -Total Square Cm 0 -Wound/Ulcer Outcome Healed- Epithelialized #1 RIGHT ANKLE, Incision -Correct Patient No -Correct Side, Site, Position No -Correct Procedure No -Procedure Performed No -Post Debridement Size (cm) - Length 0 -Post Debridement Size (cm) - Width 0 -Post Debridement Size (cm) - Depth 0 -Total Square Cm 0 -Wound/Ulcer Outcome Healed- Epithelialized [See Physician Procedure note for Specifics] Pain Scale: 0-10 Numeric [Pain] -Is Patient Pain Free? Yes Musculoskeletal: No Tenderness to Palpation of Joints or Extremities, Muscle Wasting, - - Active range of motion digits right foot Neurological: - - Lack of normal epicritic sensation light touch consistent with some neuropathy Psych/Mental Status: Normal Affect, Appropriate Debridement Note Post-Debridement Measurements/Treatment WC - Nurse 2 - General Ulcer CM Notes Start: 08/04/18 09:57 Freq: Status: Active Protocol: Activity Type Activity Date Activity User E-Sign Co-Sign Detail Recorded Client Recorded Date Recorded By Document 08/04/18 10:31 [id number] 08/04/18 10:34 Document 08/11/18 10:18 [id number] 08/11/18 10:19 08/04/18 08/11/18 10:31 10:18 Wound Center Nurse 2 #3 R Ant Ankle/Incision site -Time 10:31 -Correct Patient Yes No -Correct Side, Site, Position Yes No -Correct Procedure Yes No -Procedure Performed Yes No -Type of Procedure Debridement -Clinical Debridement Subcutaneous -Post Debridement Size (cm) - Length 0.3 0 -Post Debridement Size (cm) - Width 0.2 0 -Post Debridement Size (cm) - Depth 0.3 0 -Total Square Cm 0.06 0 -Wound/Ulcer Outcome Not Healed Healed- Epithelialized -Ulcer Cleansing Rinsed/ Irrigated with Saline -Foul Odor after Cleansing No -Bioengineered Tissue Yes -Type of bioengineered Tissue EPIFIX -Expiration Date 03/03/23 -Product Lot Number [id number] -Percent Used 100 -Saline Lot Number [id number] -Bleeding Controlled with Pressure -Offloading Yes -Type of Offloading Knee Walker -Treatment Response Procedure Tolerated Well #1 RIGHT ANKLE, Incision -Time 10:32 -Correct Patient Yes No -Correct Side, Site, Position Yes No -Correct Procedure Yes No -Procedure Performed Yes No -Type of Procedure Debridement -Clinical Debridement Subcutaneous -Post Debridement Size (cm) - Length 0.5 0 -Post Debridement Size (cm) - Width 0.3 0 -Post Debridement Size (cm) - Depth 0.1 0 -Total Square Cm 0.15 0 -Wound/Ulcer Outcome Not Healed Healed- Epithelialized -Ulcer Cleansing Rinsed/ Irrigated with Saline -Foul Odor after Cleansing No -Bioengineered Tissue Yes -Type of bioengineered Tissue EPIFIX -Expiration Date 03/03/23 -Product Lot Number [id number] -Percent Used 100 -Saline Lot Number [id number] -Bleeding Controlled with Pressure -Offloading Yes -Type of Offloading Wedge Shoe -Treatment Response Procedure Tolerated Well Pain Scale: 0-10 Numeric Is Patient Pain Free? Yes Yes No debridement was completed today - The ulcer site has healed Assessment/Plan Active Problems (Last Updated 06/04/18 @ 10:26 by Jessica Benavides) Edema of leg (Chronic) Nonunion of arthrodesis (Chronic) Assessment: He is now status post right lower extremity hardware removal, bone biopsy of the talus and calcaneus which was negative for osteomyelitis, minimally invasive debridement and augmentation of the nonunion posterior ankle arthrodesis site with bone marrow aspirate and bone graft, excisional debri hetal of nonhealing ulcer with application of advanced wound care products, amniofil performed on 06/11/2018. Right foot ulcer site dorsal -healed today. Chronic right lateral ankle ulcer site -healed today. Nonunion posterior aspect of ankle arthrodesis. Delayed healing. Malnutrition Plan: I reviewed and discussed his case today. Both ulcer sites are healed today with full epithelialization. He was reassured no ulcers or infections are noted. To monitor this closely for return. To discontinue daily dressing changes. I do recommend covering his recently healed lateral ankle heel ulcer site with a bolstered dry gauze; keep this clean and intact until follow-up next week. This will allow continued skin remodeling. To continue Anette or posterior mold brace use to keep his ankle in a rectus position at this time and to reduce tension and forces at his recently arthrodesis revision site. Compliance importance was discussed. To wear cam walker and only apply up to 50% weight to the right lower extremity. An updated right ankle x-ray was ordered and weightbearing progression will be considered after these are reviewed. To return to the wound healing center in 1 week or call sooner if he has any questions or concerns.
[2018-08-18 09:07] VITALS: BP 149/92; PULSE 71; RESP 16; TEMP 36.3; BMI 37.7
--- NOTE | 2018-08-18 12:54 | PN.PCM_ITS ---
(1) Ulcer of right lower extremity with fat layer exposed Status: Resolved Current Visit: Yes Code(s): L97.912 - Non-pressure chronic ulcer of unspecified part of right lower leg with fat layer exposed (2) Ulcer of right foot with fat layer exposed Status: Resolved Current Visit: Yes Code(s): L97.512 - Non-pressure chronic ulcer of other part of right foot with fat layer exposed (3) Edema of leg Status: Chronic Current Visit: Yes Code(s): R60.0 - Localized edema (4) Nonunion of arthrodesis Status: Chronic Current Visit: Yes Type of Wound Date of Service: 08/18/18 Chief Complaint: Chronic ulcer of the right lateral ankle healed. Right foot ulcer healed. Nonhealing the posterior aspect of ankle arthrodesis right lower extremity -stable and healing progression History of Wound: This is a 73-year-old male who initially 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 Additional healing complications occurred, and the patient underwent a series of subsequent surgeries. He had surgery on June 11, 2018 for removal of potentially infected hardware, bone biopsy of the talus and the calcaneus for workup of osteomyelitis which was negative, minimally invasive debridement of the posterior aspect of the nonunion ankle arthrodesis site with application of bone marrow aspirate (harvested from the right limb) and bone graft, excisional debridement of the nonhealing ulcer site with application of advanced wound care product (amniofil). He denies fever, chill, nausea, vomiting, shortness of breath, chest pain, and calf pain. He denies pain to the surgical site. He wore a wound vac and right lower extremity CAM Walker this past week. He is only placed 50% weight on this limb. Progress of Wound: Healed - Physical Exam Vital Signs Temp Pulse Resp BP 97.3 F L 71 16 149/92 H 08/18/18 09:07 08/18/18 09:07 08/18/18 09:07 08/18/18 09:07 General: Alert, Oriented x3, Cooperative Extremities: No cyanosis, Capillary Refill Less than 3 Seconds, No Calf Tenderness - Negative Polo sign bilateral, Diminished Peripheral Pulses, Edema - Mild bilateral lower extremities Skin: Ulcer/ Wound - No open lesions, drainage, erythema, streaking, or infection. There is full epithelialization maintained to the right lateral leg and foot Wound Measurements and Assessment WC - Nurse 2 - General Ulcer CM Notes Start: 08/04/18 09:57 Freq: Status: Active Protocol: Activity Type Activity Date Activity User E-Sign Co-Sign Detail Recorded Client Recorded Date Recorded By Document 08/18/18 09:28 [id number] 08/18/18 09:29 08/18/18 09:28 Pain Scale: 0-10 Numeric [Pain] -Is Patient Pain Free? Yes Musculoskeletal: No Tenderness to Palpation of Joints or Extremities, Muscle Wasting, - - Rectus right ankle with no passive motion available at the arthrod esis site Neurological: - - Lack of normal epicritic sensation light touch right lower extremity Psych/Mental Status: Normal Affect, Appropriate Debridement Note Post-Debridement Measurements/Treatment WC - Nurse 2 - General Ulcer CM Notes Start: 08/04/18 09:57 Freq: Status: Active Protocol: Activity Type Activity Date Activity User E-Sign Co-Sign Detail Recorded Client Recorded Date Recorded By Document 08/04/18 10:31 [id number] 08/04/18 10:34 Document 08/11/18 10:18 [id number] 08/11/18 10:19 Document 08/18/18 09:28 [id number] 08/18/18 09:29 08/04/18 08/11/18 08/18/18 10:31 10:18 09:28 Wound Center Nurse 2 #3 R Ant Ankle/Incision site -Time 10:31 -Correct Patient Yes No -Correct Side, Site, Position Yes No -Correct Procedure Yes No -Procedure Performed Yes No -Type of Procedure Debridement -Clinical Debridement Subcutaneous -Post Debridement Size (cm) - Length 0.3 0 -Post Debridement Size (cm) - Width 0.2 0 -Post Debridement Size (cm) - Depth 0.3 0 -Total Square Cm 0.06 0 -Wound/Ulcer Outcome Not Healed Healed- Epithelialized -Ulcer Cleansing Rinsed/ Irrigated with Saline -Foul Odor after Cleansing No -Bioengineered Tissue Yes -Type of bioengineered Tissue EPIFIX -Expiration Date 03/03/23 -Product Lot Number [id number] -Percent Used 100 -Saline Lot Number [id number] -Bleeding Controlled with Pressure -Offloading Yes -Type of Offloading Knee Walker -Treatment Response Procedure Tolerated Well #1 RIGHT ANKLE, Incision -Time 10:32 -Correct Patient Yes No -Correct Side, Site, Position Yes No -Correct Procedure Yes No -Procedure Performed Yes No -Type of Procedure Debridement -Clinical Debridement Subcutaneous -Post Debridement Size (cm) - Length 0.5 0 -Post Debridement Size (cm) - Width 0.3 0 -Post Debridement Size (cm) - Depth 0.1 0 -Total Square Cm 0.15 0 -Wound/Ulcer Outcome Not Healed Healed- Epithelialized -Ulcer Cleansing Rinsed/ Irrigated with Saline -Foul Odor after Cleansing No -Bioengineered Tissue Yes -Type of bioengineered Tissue EPIFIX -Expiration Date 03/03/23 -Product Lot Number [id number] -Percent Used 100 -Saline Lot Number [id number] -Bleeding Controlled with Pressure -Offloading Yes -Type of Offloading Wedge Shoe -Treatment Response Procedure Tolerated Well Pain Scale: 0-10 Numeric Is Patient Pain Free? 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 Calcaneus fracture and alignment without loss of Boehler's angle, at least partially fused. Distal fibular resection. Electronically Signed: Shubham Ibarra MD at 8:21 EST Tel , Service support , Active Problems (Last Updated 06/04/18 @ 10:26 by Jessica Benavides) Edema of leg (Chronic) Nonunion of arthrodesis (Chronic) Assessment: He is now status post right lower extremity hardware removal, bone biopsy of the talus and calcaneus which was negative for osteomyelitis, minimally invasive debridement and augmentation of the nonunion posterior ankle arthrodesis site with bone marrow aspirate and bone graft, excisional debridement of nonhealing ulcer with application of advanced wound care products, amniofil performed on 06/11/2018. Right foot ulcer site dorsal -healed today. Chronic right lateral ankle ulcer site -healed today. Nonunion posterior aspect of ankle arthrodesis. Plan: I reviewed and discussed his case today. Both ulcer sites are healed today with full epithelialization. He was reassured no ulcers or infections are noted. To monitor this closely for return. To discontinue daily dressing changes. It is okay to shower and bathe; I recommend avoiding soaking or hot to the activities. To continue Anette brace use to keep his ankle in a rectus position at this time and to reduce tension and forces at his recently arthrodesis revision site. Compliance importance was discussed. To wear cam walker and only apply up to 80% weight to the right lower extremity. An updated right ankle x-ray was ordered and this was reviewed as a following: There is some osseous bridging suspected to the posterior aspect of the ankle arthrodesis revision site and the ankle remains in a rectus position. I suspect this is not a complete heal healed site and I recommend he continues exigent bone stimulator twice a day. He will call for refills on this service. I answered all his questions. He is discharged from the wound healing center at this time. I recommend he follow-up at the foot and ankle Center in 1 month for postoperative follow-up and updated x-rays.
== END 2018-09-02 23:59 ==
LOC: WC 09:30
PROVIDERS: Family Provider Family Medicine; PCP Family Medicine; Referring Provider Surgery; Visit Provider Podiatrist
DX: M96.0 Pseudarthrosis after fusion or arthrodesis (principal); Y83.8 Other surgical procedures as the cause of abnormal reaction of the patient, or of later complication, without mention of misadventure at the time of the procedure; L97.312 Non-pressure chronic ulcer of right ankle with fat layer exposed; L97.512 Non-pressure chronic ulcer of other part of right foot with fat layer exposed; R60.0 Localized edema
CPT/HCPCS: 15275; 73610; 97607; 99212; 99213; Q4186; G0463

== ENCOUNTER → 2018-09-01 08:39 | Outpatient (CLI) | payer MEDICARE, SELFPAY ==
[2018-08-18 09:07] VITALS: BMI 37.7
[2018-09-01 12:42] LABS: Hematocrit 38.8 % (40-54); Hemoglobin 12.5 g/dl (13.0-16.5); Mean Corp Hgb Conc 32.2 g/gl (32-36); Mean Corpuscular Hgb 29.2 pg (27.0-32.0); Mean Corpuscular Volume 90.7 fL (80-94); Mean Platelet Vol. 12.7 fl (6.2-12.0); Platelet Count 123 K/mm3 (150-450); RBC Distribution Width CV 15.6 % (11.6-14.6); RBC Distribution Width SD 50.6 fl (35.1-43.9); Red Blood Count 4.28 M/mm3 (4.6-6.2); White Blood Count 5.9 K/mm3 (4.4-11.0)
[2018-09-01 12:43] LABS: POSITIVE COUNT YES; POSITIVE DIFFERENTIAL NO
[2018-09-01 12:44] LABS: Differential Indicated MANUAL DIFF; POSITIVE MORPHOLOGY YES
[2018-09-01 12:54] LABS: ALB/GLOB Ratio 1.2 RATIO (0.9-2.4); AST(SGOT) 20 U/L (15-37); Alanine Aminotransfer ALT/SGPT 30 U/L (16-61); Albumin, Serum 3.7 g/dL (3.2-5.0); Alkaline Phosphatase 132 U/L (45-117); Anion Gap 7 (5-15); BUN 19 mg/dL (7-18); BUN/Creat Ratio 18.1 RATIO (10-20); Calcium,Total 8.3 mg/dL (8.5-10.1); Chloride 111 mmol/L (98-107); Creatinine, Serum 1.05 mg/dL (0.70-1.30); EST Glomerular Filtration Rate 74 mL/min (>60); Est Glom Filt Rate - Afr Amer 89 mL/min (>60); Globulin 3.2 g/dL (2.2-4.2); Glucose 96 mg/dL (74-106); PSA,Total - Annual Screen 0.85 ng/mL (0.00-4.00); Protein, Total 6.9 g/dL (6.4-8.2); Sodium Level 142 mmol/L (136-145); T4 Free Direct 1.26 ng/dL (0.76-1.46); Thyroid Stim Hormone (TSH) 0.82 uIU/mL (0.358-3.74); Uric Acid 5.2 mg/dL (3.5-7.2)
[2018-09-01 13:23] LABS: Lymphocyte 34 % (19-41); Monocyte 13 % (0-10); Neutrophil-Band 3 % (0-5); Neutrophil-Segmented 50 % (47-70); Total Cells Counted 100 (MANUAL DIFF)
[2018-09-01 13:24] LABS: Platelet Estimate SLT DEC (ADEQ); Reactive Lymphocyte 1+; Red Cell Morphology NORM C+C NORMAL (NORM C&C)
[2018-09-01 13:26] LABS: Neutrophil # 3.12 X10^3/uL (2.7-7.7)
[2018-09-01 13:27] LABS: Absolute Neutrophil Count 3.1 X10^3/uL (2.0-7.7)
[2018-09-02 10:18] LABS: Pathologist Review Reviewed
== END ==
PROVIDERS: Family Provider Family Medicine; PCP Family Medicine; Visit Provider Family Medicine
DX: E03.9 Hypothyroidism, unspecified (principal); I10 Essential (primary) hypertension; E78.5 Hyperlipidemia, unspecified; M10.9 Gout, unspecified; Z80.42 Family history of malignant neoplasm of prostate; Z12.5 Encounter for screening for malignant neoplasm of prostate
CPT/HCPCS: 36415; 80053; 84153; 84439; 84443; 84550; 85025; G0103

== ENCOUNTER → 2019-01-13 16:43 | Outpatient (CLI) | payer MEDICARE, SELFPAY ==
[2018-10-04 13:05] VITALS: BMI 38.4
[2019-01-06 09:47] VITALS: BMI 38.2
--- NOTE | 2019-01-13 16:46 | CT_ITS ---
HISTORY:ARTHRITIS RIGHT ANKLE-RT ANKLE SURG X 6 YRS, REMOVED MOST HARDWARE-UNABLE TO REMOVE ALL OF HARDWARE ARTHRITIS RIGHT ANKLE-RT ANKLE SURG X 6 YRS, REMOVED MOST HARDWARE-UNABLE TO REMOVE ALL OF HARDWARE EXAMINATION: CT Ankle W/O Contrast TECHNIQUE: Routine bone CT protocol was performed of the right ankle.... 2-D reformats were performed by the technologist. A radiation dose optimization technique was used for this scan. IV Contrast dosage and agent: None. COMPARISON: Radiographs of the right ankle obtained on general none [address] examination May 04, 2018 FINDINGS: SOFT TISSUES: There is a soft tissue defect that is seen at the posterior lateral aspect of the lower leg. This was seen on the prior study This is centered approximately 2.8 cm proximal to the proximal portion of the calcaneus. There is surrounding soft tissue thickening and probable scarring. This is increased when compared to prior study. The soft tissue thickening extends superiorly to the tip of the resected fibula and inferiorly into the foot and ankle extending anteriorly along the metatarsals. There is subcutaneous edema and that is seen circumferentially at the level of the ankle and extending into the foot. No radiopaque foreign body. BONES/JOINTS: Resection of the distal fibula similar to prior study Prior arthrodesis of the tibiotalar joint. Multiple gallstones are seen within the tibia. There is a cannulated screw that is seen extending from the posterior medial tibial metaphysis extending into the subtalar joint remnant. Lucency surrounds this screw distally. There is an incomplete arthrodesis involving the tibiotalar joint with fragmentation noted. Multiple ghost holes from orthopedic hardware are also noted. There are 2 screws seen within the tibiotalar joint near what would have been the angle of [place]iss[place]. Lucency surrounds the most proximal vertically oriented screw as well as the distal portion of the more anterior screw. There is also a screw is seen extending obliquely through the calcaneus from posterior to the region of the mid calcaneus. This hardware was all seen on the prior study. There is diffuse osteopenia. Cystic changes seen within the anterior talus which has progressed when compared to prior study. From the posterior calcaneus to the posterior talus has been removed. Partial ankylosis involving the medial malleolus with the talus similar to prior study Cystic changes involving the anterior calcaneus are similar. Osseous fragments seen at the lateral aspect of the calcaneus are similar. There are osseous fragments also seen anterior to the area of the prior tibiotalar joint that are similar. Osseous fragments seen posterior to the prior tibiotalar joint have slightly increased suspect for increased heterotopic ossification. Subchondral sclerosis at the navicular with joint space narrowing at the talonavicular joint similar prior study. There is marked loss of joint space at the second and third tarsometatarsal joints which is again similar to prior study. 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 The orthopedic hardware screws remain with the exception of a screw that from the calcaneus to the talus posteriorly. It is been removed. There is a palpable defect seen at the posterior lateral aspect of the lower leg as discussed. Associated scarring and soft tissue thickening. Fat stranding/edema is seen surrounding the ankle and extending into the foot.. The scarring has increased when compared prior study There is increased lucency involving the talocalcaneal arthrodesis on today's study. This may be secondary to an underlying chronic infectious process. Correlate clinically. Osteopenia Subchondral cyst in the tarsal bones. There is narrowing of the tarsometatarsal joints must marked at the second and third. There is also narrowing of the talonavicular joint. Similar to prior study Individualized dose optimization techniques were used for this CT. at 1811 Reported and signed by: Bia Jiménez DO Electronically Signed: Bia Jiménez DO at 18:09 EDT Tel , Service support ,
== END ==
PROVIDERS: Family Provider Family Medicine; PCP Family Medicine
DX: M21.071 Valgus deformity, not elsewhere classified, right ankle (principal); M19.071 Primary osteoarthritis, right ankle and foot; M96.0 Pseudarthrosis after fusion or arthrodesis
CPT/HCPCS: 73700

== ENCOUNTER → 2019-02-01 07:38 | Outpatient (CLI) | payer MEDICARE, SELFPAY ==
[2019-01-24 14:15] VITALS: BMI 38.0
[2019-02-01] VITALS (9 sets, daily range): BP systolic 116–155; BP diastolic 78–98; PULSE 58–68; RESP 12–19; TEMP 36.9; O2SAT 91–98; BMI 38.0
--- NOTE | 2019-02-01 | BMB_PTH ---
PATIENT: THEODORA COLMENARES LOC: [place] U#:[id number] AGE/SX: 80/M ROOM: RE02/01/[address]: Dr. Thor Terrell MD : 1945 BED: DIS: SPEC #: [id number] RECD: 02/01/19 13:54 STATUS: LOIDA REQ #: [id number] ABDI: 02/01/19 00:[address]: Thor Terrell DEPT: BONE MARROW RECD BY: Andrez Grimes ENTERED: 02/01/19 13:54 SP TYPE: BMB MOMO DR: Dr. Aurelio Sierra MD Tissues: A - Bone marrow, NOS B - Bone marrow, NOS C - Bone marrow, NOS Procedures: Decalcification bone/plaque Bone Marrow Aspiration Bone Marrow Core Biopsy Iron Stain Bone Marrow HEADER OPERATION: Bone marrow aspiration and biopsy PRE-OP DIAGNOSIS: Persistent monocytosis TISSUE SUBMITTED: A - Core, B - Clot, C - Smears, and send outs (flow, cytogenetics, AML and MDS) BONE MARROW DIAGNOSIS Right hip bone marrow biopsy, clot and aspiration: Hypercellular bone marrow for age (approximately 60%). Mild dysmegakaryopoiesis with occasional hypolobated forms. Increased stainable iron (2/4) without ringed sideroblasts. Peripheral thrombocytopenia. No evidence of malignancy. See comment. AM:katiana 02/07/19 COMMENT Flow cytometry analysis of aspirate material reveals no significant diagnostic immunophenotypic abnormality. The complete flow analysis report is viewable in patient's EMR. Case has been reviewed in consultation with Dr. Mejia who concurs with the above diagnosis. IDC:SJ BONE MARROW STUDY Slides are reviewed. CBC DATE: 02/01/19 WBC 5.5; RBC 4.5; HGB 13.1; HCT 39.7; MCV 88.2; RDW 48.2; PLTS 119,000 SEGS 53%; LYMPHS 24%; MONOS 7%; EOS 4%; BASOS 0% PERIPHERAL SMEAR: Submitted. RBC: Normocytic, normochromic WBC: Occasional reactive lymphocytes PLTS: Mid thrombocytopenia BONE MARROW ASPIRATE DIFFERENTIAL: 200 cell count. Blasts % (normal 0-2): 2 Promyelocytes % (normal 1-5): 3 Myelocytes and metamyelocytes % (normal 17-41): 28 Bands and Segs % (normal 15-32): 34 Eos % (normal 1-6): 1 Basos % (normal 0-1): 0 Monocytes % (normal 0-4): 0 Erythroid Precursors % (normal 17-35): 24 Lymphocytes % (normal 7-13): 7 Plasma Cells % (normal 0-2): 1 ASPIRATE FINDINGS: Site: Right hip Spicular Cellular M/E ratio: 3.75 (Normal 1.5 - 4.0) Megakaryocytes: Occasional hypolobated forms seen. Erythropoiesis: Normoblastic Granulopoiesis: Progressive maturation CORE BIOPSY FINDINGS: Site: Right hip Adequacy: Small, adequate Cellularity %: 65% M/E ratio: Within normal limits Megakaryocytes: Adequate Bony trabeculae: Within normal limits Granulomas: 0 Lymphoid aggregate(s): 0 Atypical infiltrate(s): 0 ASPIRATE CLOT FINDINGS: Site: Right hip Marrow Particles: _ Cellularity %: 60% M/E ratio: Within normal limits Megakaryocytes: Adequate Granuloma(s): 0 Lymphoid aggregate(s): 0 Atypical infiltrate(s): 0 SPECIAL STAINS (with matched controls): Iron: Increased (2/4) without ringed sideroblasts Reticulin: Within normal limits PAS: Highlights myeloid elements and megakaryocytes. BONE MARROW GROSS A - Received is a container labeled with the patient's name and designated bone marrow right hip. The specimen consists of multiple blood clots that in aggregate measure 2 x 0.5 x 0.1 cm. No obvious fragment of bone is noted. The specimen is totally submitted in one cassette after decalcification. B - Received in two syringes labeled with the patient's name and designated bone marrow right hip is a specimen that consists of approximately 2 cc of bloody fluid that on filtration yields multiple minute fragments of blood clots measuring in aggregate 1.5 x 1 x 0.1 cm. The specimen is totally submitted in one cassette. C - Also received are 21 unstained and 1 peripheral stained slides. The unstained slides are submitted for appropriate staining. Also received are two green top tubes which are sent to our reference lab for flow, cytogenetics, AML and MDS. / SJ:rg 02/01/19 TC:5 CPT: 85056, 65109, 50260 x2, 22165 x4, 63796 ADDENDUM ADDENDUM ADDENDUM ADDENDUM ADDENDUM ADDENDUM ADDENDUM ADDENDUM ADDENDUM ADDENDUM ADDENDUM ADDENDUM ADDENDUM ADDENDUM 02/21/2019 10:20 ADDENDUM 02/21/2019 10:20 ADDENDUM 02/21/2019 10:20 ADDENDUM 02/21/2019 10:20 ADDENDUM 02/21/2019 10:[facility] CY[facility]IC RESULT: 46,XY[20] INTERPRETATION: Normal male karyotype was observed in twenty metaphases analyzed. FISH RESULT: Normal AML panel INTERPRETATION: The FISH study for the most common AML related chromosome changes was normal. FISH RESULT: Normal MDS panel INTERPRETATION: The FISH analysis of MDS specific chromosome changes was normal. Please see complete report in e-chart or EMR for further details
--- NOTE | 2019-02-01 07:42 | CT_ITS ---
PROCEDURE: CT GUIDED BONE marrow biopsy. DATE: February 01, 2019. INDICATION: Male, 73 years old. Monocytosis. PHYSICIAN: Chuck Rucker M.D. RADIATION DOSAGE (If Supplied By Facility): CTDIvol = ( 15 ) mGy, DLP = ( 699.51 ) mGycm PROCEDURE: The risks, benefits, and alternatives to the procedure were explained to the patient. The specific risk of hemorrhage requiring further treatment or intervention was detailed and accepted. Follow-up instructions were discussed with the patient as well. Written informed consent was obtained. The patient was brought into the CT suite and placed in the prone position. . An appropriate entry site was identified. The overlying skin was prepped and draped in the usual sterile fashion. 1% lidocaine was administered subcutaneously for local anesthesia. Conscious sedation was performed. The patient received 2 mg of Versed and 50 mcg of fentanyl intravenously. Conscious sedation was started at 9:10 AM and terminated at 9:30 AM. The patient was monitored by the department nurse. Under CT guidance, a bone marrow biopsy of the posterior aspect of the right iliac bone was performed using a 11-gauge bone marrow biopsy needle system. Bone marrow aspirates were obtained as well. The specimens were then placed in the appropriate fluid and transported to the laboratory for analysis. Hemostasis was obtained. The patient tolerated the procedure well without immediate complications. CT/Biopsy/Inj or Needle Placement IMPRESSION: Successful CT guided bone marrow biopsy of the posterior aspect of the right iliac bone, as described above. Electronically Signed: Chuck Rucker, at 10:25 EDT , Service support ,
[2019-02-01 08:08] LABS: Hematocrit 39.7 % (40-54); Hemoglobin 13.1 g/dl (13.0-16.5); Mean Corpuscular Hgb 29.1 pg (27.0-32.0); Mean Corpuscular Volume 88.2 fL (80-94); Mean Platelet Vol. 10.8 fl (6.2-12.0); Platelet Count 119 K/mm3 (150-450); RBC Distribution Width CV 15.2 % (11.6-14.6); RBC Distribution Width SD 48.2 fl (35.1-43.9); White Blood Count 5.5 K/mm3 (4.4-11.0)
[2019-02-01 08:11] LABS: Differential Indicated MANUAL DIFF; POSITIVE COUNT YES; POSITIVE DIFFERENTIAL NO; POSITIVE MORPHOLOGY YES
[2019-02-01 08:32] LABS: International Normalized Ratio 1.1; Prothrombin Time (Protime)PT. 13.9 SECONDS (11.7-14.9)
[2019-02-01 08:33] LABS: Partial Thromboplast Time 31.3 Seconds (24.1-36.2)
[2019-02-01 08:58] LABS: Eosinophil 4 % (0-5); Lymphocyte 24 % (19-41); Metamyelocyte 8 % (0-1); Monocyte 7 % (0-10); Myelocyte 2 (0-0); Neutrophil-Band 2 % (0-5); Neutrophil-Segmented 53 % (47-70); Total Cells Counted 100 (MANUAL DIFF)
[2019-02-01 09:04] LABS: Pathologist Review May foll; Platelet Estimate ADEQUATE (ADEQ); Red Cell Morphology NORM C+C NORMAL (NORM C&C)
[2019-02-01] MEDS: fentaNYL 100 MCG/2 ML Ampul IV (09:10)
[2019-02-01] MEDS: Midazolam 2 MG/2 ML Syringe IV (09:10)
[2019-02-01 23:58] LABS: Absolute Lymphocyte Count 1.32 X10^3/ul (0.83-4.51)
== END ==
PROVIDERS: Family Provider Family Medicine; PCP Family Medicine; Referring Provider Internal Medicine Medical Oncology; Visit Provider Internal Medicine Medical Oncology
DX: Z01.818 Encounter for other preprocedural examination (principal); D72.821 Monocytosis (symptomatic)
CPT/HCPCS: 38221; 36415; 77012; 85025; 85610; 85730; 88305; 88311; 88313; 99156; 99157; J7040; A4216

== ENCOUNTER → 2019-05-02 17:49 | Outpatient (CLI) | payer MEDICARE, SELFPAY ==
[2019-03-31 09:40] VITALS: BMI 37.8
[2019-05-02 17:56] LABS: Hematocrit 26.7 % (40-54); Hemoglobin 8.2 g/dL (13.0-16.5); Mean Corp Hgb Conc 30.7 g/dL (32-36); Mean Corpuscular Hgb 29.7 pg (27.0-32.0); Mean Corpuscular Volume 96.7 fL (80-94); Mean Platelet Vol. 11.1 fl (6.2-12.0); Platelet Count 160 K/mm3 (150-450); RBC Distribution Width CV 16.7 % (11.6-14.6); RBC Distribution Width SD 58.4 fl (35.1-43.9); Red Blood Count 2.76 M/mm3 (4.6-6.2)
[2019-05-02 18:37] LABS: Anion Gap 8 (5-15); BUN 14 mg/dL (7-18); Calcium,Total 8.4 mg/dL (8.5-10.1); Chloride 104 mmol/L (98-107); EST Glomerular Filtration Rate 78 mL/min (>60); Est Glom Filt Rate - Afr Amer 94 mL/min (>60); Glucose 102 mg/dL (74-106); Magnesium 1.9 mg/dL (1.6-2.6); Potassium 3.6 mmol/L (3.5-5.1); Sodium Level 140 mmol/L (136-145)
== END ==
PROVIDERS: Family Provider Family Medicine; PCP Family Medicine
DX: D72.821 Monocytosis (symptomatic) (principal)
CPT/HCPCS: 80048; 83735; 85027

== ENCOUNTER → 2020-01-11 08:48 | Outpatient (CLI) | payer MEDICARE, SELFPAY ==
[2019-08-17 12:57] VITALS: BMI 39.6
[2020-01-11 12:32] LABS: Hematocrit 36.9 % (40-54); Hemoglobin 11.5 g/dL (13.0-16.5); Mean Corp Hgb Conc 31.2 g/dL (32-36); Mean Corpuscular Hgb 28.9 pg (27.0-32.0); Mean Corpuscular Volume 92.7 fL (80-94); Mean Platelet Vol. 11.5 fl (6.2-12.0); POSITIVE COUNT YES; POSITIVE DIFFERENTIAL YES; POSITIVE MORPHOLOGY YES; Platelet Count 164 K/mm3 (150-450); RBC Distribution Width CV 15.3 % (11.6-14.6); RBC Distribution Width SD 52.2 fl (35.1-43.9); Red Blood Count 3.98 M/mm3 (4.6-6.2); White Blood Count 7.8 K/mm3 (4.4-11.0)
[2020-01-11 12:34] LABS: Differential Indicated MANUAL DIFF
[2020-01-11 12:55] LABS: AST(SGOT) 14 U/L (15-37); Alanine Aminotransfer ALT/SGPT 22 U/L (16-61); Albumin, Serum 3.8 g/dL (3.2-5.0); Alkaline Phosphatase 144 U/L (45-117); Anion Gap 6 (5-15); BUN 29 mg/dL (7-18); BUN/Creat Ratio 23.4 RATIO (10-20); Chloride 107 mmol/L (98-107); Cholesterol 138 mg/dL (200); Creatinine, Serum 1.24 mg/dL (0.70-1.30); EST Glomerular Filtration Rate 61 mL/min (>60); Est Glom Filt Rate - Afr Amer 73 mL/min (>60); Globulin 3.7 g/dL (2.2-4.2); Glucose 106 mg/dL (74-106); High Density Lipoprotein 22 mg/dL; Potassium 4.3 mmol/L (3.5-5.1); Protein, Total 7.5 g/dL (6.4-8.2); Sodium Level 140 mmol/L (136-145); T4 Free Direct 1.07 ng/dL (0.76-1.46); Thyroid Stim Hormone (TSH) 4.27 uIU/mL (0.358-3.74); Triglycerides 137 mg/dL; Very Low Density Lipoprotein 27 mg/dL (5-40)
[2020-01-11 13:03] LABS: Eosinophil 1 % (0-5); Lymphocyte 23 % (19-41); Metamyelocyte 4 % (0-1); Monocyte 25 % (0-10); Myelocyte 2 (0-0); Neutrophil-Band 8 % (0-5); Neutrophil-Segmented 37 % (47-70); Nucleated Red Bld Cells,Manual 3 % (0-5)
[2020-01-11 13:07] LABS: Platelet Estimate ADEQUATE (ADEQ); Red Cell Morphology NORM C+C NORMAL (NORM C&C)
[2020-01-11 13:21] LABS: Absolute Neutrophil Count 3.5 X10^3/uL (2.0-7.7)
[2020-01-12 09:46] LABS: Pathologist Review Reviewed
== END ==
LOC: LAB.FUTURE 01-16 14:46 → BFHLAB 01-17 14:59
PROVIDERS: PCP Family Medicine; Visit Provider Family Medicine
DX: E03.9 Hypothyroidism, unspecified (principal); D72.821 Monocytosis (symptomatic); I10 Essential (primary) hypertension; M10.9 Gout, unspecified
CPT/HCPCS: 36415; 80053; 80061; 84439; 84443; 84550; 85025

== ENCOUNTER → 2020-05-16 10:07 | Outpatient (CLI) | payer MEDICARE, SELFPAY ==
[2020-02-15 12:49] VITALS: BMI 39.5
== END ==
PROVIDERS: PCP Family Medicine; Referring Provider Family Medicine; Visit Provider Family Medicine
DX: U07.1 COVID-19 (principal)
CPT/HCPCS: 87635; C9803; U0003

== ENCOUNTER 2020-05-23 14:27 | Inpatient (IN) | payer MEDICARE, SELFPAY ==
[2020-02-15 12:49] VITALS: BMI 39.5
[2020-05-23] VITALS (18 sets, daily range): BP systolic 123–157; BP diastolic 61–105; PULSE 71–92; RESP 14–30; TEMP 36.1–37.2; O2SAT 85–96; BMI 40.8; BMI 40.9; BMI 37.0
--- NOTE | 2020-05-23 14:44 | ED.VIS.GEN ---
History of Present Illness Chief Complaint: Shortness of Breath Narrative: She has had shortness of breath for the past week, he was diagnosed with Covid. He has a pulse ox monitor at home and it read 81%. He is quite short of breath he has no fever chills cough or congestion. He denies chest pain. No nausea or vomiting. Feels weak Past Medical History - Allergies and Home Meds Allergies/Adverse Reactions: Allergies indomethacin Allergy (Verified 02/15/20 12:48) Other Primary Care Physician: Aurelio Sierra MD [Primary Care Provider] - Past Medical History: - - Hypercholesterolemia, hypertension, chronic arthritis Surgical History: - - The patient is undergone a total of 6 surgical procedures of his right ankle. He is known to have indwelling metal hardware in the right ankle joint. He has a history of thyroidectomy, lumbar surgery, and transurethral kidney stone surgery. Smoking Status: Never smoker - Family History Paternal Family History: Family History (Last Reviewed 02/15/20 @ 12:46 by Becka Villalobos) Mother Diabetes Family History: Reports: - Review of Systems All systems negative except as indicated General: Denies: Fever Eyes: Denies: Visual changes - bilaterally ENT: Denies: Rhinorrhea, Sore throat Cardiovascular: Denies: Chest pain Respiratory: Reports: Dyspnea, Cough. Denies: Sputum Gastrointestinal: Denies: Abdominal pain, Nausea, Vomiting Genitourinary: Denies: Dysuria Musculoskeletal: Denies: Myalgias Skin: Denies: Rash, Abscess Neurological: Denies: Headache, Weakness Psych: Denies: Depression Hematologic: Denies: Easy bruising Physical Exam Vital Signs/Narrative: Vital Signs Temp Pulse Resp BP Pulse Ox 05/23/20 14:28 97 F L 91 28 H 152/84 H 85 General: Well nourished, Well developed Head: Normocephalic ENT: Moist mucous membranes Cardiovascular: Regular rate, Regular rhythm Respiratory: - - Some coarse breath sounds no obvious wheezing. He is tachypneic. He does not appear in significant distress she is relatively comfortable in bed. Abdomen: Soft Back: Nontender, Normal Inspection Extremities: Nontender, No edema Skin: Normal color, No rash Neurological: Alert, Normal Strength, Normal Sensation Diagnostic/Tx/Re-eval - Medical Decision Making Patient has leukocytosis, he has infiltrates on his x-ray. He may have a superimposed pneumonia therefore IV antibiotics were started. He appears well although he is on oxygen. We will admit him for further work-up he will go to PCU. - Critical Care Time Critical care time (excluding procedures): 30-74 minutes - Due to consultation with hospitalist, documentation, interpretation of laboratory and radiological studies. Patient is acutely ill with COVID-19 hypoxic with superimposed pneumonia. Care time does not include procedures. ED Disposition - Plan for ED Patient: [facility] Diagnosis: COVID-19, Hypoxia, Pneumonia Referrals: Aurelio Sierra MD [Primary Care Provider] -
--- NOTE | 2020-05-23 15:00 | RAD_ITS ---
STUDY: X-RAY CHEST REASON FOR EXAM: Male, 74 years old. COVID POSITIVE ON 05/16, ARRIVES WITH SOB AND WHEEZING. TECHNIQUE: Single AP portable view of the chest. COMPARISON: Comparison is made with prior study dated 05/11/2018. FINDINGS: EKG electrodes are seen. The now is evidence of a infiltration in the preferential lateral distribution of both right and left hemithorax in keeping with the diagnosis of Covid pneumonia. There is no demonstrated pleural abnormality. Normal size heart. Normal mediastinum and mónica. Normal visualized pulmonary arteries. There is atherosclerotic tortuosity of the aortic arch and descending thoracic aorta. There are diffuse degenerative changes of the visualized thoracic spine. Prior EDWARD amparo fixation of the lower thoracic and upper lumbar spine. On Normal visualized ribs, clavicles, and shoulders. There is no demonstrated abnormality of the visualized soft tissue structures of the upper abdomen. RAD/Chest 1 View (Portable) IMPRESSION: Bilateral patchy infiltrates in the preferential lateral distribution suggestive of Covid pneumonic infiltrates. Electronically Signed: Chuck Rucker, at 15:19 EDT , Service support ,
[2020-05-23 15:20] LABS: Hematocrit 43.7 % (40-54); Mean Corpuscular Volume 90.5 fL (80-94); Mean Platelet Vol. 12.6 fl (6.2-12.0); POSITIVE COUNT YES; POSITIVE DIFFERENTIAL YES; POSITIVE MORPHOLOGY YES; Platelet Count 93 K/mm3 (150-450); RBC Distribution Width CV 16.4 % (11.6-14.6); RBC Distribution Width SD 54.6 fl (35.1-43.9); Red Blood Count 4.83 M/mm3 (4.6-6.2); White Blood Count 23.5 K/mm3 (4.4-11.0)
[2020-05-23 15:34] LABS: Differential Indicated MANUAL DIFF
[2020-05-23 15:35] LABS: ALB/GLOB Ratio 0.7 RATIO (0.9-2.4); AST(SGOT) 16 U/L (15-37); Alanine Aminotransfer ALT/SGPT 37 U/L (16-61); Albumin, Serum 2.9 g/dL (3.2-5.0); Alkaline Phosphatase 138 U/L (45-117); Anion Gap 6 (5-15); BUN 38 mg/dL (7-18); BUN/Creat Ratio 27.9 RATIO (10-20); Calcium,Total 8.6 mg/dL (8.5-10.1); Chloride 110 mmol/L (98-107); Creatinine, Serum 1.36 mg/dL (0.70-1.30); EST Glomerular Filtration Rate 55 mL/min (>60); Est Glom Filt Rate - Afr Amer 66 mL/min (>60); Estimated Creatinine Clearance 49.95 ml/min; Glucose 118 mg/dL (74-106); Potassium 4.2 mmol/L (3.5-5.1); Protein, Total 6.9 g/dL (6.4-8.2); Sodium Level 140 mmol/L (136-145)
--- NOTE | 2020-05-23 15:55 | HP.PCM_ITS ---
Problem List (1) COVID-19 Status: Acute (2) Sepsis Status: Acute Qualifiers: Sepsis type: sepsis due to unspecified organism Sepsis acute organ dysfunction status: unspecified Qualified Code(s): A41.9 - Sepsis, unspecified organism (3) Acute respiratory failure with hypoxia Status: Acute (4) Gout Status: Chronic Qualifiers: Gout site: unspecified site Gout etiology: unspecified cause Chronicity: unspecified Qualified Code(s): M10.9 - Gout, unspecified (5) Morbid obesity Status: Chronic (6) Hypothyroidism Status: Chronic Qualifiers: Hypothyroidism type: unspecified Qualified Code(s): E03.9 - Hypothyroidism, unspecified (7) Hyperlipidemia Status: Chronic Qualifiers: Hyperlipidemia type: unspecified Qualified Code(s): E78.5 - Hyperlipidemia, unspecified (8) Thrombocytopenia Status: Chronic History of Present Illness Date of Admission: 05/23/20 Chief Complaint: Dyspnea, wheezing, COVID positive 05/16/20 The patient is a 74 y/o M w/ PMHx: CKD stage III, HLD, Hypothyroidism, Gout, following with Dr. Terrell for Monocytosis/Mild thrombocytopenia who presents to the [facility] ED on 05/23/20 with history of worsening dyspnea, wheezing, noted his pulse oximeter at home to be 81%, increased weakness and malaise ischial onset of symptoms the Thursday prior to 05/16/2020 testing with at that time low-grade temperatures as well as shortness of breath and cough with no specific nausea, emesis, abdominal pain, diarrhea, alteration in sense of taste or smell. He notes that his became ill approximately 3 days after he did and is also Covid positive. Their son lives with him and he has been asymptomatic. Given patient worsening oxygenation level he presented to the ED for evaluation. While in the emergency room he did worsen with eventual need for Ventimask. Work-up in the ED included T 97, heart rate 91, BP 152/84, respiratory rate 28, initially 85% on room air with improvement to 91% on 2 L nasal cannula, CBC with WC 23.5, hemoglobin 14, platelet 93 with no shift performed, CMP with chloride 110, BUN/creatinine 38/1.36, glucose 118, AST/ALT 16/37, alk phos 138, blood culture x2 pending per ED, respiratory viral panel pending per ED, chest x-ray with bilateral patchy infiltrates in the preferential lateral distribution consistent with Covid pneumonic infiltrates. In the ED patient ministered vancomycin and Zosyn therapy. In the emergency room patient did worsen and Ventimask eventually placed with decision to transition to from Covid floor to Covid ICU. Discussed with ED physician and Decadron x1 IV ordered as well. 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) Ulcer of right lower extremity with fat layer exposed (Chronic) Nonunion of arthrodesis (Chronic) Monocytosis (Chronic) Delayed wound healing (Chronic) Malnutrition (Chronic) Painful orthopaedic hardware (Chronic) Thrombocytopenia (Chronic) Gout (Chronic) Morbid obesity (Chronic) Medical History: Medical History (Last Reviewed 02/15/20 @ 12:46 by Becka Villalobos) Foot drop M21.379 Sciatica M54.30 Allergies indomethacin Allergy (Verified 02/15/20 12:48) Other Home Medications: Ambulatory Orders Medication Instructions Recorded Allopurinol [Zyloprim] 300 mg PO DAILY 03/15/14 Potassium Citrate [Urocit-K] 15 meq PO BID 03/15/14 Simvastatin [Zocor] 20 mg PO QHS 03/15/14 Sulindac [Clinoril] 200 mg PO BID 03/15/14 Gabapentin 300 mg PO TID 05/23/20 Levothyroxine Sodium [Synthroid] 137 mcg PO DAILY 05/23/20 Valacyclovir HCl [Valacyclovir] 1,000 mg PO DAILY 05/23/20 Surgical History: Surgical History (Last Updated 02/15/20 @ 12:48 by Becka Villalobos) History of arthroplasty of right ankle Z98.890 fusion/hardware History of thyroidectomy Z98.890 Hx of lumbosacral spine surgery Z98.890 Total knee replacement status Z96.659 december 2019 Surgical History: - - Right ankle surgery x6 with hardware, some removed, thyroidectomy, lumbar surgery with hardware including rods, left total knee replacement, transurethral kidney stone surgery. Psychiatric History: No pertinent psych hx Lives: Spouse/ Significant Other Smoking Status: Never smoker Tobacco Use: Non-smoker Alcohol: None Drugs: None - *Family History Paternal Family History: Family History (Last Reviewed 02/15/20 @ 12:46 by Becka Villalobos) Mother Diabetes History Items: Stroke - Father passed at age 91. Maternal Family History: Family History (Last Reviewed 02/15/20 @ 12:46 by Becka Villalobos) Mother Diabetes History Items: Cancer - Patient mother eventually passed at age 96., Diabetes Review of Systems Constitutional: Reports: Anorexia, Fever, Malaise, Weakness, Fatigue. Denies: Chills, Weight Change HEENT: Denies: Head Aches, Sinus Congestion, Sinus Drainage Cardiovascular: Denies: Chest Pain, Chest Pressure, Chest Tightness, Palpitations Respiratory: Reports: Cough, Shortness of Breath, Shortness of breath at rest, Shortness of breath upon exertion, Wheezing. Denies: Sputum production Gastrointestinal: Denies: Abdominal Pain, Nausea, Vomiting Genitourinary: Denies: Dysuria Musculoskeletal: Denies: Joint Pain, Joint Tenderness Skin: Denies: Rash, Wounds Neurological: Denies: Numbness, Tingling, Focal weakness Psychiatric: Denies: Anxiety, Depression, Homicidal Ideations, Suicidal Ideations Hematologic/ Lymphatic: Denies: Easy Bruising, Easy Bleeding VTE Information - Inpt Only VTE Present on Admission: No VTE Mechan Device Prophylaxis: SCD's VTE Pharm Prophylaxis ordered?: Yes Patient Problems: Active and Suspected Problems (Last Reviewed 02/15/20 @ 12:46 by Becka Villalobos) COVID-19 (Acute) Hypoxia (Acute) Pneumonia (Acute) Sepsis (Acute) Acute respiratory failure with hypoxia (Acute) Subjective: Patient seated upright in the ED bed, fatigued and ill-appearing, increased work of breathing, evident accessory muscle usage, increasing oxygen requirements with evident distress. Objective: Physical Examination: General: awake, alert, oriented x 3 and cooperative, seated upright in the ED bed, increased work of breathing, accessory muscle usage, evident respiratory distress. Skin: normal color, turgor, no icterus, cyanosis. HEENT: AT/NC, EOMI, PERRLA, dry MM, no carotid bruits or JVD noted. Lungs: Diminished breath sounds throughout, greater bases, occasional wheezing, mildly coarse, increased work of breathing with accessory muscle usage, evident distress. Heart: Regular rate and rhythm; no gallop, rub audible. Abdomen: soft, morbidly obese, NTTP, ND, normal BS, no HSM; however, habitus makes examination difficult. Extremities: no cyanosis, clubbing, or edema but do note abnormal right ankle secondary to significant surgical history. Neurological: patient awake, alert, oriented x 3; cognitive function intact; pupils equally reactive to light and accomodation; cranial nerves II-XII grossly normal, moving all 4 extremities, no focal deficits, strength severely global decrease secondary to worsening status and acute presentation. Psychiatric: affect appears fatigued, ill-appearing, increased work of breathing and accessory muscle usage, no acute evidence of depressive or anxiety feelings. - Physical Exam Vitals/I&O's: Vital Signs Temp Pulse Resp BP Pulse Ox 97.0 F L 89 30 H 137/99 H 91 05/23/20 15:06 05/23/20 15:06 05/23/20 15:06 05/23/20 15:06 05/23/20 15:06 Oxygen Flow Rate (L/min) 4 Oxygen Delivery Method Nasal Cannula Weight: 285 lb Body Mass Index (BMI) 40.8 Laboratory Results 05/23/20 15:02: WBC 23.5 H, RBC 4.83, Hgb 14.0, Hct 43.7, MCV 90.5, MCH 29.0, MCHC 32.0, RDW Std Deviation 54.6 H, RDW Coeff of Gisela 16.4 H, Plt Count 93 L, MPV 12.6 H, Neut % (Auto) Not Reportable, Absolute Neuts (auto) Pending 05/23/20 15:02: Sodium 140, Potassium 4.2, Chloride 110 H, Carbon Dioxide 24.0, Anion Gap 6, BUN 38 H, Creatinine 1.36 H, Estim Creat Clear Calc 49.95, Est GFR (MDRD) Af Amer 66, Est GFR (MDRD) Non-Af 55 L, BUN/Creatinine Ratio 27.9 H, Glucose 118 H, Calcium 8.6, Total Bilirubin 0.60, AST 16, ALT 37, Alkaline Phosphatase 138 H, Total Protein 6.9, Albumin 2.9 L, Globulin 4.0, Albumin/G lobulin Ratio 0.7 L Current Medications Vancomycin HCl 1,500 mg/ (Sodium Chloride) 530 mls @ 250 mls/hr IV X1 ONE Stop: 05/23/20 17:47 Piperacillin Sod/Tazobactam (Sod 4.5 gm/ Sodium Chloride) 100 mls @ 200 mls/hr IV X1 ONE Stop: 05/23/20 16:09 Assessment/Plan All Active Problems (Last Reviewed 02/15/20 @ 12:46 by Becka Villalobos) Ulcer of right lower extremity with fat layer exposed (Resolved) Infected hardware in right lower extremity (Resolved) Hardware complicating wound infection (Resolved) Osteomyelitis (Ruled-out) Painful orthopaedic hardware (Acute) Ulcer of right foot with fat layer exposed (Resolved) COVID-19 (Acute) Hypoxia (Acute) Pneumonia (Acute) Sepsis (Acute) Acute respiratory failure with hypoxia (Acute) The patient is a 74 y/o M w/ PMHx: CKD stage III, HLD, Hypothyroidism, Gout, following with Dr. Terrell for Monocytosis/Mild thrombocytopenia who presents to the [facility] ED on 05/23/20 with history of worsening dyspnea, wheezing, noted his pulse oximeter at home to be 81%, increased weakness and malaise ischial onset of symptoms the Thursday prior to 05/16/2020 testing with at that time low-grade temperatures as well as shortness of breath and cough with no specific nausea, emesis, abdominal pain, diarrhea, alteration in sense of taste or smell. 1. Acute Sepsis secondary to Acute Hypoxic Respiratory Failure secondary to Bilateral Pneumonia secondary to Worsening Acute Viral Syndrome, COVID-19 (Original Dx 05/16/20): Will admit to the COVID ICU unit given worsening respiratory status, will maintain on oxygen with wean as tolerated to room air as able but currently expect airvo versus BIPAP needs, ICU physician and ID aware of patient admission and will see in consultation, continue PRN albuterol, maintain on IV Zosyn and Vanc with pending MRSA screen given severity of appearance, HOB, IS parameters w/ pending sputum cultures, respiratory viral panel and urine antigens, will obtain procalcitonin, d-dimer, CRP, CPK, Ferritin, LDH, cycle cardiac enzymes, obtain ECHO, continue supportive care, initiate decadron IV regimen, request ID involvement. If patient worsens with need for oxygen >6 L would plan intubation with ICU physician continued care. Bld cx x 2 obtained in the ED. 2. Chronic Mild Thrombocytopenia and Persistent Monocytosis: Patient following w/ Dr. Terrell, known factor with ongoing evaluation, most recent visit 02/15/20. Per BM Bx noted mild dysmegakaryopoiesis in hypercellular bone marrow with normal cytogenetics felt possibly a spectrum of MDS/MPN but no planned current intervention needed. 3. Chronic Kidney Disease Stage III: Admission BUN/Cr 38/1.36, baseline renal function 1.2, repeat BMP in AM. 4. Hypothyroidism: We will continue patient home Synthroid regimen. 5. Hyperlipidemia: Continue home statin regimen. 6. Gout: We will continue patient home allopurinol regimen. 7. Peripheral neuropathy, history of sciatica: We will continue patient home gabapentin regimen. 8. Morbid Obesity: Weight loss and lifestyle changes encouraged. 9. DVT prophylaxis: SCDs, Lovenox. 10. CODE status: Patient noted that his was his healthcare decision-maker. Did contact his and discussed patient's current status per patient request. Patient's is also ill and strongly encouraged that if she worsen for her to seek medical attention. Discussed CODE status at length including difference between FULL code, DNR-CCA and DNR-CC status. Following discussions about the differences in these status, requested Full Code status. Advanced Care Planning Face to Face Time: 16 minutes. Inpatient E&M: 24314 Init Hosp L3 Procedures: 76404 Advncd Care Plan 30 Min
--- NOTE | 2020-05-23 15:59 | NURSING ---
DR JONATHAN PICHARDO
--- NOTE | 2020-05-23 16:09 | NURSING ---
PCU WHITE COVID, HYPOXIA
[2020-05-23 16:23] LABS: Eosinophil 2 % (0-5); Lactic Acid 1.9 mmol/L (0.4-1.9); Lymphocyte 8 % (19-41); Metamyelocyte 16 % (0-1); Monocyte 13 % (0-10); Myelocyte 7 (0-0); Neutrophil-Band 15 % (0-5); Neutrophil-Segmented 39 % (47-70); Total Cells Counted 100 (MANUAL DIFF)
[2020-05-23 16:39] LABS: International Normalized Ratio 1.1; Prothrombin Time (Protime)PT. 13.7 SECONDS (11.7-14.9)
[2020-05-23 16:40] LABS: Partial Thromboplast Time 31.2 Seconds (24.1-36.2)
[2020-05-23 16:48] LABS: Absolute Lymphocyte Count 1.88 X10^3/uL (0.83-4.51); Absolute Neutrophil Count 12.7 X10^3/uL (2.0-7.7); Lymphocyte # 1.88 X10^3/ul (4.0); Neutrophil # 12.69 X10^3/uL (2.7-7.7)
[2020-05-23 16:49] LABS: Platelet Estimate MOD DEC (ADEQ)
--- NOTE | 2020-05-23 17:12 | NURSING ---
CV IUC 204
[2020-05-23] MEDS: 0.9% Normal Saline 1,000 ML 100 ML IV (18:44)
[2020-05-23] MEDS: 0.9% Saline Lock 10 ML Syringe IV ×2 (18:45→21:20)
[2020-05-23] MEDS: dexAMETHasone 4 MG/ML Vial 6 MG IV (18:45)
[2020-05-23 18:46] LABS: D-Dimer Quantitative (DVT/PE) 0.67 FEU/ug/m (0.27-0.49)
[2020-05-23 19:04] LABS: Ferritin 151 ng/mL (26-388); LDH 291 U/L (87-241); Magnesium 2.2 mg/dL (1.6-2.6)
--- NOTE | 2020-05-23 19:10 | PCM.RX.CS ---
Consult Pharmacy has been consulted to manage selected antiobiotic: Vancomycin Type of Consult: New start Labs: Sodium 140 mmol/L (136-145) 05/23/20 15:02 Potassium 4.2 mmol/L (3.5-5.1) 05/23/20 15:02 Chloride 110 mmol/L (98-107) H 05/23/20 15:02 Carbon Dioxide 24.0 mmol/L (21.0-32.0) 05/23/20 15:02 Anion Gap 6 (5-15) 05/23/20 15:02 BUN 38 mg/dL (7-18) H 05/23/20 15:02 Creatinine 1.36 mg/dL (0.70-1.30) H 05/23/20 15:02 Est GFR (MDRD) Af Amer 66 mL/min (>60) 05/23/20 15:02 Est GFR (MDRD) Non-Af 55 mL/min (>60) L 05/23/20 15:02 BUN/Creatinine Ratio 27.9 RATIO (-20) H 05/23/20 15:02 Glucose 118 mg/dL (74-106) H 05/23/20 15:02 Microbiology: Microbiology 05/23/20 15:01 Mucosa - Nose Respiratory Panel (PCR) - Final Weight used for dosin kg Estimated Creatinine Clearance: 49 Goal Trough: 15-20 mcg/mL Pharmacy Plan for Drug Dosing: Vancomycin 1500mg given IV x1, 1000mg IV q12h with trough prior to 4th dose per policy. Pharmacy Service will continue to monitor and adjust dosing as required. Follow-Up Labs: Trough Vancomycin - 05/25 @ 0143
[2020-05-23 19:40] LABS: Procalcitonin 0.26 ng/mL (0.00-0.09)
[2020-05-23 20:47] LABS: M R Staph aureus DNA By PCR Negative (Negative); Probe Check PASS; Specimen Processing Control PASS
[2020-05-23] MEDS: Acyclovir 200 MG Capsule 400 MG PO (21:15)
[2020-05-23] MEDS: Atorvastatin Calcium 10 MG Tablet PO (21:16)
[2020-05-23] MEDS: Gabapentin 300 MG Capsule PO (21:16)
[2020-05-23] MEDS: Famotidine 20 MG Tablet PO (21:16)
[2020-05-23] MEDS: Enoxaparin 120 MG/0.8 ML Syringe 110 MG SC (21:16)
[2020-05-24] VITALS (32 sets, daily range): BP systolic 117–165; BP diastolic 70–105; PULSE 55–77; RESP 18–24; TEMP 36.3–37.1; O2SAT 90–98
--- NOTE | 2020-05-24 02:17 | NURSING ---
pt stood at bedside to urinate, O2 sats quickly dropped to low 80's on 10L high flow NC, back to bed, O2 turned up to 15L, pt recovered slowly.
[2020-05-24] MEDS: Vancomycin IV 1,000 MG/200 ML BAG 200 MG IV (04:55)
--- NOTE | 2020-05-24 05:05 | NURSING ---
pt O2 sats dropping on monitor, entered pt's room and pt with airvo off, O2 sats 64%, placed on bipap 100% FiO2, boosted up in bed, pt recovering slowly, after approx 15 minutes, able to wean FiO2 back to 70%.
[2020-05-24 05:11] LABS: Hematocrit 40.1 % (40-54); Hemoglobin 12.7 g/dL (13.0-16.5); Mean Corp Hgb Conc 31.7 g/dL (32-36); Mean Corpuscular Hgb 28.9 pg (27.0-32.0); Mean Corpuscular Volume 91.1 fL (80-94); Mean Platelet Vol. 12.1 fl (6.2-12.0); POSITIVE COUNT YES; POSITIVE DIFFERENTIAL YES; POSITIVE MORPHOLOGY YES; Platelet Count 93 K/mm3 (150-450); RBC Distribution Width CV 16.3 % (11.6-14.6); RBC Distribution Width SD 54.9 fl (35.1-43.9); White Blood Count 19.9 K/mm3 (4.4-11.0)
[2020-05-24 05:14] LABS: Differential Indicated MANUAL DIFF
[2020-05-24 05:27] LABS: ALB/GLOB Ratio 0.7 RATIO (0.9-2.4); AST(SGOT) 13 U/L (15-37); Alanine Aminotransfer ALT/SGPT 30 U/L (16-61); Albumin, Serum 2.7 g/dL (3.2-5.0); Alkaline Phosphatase 121 U/L (45-117); Anion Gap 4 (5-15); BUN 34 mg/dL (7-18); BUN/Creat Ratio 29.6 RATIO (10-20); Calcium,Total 7.9 mg/dL (8.5-10.1); Chloride 109 mmol/L (98-107); Creatinine, Serum 1.15 mg/dL (0.70-1.30); EST Glomerular Filtration Rate 66 mL/min (>60); Est Glom Filt Rate - Afr Amer 80 mL/min (>60); Estimated Creatinine Clearance 59.07 ml/min; Globulin 3.9 g/dL (2.2-4.2); Glucose 129 mg/dL (74-106); Potassium 5.2 mmol/L (3.5-5.1); Protein, Total 6.6 g/dL (6.4-8.2); Sodium Level 138 mmol/L (136-145)
--- NOTE | 2020-05-24 05:55 | RAD_ITS ---
STUDY: X-RAY CHEST REASON FOR EXAM: Male, 74 years old. COUGH AND SOB -- +COVID TECHNIQUE: Single AP portable view of the chest. COMPARISON: 03/23/2020. FINDINGS: There are pulmonary infiltrates bilaterally, greatest in the lung peripheries. Findings not significantly different from previous study and it is consistent with given history of COVID-19 pneumonia. rhere is no demonstrated pleural abnormality. Normal size heart. Normal mediastinum and mónica. Normal visualized aortic arch and descending thoracic aorta. There are no demonstrated acute fractures or destructive bone lesions. There is no demonstrated abnormality of the visualized soft tissue structures of the upper abdomen. RAD/Chest 1 View (Portable) IMPRESSION: Bilateral pulmonary infiltrates, not significantly changed. Electronically Signed: Law Owen MD at 5:28 EDT , Service support ,
--- NOTE | 2020-05-24 06:05 | PCM.CON.CC ---
Reason for Consult Date of Consultation: 05/24/20 Reason for Consultation: Acute hypoxemic respiratory failure History of Present Illness: The patient is a 74-year-old male, with a history as outlined below, who presented to the emergency department on May 23 with worsening shortness of breath, wheezing, cough and hypoxemia. The patient had previously been diagnosed with Covid approximately 1 week ago on May 16. The patient is currently followed by oncology over concerns for possible underlying MDS. He does report that his respiratory symptoms initially began 2 weeks ago. He does report an ongoing nonproductive cough and shortness of breath. On presentation to the emergency department, the patient was noted to be afebrile and hemodynamically stable. He was, nevertheless, tachypneic and hypoxemic. Laboratory evaluation revealed an elevated white blood cell count to 23,000. Platelet count was low at 93,000. D-dimer was only elevated to 0.67. Chemistry profile revealed an elevated creatinine to 1.36. Troponin was negative. Procalcitonin was only mildly elevated to 0.26. MRSA screen was negative. Chest x-ray revealed bilateral patchy infiltrates. The patient was subsequently placed on Decadron and administered antimicrobials. He was admitted to the medical intensive care unit for further management. 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) Ulcer of right lower extremity with fat layer exposed (Chronic) Nonunion of arthrodesis (Chronic) Monocytosis (Chronic) Delayed wound healing (Chronic) Malnutrition (Chronic) Painful orthopaedic hardware (Chronic) Thrombocytopenia (Chronic) Gout (Chronic) Morbid obesity (Chronic) Medical History: Medical History (Last Reviewed 02/15/20 @ 12:46 by Becka Villalobos) Foot drop M21.379 Sciatica M54.30 Allergies indomethacin Allergy (Verified 02/15/20 12:48) Other Home Medications: Ambulatory Orders Medication Instructions Recorded Allopurinol [Zyloprim] 300 mg PO DAILY 03/15/14 Potassium Citrate [Urocit-K] 15 meq PO BID 03/15/14 Simvastatin [Zocor] 20 mg PO QHS 03/15/14 Sulindac [Clinoril] 200 mg PO BID 03/15/14 Gabapentin 300 mg PO TID 05/23/20 Levothyroxine Sodium [Synthroid] 137 mcg PO DAILY 05/23/20 Valacyclovir HCl [Valacyclovir] 1,000 mg PO DAILY 05/23/20 Surgical History: Surgical History (Last Updated 02/15/20 @ 12:48 by Becka Villalobos) History of arthroplasty of right ankle Z98.890 fusion/hardware History of thyroidectomy Z98.890 Hx of lumbosacral spine surgery Z98.890 Total knee replacement status Z96.659 december 2019 Surgical History: - - Right ankle surgery x6 with hardware, some removed, thyroidectomy, lumbar surgery with hardware including rods, left total knee replacement, transurethral kidney stone surgery. Psychiatric History: No pertinent psych hx Lives: Spouse/ Significant Other Smoking Status: Never smoker Tobacco Use: Non-smoker Alcohol: None Drugs: None - *Family History Paternal Family History: Family History (Last Reviewed 02/15/20 @ 12:46 by Becka Villalobos) Mother Diabetes History Items: Stroke - Father passed at age 91. Maternal Family History: Family History (Last Reviewed 02/15/20 @ 12:46 by Becka Villalobos) Mother Diabetes History Items: Cancer - Patient mother eventually passed at age 96., Diabetes Review of Systems Constitutional: Reports: Malaise, Fatigue Eyes: Denies: Blurred vision, Double vision HEENT: Denies: Head Aches, Sinus Congestion, Sinus Drainage Cardiovascular: Denies: Chest Pain, Palpitations Respiratory: Reports: Cough, Shortness of Breath, Wheezing Gastrointestinal: Denies: Abdominal Pain, Nausea, Vomiting Genitourinary: Denies: Dysuria Musculoskeletal: Denies: Joint Pain, Joint Tenderness Skin: Denies: Rash, Wounds Neurological: Denies: Numbness, Tingling, Focal weakness Psychiatric: Denies: Anxiety, Depression, Homicidal Ideations, Suicidal Ideations Hematologic/ Lymphatic: Denies: Easy Bruising, Easy Bleeding Patient Problems: Active and Suspected Problems (Last Reviewed 02/15/20 @ 12:46 by Becka Villalobos) COVID-19 (Acute) Hypoxia (Acute) Pneumonia (Acute) Sepsis (Acute) Acute respiratory failure with hypoxia (Acute) Objective: The patient's most recent lab work, culture data and imaging studies have all been personally reviewed. Coronavirus PCR was positive on May 16. MRSA screen was negative. Respiratory viral panel was negative. Strep and urine Legionella antigens were negative. Blood and urine cultures are pending. - Physical Exam Vitals/I&O's: Vital Signs Temp Pulse Resp BP Pulse Ox 97.8 F 70 19 H 165/97 H 92 05/24/20 05:00 05/24/20 05:00 05/24/20 05:00 05/24/20 05:00 05/24/20 05:00 Oxygen Flow Rate (L/min) 12 Oxygen Delivery Method Nasal Cannula Weight: 275 lb 9.245 oz Body Mass Index (BMI) 37.0 Intake and Output for Last 24 Hours 05/22/20 05/23/20 05/24/20 23:59 23:59 23:59 Intake Total 663.33 / 903.33 290 / 290 Output Total 950 / 950 Balance 663.33 / 353.33 -660 / -660 General: Alert, Cooperative, No apparent distress HEENT: Atraumatic, Normocephalic Oral: Moist Mucosa Neck: Supple, No Nodes, Trachea Midline Lungs: No rhonchi, No wheeze, No rales, Diminished, - - Speaking in full sentences. No accessory muscle use. Cardiovascular: Regular rate, Regular Rhythm, - Abdomen: Bowel Sounds Present, Soft, Non Tender, Obese Extremities: No clubbing, No cyanosis, No edema Skin: No breakdown Musculoskeletal: No Tenderness to Palpation of Joints or Extremities Lymphatic: No Cervical, Supraclavicular, or Inguinal Adenopathy Neurological: Cranial nerves II-XII grossly intact, Neuro grossly intact Psych/Mental Status: Alert and oriented to time, place, person, mood and affect Labs (Last 48 Hours) 05/23/20 05/23/20 05/23/20 15:02 15:02 15:02 WBC 23.5 H RBC 4.83 Hgb 14.0 Hct 43.7 MCV 90.5 MCH 29.0 MCHC 32.0 RDW Std Deviation 54.6 H RDW Coeff of Gisela 16.4 H Plt Count 93 L MPV 12.6 H Neut % (Auto) Not Reportable Absolute Neuts (auto) 12.7 H Absolute Lymphs (auto) 1.88 Total Counted 100 Neutrophils % (Manual) 39 L Band Neutrophils % 15 H Lymphocytes % (Manual) 8 L Monocytes % (Manual) 13 H Eosinophils % (Manual) 2 Metamyelocytes % 16 H Myelocytes % 7 H Diff Path Review May foll Reactive Lymphocytes Platelet Estimate MOD DEC PT 13.7 INR 1.1 APTT 31.2 D-Dimer Quant (PE/DVT) Sodium 140 Potassium 4.2 Chloride 110 H Carbon Dioxide 24.0 Anion Gap 6 BUN 38 H Creatinine 1.36 H Estim Creat Clear Calc 49.95 Est GFR (MDRD) Af Amer 66 Est GFR (MDRD) Non-Af 55 L BUN/Creatinine Ratio 27.9 H Glucose 118 H Lactic Acid Calcium 8.6 Magnesium Ferritin Total Bilirubin 0.60 AST 16 ALT 37 Alkaline Phosphatase 138 H Lactate Dehydrogenase Troponin I C-React Prot Ext Range Total Protein 6.9 Albumin 2.9 L Globulin 4.0 Albumin/Globulin Ratio 0.7 L Procalcitonin MRSA (PCR) 05/23/20 05/23/20 05/23/20 15:02 15:02 15:02 WBC RBC Hgb Hct MCV MCH MCHC RDW Std Deviation RDW Coeff of Gisela Plt Count MPV Neut % (Auto) Absolute Neuts (auto) Absolute Lymphs (auto) Total Counted Neutrophils % (Manual) Band Neutrophils % Lymphocytes % (Manual) Monocytes % (Manual) Eosinophils % (Manual) Metamyelocytes % Myelocytes % Diff Path Review Reactive Lymphocytes Platelet Estimate PT INR APTT D-Dimer Quant (PE/DVT) 0.67 H* Sodium Potassium Chloride Carbon Dioxide Anion Gap BUN Creatinine Estim Creat Clear Calc Est GFR (MDRD) Af Amer Est GFR (MDRD) Non-Af BUN/Creatinine Ratio Glucose Lactic Acid 1.9 Calcium Magnesium 2.2 Ferritin 151 Total Bilirubin AST ALT Alkaline Phosphatase Lactate Dehydrogenase 291 H Troponin I C-React Prot Ext Range 34.90 H Total Protein Albumin Globulin Albumin/Globulin Ratio Procalcitonin MRSA (PCR) 05/23/20 05/23/20 05/23/20 18:53 18:53 18:53 WBC RBC Hgb Hct MCV MCH MCHC RDW Std Deviation RDW Coeff of Gisela Plt Count MPV Neut % (Auto) Absolute Neuts (auto) Absolute Lymphs (auto) Total Counted Neutrophils % (Manual) Band Neutrophils % Lymphocytes % (Manual) Monocytes % (Manual) Eosinophils % (Manual) Metamyelocytes % Myelocytes % Diff Path Review Reactive Lymphocytes Platelet Estimate PT INR APTT D-Dimer Quant (PE/DVT) Sodium Potassium Chloride Carbon Dioxide Anion Gap BUN Creatinine Estim Creat Clear Calc Est GFR (MDRD) Af Amer Est GFR (MDRD) Non-Af BUN/Creatinine Ratio Glucose Lactic Acid Calcium Magnesium Ferritin Total Bilirubin AST ALT Alkaline Phosphatase Lactate Dehydrogenase Troponin I < 0.015 C-React Prot Ext Range Total Protein Albumin Globulin Albumin/Globulin Ratio Procalcitonin 0.26 H MRSA (PCR) Negative 05/23/20 05/24/20 05/24/20 21:30 00:05 04:55 WBC 19.9 H RBC 4.40 L Hgb 12.7 L Hct 40.1 MCV 91.1 MCH 28.9 MCHC 31.7 L RDW Std Deviation 54.9 H RDW Coeff of Gisela 16.3 H Plt Count 93 L MPV 12.1 H Neut % (Auto) Not Reportable Absolute Neuts (auto) Pending Absolute Lymphs (auto) Total Counted Neutrophils % (Manual) Band Neutrophils % Lymphocytes % (Manual) Monocytes % (Manual) Eosinophils % (Manual) Metamyelocytes % Myelocytes % Diff Path Review Reactive Lymphocytes Platelet Estimate PT INR APTT D-Dimer Quant (PE/DVT) Sodium Potassium Chloride Carbon Dioxide Anion Gap BUN Creatinine Estim Creat Clear Calc Est GFR (MDRD) Af Amer Est GFR (MDRD) Non-Af BUN/Creatinine Ratio Glucose Lactic Acid Calcium Magnesium Ferritin Total Bilirubin AST ALT Alkaline Phosphatase Lactate Dehydrogenase Troponin I < 0.015 < 0.015 C-React Prot Ext Range Total Protein Albumin Globulin Albumin/Globulin Ratio Procalcitonin MRSA (PCR) 05/24/20 04:55 WBC RBC Hgb Hct MCV MCH MCHC RDW Std Deviation RDW Coeff of Gisela Plt Count MPV Neut % (Auto) Absolute Neuts (auto) Absolute Lymphs (auto) Total Counted Neutrophils % (Manual) Band Neutrophils % Lymphocytes % (Manual) Monocytes % (Manual) Eosinophils % (Manual) Metamyelocytes % Myelocytes % Diff Path Review Reactive Lymphocytes Platelet Estimate PT INR APTT D-Dimer Quant (PE/DVT) Sodium 138 Potassium 5.2 H Chloride 109 H Carbon Dioxide 25.0 Anion Gap 4 L BUN 34 H Creatinine 1.15 Estim Creat Clear Calc 59.07 Est GFR (MDRD) Af Amer 80 Est GFR (MDRD) Non-Af 66 BUN/Creatinine Ratio 29.6 H Glucose 129 H Lactic Acid Calcium 7.9 L Magnesium Ferritin Total Bilirubin 0.70 AST 13 L ALT 30 Alkaline Phosphatase 121 H Lactate Dehydrogenase Troponin I C-React Prot Ext Range Total Protein 6.6 Albumin 2.7 L Globulin 3.9 Albumin/Globulin Ratio 0.7 L Procalcitonin MRSA (PCR) Microbiology 05/23/20 16:35 Urine, Clean Catch Legionella Antigen - Final 05/23/20 16:35 Urine, Clean Catch Streptococcus pneumoniae Antigen (M - Final 05/23/20 15:01 Mucosa - Nose Respiratory Panel (PCR) - Final Clinical Impression(s) from Imaging Studies Chest X-Ray 05/23/20 15:00 IMPRESSION: Bilateral patchy infiltrates in the preferential lateral distribution suggestive of Covid pneumonic infiltrates. Electronically Signed: Chuck Rucker at 15:19 EDT , Service support , Chest X-Ray 05/24/20 05:55 IMPRESSION: Bilateral pulmonary infiltrates, not significantly changed. Electronically Signed: Law Owen MD at 5:28 EDT , Service support , Current Medications Acetaminophen (Acetaminophen 325 Mg Tablet) 650 mg PO Q6H PRN PRN PRN Reason: Pain Score 1-10/Temp > 100.7 F Acyclovir (Acyclovir 200 Mg Capsule) 400 mg PO BID KIMO Last Admin: 05/23/20 21:15 Dose: 400 mg Documented by: Al Hydroxide/Mg Hydroxide (Mag Hydrox/Al Hydrox/Simeth 30 Ml Udc) 30 ml PO Q6H PRN PRN PRN Reason: Gastric Burning Albuterol Sulfate (Albuterol 2.5 Mg/3 Ml Vial.Neb.) 2.5 mg INHALATION Q2H PRN PRN PRN Reason: Dyspnea, wheezing Allopurinol (Allopurinol 300 Mg Tablet) 300 mg PO DAILY [facility] Atorvastatin Calcium (Atorvastatin Calcium 10 Mg Tablet) 10 mg PO QHS [facility] Last Admin: 05/23/20 21:16 Dose: 10 mg Documented by: Dexamethasone Sodium Phosphate (Dexamethasone 4 Mg/Ml Vial) 6 mg IV Q24 [facility] Last Admin: 05/23/20 18:45 Dose: 6 mg Documented by: Enoxaparin Sodium (Enoxaparin 120 Mg/0.8 Ml Syringe) 110 mg SC BID [facility] Last Admin: 05/23/20 21:16 Dose: 110 mg Documented by: Famotidine (Famotidine 20 Mg Tablet) 20 mg PO BID [facility] Last Admin: 05/23/20 21:16 Dose: 20 mg Documented by: Gabapentin (Gabapentin 300 Mg Capsule) 300 mg PO TID [facility] Last Admin: 05/23/20 21:16 Dose: 300 mg Documented by: Guaifenesin (Guaifenesin 10 Ml Udc (200mg/10ml)) 20 ml PO Q4H PRN PRN PRN Reason: COUGH Sodium Chloride () 1,000 mls @ 100 mls/hr IV .Q10H [facility] Last Admin: 05/24/20 04:22 Dose: Not Given Documented by: Vancomycin IV Pharmacy to Dose (1 ea/ Sodium Chloride) 500 mls @ 250 mls/hr IV X1 PRN; Protocol PRN Reason: Rx to Dose Piperacillin Sod/Tazobactam (Sod 3.375 gm/ Sodium Chloride) 50 mls @ 12.5 mls/hr IV Q8 [facility] Last Infusion: 05/24/20 01:16 Dose: Infused Documented by: Vancomycin HCl (Vancomycin) 1,000 mg in 200 mls @ 200 mls/hr IV Q12H [facility] Last Admin: 05/24/20 04:55 Dose: 200 mls/hr Documented by: Influenza Virus Vaccine Quadrival (Influenza Vaccine (6mos+)/Pf 0.5 Ml Syringe) 0.5 ml IM .ONCE ONE Stop: 05/24/20 10:01 Levothyroxine Sodium (Levothyroxine 137 Mcg Tablet) 137 mcg PO DAILY@0600 [facility] Magnesium Hydroxide (Magnesium Hydroxide 30 Ml Udc) 30 ml PO DAILY PRN PRN PRN Reason: Constipation Melatonin (Melatonin 3 Mg Tablet) 3 mg PO QHS PRN PRN PRN Reason: INSOMNIA Morphine Sulfate (Morphine 2 Mg/Ml Syringe) 2 mg IV Q3H PRN PRN PRN Reason: Pain Score 6-10 Nitroglycerin (Nitroglycerin (Inpatient Use) 0.4 Mg Tab.Subl) 0.4 mg SUBLINGUAL Q5M PRN PRN Reason: CARDIAC/CHEST PAIN Ondansetron HCl (Ondansetron 4 Mg/2 Ml Vial) 4 mg IV Q8H PRN PRN PRN Reason: NAUSEA/VOMITING Oxycodone HCl (Oxycodone 5 Mg Tablet) 5 mg PO Q4H PRN PRN PRN Reason: Pain Score 4-5 Prochlorperazine Edisylate (Prochlorperazine 10 Mg/2 Ml Vial) 5 mg IV Q4H PRN PRN PRN Reason: Breakthrough nausea/vomiting Psyllium Hydrophilic Mucilloid (Psyllium 1 Packet) 1 packet PO DAILY PRN PRN PRN Reason: Constipation Senna/Docusate Sodium (Senna/Docusate Sodium 1 Tablet) 2 tablet PO BID PRN PRN PRN Reason: Constipation Sodium Chloride (0.9% Saline Lock 10 Ml Syringe) 10 - 40 ml IV UD PRN PRN Reason: SALINE FLUSH Last Admin: 05/23/20 21:20 Dose: 40 ml Documented by: Throat Lozenges (Benzocaine/Menthol 1 Lozenge) 1 lozenge MUCOUS MEM Q2H PRN PRN PRN Reason: SORE THROAT Assessment/Plan Active and Suspected Problems (Last Reviewed 02/15/20 @ 12:46 by Becka Villalobos) COVID-19 (Acute) Hypoxia (Acute) Pneumonia (Acute) Sepsis (Acute) Acute respiratory failure with hypoxia (Acute) RECOMMENDATIONS: 1. Stop continuous supplemental IV fluids. 2. Discontinue therapeutic Lovenox and transition to DVT prophylaxis dosing. 3. Continue antimicrobials, pending evaluation by infectious diseases. 4. Continue Decadron 6 mg daily x10 days. 5. Wean supplemental oxygen to maintain saturations at or above 90%. 6. Defer need for convalescent plasma and/or remdesivir to infectious diseases. IMPRESSIONS: 1. Acute hypoxemic respiratory failure secondary to COVID-19 pneumonia The patient presented to the hospital with 2 weeks of respiratory symptoms, having tested positive for coronavirus 1 week ago. Plan to continue current supportive measures including supplemental oxygen to maintain saturations at or above 90%. Given that the patient's D-dimer level was not significantly elevated, I would recommend that his Lovenox be transitioned to DVT prophylaxis dosing. Antimicrobials will be continued, pending evaluation by infectious diseases. The patient will be continued on Decadron. Given the duration of his symptoms, it is unlikely that he would benefit from convalescent plasma or remdesivir. Nevertheless, I will defer this decision to ID. 2. Acute kidney injury Likely prerenal in etiology and related to hypoxemia. Creatinine has improved with volume expansion. Continue to monitor urine output. No current indication for renal replacement therapy. 3. Obesity/hypothyroidism/neuropathy/hyperlipidemia Complicates care, management, recovery and prognosis. Okay to continue home medications as indicated. This note was generated with [employer] dictation software. It may contain incorrect words, spelling, and punctuation that were not noted in checking the note before signing. Inpatient E&M: 93599 Init Hosp L3
[2020-05-24] MEDS: Gabapentin 300 MG Capsule PO ×3 (06:17→20:26)
[2020-05-24] MEDS: Levothyroxine 137 MCG Tablet PO (06:17)
[2020-05-24 07:01] LABS: Absolute Neutrophil Count 13.1 X10^3/uL (2.0-7.7); Lymphocyte 24 % (19-41); Metamyelocyte 10 % (0-1); Monocyte 8 % (0-10); Myelocyte 2 (0-0); Neutrophil-Band 3 % (0-5); Neutrophil-Segmented 63 % (47-70); Total Cells Counted 100 (MANUAL DIFF)
[2020-05-24 07:02] LABS: Absolute Lymphocyte Count 4.79 X10^3/uL (0.83-4.51); Platelet Estimate MOD DEC (ADEQ); Red Cell Morphology NORM C+C NORMAL (NORM C&C)
--- NOTE | 2020-05-24 07:14 | PN_ITS ---
Patient Problems: Active and Suspected Problems (Last Reviewed 02/15/20 @ 12:46 by Becka Villalobos) COVID-19 (Acute) Hypoxia (Acute) Pneumonia (Acute) Sepsis (Acute) Acute respiratory failure with hypoxia (Acute) Reason for Visit: COVID-19 pneumonia Subjective: Patient is a 74-year-old male recently diagnosed with COVID-19 infection on 05/16/2020 presented to the emergency department with worsening shortness of breath. Imaging studies obtained on admission demonstrated Bilateral patchy infiltrates in the preferential lateral distribution suggestive of Covid pneumonic infiltrates. Admitted to the intensive care unit for subsequent management Objective: GENERAL: cooperative dyspneic at rest HEENT: Atraumatic; EYES; Anicteric, Normal Conjunctiva NECK; supple, normal thyroid, RESPIRATORY: Diminished to auscultation CARDIOVASCULAR: Regular S1 S2, GI: soft, normoactive bowel sounds, : No Renal angle tenderness; EXTREMITIES: No edema, no clubbing, MUSCULOSKELETAL: no muscle waisting NEURO: Awake; no lateralizing signs. SKIN: No Rash PSYCH; Flat affect Vitals/I&O's: Vital Signs Temp Pulse Resp BP Pulse Ox 97.8 F 59 L 18 138/91 H 97 05/24/20 05:00 05/24/20 07:00 05/24/20 07:00 05/24/20 07:00 05/24/20 07:00 Oxygen Flow Rate (L/min) 10 Oxygen Delivery Method Nasal Cannula Weight: 125 kg Body Mass Index (BMI) 37.0 Intake and Output for Last 24 Hours 05/22/20 05/23/20 05/24/20 23:59 23:59 23:59 Intake Total 663.33 / 903.33 490 / 490 Output Total 950 / 950 Balance 663.33 / 353.33 -460 / -460 Microbiology Past 72 Hours 05/23/20 16:35 Urine, Clean Catch Legionella Antigen - Final 05/23/20 16:35 Urine, Clean Catch Streptococcus pneumoniae Antigen (M - Final 05/23/20 15:01 Mucosa - Nose Respiratory Panel (PCR) - Final Laboratory Results 05/23/20 15:02: WBC 23.5 H, RBC 4.83, Hgb 14.0, Hct 43.7, MCV 90.5, MCH 29.0, MCHC 32.0, RDW Std Deviation 54.6 H, RDW Coeff of Gisela 16.4 H, Plt Count 93 L, MPV 12.6 H, Neut % (Auto) Not Reportable, Absolute Neuts (auto) 12.7 H, Absolute Lymphs (auto) 1.88, Total Counted 100, Neutrophils % (Manual) 39 L, Band Neutrophils % 15 H, Lymphocytes % (Manual) 8 L, Monocytes % (Manual) 13 H, Eosinophils % (Manual) 2, Metamyelocytes % 16 H, Myelocytes % 7 H, Diff Path Review May foll, Reactive Lymphocytes , Platelet Estimate MOD DEC 05/23/20 15:02: Sodium 140, Potassium 4.2, Chloride 110 H, Carbon Dioxide 24.0, Anion Gap 6, BUN 38 H, Creatinine 1.36 H, Estim Creat Clear Calc 49.95, Est GFR (MDRD) Af Amer 66, Est GFR (MDRD) Non-Af 55 L, BUN/Creatinine Ratio 27.9 H, Glucose 118 H, Calcium 8.6, Total Bilirubin 0.60, AST 16, ALT 37, Alkaline Phosphatase 138 H, Total Protein 6.9, Albumin 2.9 L, Globulin 4.0, Albumin/Globulin Ratio 0.7 L 05/23/20 15:02: PT 13.7, INR 1.1, APTT 31.2 05/23/20 15:02: Lactic Acid 1.9 05/23/20 15:02: D-Dimer Quant (PE/DVT) 0.67 H* 05/23/20 15:02: Magnesium 2.2, Ferritin 151, Lactate Dehydrogenase 291 H, C- React Prot Ext Range 34.90 H 05/23/20 18:53: Procalcitonin 0.26 H 05/23/20 18:53: MRSA (PCR) Negative 05/23/20 18:53: Troponin I < 0.015 05/23/20 21:30: Troponin I < 0.015 05/24/20 00:05: Troponin I < 0.015 05/24/20 04:55: WBC 19.9 H, RBC 4.40 L, Hgb 12.7 L, Hct 40.1, MCV 91.1, MCH 28.9, MCHC 31.7 L, RDW Std Deviation 54.9 H, RDW Coeff of Gisela 16.3 H, Plt Count 93 L, MPV 12.1 H, Neut % (Auto) Not Reportable, Absolute Neuts (auto) 13.1 H, Absolute Lymphs (auto) 4.79 H, Total Counted 100, Neutrophils % (Manual) 63, Band Neutrophils % 3, Lymphocytes % (Manual) 24, Monocytes % (Manual) 8, Metamyelocytes % 10 H, Myelocytes % 2 H, Diff Path Review May foll, Platelet Estimate MOD DEC, RBC Morphology NORM C+C 05/24/20 04:55: Sodium 138, Potassium 5.2 H, Chloride 109 H, Carbon Dioxide 25.0, Anion Gap 4 L, BUN 34 H, Creatinine 1.15, Estim Creat Clear Calc 59.07, Est GFR (MDRD) Af Amer 80, Est GFR (MDRD) Non-Af 66, BUN/Creatinine Ratio 29.6 H , Glucose 129 H, Calcium 7.9 L, Total Bilirubin 0.70, AST 13 L, ALT 30, Alkaline Phosphatase 121 H, Total Protein 6.6, Albumin 2.7 L, Globulin 3.9, Albumin/Globulin Ratio 0.7 L Current Medications Acetaminophen (Acetaminophen 325 Mg Tablet) 650 mg PO Q6H PRN PRN PRN Reason: Pain Score 1-10/Temp > 100.7 F Acyclovir (Acyclovir 200 Mg Capsule) 400 mg PO BID [facility] Last Admin: 05/23/20 21:15 Dose: 400 mg Documented by: Al Hydroxide/Mg Hydroxide (Mag Hydrox/Al Hydrox/Simeth 30 Ml Udc) 30 ml PO Q6H PRN PRN PRN Reason: Gastric Burning Albuterol Sulfate (Albuterol 2.5 Mg/3 Ml Vial.Neb.) 2.5 mg INHALATION Q2H PRN PRN PRN Reason: Dyspnea, wheezing Allopurinol (Allopurinol 300 Mg Tablet) 300 mg PO DAILY [facility] Atorvastatin Calcium (Atorvastatin Calcium 10 Mg Tablet) 10 mg PO QHS [facility] Last Admin: 05/23/20 21:16 Dose: 10 mg Documented by: Dexamethasone Sodium Phosphate (Dexamethasone 4 Mg/Ml Vial) 6 mg IV Q24 [facility] Last Admin: 05/23/20 18:45 Dose: 6 mg Documented by: Enoxaparin Sodium (Enoxaparin 40 Mg/0.4 Ml Syringe) 40 mg SC DAILY [facility] Famotidine (Famotidine 20 Mg Tablet) 20 mg PO BID [facility] Last Admin: 05/23/20 21:16 Dose: 20 mg Documented by: Gabapentin (Gabapentin 300 Mg Capsule) 300 mg PO TID [facility] Last Admin: 05/24/20 06:17 Dose: 300 mg Documented by: Guaifenesin (Guaifenesin 10 Ml Udc (200mg/10ml)) 20 ml PO Q4H PRN PRN PRN Reason: COUGH Vancomycin IV Pharmacy to Dose (1 ea/ Sodium Chloride) 500 mls @ 250 mls/hr IV X1 PRN; Protocol PRN Reason: Rx to Dose Piperacillin Sod/Tazobactam (Sod 3.375 gm/ Sodium Chloride) 50 mls @ 12.5 mls/hr IV Q8 [facility] Last Admin: 05/24/20 06:17 Dose: 12.5 mls/hr Documented by: Vancomycin HCl (Vancomycin) 1,000 mg in 200 mls @ 200 mls/hr IV Q12H [facility] Last Infusion: 05/24/20 06:05 Dose: Infused Documented by: Influenza Virus Vaccine Quadrival (Influenza Vaccine (6mos+)/Pf 0.5 Ml Syringe) 0.5 ml IM .ONCE ONE Stop: 05/24/20 10:01 Levothyroxine Sodium (Levothyroxine 137 Mcg Tablet) 137 mcg PO DAILY@0600 [facility] Last Admin: 05/24/20 06:17 Dose: 137 mcg Documented by: Magnesium Hydroxide (Magnesium Hydroxide 30 Ml Udc) 30 ml PO DAILY PRN PRN PRN Reason: Constipation Nitroglycerin (Nitroglycerin (Inpatient Use) 0.4 Mg Tab.Subl) 0.4 mg SUBLINGUAL Q5M PRN PRN Reason: CARDIAC/CHEST PAIN Ondansetron HCl (Ondansetron 4 Mg/2 Ml Vial) 4 mg IV Q8H PRN PRN PRN Reason: NAUSEA/VOMITING Prochlorperazine Edisylate (Prochlorperazine 10 Mg/2 Ml Vial) 5 mg IV Q4H PRN PRN PRN Reason: Breakthrough nausea/vomiting Psyllium Hydrophilic Mucilloid (Psyllium 1 Packet) 1 packet PO DAILY PRN PRN PRN Reason: Constipation Senna/Docusate Sodium (Senna/Docusate Sodium 1 Tablet) 2 tablet PO BID PRN PRN PRN Reason: Constipation Sodium Chloride (0.9% Saline Lock 10 Ml Syringe) 10 - 40 ml IV UD PRN PRN Reason: SALINE FLUSH Last Admin: 05/23/20 21:20 Dose: 40 ml Documented by: Throat Lozenges (Benzocaine/Menthol 1 Lozenge) 1 lozenge MUCOUS MEM Q2H PRN PRN PRN Reason: SORE THROAT STROKE Vital Signs/Narrative: Vital Signs Temp Pulse Resp BP Pulse Ox 05/24/20 07:00 59 L 18 138/91 H 97 05/24/20 06:00 55 L 18 143/87 H 96 05/24/20 05:00 97.8 F 70 19 H 165/97 H 92 05/24/20 04:00 62 21 H 133/87 H 95 Medical Necessity - Tobacco Use Smoking Status: Never smoker Tobacco Use: Non-smoker Assessment/Plan All Active Problems (Last Reviewed 02/15/20 @ 12:46 by Becka Villalobos) Ulcer of right lower extremity with fat layer exposed (Resolved) Infected hardware in right lower extremity (Resolved) Hardware complicating wound infection (Resolved) Osteomyelitis (Ruled-out) Painful orthopaedic hardware (Acute) Ulcer of right foot with fat layer exposed (Resolved) COVID-19 (Acute) Hypoxia (Acute) Pneumonia (Acute) Sepsis (Acute) Acute respiratory failure with hypoxia (Acute) Patient is a 74-year-old male recently diagnosed with COVID-19 infection on 05/16/2020 presented to the emergency department with worsening shortness of breath. Imaging studies obtained on admission demonstrated Bilateral patchy infiltrates in the preferential lateral distribution suggestive of Covid pneumonic infiltrates. Admitted to the intensive care unit for subsequent man agement 1. Acute hypoxic respiratory failure ?Secondary to COVID-19 pneumonia with suspected superimposed bacterial pneumonia. Admitted to the intensive care unit. Patient placed on high flow oxygen 10 L. Patient apparently desaturated with minimal activity. Patient started on Decadron and broad-spectrum antibiotic therapy with consultation placed to both pulmonary medicine and infectious disease. Decision to start remdesivir and convalescent plasma defer to ID and pulmonary medicine 2. Sepsis secondary to above -Management as discussed above A. 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 Acute kidney injury ?Kidney function did improve with IV fluids 5. Hypothyroidism - Patient is on levothyroxine home dose continued 6. Dyslipidemia -Patient is on statin therapy, continued at home dose 7. Gout ?Patient on allopurinol 8. Morbid obesity with BMI of 39.5 ?Weight loss advised 9. Peripheral neuropathy ?patient on gabapentin 10. DVT prophylaxis ?Patient on Lovenox Active Medications Acetaminophen (Acetaminophen 325 Mg Tablet) 650 mg PO Q6H PRN PRN PRN Reason: Pain Score 1-10/Temp > 100.7 F Acyclovir (Acyclovir 200 Mg Capsule) 400 mg PO BID [facility] Last Admin: 05/23/20 21:15 Dose: 400 mg Documented by: Al Hydroxide/Mg Hydroxide (Mag Hydrox/Al Hydrox/Simeth 30 Ml Udc) 30 ml PO Q6H PRN PRN PRN Reason: Gastric Burning Albuterol Sulfate (Albuterol 2.5 Mg/3 Ml Vial.Neb.) 2.5 mg INHALATION Q2H PRN PRN PRN Reason: Dyspnea, wheezing Allopurinol (Allopurinol 300 Mg Tablet) 300 mg PO DAILY [facility] Atorvastatin Calcium (Atorvastatin Calcium 10 Mg Tablet) 10 mg PO QHS [facility] Last Admin: 05/23/20 21:16 Dose: 10 mg Documented by: Dexamethasone Sodium Phosphate (Dexamethasone 4 Mg/Ml Vial) 6 mg IV Q24 [facility] Last Admin: 05/23/20 18:45 Dose: 6 mg Documented by: Enoxaparin Sodium (Enoxaparin 40 Mg/0.4 Ml Syringe) 40 mg SC DAILY [facility] Famotidine (Famotidine 20 Mg Tablet) 20 mg PO BID [facility] Last Admin: 05/23/20 21:16 Dose: 20 mg Documented by: Gabapentin (Gabapentin 300 Mg Capsule) 300 mg PO TID [facility] Last Admin: 05/24/20 06:17 Dose: 300 mg Documented by: Guaifenesin (Guaifenesin 10 Ml Udc (200mg/10ml)) 20 ml PO Q4H PRN PRN PRN Reason: COUGH Piperacillin Sod/Tazobactam (Sod 3.375 gm/ Sodium Chloride) 50 mls @ 12.5 mls/hr IV Q8 [facility] Last Admin: 05/24/20 06:17 Dose: 12.5 mls/hr Documented by: Influenza Virus Vaccine Quadrival (Influenza Vaccine (6mos+)/Pf 0.5 Ml Syringe) 0.5 ml IM .ONCE ONE Stop: 05/25/20 10:01 Levothyroxine Sodium (Levothyroxine 137 Mcg Tablet) 137 mcg PO DAILY@0600 [facility] Last Admin: 05/24/20 06:17 Dose: 137 mcg Documented by: Magnesium Hydroxide (Magnesium Hydroxide 30 Ml Udc) 30 ml PO DAILY PRN PRN PRN Reason: Constipation Nitroglycerin (Nitroglycerin (Inpatient Use) 0.4 Mg Tab.Subl) 0.4 mg SUBLINGUAL Q5M PRN PRN Reason: CARDIAC/CHEST PAIN Ondansetron HCl (Ondansetron 4 Mg/2 Ml Vial) 4 mg IV Q8H PRN PRN PRN Reason: NAUSEA/VOMITING Prochlorperazine Edisylate (Prochlorperazine 10 Mg/2 Ml Vial) 5 mg IV Q4H PRN PRN PRN Reason: Breakthrough nausea/vomiting Psyllium Hydrophilic Mucilloid (Psyllium 1 Packet) 1 packet PO DAILY PRN PRN PRN Reason: Constipation Senna/Docusate Sodium (Senna/Docusate Sodium 1 Tablet) 2 tablet PO BID PRN PRN PRN Reason: Constipation Sodium Chloride (0.9% Saline Lock 10 Ml Syringe) 10 - 40 ml IV UD PRN PRN Reason: SALINE FLUSH Last Admin: 05/23/20 21:20 Dose: 40 ml Documented by: Throat Lozenges (Benzocaine/Menthol 1 Lozenge) 1 lozenge MUCOUS MEM Q2H PRN PRN PRN Reason: SORE THROAT Clinical Impression(s) from Imaging Studies Chest X-Ray 05/23/20 15:00 IMPRESSION: Bilateral patchy infiltrates in the preferential lateral distribution suggestive of Covid pneumonic infiltrates. Electronically Signed: Chuck Rucker at 15:19 EDT , Service support , Chest X-Ray 05/24/20 05:55 IMPRESSION: Bilateral pulmonary infiltrates, not significantly changed. Electronically Signed: Law Owen MD at 5:28 EDT , Service support , Inpatient E&M: [id number] [place] [address] L3
[2020-05-24 08:01] LABS: BNP,B-Type NATRIURETIC PEPTIDE 16.1 pg/mL (0-100)
[2020-05-24] MEDS: Allopurinol 300 MG Tablet PO (10:59)
[2020-05-24] MEDS: Enoxaparin 40 MG/0.4 ML Syringe SC (10:59)
[2020-05-24] MEDS: dexAMETHasone 4 MG/ML Vial 6 MG IV (10:59)
[2020-05-24] MEDS: Acyclovir 200 MG Capsule 400 MG PO ×2 (10:59→20:26)
[2020-05-24] MEDS: Famotidine 20 MG Tablet PO ×2 (10:59→20:26)
[2020-05-24] MEDS: 0.9% Saline Lock 10 ML Syringe IV (11:00)
--- NOTE | 2020-05-24 12:13 | CASEMGMT ---
RN CM Assessment Note Introduced role of CM to patient via phone to room. Patient is on 9L NC, but feels he is able to participate in assessment. Demographics, PCP verified. Patient states he lives independently at home with his . She is presumed positive for COVID as she is symptomatic with fever. Patient states he has no concerns re: discharge at this time. Discussed Home Oxygen anticipated on dc and reviewed DME list. Patient does not have a preference. -patient and are able to quarantine at home. -family able to bring groceries, medications etc Presentation: shortness of breath, COVID + Diagnosis: COVI-19 PCP: Dr. Aurelio Sierra Insurance: [facility] Preferred Pharmacy: [facility] Prescription Benefit: yes LNOK: Heather Martinez Living Arrangements: Lives independently with his . No DME use, no assistance needed prior to admission for ADL's. Tranportation: drives DME: Oxygen DME [facility] with [facility]: [facility] [employer]. Pt does not have a preference. Will use [facility]. Patient DC Goals: Home on discharge DC Plan: anticipate home. Will follow for Home oxygen needs. CM available for discharge planning coordination. Contact CM for any concerns/needs that may arise. Darian HUERTA RN ACM
--- NOTE | 2020-05-24 13:45 | PCM.HP.ID ---
Problem List (1) COVID-19 Status: Acute Reason for Consult: dora Consulted by: Dr. Ruiz History of Present Illness: The patient is a 74 year old M who presented yesterday to ED with sat 81% at home. Reports 10 days of cough, wheezing, dyspnea. No fever, no aches, no n/v/d, no change in taste or smell. No sick contacts other than with fever and similar sx which started after him. Came to ED, covid (+), started on dex. Feeling about the same this AM. Full ROS performed and neg except as noted above. 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) Ulcer of right lower extremity with fat layer exposed (Chronic) Nonunion of arthrodesis (Chronic) Monocytosis (Chronic) Delayed wound healing (Chronic) Malnutrition (Chronic) Painful orthopaedic hardware (Chronic) Thrombocytopenia (Chronic) Gout (Chronic) Morbid obesity (Chronic) Allergies/Adverse Reactions: Allergies indomethacin Allergy (Verified 02/15/20 12:48) Other Home Medications: Ambulatory Orders Medication Instructions Recorded Allopurinol [Zyloprim] 300 mg PO DAILY 03/15/14 Potassium Citrate [Urocit-K] 15 meq PO BID 03/15/14 Simvastatin [Zocor] 20 mg PO QHS 03/15/14 Sulindac [Clinoril] 200 mg PO BID 03/15/14 Gabapentin 300 mg PO TID 05/23/20 Levothyroxine Sodium [Synthroid] 137 mcg PO DAILY 05/23/20 Valacyclovir HCl [Valacyclovir] 1,000 mg PO DAILY 05/23/20 - Social History Tobacco Use: non-smoker Vital Signs Temp Pulse Resp BP Pulse Ox 97.3 F L 71 24 H 136/96 H 95 05/24/20 08:00 05/24/20 11:41 05/24/20 11:00 05/24/20 11:00 05/24/20 13:34 Oxygen Flow Rate (L/min) 9 Oxygen Delivery Method Nasal Cannula Weight: 125 kg Body Mass Index (BMI) 37.0 Microbiology Past 72 Hours 05/23/20 16:35 Legionella Antigen - Final Urine, Clean Catch Streptococcus pneumoniae Antigen (M - Final 05/23/20 15:01 Respiratory Panel (PCR) - Final Mucosa - Nose Laboratory Tests Past 24 Hrs 05/23/20 05/23/20 05/23/20 15:02 15:02 15:02 WBC 23.5 H RBC 4.83 Hgb 14.0 Hct 43.7 MCV 90.5 MCH 29.0 MCHC 32.0 RDW Std Deviation 54.6 H RDW Coeff of Gisela 16.4 H Plt Count 93 L MPV 12.6 H Neut % (Auto) Not Reportable Absolute Neuts (auto) 12.7 H Absolute Lymphs (auto) 1.88 Total Counted 100 Neutrophils % (Manual) 39 L Band Neutrophils % 15 H Lymphocytes % (Manual) 8 L Monocytes % (Manual) 13 H Eosinophils % (Manual) 2 Metamyelocytes % 16 H Myelocytes % 7 H Diff Path Review May foll Reactive Lymphocytes Platelet Estimate MOD DEC RBC Morphology PT 13.7 INR 1.1 APTT 31.2 D-Dimer Quant (PE/DVT) Sodium 140 Potassium 4.2 Chloride 110 H Carbon Dioxide 24.0 Anion Gap 6 BUN 38 H Creatinine 1.36 H Estim Creat Clear Calc 49.95 Est GFR (MDRD) Af Amer 66 Est GFR (MDRD) Non-Af 55 L BUN/Creatinine Ratio 27.9 H Glucose 118 H Lactic Acid Calcium 8.6 Magnesium Ferritin Total Bilirubin 0.60 AST 16 ALT 37 Alkaline Phosphatase 138 H Lactate Dehydrogenase Troponin I C-React Prot Ext Range B-Natriuretic Peptide Total Protein 6.9 Albumin 2.9 L Globulin 4.0 Albumin/Globulin Ratio 0.7 L Procalcitonin MRSA (PCR) 05/23/20 05/23/20 05/23/20 15:02 15:02 15:02 WBC RBC Hgb Hct MCV MCH MCHC RDW Std Deviation RDW Coeff of Gisela Plt Count MPV Neut % (Auto) Absolute Neuts (auto) Absolute Lymphs (auto) Total Counted Neutrophils % (Manual) Band Neutrophils % Lymphocytes % (Manual) Monocytes % (Manual) Eosinophils % (Manual) Metamyelocytes % Myelocytes % Diff Path Review Reactive Lymphocytes Platelet Estimate RBC Morphology PT INR APTT D-Dimer Quant (PE/DVT) 0.67 H* Sodium Potassium Chloride Carbon Dioxide Anion Gap BUN Creatinine Estim Creat Clear Calc Est GFR (MDRD) Af Amer Est GFR (MDRD) Non-Af BUN/Creatinine Ratio Glucose Lactic Acid 1.9 Calcium Magnesium 2.2 Ferritin 151 Total Bilirubin AST ALT Alkaline Phosphatase Lactate Dehydrogenase 291 H Troponin I C-React Prot Ext Range 34.90 H B-Natriuretic Peptide Total Protein Albumin Globulin Albumin/Globulin Ratio Procalcitonin MRSA (PCR) 05/23/20 05/23/20 05/23/20 18:53 18:53 18:53 WBC RBC Hgb Hct MCV MCH MCHC RDW Std Deviation RDW Coeff of Gisela Plt Count MPV Neut % (Auto) Absolute Neuts (auto) Absolute Lymphs (auto) Total Counted Neutrophils % (Manual) Band Neutrophils % Lymphocytes % (Manual) Monocytes % (Manual) Eosinophils % (Manual) Metamyelocytes % Myelocytes % Diff Path Review Reactive Lymphocytes Platelet Estimate RBC Morphology PT INR APTT D-Dimer Quant (PE/DVT) Sodium Potassium Chloride Carbon Dioxide Anion Gap BUN Creatinine Estim Creat Clear Calc Est GFR (MDRD) Af Amer Est GFR (MDRD) Non-Af BUN/Creatinine Ratio Glucose Lactic Acid Calcium Magnesium Ferritin Total Bilirubin AST ALT Alkaline Phosphatase Lactate Dehydrogenase Troponin I < 0.015 C-React Prot Ext Range B-Natriuretic Peptide Total Protein Albumin Globulin Albumin/Globulin Ratio Procalcitonin 0.26 H MRSA (PCR) Negative 05/23/20 05/24/20 05/24/20 21:30 00:05 04:55 WBC 19.9 H RBC 4.40 L Hgb 12.7 L Hct 40.1 MCV 91.1 MCH 28.9 MCHC 31.7 L RDW Std Deviation 54.9 H RDW Coeff of Gisela 16.3 H Plt Count 93 L MPV 12.1 H Neut % (Auto) Not Reportable Absolute Neuts (auto) 13.1 H Absolute Lymphs (auto) 4.79 H Total Counted 100 Neutrophils % (Manual) 63 Band Neutrophils % 3 Lymphocytes % (Manual) 24 Monocytes % (Manual) 8 Eosinophils % (Manual) Metamyelocytes % 10 H Myelocytes % 2 H Diff Path Review May foll Reactive Lymphocytes Platelet Estimate MOD DEC RBC Morphology NORM C+C PT INR APTT D-Dimer Quant (PE/DVT) Sodium Potassium Chloride Carbon Dioxide Anion Gap BUN Creatinine Estim Creat Clear Calc Est GFR (MDRD) Af Amer Est GFR (MDRD) Non-Af BUN/Creatinine Ratio Glucose Lactic Acid Calcium Magnesium Ferritin Total Bilirubin AST ALT Alkaline Phosphatase Lactate Dehydrogenase Troponin I < 0.015 < 0.015 C-React Prot Ext Range B-Natriuretic Peptide Total Protein Albumin Globulin Albumin/Globulin Ratio Procalcitonin MRSA (PCR) 05/24/20 05/24/20 04:55 04:55 WBC RBC Hgb Hct MCV MCH MCHC RDW Std Deviation RDW Coeff of Gisela Plt Count MPV Neut % (Auto) Absolute Neuts (auto) Absolute Lymphs (auto) Total Counted Neutrophils % (Manual) Band Neutrophils % Lymphocytes % (Manual) Monocytes % (Manual) Eosinophils % (Manual) Metamyelocytes % Myelocytes % Diff Path Review Reactive Lymphocytes Platelet Estimate RBC Morphology PT INR APTT D-Dimer Quant (PE/DVT) Sodium 138 Potassium 5.2 H Chloride 109 H Carbon Dioxide 25.0 Anion Gap 4 L BUN 34 H Creatinine 1.15 Estim Creat Clear Calc 59.07 Est GFR (MDRD) Af Amer 80 Est GFR (MDRD) Non-Af 66 BUN/Creatinine Ratio 29.6 H Glucose 129 H Lactic Acid Calcium 7.9 L Magnesium Ferritin Total Bilirubin 0.70 AST 13 L ALT 30 Alkaline Phosphatase 121 H Lactate Dehydrogenase Troponin I C-React Prot Ext Range B-Natriuretic Peptide 16.1 Total Protein 6.6 Albumin 2.7 L Globulin 3.9 Albumin/Globulin Ratio 0.7 L Procalcitonin MRSA (PCR) - Other Studies Radiology: [] reviewed Other Studies: [] Route of nutrition/ use of supplements: [] Nutritional Intake: [] IV Site: [] Cespedes Catheter: [] - Physical Exam General: Alert, Oriented x3, Cooperative, No apparent distress HEENT: Atraumatic, PERRLA, EOMI Neck: Supple, No Nodes Lungs: Diminished Cardiovascular: Regular rate, Regular Rhythm Abdomen: Soft, Non Tender, Non-Distended Extremities: No edema Skin: No rashes IV Site: Peripheral, without redness Musculoskeletal: No Tenderness to Palpation of Joints or Extremities - Assessment/Plan Antibiotics: [] Assessment/Plan: [] Active and Suspected Problems (Last Reviewed 02/15/20 @ 12:46 by Becka Villalobos) COVID-19 (Acute) Hypoxia (Acute) Pneumonia (Acute) Sepsis (Acute) Acute respiratory failure with hypoxia (Acute) Normal PCT. No fever here. On dex, high flow O2. Reviewed EUA and risks/benefits of plasma and remdesivir, he consents to treatment. Will stop vanc/zosyn; low suspicion of bacterial infection at this point. Will follow Patient or caregiver was given a copy of the Remdesivir Fact Sheet for Patients and Parents/Caregivers. The following information was communicated to the patient or caregiver: Remdesivir is not an FDA approved drug. The FDA has authorized the emergency use of Remdesivir. The patient had the option to refuse or accept treatment with Remdesivir. The patient was informed that the number of people treated with Remdesivir is small at this time. The potential benefits and potential risks of Remdesivir are not fully known. Potential benefits of Remdesivir include a shorter time to recovery of COVID-19 infection. Potential risks or side effects of Remdesivir include sweating, shivering, nausea and vomiting or low blood pressure related to a reaction to the medication infusion and increases in liver enzymes. No drugs are approved by the FDA to treat COVID-19 at this time. The patient (or appointed insurance follow up representative) stated understanding of information communicated and wished to proceed with Remdesivir treatment.
[2020-05-24 14:21] LABS: Pathologist Review Reviewed
[2020-05-24 14:23] LABS: Pathologist Review Reviewed
[2020-05-24] MEDS: Atorvastatin Calcium 10 MG Tablet PO (20:26)
[2020-05-25] VITALS (19 sets, daily range): BP systolic 120–165; BP diastolic 71–113; PULSE 53–73; RESP 14–22; TEMP 36.6–36.8; O2SAT 91–97
[2020-05-25] MEDS: Gabapentin 300 MG Capsule PO ×3 (04:38→21:55)
[2020-05-25] MEDS: Levothyroxine 137 MCG Tablet PO (04:38)
[2020-05-25 04:57] LABS: Hematocrit 39.4 % (40-54); Hemoglobin 12.4 g/dL (13.0-16.5); Mean Corp Hgb Conc 31.5 g/dL (32-36); Mean Corpuscular Hgb 28.9 pg (27.0-32.0); Mean Corpuscular Volume 91.8 fL (80-94); Mean Platelet Vol. 12.6 fl (6.2-12.0); Platelet Count 101 K/mm3 (150-450); RBC Distribution Width CV 16.4 % (11.6-14.6); RBC Distribution Width SD 55.4 fl (35.1-43.9); Red Blood Count 4.29 M/mm3 (4.6-6.2); White Blood Count 22.1 K/mm3 (4.4-11.0)
[2020-05-25 05:58] LABS: ALB/GLOB Ratio 0.7 RATIO (0.9-2.4); AST(SGOT) 11 U/L (15-37); Alanine Aminotransfer ALT/SGPT 25 U/L (16-61); Albumin, Serum 2.8 g/dL (3.2-5.0); Alkaline Phosphatase 109 U/L (45-117); Anion Gap 6 (5-15); BUN 35 mg/dL (7-18); BUN/Creat Ratio 28.5 RATIO (10-20); Calcium,Total 8.4 mg/dL (8.5-10.1); Chloride 107 mmol/L (98-107); Creatinine, Serum 1.23 mg/dL (0.70-1.30); EST Glomerular Filtration Rate 61 mL/min (>60); Est Glom Filt Rate - Afr Amer 74 mL/min (>60); Estimated Creatinine Clearance 55.23 ml/min; Glucose 108 mg/dL (74-106); Potassium 4.1 mmol/L (3.5-5.1); Protein, Total 6.8 g/dL (6.4-8.2); Sodium Level 139 mmol/L (136-145)
--- NOTE | 2020-05-25 06:01 | PCM.PN.INT ---
Subjective: The patient was seen and examined at the bedside this morning. Events from the last 24 hours have been reviewed. The patient is currently afebrile, hemodynamically stable and maintaining appropriate oxygen saturations on 6 L/min via nasal cannula. Following evaluation by infectious diseases yesterday, the decision was made to administer remdesivir and convalescent plasma. The patient remains on Decadron as well. Objective: The patient's most recent lab work, culture data and imaging studies have all been personally reviewed. Coronavirus PCR was positive on May 16. General: Alert, Cooperative, No apparent distress HEENT: Atraumatic, Normocephalic Oral: No Gingival or Mucosal Lesions/ Ulcerations Neck: Supple, No Nodes, Trachea Midline Lungs: Diminished Cardiovascular: Regular rate, Regular Rhythm Abdomen: Bowel Sounds Present, Soft, Non Tender, Obese Extremities: No clubbing, No cyanosis, No edema Skin: No breakdown Musculoskeletal: No Muscle Wasting Lymphatic: No Cervical, Supraclavicular, or Inguinal Adenopathy Neurological: Cranial nerves II-XII grossly intact, Neuro grossly intact Psych/Mental Status: Normal Affect Vital Signs Temp Pulse Resp BP Pulse Ox 98.2 F 55 L 17 148/83 H 96 05/25/20 04:00 05/25/20 06:00 05/25/20 06:00 05/25/20 06:00 05/25/20 06:00 Oxygen Flow Rate (L/min) 6 Oxygen Delivery Method Nasal Cannula Weight: 276 lb 3.827 oz Body Mass Index (BMI) 37.0 Intake and Output for Last 24 Hours 05/23/20 05/24/20 05/25/20 23:59 23:59 23:59 Intake Total 663.33 / 903.33 2403.33 / 2403.33 120 / 120 Output Total 2100 / 2100 450 / 450 Balance 663.33 / 353.33 303.33 / 303.33 -330 / -330 Labs (Last 48 Hours) 05/23/20 05/23/20 05/23/20 15:02 15:02 15:02 WBC 23.5 H RBC 4.83 Hgb 14.0 Hct 43.7 MCV 90.5 MCH 29.0 MCHC 32.0 RDW Std Deviation 54.6 H RDW Coeff of Gisela 16.4 H Plt Count 93 L MPV 12.6 H Neut % (Auto) Not Reportable Absolute Neuts (auto) 12.7 H Absolute Lymphs (auto) 1.88 Total Counted 100 Neutrophils % (Manual) 39 L Band Neutrophils % 15 H Lymphocytes % (Manual) 8 L Monocytes % (Manual) 13 H Eosinophils % (Manual) 2 Metamyelocytes % 16 H Myelocytes % 7 H Diff Path Review Reviewed Reactive Lymphocytes Platelet Estimate MOD DEC RBC Morphology PT 13.7 INR 1.1 APTT 31.2 D-Dimer Quant (PE/DVT) Sodium 140 Potassium 4.2 Chloride 110 H Carbon Dioxide 24.0 Anion Gap 6 BUN 38 H Creatinine 1.36 H Estim Creat Clear Calc 49.95 Est GFR (MDRD) Af Amer 66 Est GFR (MDRD) Non-Af 55 L BUN/Creatinine Ratio 27.9 H Glucose 118 H Lactic Acid Calcium 8.6 Magnesium Ferritin Total Bilirubin 0.60 AST 16 ALT 37 Alkaline Phosphatase 138 H Lactate Dehydrogenase Troponin I C-React Prot Ext Range B-Natriuretic Peptide Total Protein 6.9 Albumin 2.9 L Globulin 4.0 Albumin/Globulin Ratio 0.7 L Procalcitonin MRSA (PCR) Blood Type 05/23/20 05/23/20 05/23/20 15:02 15:02 15:02 WBC RBC Hgb Hct MCV MCH MCHC RDW Std Deviation RDW Coeff of Gisela Plt Count MPV Neut % (Auto) Absolute Neuts (auto) Absolute Lymphs (auto) Total Counted Neutrophils % (Manual) Band Neutrophils % Lymphocytes % (Manual) Monocytes % (Manual) Eosinophils % (Manual) Metamyelocytes % Myelocytes % Diff Path Review Reactive Lymphocytes Platelet Estimate RBC Morphology PT INR APTT D-Dimer Quant (PE/DVT) 0.67 H* Sodium Potassium Chloride Carbon Dioxide Anion Gap BUN Creatinine Estim Creat Clear Calc Est GFR (MDRD) Af Amer Est GFR (MDRD) Non-Af BUN/Creatinine Ratio Glucose Lactic Acid 1.9 Calcium Magnesium 2.2 Ferritin 151 Total Bilirubin AST ALT Alkaline Phosphatase Lactate Dehydrogenase 291 H Troponin I C-React Prot Ext Range 34.90 H B-Natriuretic Peptide Total Protein Albumin Globulin Albumin/Globulin Ratio Procalcitonin MRSA (PCR) Blood Type 05/23/20 05/23/20 05/23/20 18:53 18:53 18:53 WBC RBC Hgb Hct MCV MCH MCHC RDW Std Deviation RDW Coeff of Gisela Plt Count MPV Neut % (Auto) Absolute Neuts (auto) Absolute Lymphs (auto) Total Counted Neutrophils % (Manual) Band Neutrophils % Lymphocytes % (Manual) Monocytes % (Manual) Eosinophils % (Manual) Metamyelocytes % Myelocytes % Diff Path Review Reactive Lymphocytes Platelet Estimate RBC Morphology PT INR APTT D-Dimer Quant (PE/DVT) Sodium Potassium Chloride Carbon Dioxide Anion Gap BUN Creatinine Estim Creat Clear Calc Est GFR (MDRD) Af Amer Est GFR (MDRD) Non-Af BUN/Creatinine Ratio Glucose Lactic Acid Calcium Magnesium Ferritin Total Bilirubin AST ALT Alkaline Phosphatase Lactate Dehydrogenase Troponin I < 0.015 C-React Prot Ext Range B-Natriuretic Peptide Total Protein Albumin Globulin Albumin/Globulin Ratio Procalcitonin 0.26 H MRSA (PCR) Negative Blood Type 05/23/20 05/24/20 05/24/20 21:30 00:05 04:55 WBC 19.9 H RBC 4.40 L Hgb 12.7 L Hct 40.1 MCV 91.1 MCH 28.9 MCHC 31.7 L RDW Std Deviation 54.9 H RDW Coeff of Gisela 16.3 H Plt Count 93 L MPV 12.1 H Neut % (Auto) Not Reportable Absolute Neuts (auto) 13.1 H Absolute Lymphs (auto) 4.79 H Total Counted 100 Neutrophils % (Manual) 63 Band Neutrophils % 3 Lymphocytes % (Manual) 24 Monocytes % (Manual) 8 Eosinophils % (Manual) Metamyelocytes % 10 H Myelocytes % 2 H Diff Path Review Reviewed Reactive Lymphocytes Platelet Estimate MOD DEC RBC Morphology NORM C+C PT INR APTT D-Dimer Quant (PE/DVT) Sodium Potassium Chloride Carbon Dioxide Anion Gap BUN Creatinine Estim Creat Clear Calc Est GFR (MDRD) Af Amer Est GFR (MDRD) Non-Af BUN/Creatinine Ratio Glucose Lactic Acid Calcium Magnesium Ferritin Total Bilirubin AST ALT Alkaline Phosphatase Lactate Dehydrogenase Troponin I < 0.015 < 0.015 C-React Prot Ext Range B-Natriuretic Peptide Total Protein Albumin Globulin Albumin/Globulin Ratio Procalcitonin MRSA (PCR) Blood Type 05/24/20 05/24/20 05/24/20 04:55 04:55 15:20 WBC RBC Hgb Hct MCV MCH MCHC RDW Std Deviation RDW Coeff of Gisela Plt Count MPV Neut % (Auto) Absolute Neuts (auto) Absolute Lymphs (auto) Total Counted Neutrophils % (Manual) Band Neutrophils % Lymphocytes % (Manual) Monocytes % (Manual) Eosinophils % (Manual) Metamyelocytes % Myelocytes % Diff Path Review Reactive Lymphocytes Platelet Estimate RBC Morphology PT INR APTT D-Dimer Quant (PE/DVT) Sodium 138 Potassium 5.2 H Chloride 109 H Carbon Dioxide 25.0 Anion Gap 4 L BUN 34 H Creatinine 1.15 Estim Creat Clear Calc 59.07 Est GFR (MDRD) Af Amer 80 Est GFR (MDRD) Non-Af 66 BUN/Creatinine Ratio 29.6 H Glucose 129 H Lactic Acid Calcium 7.9 L Magnesium Ferritin Total Bilirubin 0.70 AST 13 L ALT 30 Alkaline Phosphatase 121 H Lactate Dehydrogenase Troponin I C-React Prot Ext Range B-Natriuretic Peptide 16.1 Total Protein 6.6 Albumin 2.7 L Globulin 3.9 Albumin/Globulin Ratio 0.7 L Procalcitonin MRSA (PCR) Blood Type O POSITIVE 05/25/20 05/25/20 04:40 04:40 WBC 22.1 H RBC 4.29 L Hgb 12.4 L Hct 39.4 L MCV 91.8 MCH 28.9 MCHC 31.5 L RDW Std Deviation 55.4 H RDW Coeff of Gisela 16.4 H Plt Count 101 L MPV 12.6 H Neut % (Auto) Absolute Neuts (auto) Absolute Lymphs (auto) Total Counted Neutrophils % (Manual) Band Neutrophils % Lymphocytes % (Manual) Monocytes % (Manual) Eosinophils % (Manual) Metamyelocytes % Myelocytes % Diff Path Review Reactive Lymphocytes Platelet Estimate RBC Morphology PT INR APTT D-Dimer Quant (PE/DVT) Sodium 139 Potassium 4.1 Chloride 107 Carbon Dioxide 26.0 Anion Gap 6 BUN 35 H Creatinine 1.23 Estim Creat Clear Calc 55.23 Est GFR (MDRD) Af Amer 74 Est GFR (MDRD) Non-Af 61 BUN/Creatinine Ratio 28.5 H Glucose 108 H Lactic Acid Calcium 8.4 L Magnesium Ferritin Total Bilirubin 0.40 AST 11 L ALT 25 Alkaline Phosphatase 109 Lactate Dehydrogenase Troponin I C-React Prot Ext Range B-Natriuretic Peptide Total Protein 6.8 Albumin 2.8 L Globulin 4.0 Albumin/Globulin Ratio 0.7 L Procalcitonin MRSA (PCR) Blood Type Microbiology 05/23/20 16:35 Urine, Clean Catch Urine Culture - Preliminary Culture exhibits no growth. 10/21/20 16:35 Urine, Clean Catch Legionella Antigen - Final 05/23/20 16:35 Urine, Clean Catch Streptococcus pneumoniae Antigen (M - Final 05/23/20 15:01 Mucosa - Nose Respiratory Panel (PCR) - Final Clinical Impression(s) from Imaging Studies Chest X-Ray 05/23/20 15:00 IMPRESSION: Bilateral patchy infiltrates in the preferential lateral distribution suggestive of Covid pneumonic infiltrates. Electronically Signed: Chuck Rucker, at 15:19 EDT , Service support , Chest X-Ray 05/24/20 05:55 IMPRESSION: Bilateral pulmonary infiltrates, not significantly changed. Electronically Signed: Law Owen MD at 5:28 EDT , Service support , Medical Necessity - Tobacco Use Smoking Status: Never smoker Tobacco Use: Non-smoker Assessment/Plan All Active Problems (Last Reviewed 02/15/20 @ 12:46 by Becka Villalobos) Ulcer of right lower extremity with fat layer exposed (Resolved) Infected hardware in right lower extremity (Resolved) Hardware complicating wound infection (Resolved) Osteomyelitis (Ruled-out) Painful orthopaedic hardware (Acute) Ulcer of right foot with fat layer exposed (Resolved) COVID-19 (Acute) Hypoxia (Acute) Pneumonia (Acute) Sepsis (Acute) Acute respiratory failure with hypoxia (Acute) RECOMMENDATIONS: 1. Continue Decadron 6 mg daily x10 days. 2. Wean supplemental oxygen to maintain saturations at or above 90%. 3. Continue remdesivir per ID recommendations. 4. Encourage incentive spirometer use and mobilize patient as tolerated. 5. The patient is medically stable for transfer out of the intensive care unit. 6. Given the patient's lack of further ICU needs, will sign off. Please call with any additional questions. IMPRESSIONS: 1. Acute hypoxemic respiratory failure secondary to COVID-19 pneumonia The patient presented to the hospital with 2 weeks of respiratory symptoms, having tested positive for coronavirus 1 week ago. Plan to continue current supportive measures including supplemental oxygen to maintain saturations at or above 90%. Continue Decadron as ordered along with remdesivir per infectious diseases recommendations. The patient did receive convalescent plasma. Continue to encourage incentive spirometer use and mobilize patient as tolerated. 2. Acute kidney injury Improved. Likely prerenal in etiology and related to hypoxemia. Creatinine has improved with volume expansion. Continue to monitor urine output. No current indication for renal replacement therapy. 3. Obesity/hypothyroidism/neuropathy/hyperlipidemia Complicates care, management, recovery and prognosis. Okay to continue home medications as indicated. This note was generated with [employer] dictation software. It may contain incorrect words, spelling, and punctuation that were not noted in checking the note before signing. Inpatient E&M: 70664 Subs Hosp L3
--- NOTE | 2020-05-25 07:18 | PN_ITS ---
Patient Problems: Active and Suspected Problems (Last Reviewed 02/15/20 @ 12:46 by Becka Villalobos) COVID-19 (Acute) Hypoxia (Acute) Pneumonia (Acute) Sepsis (Acute) Acute respiratory failure with hypoxia (Acute) Reason for Visit: Hypoxic respiratory failure secondary to COVID-19 pneumonia. Subjective: Patient is a 74-year-old male recently diagnosed with COVID-19 infection on 05/16/2020 presented to the emergency department with worsening shortness of breath. Imaging studies obtained on admission demonstrated Bilateral patchy infiltrates in the preferential lateral distribution suggestive of Covid pneumonic infiltrates. Admitted to the intensive care unit for subsequent management Patient did receive convalescent plasma as well as remdesivir the day prior Objective: GENERAL: cooperative dyspneic at rest HEENT: Atraumatic; EYES; Anicteric, Normal Conjunctiva NECK; supple, normal thyroid, RESPIRATORY: Diminished to auscultation CARDIOVASCULAR: Regular S1 S2, GI: soft, normoactive bowel sounds, : No Renal angle tenderness; EXTREMITIES: No edema, no clubbing, MUSCULOSKELETAL: no muscle waisting NEURO: Awake; no lateralizing signs. SKIN: No Rash PSYCH; Flat affect Vitals/I&O's: Vital Signs Temp Pulse Resp BP Pulse Ox 98.2 F 53 L 19 H 136/84 H 97 05/25/20 04:00 05/25/20 07:00 05/25/20 07:00 05/25/20 07:00 05/25/20 07:00 Oxygen Flow Rate (L/min) 6 Oxygen Delivery Method Nasal Cannula Weight: 125.3 kg Body Mass Index (BMI) 37.0 Intake and Output for Last 24 Hours 05/23/20 05/24/20 05/25/20 23:59 23:59 23:59 Intake Total 663.33 / 903.33 2403.33 / 2403.33 120 / 120 Output Total 2099 / 2099 450 / 450 Balance 663.33 / 353.33 303.33 / 303.33 -330 / -330 Microbiology Past 72 Hours 05/23/20 16:35 Urine, Clean Catch Urine Culture - Preliminary Culture exhibits no growth. 05/23/20 16:35 Urine, Clean Catch Legionella Antigen - Final 05/23/20 16:35 Urine, Clean Catch Streptococcus pneumoniae Antigen (M - Final 05/23/20 15:01 Mucosa - Nose Respiratory Panel (PCR) - Final Laboratory Results 05/23/20 15:02: Diff Path Review Reviewed 05/24/20 04:55: Diff Path Review Reviewed 05/24/20 04:55: B-Natriuretic Peptide 16.1 05/24/20 15:20: Blood Type O POSITIVE 05/25/20 04:40: WBC 22.1 H, RBC 4.29 L, Hgb 12.4 L, Hct 39.4 L, MCV 91.8, MCH 28.9, MCHC 31.5 L, RDW Std Deviation 55.4 H, RDW Coeff of Gisela 16.4 H, Plt Count 101 L, MPV 12.6 H 05/25/20 04:40: Sodium 139, Potassium 4.1, Chloride 107, Carbon Dioxide 26.0, Anion Gap 6, BUN 35 H, Creatinine 1.23, Estim Creat Clear Calc 55.23, Est GFR (MDRD) Af Amer 74, Est GFR (MDRD) Non-Af 61, BUN/Creatinine Ratio 28.5 H, Glucose 108 H, Calcium 8.4 L, Total Bilirubin 0.40, AST 11 L, ALT 25, Alkaline Phosphatase 109, Total Protein 6.8, Albumin 2.8 L, Globulin 4.0, Albumin/Globulin Ratio 0.7 L Current Medications Acetaminophen (Acetaminophen 325 Mg Tablet) 650 mg PO Q6H PRN PRN PRN Reason: Pain Score 1-10/Temp > 100.7 F Acyclovir (Acyclovir 200 Mg Capsule) 400 mg PO BID [facility] Last Admin: 05/24/20 20:26 Dose: 400 mg Documented by: Al Hydroxide/Mg Hydroxide (Mag Hydrox/Al Hydrox/Simeth 30 Ml Udc) 30 ml PO Q6H PRN PRN PRN Reason: Gastric Burning Albuterol Sulfate (Albuterol 2.5 Mg/3 Ml Vial.Neb.) 2.5 mg INHALATION Q2H PRN PRN PRN Reason: Dyspnea, wheezing Allopurinol (Allopurinol 300 Mg Tablet) 300 mg PO DAILY [facility] Last Admin: 05/24/20 10:59 Dose: 300 mg Documented by: Atorvastatin Calcium (Atorvastatin Calcium 10 Mg Tablet) 10 mg PO QHS [facility] Last Admin: 05/24/20 20:26 Dose: 10 mg Documented by: Dexamethasone Sodium Phosphate (Dexamethasone 4 Mg/Ml Vial) 6 mg IV Q24 [facility] Last Admin: 05/24/20 10:59 Dose: 6 mg Documented by: Enoxaparin Sodium (Enoxaparin 40 Mg/0.4 Ml Syringe) 40 mg SC DAILY [facility] Last Admin: 05/24/20 10:59 Dose: 40 mg Documented by: Famotidine (Famotidine 20 Mg Tablet) 20 mg PO BID [facility] Last Admin: 05/24/20 20:26 Dose: 20 mg Documented by: Gabapentin (Gabapentin 300 Mg Capsule) 300 mg PO TID [facility] Last Admin: 05/25/20 04:38 Dose: 300 mg Documented by: Guaifenesin (Guaifenesin 10 Ml Udc (200mg/10ml)) 20 ml PO Q4H PRN PRN PRN Reason: COUGH Remdesivir (Investigational) (100 mg/ Sodium Chloride) 250 mls @ 125 mls/hr IV DAILY [facility]; Protocol Stop: 05/28/20 11:59 Influenza Virus Vaccine Quadrival (Influenza Vaccine (6mos+)/Pf 0.5 Ml Syringe) 0.5 ml IM .ONCE ONE Stop: 05/25/20 10:01 Levothyroxine Sodium (Levothyroxine 137 Mcg Tablet) 137 mcg PO DAILY@0600 [facility] Last Admin: 05/25/20 04:38 Dose: 137 mcg Documented by: Magnesium Hydroxide (Magnesium Hydroxide 30 Ml Udc) 30 ml PO DAILY PRN PRN PRN Reason: Constipation Nitroglycerin (Nitroglycerin (Inpatient Use) 0.4 Mg Tab.Subl) 0.4 mg SUBLINGUAL Q5M PRN PRN Reason: CARDIAC/CHEST PAIN Ondansetron HCl (Ondansetron 4 Mg/2 Ml Vial) 4 mg IV Q8H PRN PRN PRN Reason: NAUSEA/VOMITING Prochlorperazine Edisylate (Prochlorperazine 10 Mg/2 Ml Vial) 5 mg IV Q4H PRN PRN PRN Reason: Breakthrough nausea/vomiting Psyllium Hydrophilic Mucilloid (Psyllium 1 Packet) 1 packet PO DAILY PRN PRN PRN Reason: Constipation Senna/Docusate Sodium (Senna/Docusate Sodium 1 Tablet) 2 tablet PO BID PRN PRN PRN Reason: Constipation Sodium Chloride (0.9% Saline Lock 10 Ml Syringe) 10 - 40 ml IV UD PRN PRN Reason: SALINE FLUSH Last Admin: 05/24/20 11:00 Dose: 10 ml Documented by: Throat Lozenges (Benzocaine/Menthol 1 Lozenge) 1 lozenge MUCOUS MEM Q2H PRN PRN PRN Reason: SORE THROAT STROKE Vital Signs/Narrative: Vital Signs Temp Pulse Resp BP Pulse Ox 05/25/20 07:00 53 L 19 H 136/84 H 97 05/25/20 06:00 55 L 17 148/83 H 96 05/25/20 05:00 59 L 18 134/87 H 92 05/25/20 04:00 98.2 F 56 L 14 120/71 92 Medical Necessity - Tobacco Use Smoking Status: Never smoker Tobacco Use: Non-smoker Assessment/Plan All Active Problems (Last Reviewed 02/15/20 @ 12:46 by Becka Villalobos) Ulcer of right lower extremity with fat layer exposed (Resolved) Infected hardware in right lower extremity (Resolved) Hardware complicating wound infection (Resolved) Osteomyelitis (Ruled-out) Painful orthopaedic hardware (Acute) Ulcer of right foot with fat layer exposed (Resolved) COVID-19 (Acute) Hypoxia (Acute) Pneumonia (Acute) Sepsis (Acute) Acute respiratory failure with hypoxia (Acute) Patient is a 74-year-old male recently diagnosed with COVID-19 infection on 05/16/2020 presented to the emergency department with worsening shortness of breath. Imaging studies obtained on admission demonstrated Bilateral patchy infiltrates in the preferential lateral distribution suggestive of Covid pneumonic infiltrates. Admitted to the intensive care unit for subsequent management 1. Acute hypoxic respiratory failure ?Secondary to COVID-19 pneumonia with suspected superimposed bacterial pneumonia. Admitted to the intensive care unit. Patient placed on high flow oxygen 10 L. Patient apparently desaturated with minimal activity. Patient started on Decadron and broad-spectrum antibiotic therapy with consultation placed to both pulmonary medicine and infectious disease. Decision to start r emdesivir and convalescent plasma defer to ID and pulmonary medicine -05/25/2020.Patient did receive convalescent plasma as well as remdesivir the day prior (ordered by ID). Patient oxygen requirement down from 10 L to 6 L. Plan is to transfer patient from ICU to [place] to [facility] cohort C unit 2. Sepsis secondary to above -Management as discussed above ?05/25/2020; patient WBC count still remains elevated. Broad-spectrum antibiotic therapy discontinued by ID A. 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 Acute kidney injury ?Kidney function did improve with IV fluids 5. Hypothyroidism - Patient is on levothyroxine home dose continued 6. Dyslipidemia -Patient is on statin therapy, continued at home dose 7. Gout ?Patient on allopurinol 8. Morbid obesity with BMI of 39.5 ?Weight loss advised 9. Peripheral neuropathy ?patient on gabapentin 10. DVT prophylaxis ?Patient on Lovenox Active Medications Acetaminophen (Acetaminophen 325 Mg Tablet) 650 mg PO Q6H PRN PRN PRN Reason: Pain Score 1-10/Temp > 100.7 F Acyclovir (Acyclovir 200 Mg Capsule) 400 mg PO BID [facility] Last Admin: 05/23/20 21:15 Dose: 400 mg Documented by: Al Hydroxide/Mg Hydroxide (Mag Hydrox/Al Hydrox/Simeth 30 Ml Udc) 30 ml PO Q6H PRN PRN PRN Reason: Gastric Burning Albuterol Sulfate (Albuterol 2.5 Mg/3 Ml Vial.Neb.) 2.5 mg INHALATION Q2H PRN PRN PRN Reason: Dyspnea, wheezing Allopurinol (Allopurinol 300 Mg Tablet) 300 mg PO DAILY [facility] Atorvastatin Calcium (Atorvastatin Calcium 10 Mg Tablet) 10 mg PO QHS [facility] Last Admin: 05/23/20 21:16 Dose: 10 mg Documented by: Dexamethasone Sodium Phosphate (Dexamethasone 4 Mg/Ml Vial) 6 mg IV Q24 [facility] Last Admin: 05/23/20 18:45 Dose: 6 mg Documented by: Enoxaparin Sodium (Enoxaparin 40 Mg/0.4 Ml Syringe) 40 mg SC DAILY [facility] Famotidine (Famotidine 20 Mg Tablet) 20 mg PO BID [facility] Last Admin: 05/23/20 21:16 Dose: 20 mg Documented by: Gabapentin (Gabapentin 300 Mg Capsule) 300 mg PO TID [facility] Last Admin: 05/24/20 06:17 Dose: 300 mg Documented by: Guaifenesin (Guaifenesin 10 Ml Udc (200mg/10ml)) 20 ml PO Q4H PRN PRN PRN Reason: COUGH Piperacillin Sod/Tazobactam (Sod 3.375 gm/ Sodium Chloride) 50 mls @ 12.5 mls/hr IV Q8 [facility] Last Admin: 05/24/20 06:17 Dose: 12.5 mls/hr Documented by: Influenza Virus Vaccine Quadrival (Influenza Vaccine (6mos+)/Pf 0.5 Ml Syringe) 0.5 ml IM .ONCE ONE Stop: 05/25/20 10:01 Levothyroxine Sodium (Levothyroxine 137 Mcg Tablet) 137 mcg PO DAILY@0600 [facility] Last Admin: 05/24/20 06:17 Dose: 137 mcg Documented by: Magnesium Hydroxide (Magnesium Hydroxide 30 Ml Udc) 30 ml PO DAILY PRN PRN PRN Reason: Constipation Nitroglycerin (Nitroglycerin (Inpatient Use) 0.4 Mg Tab.Subl) 0.4 mg SUBLINGUAL Q5M PRN PRN Reason: CARDIAC/CHEST PAIN Ondansetron HCl (Ondansetron 4 Mg/2 Ml Vial) 4 mg IV Q8H PRN PRN PRN Reason: NAUSEA/VOMITING Prochlorperazine Edisylate (Prochlorperazine 10 Mg/2 Ml Vial) 5 mg IV Q4H PRN PRN PRN Reason: Breakthrough nausea/vomiting Psyllium Hydrophilic Mucilloid (Psyllium 1 Packet) 1 packet PO DAILY PRN PRN PRN Reason: Constipation Senna/Docusate Sodium (Senna/Docusate Sodium 1 Tablet) 2 tablet PO BID PRN PRN PRN Reason: Constipation Sodium Chloride (0.9% Saline Lock 10 Ml Syringe) 10 - 40 ml IV UD PRN PRN Reason: SALINE FLUSH Last Admin: 05/23/20 21:20 Dose: 40 ml Documented by: Throat Lozenges (Benzocaine/Menthol 1 Lozenge) 1 lozenge MUCOUS MEM Q2H PRN PRN PRN Reason: SORE THROAT Clinical Impression(s) from Imaging Studies Chest X-Ray 05/23/20 15:00 IMPRESSION: Bilateral patchy infiltrates in the preferential lateral distribution suggestive of Covid pneumonic infiltrates. Electronically Signed: Chuck Rucker, at 15:19 EDT , Service support , Chest X-Ray 05/24/20 05:55 IMPRESSION: Bilateral pulmonary infiltrates, not significantly changed. Electronically Signed: Law Owen MD at 5:28 EDT , Service support , Inpatient E&M: [id number] Subs Hosp L2
[2020-05-25] MEDS: Acyclovir 200 MG Capsule 400 MG PO ×2 (08:44→21:55)
[2020-05-25] MEDS: dexAMETHasone 4 MG/ML Vial 6 MG IV (08:44)
[2020-05-25] MEDS: Enoxaparin 40 MG/0.4 ML Syringe SC (08:44)
[2020-05-25] MEDS: Famotidine 20 MG Tablet PO ×2 (08:45→21:55)
[2020-05-25] MEDS: Allopurinol 300 MG Tablet PO (08:45)
--- NOTE | 2020-05-25 16:13 | PCM.PN.ID ---
Patient Problems: Active and Suspected Problems (Last Reviewed 02/15/20 @ 12:46 by Becka Villalobos) COVID-19 (Acute) Hypoxia (Acute) Pneumonia (Acute) Sepsis (Acute) Acute respiratory failure with hypoxia (Acute) Subjective: Feeling much better today, no fever, aches improved - Physical Exam Vitals/I&O's: Vital Signs Temp Pulse Resp BP Pulse Ox 97.9 F 73 18 134/77 H 91 05/25/20 11:45 05/25/20 15:00 05/25/20 11:45 05/25/20 11:45 05/25/20 14:30 Oxygen Flow Rate (L/min) 6 Oxygen Delivery Method Nasal Cannula Weight: 125.3 kg Body Mass Index (BMI) 37.0 Intake and Output for Last 24 Hours 05/23/20 05/24/20 05/25/20 23:59 23:59 23:59 Intake Total 663.33 / 903.33 2403.33 / 2403.33 550 / 550 Output Total 2100 / 2100 975 / 975 Balance 663.33 / 353.33 303.33 / 303.33 -425 / -425 General: Alert, Cooperative, No apparent distress Lungs: Clear to auscultation, Diminished Cardiovascular: Regular rate, Regular Rhythm Abdomen: Soft, Non Tender, Non-Distended Skin: No rashes Microbiology Past 72 Hours 05/23/20 16:35 Urine, Clean Catch Urine Culture - Final Culture exhibits no growth. 05/23/20 15:10 Blood Culture (Wb) - Right Hand Blood Culture - Preliminary No growth in 48 hours. 05/23/20 15:02 Blood Culture (Wb) - Left Forearm Blood Culture - Preliminary No growth in 48 hours. 05/23/20 16:35 Urine, Clean Catch Legionella Antigen - Final 05/23/20 16:35 Urine, Clean Catch Streptococcus pneumoniae Antigen (M - Final 05/23/20 15:01 Mucosa - Nose Respiratory Panel (PCR) - Final Laboratory Results 05/24/20 15:20: Blood Type O POSITIVE 05/25/20 04:40: WBC 22.1 H, RBC 4.29 L, Hgb 12.4 L, Hct 39.4 L, MCV 91.8, MCH 28.9, MCHC 31.5 L, RDW Std Deviation 55.4 H, RDW Coeff of Gisela 16.4 H, Plt Count 101 L, MPV 12.6 H 05/25/20 04:40: Sodium 139, Potassium 4.1, Chloride 107, Carbon Dioxide 26.0, Anion Gap 6, BUN 35 H, Creatinine 1.23, Estim Creat Clear Calc 55.23, Est GFR (MDRD) Af Amer 74, Est GFR (MDRD) Non-Af 61, BUN/Creatinine Ratio 28.5 H, Glucose 108 H, Calcium 8.4 L, Total Bilirubin 0.40, AST 11 L, ALT 25, Alkaline Phosphatase 109, Total Protein 6.8, Albumin 2.8 L, Globulin 4.0, Albumin/Globulin Ratio 0.7 L Current Medications Acetaminophen (Acetaminophen 325 Mg Tablet) 650 mg PO Q6H PRN PRN PRN Reason: Pain Score 1-10/Temp > 100.7 F Acyclovir (Acyclovir 200 Mg Capsule) 400 mg PO BID [facility] Last Admin: 05/25/20 08:44 Dose: 400 mg Documented by: Al Hydroxide/Mg Hydroxide (Mag Hydrox/Al Hydrox/Simeth 30 Ml Udc) 30 ml PO Q6H PRN PRN PRN Reason: Gastric Burning Albuterol Sulfate (Albuterol 2.5 Mg/3 Ml Vial.Neb.) 2.5 mg INHALATION Q2H PRN PRN PRN Reason: Dyspnea, wheezing Allopurinol (Allopurinol 300 Mg Tablet) 300 mg PO DAILY [facility] Last Admin: 05/25/20 08:45 Dose: 300 mg Documented by: Atorvastatin Calcium (Atorvastatin Calcium 10 Mg Tablet) 10 mg PO QHS [facility] Last Admin: 05/24/20 20:26 Dose: 10 mg Documented by: Dexamethasone Sodium Phosphate (Dexamethasone 4 Mg/Ml Vial) 6 mg IV Q24 [facility] Last Admin: 05/25/20 08:44 Dose: 6 mg Documented by: Enoxaparin Sodium (Enoxaparin 40 Mg/0.4 Ml Syringe) 40 mg SC DAILY [facility] Last Admin: 05/25/20 08:44 Dose: 40 mg Documented by: Famotidine (Famotidine 20 Mg Tablet) 20 mg PO BID [facility] Last Admin: 05/25/20 08:45 Dose: 20 mg Documented by: Gabapentin (Gabapentin 300 Mg Capsule) 300 mg PO TID [facility] Last Admin: 05/25/20 13:34 Dose: 300 mg Documented by: Guaifenesin (Guaifenesin 10 Ml Udc (200mg/10ml)) 20 ml PO Q4H PRN PRN PRN Reason: COUGH Remdesivir (Investigational) (100 mg/ Sodium Chloride) 250 mls @ 125 mls/hr IV DAILY [facility]; Protocol Stop: 05/28/20 11:59 Last Infusion: 05/25/20 13:38 Dose: Infused Documented by: Levothyroxine Sodium (Levothyroxine 137 Mcg Tablet) 137 mcg PO DAILY@0600 [facility] Last Admin: 05/25/20 04:38 Dose: 137 mcg Documented by: Magnesium Hydroxide (Magnesium Hydroxide 30 Ml Udc) 30 ml PO DAILY PRN PRN PRN Reason: Constipation Nitroglycerin (Nitroglycerin (Inpatient Use) 0.4 Mg Tab.Subl) 0.4 mg SUBLINGUAL Q5M PRN PRN Reason: CARDIAC/CHEST PAIN Ondansetron HCl (Ondansetron 4 Mg/2 Ml Vial) 4 mg IV Q8H PRN PRN PRN Reason: NAUSEA/VOMITING Prochlorperazine Edisylate (Prochlorperazine 10 Mg/2 Ml Vial) 5 mg IV Q4H PRN PRN PRN Reason: Breakthrough nausea/vomiting Psyllium Hydrophilic Mucilloid (Psyllium 1 Packet) 1 packet PO DAILY PRN PRN PRN Reason: Constipation Senna/Docusate Sodium (Senna/Docusate Sodium 1 Tablet) 2 tablet PO BID PRN PRN PRN Reason: Constipation Sodium Chloride (0.9% Saline Lock 10 Ml Syringe) 10 - 40 ml IV UD PRN PRN Reason: SALINE FLUSH Last Admin: 05/24/20 11:00 Dose: 10 ml Documented by: Throat Lozenges (Benzocaine/Menthol 1 Lozenge) 1 lozenge MUCOUS MEM Q2H PRN PRN PRN Reason: SORE THROAT Medical Necessity - Tobacco Use Smoking Status: Never smoker Tobacco Use: Non-smoker Route of nutrition/ use of supplements: [] Nutritional Intake: [] IV Site: [] Cespedes Catheter: [] - Assessment/Plan Antibiotics: [] Assessment/Plan: [] Active and Suspected Problems (Last Reviewed 02/15/20 @ 12:46 by Becka Villalobos) COVID-19 (Acute) Hypoxia (Acute) Pneumonia (Acute) Sepsis (Acute) Acute respiratory failure with hypoxia (Acute) Normal PCT. No fever here. On dex, high flow O2. On remdesivir; 05/24 received plasma. Feeling much better today. Will follow
[2020-05-25] MEDS: Atorvastatin Calcium 10 MG Tablet PO (21:55)
[2020-05-26] VITALS (9 sets, daily range): BP systolic 118–135; BP diastolic 72–86; PULSE 50–74; RESP 16–18; TEMP 36.4–36.6; O2SAT 93–95
[2020-05-26] MEDS: Levothyroxine 137 MCG Tablet PO (05:15)
[2020-05-26] MEDS: Gabapentin 300 MG Capsule PO ×3 (05:15→21:11)
[2020-05-26 08:05] LABS: Hematocrit 40.9 % (40-54); Hemoglobin 12.7 g/dL (13.0-16.5); Mean Corp Hgb Conc 31.1 g/dL (32-36); Mean Corpuscular Hgb 28.7 pg (27.0-32.0); Mean Corpuscular Volume 92.3 fL (80-94); Mean Platelet Vol. 12.2 fl (6.2-12.0); Platelet Count 101 K/mm3 (150-450); RBC Distribution Width CV 16.2 % (11.6-14.6); RBC Distribution Width SD 54.5 fl (35.1-43.9); Red Blood Count 4.43 M/mm3 (4.6-6.2); White Blood Count 22.5 K/mm3 (4.4-11.0)
[2020-05-26 08:38] LABS: ALB/GLOB Ratio 0.7 RATIO (0.9-2.4); AST(SGOT) 7 U/L (15-37); Alanine Aminotransfer ALT/SGPT 22 U/L (16-61); Albumin, Serum 2.9 g/dL (3.2-5.0); Alkaline Phosphatase 106 U/L (45-117); Anion Gap 6 (5-15); BUN 33 mg/dL (7-18); BUN/Creat Ratio 26.8 RATIO (10-20); Calcium,Total 8.6 mg/dL (8.5-10.1); Chloride 103 mmol/L (98-107); Creatinine, Serum 1.23 mg/dL (0.70-1.30); EST Glomerular Filtration Rate 61 mL/min (>60); Est Glom Filt Rate - Afr Amer 74 mL/min (>60); Estimated Creatinine Clearance 55.23 ml/min; Globulin 3.9 g/dL (2.2-4.2); Glucose 95 mg/dL (74-106); Potassium 4.4 mmol/L (3.5-5.1); Protein, Total 6.8 g/dL (6.4-8.2); Sodium Level 137 mmol/L (136-145)
[2020-05-26] MEDS: dexAMETHasone 4 MG Tablet 6 MG PO (09:13)
[2020-05-26] MEDS: Famotidine 20 MG Tablet PO ×2 (09:14→21:11)
[2020-05-26] MEDS: Enoxaparin 40 MG/0.4 ML Syringe SC (09:14)
[2020-05-26] MEDS: Acyclovir 200 MG Capsule 400 MG PO ×2 (09:14→21:11)
[2020-05-26] MEDS: Allopurinol 300 MG Tablet PO (09:14)
[2020-05-26] MEDS: 0.9% Saline Lock 10 ML Syringe IV ×2 (11:11→14:21)
--- NOTE | 2020-05-26 14:44 | PN_ITS ---
Patient Problems: Active and Suspected Problems (Last Reviewed 02/15/20 @ 12:46 by Becka Villalobos) COVID-19 (Acute) Hypoxia (Acute) Pneumonia (Acute) Sepsis (Acute) Acute respiratory failure with hypoxia (Acute) Subjective: Feels better than when he came into the hospital. No issues overnight. Vitals/I&O's: Vital Signs Temp Pulse Resp BP Pulse Ox 97.6 F L 73 16 126/76 H 94 05/26/20 14:25 05/26/20 14:25 05/26/20 14:25 05/26/20 14:25 05/26/20 14:25 Oxygen Flow Rate (L/min) 5 Oxygen Delivery Method Nasal Cannula Weight: 276 lb 15.256 oz Body Mass Index (BMI) 37.0 Intake and Output for Last 24 Hours 05/24/20 05/25/20 05/26/20 23:59 23:59 23:59 Intake Total 2403.33 / 2403.33 970 / 970 970 / 970 Output Total 2100 / 2100 1800 / 1800 1025 / 1025 Balance 303.33 / 303.33 -830 / -830 -55 / -55 General: Alert, Oriented x3, Cooperative, No apparent distress HEENT: Atraumatic, PERRLA, EOMI, Normocephalic Oral: Moist Mucosa Neck: Supple, No JVD Lungs: Clear to auscultation, Normal air movement, No rhonchi, No wheeze, No rales, Diminished Cardiovascular: Regular rate, Regular Rhythm, Normal S1, Normal S2, No murmurs Abdomen: Soft, Non Tender, Non-Distended, No Hepato-splenomegaly Extremities: No edema, Capillary Refill Less than 3 Seconds Skin: No rashes, No breakdown Neurological: Deep Tendon Reflexes 2+/4 and Symmetrical, Sensory exam intact to light touch and pain Psych/Mental Status: Normal Affect, Appropriate Microbiology Past 72 Hours 05/25/20 11:15 Sputum, Expectorated/Coughed Respiratory Culture - Preliminary Appears to be normal respiratory aleena. Further studies to follow. 05/23/20 16:35 Urine, Clean Catch Urine Culture - Final Culture exhibits no growth. 05/23/20 15:10 Blood Culture (Wb) - Right Hand Blood Culture - Preliminary No growth in 48 hours. 05/23/20 15:02 Blood Culture (Wb) - Left Forearm Blood Culture - Preliminary No growth in 48 hours. 05/23/20 16:35 Urine, Clean Catch Legionella Antigen - Final 05/23/20 16:35 Urine, Clean Catch Streptococcus pneumoniae Antigen (M - Final 05/23/20 15:01 Mucosa - Nose Respiratory Panel (PCR) - Final Laboratory Results 05/26/20 07:30: WBC 22.5 H, RBC 4.43 L, Hgb 12.7 L, Hct 40.9, MCV 92.3, MCH 28.7, MCHC 31.1 L, RDW Std Deviation 54.5 H, RDW Coeff of Gisela 16.2 H, Plt Count 101 L, MPV 12.2 H 05/26/20 07:30: Sodium 137, Potassium 4.4, Chloride 103, Carbon Dioxide 28.0, Anion Gap 6, BUN 33 H, Creatinine 1.23, Estim Creat Clear Calc 55.23, Est GFR (MDRD) Af Amer 74, Est GFR (MDRD) Non-Af 61, BUN/Creatinine Ratio 26.8 H, Glucose 95, Calcium 8.6, Total Bilirubin 0.40, AST 7 L, ALT 22, Alkaline Phosphatase 106, Total Protein 6.8, Albumin 2.9 L, Globulin 3.9, Albumin/Globulin Ratio 0.7 L Current Medications Acetaminophen (Acetaminophen 325 Mg Tablet) 650 mg PO Q6H PRN PRN PRN Reason: Pain Score 1-10/Temp > 100.7 F Acyclovir (Acyclovir 200 Mg Capsule) 400 mg PO BID [facility] Last Admin: 05/26/20 09:14 Dose: 400 mg Documented by: Al Hydroxide/Mg Hydroxide (Mag Hydrox/Al Hydrox/Simeth 30 Ml Udc) 30 ml PO Q6H PRN PRN PRN Reason: Gastric Burning Albuterol Sulfate (Albuterol 2.5 Mg/3 Ml Vial.Neb.) 2.5 mg INHALATION Q2H PRN PRN PRN Reason: Dyspnea, wheezing Allopurinol (Allopurinol 300 Mg Tablet) 300 mg PO DAILY [facility] Last Admin: 05/26/20 09:14 Dose: 300 mg Documented by: Atorvastatin Calcium (Atorvastatin Calcium 10 Mg Tablet) 10 mg PO QHS [facility] Last Admin: 05/25/20 21:55 Dose: 10 mg Documented by: Dexamethasone (Dexamethasone 4 Mg Tablet) 6 mg PO DAILY@0800 [facility] Stop: 06/02/20 08:01 Last Admin: 05/26/20 09:13 Dose: 6 mg Documented by: Enoxaparin Sodium (Enoxaparin 40 Mg/0.4 Ml Syringe) 40 mg SC DAILY [facility] Last Admin: 05/26/20 09:14 Dose: 40 mg Documented by: Famotidine (Famotidine 20 Mg Tablet) 20 mg PO BID [facility] Last Admin: 05/26/20 09:14 Dose: 20 mg Documented by: Gabapentin (Gabapentin 300 Mg Capsule) 300 mg PO TID [facility] Last Admin: 05/26/20 14:19 Dose: 300 mg Documented by: Guaifenesin (Guaifenesin 10 Ml Udc (200mg/10ml)) 20 ml PO Q4H PRN PRN PRN Reason: COUGH Remdesivir (Investigational) (100 mg/ Sodium Chloride) 250 mls @ 125 mls/hr IV DAILY [facility]; Protocol Stop: 05/28/20 11:59 Last Infusion: 05/26/20 13:08 Dose: Infused Documented by: Levothyroxine Sodium (Levothyroxine 137 Mcg Tablet) 137 mcg PO DAILY@0600 [facility] Last Admin: 05/26/20 05:15 Dose: 137 mcg Documented by: Magnesium Hydroxide (Magnesium Hydroxide 30 Ml Udc) 30 ml PO DAILY PRN PRN PRN Reason: Constipation Nitroglycerin (Nitroglycerin (Inpatient Use) 0.4 Mg Tab.Subl) 0.4 mg SUBLINGUAL Q5M PRN PRN Reason: CARDIAC/CHEST PAIN Ondansetron HCl (Ondansetron 4 Mg/2 Ml Vial) 4 mg IV Q8H PRN PRN PRN Reason: NAUSEA/VOMITING Prochlorperazine Edisylate (Prochlorperazine 10 Mg/2 Ml Vial) 5 mg IV Q4H PRN PRN PRN Reason: Breakthrough nausea/vomiting Psyllium Hydrophilic Mucilloid (Psyllium 1 Packet) 1 packet PO DAILY PRN PRN PRN Reason: Constipation Senna/Docusate Sodium (Senna/Docusate Sodium 1 Tablet) 2 tablet PO BID PRN PRN PRN Reason: Constipation Sodium Chloride (0.9% Saline Lock 10 Ml Syringe) 10 - 40 ml IV UD PRN PRN Reason: SALINE FLUSH Last Admin: 05/26/20 14:21 Dose: 10 ml Documented by: Throat Lozenges (Benzocaine/Menthol 1 Lozenge) 1 lozenge MUCOUS MEM Q2H PRN PRN PRN Reason: SORE THROAT STROKE Vital Signs/Narrative: Vital Signs Temp Pulse Resp BP Pulse Ox 05/26/20 14:25 97.6 F L 73 16 126/76 H 94 05/26/20 14:22 93 Medical Necessity - Tobacco Use Smoking Status: Never smoker Tobacco Use: Non-smoker Assessment/Plan All Active Problems (Last Reviewed 02/15/20 @ 12:46 by Becka Villalobos) Ulcer of right lower extremity with fat layer exposed (Resolved) Infected hardware in right lower extremity (Resolved) Hardware complicating wound infection (Resolved) Osteomyelitis (Ruled-out) Painful orthopaedic hardware (Acute) Ulcer of right foot with fat layer exposed (Resolved) COVID-19 (Acute) Hypoxia (Acute) Pneumonia (Acute) Sepsis (Acute) Acute respiratory failure with hypoxia (Acute) 1. Sepsis and acute hypoxic respiratory failure secondary to COVID-19 pneumonia/DEANNA -Feeling better since he has been placed on oxygen -Continue with Decadron and remdesivir as he was diagnosed on 16 May with Covid -He received convalescent plasma -Broad-spectrum antibiotics were discontinued by ID, appreciate ID assistance -He is currently maintaining his oxygen sats on 5 L nasal cannula -Kidney function is back to normal, 2. Suspected myelodysplastic syndrome -He has chronic thrombocytopenia and is followed by oncology as an outpatient -We will continue to monitor 3. Hyperlipidemia -Stable -He with home statin 4. Gout -Stable -Continue with allopurinol 5. Peripheral neuropathy -Stable -Continue with gabapentin DVT: Lovenox Inpatient E&M: 71987 Subs Hosp L2
--- NOTE | 2020-05-26 15:25 | NURSING ---
Pt requests flu shot to be rescheduled to tomorrow. Communication sent to pharmacy.
[2020-05-26] MEDS: Atorvastatin Calcium 10 MG Tablet PO (21:12)
[2020-05-27] VITALS (12 sets, daily range): BP systolic 112–129; BP diastolic 70–77; PULSE 54–82; RESP 18; TEMP 36.4–36.6; O2SAT 93–95
[2020-05-27] MEDS: Gabapentin 300 MG Capsule PO ×3 (05:58→22:42)
[2020-05-27 07:02] LABS: Hemoglobin 13.1 g/dL (13.0-16.5); Mean Corpuscular Hgb 28.9 pg (27.0-32.0); Mean Corpuscular Volume 90.5 fL (80-94); Mean Platelet Vol. 12.6 fl (6.2-12.0); Platelet Count 118 K/mm3 (150-450); RBC Distribution Width CV 16.5 % (11.6-14.6); Red Blood Count 4.53 M/mm3 (4.6-6.2); White Blood Count 20.9 K/mm3 (4.4-11.0)
[2020-05-27 07:18] LABS: ALB/GLOB Ratio 0.7 RATIO (0.9-2.4); AST(SGOT) 13 U/L (15-37); Alanine Aminotransfer ALT/SGPT 25 U/L (16-61); Albumin, Serum 2.9 g/dL (3.2-5.0); Alkaline Phosphatase 103 U/L (45-117); Anion Gap 4 (5-15); BUN 35 mg/dL (7-18); BUN/Creat Ratio 28.5 RATIO (10-20); Calcium,Total 8.8 mg/dL (8.5-10.1); Chloride 106 mmol/L (98-107); Creatinine, Serum 1.23 mg/dL (0.70-1.30); EST Glomerular Filtration Rate 61 mL/min (>60); Est Glom Filt Rate - Afr Amer 74 mL/min (>60); Estimated Creatinine Clearance 55.23 ml/min; Glucose 111 mg/dL (74-106); Potassium 4.3 mmol/L (3.5-5.1); Protein, Total 6.9 g/dL (6.4-8.2); Sodium Level 138 mmol/L (136-145)
--- NOTE | 2020-05-27 09:44 | PCM.PN.HOSP ---
Patient Problems: Active and Suspected Problems (Last Reviewed 02/15/20 @ 12:46 by Becka Villalobos) COVID-19 (Acute) Hypoxia (Acute) Pneumonia (Acute) Sepsis (Acute) Acute respiratory failure with hypoxia (Acute) Subjective: Feeling very good today, much better than when he came in. Had him do his incentive spirometer with me and he is able to achieve about 2 L. Did discuss with him the importance of continuing incentive spirometer. He is requiring about 3 L nasal cannula to maintain his oxygen saturations. Vitals/I&O's: Vital Signs Temp Pulse Resp BP Pulse Ox 97.5 F L 54 L 18 129/77 H 93 05/27/20 02:25 05/27/20 06:59 05/27/20 02:25 05/27/20 02:25 05/27/20 06:00 Oxygen Flow Rate (L/min) 3.5 Oxygen Delivery Method Nasal Cannula Weight: 277 lb 8.992 oz Body Mass Index (BMI) 37.0 Intake and Output for Last 24 Hours 05/25/20 05/26/20 05/27/20 23:59 23:59 23:59 Intake Total 970 / 970 1590 / 2040 750 / 750 Output Total 1800 / 1800 1500 / 2050 550 / 550 Balance -830 / -830 90 / -10 200 / 200 General: Alert, Oriented x3, Cooperative, No apparent distress HEENT: Atraumatic, PERRLA, EOMI, Normocephalic Oral: Moist Mucosa Neck: Supple, No JVD Lungs: Clear to auscultation, Normal air movement, No rhonchi, No wheeze, No rales, Diminished Cardiovascular: Regular rate, Regular Rhythm, Normal S1, Normal S2, No murmurs Abdomen: Soft, Non Tender, Non-Distended, No Hepato-splenomegaly Extremities: No edema, Capillary Refill Less than 3 Seconds Skin: No rashes, No breakdown Neurological: Deep Tendon Reflexes 2+/4 and Symmetrical, Sensory exam intact to light touch and pain Psych/Mental Status: Normal Affect, Appropriate Microbiology Past 72 Hours 05/25/20 11:15 Sputum, Expectorated/Coughed Gram Stain - Final 05/25/20 11:15 Sputum, Expectorated/Coughed Respiratory Culture - Final 05/23/20 16:35 Urine, Clean Catch Urine Culture - Final Culture exhibits no growth. 05/23/20 15:10 Blood Culture (Wb) - Right Hand Blood Culture - Preliminary No growth in 48 hours. 05/23/20 15:02 Blood Culture (Wb) - Left Forearm Blood Culture - Preliminary No growth in 48 hours. Laboratory Results 05/27/20 06:10: WBC 20.9 H, RBC 4.53 L, Hgb 13.1, Hct 41.0, MCV 90.5, MCH 28.9, MCHC 32.0, RDW Std Deviation 54.0 H, RDW Coeff of Gisela 16.5 H, Plt Count 118 L, MPV 12.6 H 05/27/20 06:10: Sodium 138, Potassium 4.3, Chloride 106, Carbon Dioxide 28.0, Anion Gap 4 L, BUN 35 H, Creatinine 1.23, Estim Creat Clear Calc 55.23, Est GFR (MDRD) Af Amer 74, Est GFR (MDRD) Non-Af 61, BUN/Creatinine Ratio 28.5 H, Glucose 111 H, Calcium 8.8, Total Bilirubin 0.50, AST 13 L, ALT 25, Alkaline Phosphatase 103, Total Protein 6.9, Albumin 2.9 L, Globulin 4.0, Albumin/Globulin Ratio 0.7 L Current Medications Acetaminophen (Acetaminophen 325 Mg Tablet) 650 mg PO Q6H PRN PRN PRN Reason: Pain Score 1-10/Temp > 100.7 F Acyclovir (Acyclovir 200 Mg Capsule) 400 mg PO BID [facility] Last Admin: 05/26/20 21:11 Dose: 400 mg Documented by: Al Hydroxide/Mg Hydroxide (Mag Hydrox/Al Hydrox/Simeth 30 Ml Udc) 30 ml PO Q6H PRN PRN PRN Reason: Gastric Burning Albuterol Sulfate (Albuterol 2.5 Mg/3 Ml Vial.Neb.) 2.5 mg INHALATION Q2H PRN PRN PRN Reason: Dyspnea, wheezing Allopurinol (Allopurinol 300 Mg Tablet) 300 mg PO DAILY [facility] Last Admin: 05/26/20 09:14 Dose: 300 mg Documented by: Atorvastatin Calcium (Atorvastatin Calcium 10 Mg Tablet) 10 mg PO QHS [facility] Last Admin: 05/26/20 21:12 Dose: 10 mg Documented by: Dexamethasone (Dexamethasone 4 Mg Tablet) 6 mg PO DAILY [facility] Stop: 06/02/20 10:01 Enoxaparin Sodium (Enoxaparin 40 Mg/0.4 Ml Syringe) 40 mg SC DAILY [facility] Last Admin: 05/26/20 09:14 Dose: 40 mg Documented by: Famotidine (Famotidine 20 Mg Tablet) 20 mg PO BID [facility] Last Admin: 05/26/20 21:11 Dose: 20 mg Documented by: Gabapentin (Gabapentin 300 Mg Capsule) 300 mg PO TID [facility] Last Admin: 05/27/20 05:58 Dose: 300 mg Documented by: Guaifenesin (Guaifenesin 10 Ml Udc (200mg/10ml)) 20 ml PO Q4H PRN PRN PRN Reason: COUGH Remdesivir (Investigational) (100 mg/ Sodium Chloride) 250 mls @ 125 mls/hr IV DAILY [facility]; Protocol Stop: 05/28/20 11:59 Last Infusion: 05/26/20 13:08 Dose: Infused Documented by: Levothyroxine Sodium (Levothyroxine 137 Mcg Tablet) 137 mcg PO DAILY [facility] Magnesium Hydroxide (Magnesium Hydroxide 30 Ml Udc) 30 ml PO DAILY PRN PRN PRN Reason: Constipation Nitroglycerin (Nitroglycerin (Inpatient Use) 0.4 Mg Tab.Subl) 0.4 mg SUBLINGUAL Q5M PRN PRN Reason: CARDIAC/CHEST PAIN Ondansetron HCl (Ondansetron 4 Mg/2 Ml Vial) 4 mg IV Q8H PRN PRN PRN Reason: NAUSEA/VOMITING Prochlorperazine Edisylate (Prochlorperazine 10 Mg/2 Ml Vial) 5 mg IV Q4H PRN PRN PRN Reason: Breakthrough nausea/vomiting Psyllium Hydrophilic Mucilloid (Psyllium 1 Packet) 1 packet PO DAILY PRN PRN PRN Reason: Constipation Senna/Docusate Sodium (Senna/Docusate Sodium 1 Tablet) 2 tablet PO BID PRN PRN PRN Reason: Constipation Sodium Chloride (0.9% Saline Lock 10 Ml Syringe) 10 - 40 ml IV UD PRN PRN Reason: SALINE FLUSH Last Admin: 05/26/20 14:21 Dose: 10 ml Documented by: Throat Lozenges (Benzocaine/Menthol 1 Lozenge) 1 lozenge MUCOUS MEM Q2H PRN PRN PRN Reason: SORE THROAT STROKE Vital Signs/Narrative: Vital Signs Pulse Pulse Ox 05/27/20 06:59 54 L 05/27/20 06:00 93 Medical Necessity - Tobacco Use Smoking Status: Never smoker Tobacco Use: Non-smoker Assessment/Plan All Active Problems (Last Reviewed 02/15/20 @ 12:46 by Becka Villalobos) Ulcer of right lower extremity with fat layer exposed (Resolved) Infected hardware in right lower extremity (Resolved) Hardware complicating wound infection (Resolved) Osteomyelitis (Ruled-out) Painful orthopaedic hardware (Acute) Ulcer of right foot with fat layer exposed (Resolved) COVID-19 (Acute) Hypoxia (Acute) Pneumonia (Acute) Sepsis (Acute) Acute respiratory failure with hypoxia (Acute) 1. Sepsis and acute hypoxic respiratory failure secondary to COVID-19 pneumonia/DEANNA -Feeling better since he has been placed on oxygen -Continue with Decadron and remdesivir as he was diagnosed on 16 May with Covid -He received convalescent plasma -Broad-spectrum antibiotics were discontinued by ID, appreciate ID assistance -He is currently maintaining his oxygen sats on 3 L nasal cannula -Kidney function is back to normal, 2. Suspected myelodysplastic syndrome -He has chronic thrombocytopenia and is followed by oncology as an outpatient -We will continue to monitor 3. Hyperlipidemia -Stable -He with home statin 4. Gout -Stable -Continue with allopurinol 5. Peripheral neuropathy -Stable -Continue with gabapentin DVT: Lovenox Inpatient E&M: 76112 Subs Hosp L2
[2020-05-27] MEDS: dexAMETHasone 4 MG Tablet 6 MG PO (10:49)
[2020-05-27] MEDS: Acyclovir 200 MG Capsule 400 MG PO ×2 (10:50→22:41)
[2020-05-27] MEDS: Allopurinol 300 MG Tablet PO (10:50)
[2020-05-27] MEDS: Levothyroxine 137 MCG Tablet PO (10:51)
[2020-05-27] MEDS: Famotidine 20 MG Tablet PO ×2 (10:51→22:42)
[2020-05-27] MEDS: Enoxaparin 40 MG/0.4 ML Syringe SC (10:52)
[2020-05-27] MEDS: Atorvastatin Calcium 10 MG Tablet PO (22:41)
[2020-05-28] VITALS (12 sets, daily range): BP systolic 118–133; BP diastolic 69–80; PULSE 55–80; RESP 16–20; TEMP 36.5–36.6; O2SAT 92–96
[2020-05-28] MEDS: Gabapentin 300 MG Capsule PO ×2 (06:35→15:24)
[2020-05-28] MEDS: Levothyroxine 137 MCG Tablet PO (08:12)
[2020-05-28] MEDS: Acyclovir 200 MG Capsule 400 MG PO (10:06)
[2020-05-28] MEDS: Enoxaparin 40 MG/0.4 ML Syringe SC (10:06)
[2020-05-28] MEDS: Famotidine 20 MG Tablet PO (10:06)
[2020-05-28] MEDS: Allopurinol 300 MG Tablet PO (10:07)
[2020-05-28] MEDS: 0.9% Saline Lock 10 ML Syringe IV (11:42)
--- NOTE | 2020-05-28 14:13 | PCM.DC ---
- Discharge Diagnoses Current Active Problems: Current Active and Chronic Problems (Last Reviewed 02/15/20 @ 12:46 by Becka Villalobos) Hypothyroidism (Chronic) Hyperlipidemia (Chronic) Thrombocytopenia (Chronic) COVID-19 (Acute) Hypoxia (Acute) Pneumonia (Acute) Sepsis (Acute) Acute respiratory failure with hypoxia (Acute) Gout (Chronic) Morbid obesity (Chronic) You will use the following diet at home:: Regular Your food should be the consistency of: Regular Your liquids should be the consistency of: Regular/Thin Discharge Activity: Return to Normal Activity Call your doctor if you observe: Fever of 101 or Higher, Shortness of breath, Dizziness, Fainting spells, Swelling in the ankles, Chest pain, Increased palpitations (irregular heartbeat) Allergies/Adverse Reactions: Allergies indomethacin Allergy (Verified 02/15/20 12:48) Other Medications to take at Discharge Allopurinol [Zyloprim] 300 mg PO DAILY 03/15/14 Potassium Citrate [Urocit-K] 15 meq PO BID 03/15/14 Simvastatin [Zocor] 20 mg PO QHS 03/15/14 Sulindac [Clinoril] 200 mg PO BID 03/15/14 Gabapentin 300 mg PO TID 05/23/20 Levothyroxine Sodium [Synthroid] 137 mcg PO DAILY 05/23/20 Valacyclovir HCl [Valacyclovir] 1,000 mg PO DAILY 05/23/20 Dexamethasone [Decadron] 6 mg PO DAILY #9 tab 05/28/20 The following prescriptions were given: Dexamethasone [Decadron] 6 mg PO DAILY #9 tab Transmission Status: Pending to [facility] Primary Care Physician: Aurelio Sierra MD [Primary Care Provider] - Please follow up with your Primary Care Physician in: 3-5 days Test Results: Test results from this visit will be discussed in further detail at your follow-up appointment, if applicable.
--- NOTE | 2020-05-28 14:15 | PCM.DC.SUM ---
Discharge Date and Diagnosis - Problem List Patient Problems: Active and Suspected Problems (Last Reviewed 02/15/20 @ 12:46 by Becka Villalobos) COVID-19 (Acute) Hypoxia (Acute) Pneumonia (Acute) Sepsis (Acute) Acute respiratory failure with hypoxia (Acute) Date of Admission: 05/23/20 Date of Discharge: 05/28/20 - Primary Discharge Diagnosis Acute Problems: Active Problems (Last Reviewed 02/15/20 @ 12:46 by Becka Villalobos) COVID-19 (Acute) Hypoxia (Acute) Pneumonia (Acute) Sepsis (Acute) Acute respiratory failure with hypoxia (Acute) - Secondary Discharge Diagnosis Chronic Problems: Chronic Problems (Last Reviewed 02/15/20 @ 12:46 by Becka Villalobos) Surgical wound, non healing (Chronic) Delayed surgical wound healing (Chronic) Swelling of lower limb (Chronic) Edema of leg (Chronic) Hypertension (Chronic) Hypothyroidism (Chronic) Gout (Chronic) Erectile dysfunction (Chronic) Hyperlipidemia (Chronic) Dehiscence of surgical wound (Chronic) 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 Electronically Signed: Chuck Rucker at 15:19 EDT , Service support , Chest X-Ray 05/24/20 05:55 IMPRESSION: Bilateral pulmonary infiltrates, not significantly changed. Electronically Signed: Law Owen MD at 5:28 EDT , Service support , Consults: ID ICU Operations: None Procedures: None Summary of Care Provided: Per HPI: The patient is a 74 y/o M w/ PMHx: CKD stage III, HLD, Hypothyroidism, Gout, following with Dr. Terrell for Monocytosis/Mild thrombocytopenia who presents to the [facility] ED on 05/23/20 with history of worsening dyspnea, wheezing, noted his pulse oximeter at home to be 81%, increased weakness and malaise ischial onset of symptoms the Thursday prior to 05/16/2020 testing with at that time low-grade temperatures as well as shortness of breath and cough with no specific nausea, emesis, abdominal pain, diarrhea, alteration in sense of taste or smell. He notes that his became ill approximately 3 days after he did and is also Covid positive. Their son lives with him and he has been asymptomatic. Given patient worsening oxygenation level he presented to the ED for evaluation. While in the emergency room he did worsen with eventual need for Ventimask. Work-up in the ED included T 97, heart rate 91, BP 152/84, respiratory rate 28, initially 85% on room air with improvement to 91% on 2 L nasal cannula, CBC with WC 23.5, hemoglobin 14, platelet 93 with no shift performed, CMP with chloride 110, BUN/creatinine 38/1.36, glucose 118, AST/ALT 16/37, alk phos 138, blood culture x2 pending per ED, respiratory viral panel pending per ED, chest x-ray with bilateral patchy infiltrates in the preferential lateral distribution consistent with Covid pneumonic infiltrates. In the ED patient ministered vancomycin and Zosyn therapy. In the emergency room patient did worsen and Ventimask eventually placed with decision to transition to from Covid floor to Covid ICU. Discussed with ED physician and Decadron x1 IV ordered as well. Hospital Course: 1. Sepsis and acute hypoxic respiratory failure secondary to COVID-19 pneumonia/[id number]-old male presented from home with worsening dyspnea, wheezing and hypoxia he was down to 81%. Initially he was placed in the ICU requiring 10 L high flow nasal cannula. He was started on remdesivir and convalescent plasma. As well as Decadron. He has completed treatment with the convalescent plasma as well as remdesivir and he will have 6 more days of Decadron on discharge. He did have a D-dimer which was normal for age at 0.67 and initially was started on broad-spectrum antibiotics which were discontinued by infectious disease. He improved rapidly once out of the ICU and by day of discharge did not qualify for home O2. He has been sustaining 92 to 93% on room air today. I discussed with him the plan for discharge and he expressed understanding the risk and benefits of going home, I did encourage him to continue with his incentive spirometer even at home, he is able to achieve about 2500 cc today on the day of discharge. Initially presented to the hospital his kidney function was elevated to 1.36, his baseline does appear to be around 1, and he has improved to 1.23 on the day of discharge. I do recommend that he follow-up with his PCP in 3 to 5 days. 2. 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 His home medications were continued where appropriate Patient Problems: Active and Suspected Problems (Last Reviewed 02/15/20 @ 12:46 by Becka Villalobos) COVID-19 (Acute) Hypoxia (Acute) Pneumonia (Acute) Sepsis (Acute) Acute respiratory failure with hypoxia (Acute) - Physical Exam Vitals/I&O's: Vital Signs Temp Pulse Resp BP Pulse Ox 97.7 F L 70 20 H 127/77 H 92 05/28/20 08:09 05/28/20 12:00 05/28/20 08:09 05/28/20 08:09 05/28/20 10:01 Oxygen Flow Rate (L/min) 92 Oxygen Delivery Method Room Air Weight: 277 lb 12.519 oz Body Mass Index (BMI) 37.0 Intake and Output for Last 24 Hours 05/26/20 05/27/20 05/28/20 23:59 23:59 23:59 Intake Total 1590 / 2040 1480 / 2180 1640 / 1640 Output Total 1500 / 0 950 / 1750 1200 / 1200 Balance 90 / -10 530 / 430 440 / 440 General: Alert, Oriented x3, Cooperative, No apparent distress HEENT: Atraumatic, PERRLA, EOMI, Normocephalic Oral: Moist Mucosa Neck: Supple, No JVD Lungs: Clear to auscultation, Normal air movement, No rhonchi, No wheeze, No rales, Diminished Cardiovascular: Regular rate, Regular Rhythm, Normal S1, Normal S2, No murmurs Abdomen: Soft, Non Tender, Non-Distended, No Hepato-splenomegaly Extremities: No edema, Capillary Refill Less than 3 Seconds Skin: No rashes, No breakdown Neurological: Deep Tendon Reflexes 2+/4 and Symmetrical, Sensory exam intact to light touch and pain Psych/Mental Status: Normal Affect, Appropriate Microbiology Past 72 Hours 05/25/20 11:15 Sputum, Expectorated/Coughed Gram Stain - Final 05/25/20 11:15 Sputum, Expectorated/Coughed Respiratory Culture - Final 05/23/20 16:35 Urine, Clean Catch Urine Culture - Final Culture exhibits no growth. Current Medications Acetaminophen (Acetaminophen 325 Mg Tablet) 650 mg PO Q6H PRN PRN PRN Reason: Pain Score 1-10/Temp > 100.7 F Acyclovir (Acyclovir 200 Mg Capsule) 400 mg PO BID [facility] Last Admin: 05/28/20 10:06 Dose: 400 mg Documented by: Al Hydroxide/Mg Hydroxide (Mag Hydrox/Al Hydrox/Simeth 30 Ml Udc) 30 ml PO Q6H PRN PRN PRN Reason: Gastric Burning Albuterol Sulfate (Albuterol 2.5 Mg/3 Ml Vial.Neb.) 2.5 mg INHALATION Q2H PRN PRN PRN Reason: Dyspnea, wheezing Allopurinol (Allopurinol 300 Mg Tablet) 300 mg PO DAILY [facility] Last Admin: 05/28/20 10:07 Dose: 300 mg Documented by: Atorvastatin Calcium (Atorvastatin Calcium 10 Mg Tablet) 10 mg PO QHS [facility] Last Admin: 05/27/20 22:41 Dose: 10 mg Documented by: Dexamethasone (Dexamethasone 4 Mg Tablet) 6 mg PO DAILY [facility] Stop: 06/02/20 10:01 Last Admin: 05/27/20 10:49 Dose: 6 mg Documented by: Enoxaparin Sodium (Enoxaparin 40 Mg/0.4 Ml Syringe) 40 mg SC DAILY [facility] Last Admin: 05/28/20 10:06 Dose: 40 mg Documented by: Famotidine (Famotidine 20 Mg Tablet) 20 mg PO BID [facility] Last Admin: 05/28/20 10:06 Dose: 20 mg Documented by: Gabapentin (Gabapentin 300 Mg Capsule) 300 mg PO TID [facility] Last Admin: 05/28/20 06:35 Dose: 300 mg Documented by: Guaifenesin (Guaifenesin 10 Ml Udc (200mg/10ml)) 20 ml PO Q4H PRN PRN PRN Reason: COUGH Influenza Virus Vaccine Quadrival (Influenza Vaccine (6mos+)/Pf 0.5 Ml Syringe) 0.5 ml IM .ONCE ONE Stop: 05/29/20 10:01 Levothyroxine Sodium (Levothyroxine 137 Mcg Tablet) 137 mcg PO DAILY [facility] Last Admin: 05/28/20 08:12 Dose: 137 mcg Documented by: Magnesium Hydroxide (Magnesium Hydroxide 30 Ml Udc) 30 ml PO DAILY PRN PRN PRN Reason: Constipation Nitroglycerin (Nitroglycerin (Inpatient Use) 0.4 Mg Tab.Subl) 0.4 mg SUBLINGUAL Q5M PRN PRN Reason: CARDIAC/CHEST PAIN Ondansetron HCl (Ondansetron 4 Mg/2 Ml Vial) 4 mg IV Q8H PRN PRN PRN Reason: NAUSEA/VOMITING Prochlorperazine Edisylate (Prochlorperazine 10 Mg/2 Ml Vial) 5 mg IV Q4H PRN PRN PRN Reason: Breakthrough nausea/vomiting Psyllium Hydrophilic Mucilloid (Psyllium 1 Packet) 1 packet PO DAILY PRN PRN PRN Reason: Constipation Senna/Docusate Sodium (Senna/Docusate Sodium 1 Tablet) 2 tablet PO BID PRN PRN PRN Reason: Constipation Sodium Chloride (0.9% Saline Lock 10 Ml Syringe) 10 - 40 ml IV UD PRN PRN Reason: SALINE FLUSH Last Admin: 05/28/20 11:42 Dose: 10 ml Documented by: Throat Lozenges (Benzocaine/Menthol 1 Lozenge) 1 lozenge MUCOUS MEM Q2H PRN PRN PRN Reason: SORE THROAT Discharge Activity: Return to Normal Activity Call your doctor if you observe: Fever of 101 or Higher, Shortness of breath, Dizziness, Fainting spells, Swelling in the ankles, Chest pain, Increased palpitations (irregular heartbeat) Home Medications: Medications to take at Discharge Allopurinol [Zyloprim] 300 mg PO DAILY 03/15/14 Potassium Citrate [Urocit-K] 15 meq PO BID 03/15/14 Simvastatin [Zocor] 20 mg PO QHS 03/15/14 Sulindac [Clinoril] 200 mg PO BID 03/15/14 Gabapentin 300 mg PO TID 05/23/20 Levothyroxine Sodium [Synthroid] 137 mcg PO DAILY 05/23/20 Valacyclovir HCl [Valacyclovir] 1,000 mg PO DAILY 05/23/20 Dexamethasone [Decadron] 6 mg PO DAILY #9 tab 05/28/20 Following Prescriptions Were Given to Patient: Dexamethasone [Decadron] 6 mg PO DAILY #9 tab Transmission Status: Pending to [facility] Primary Care Physician: Aurelio Sierra MD [Primary Care Provider] - Please follow up with your Primary Care Physician in: 3-5 days Disposition: Home Minutes spent on discharge:: 35 Patient Condition:: Stable Medical Necessity - Tobacco Use Smoking Status: Never smoker Tobacco Use: Non-smoker Meaningful Use Info Meaningful Use Diagnoses (Choose all that apply): None applicable Inpatient E&M: [address] [facility]
[2020-05-28] MEDS: dexAMETHasone 4 MG Tablet 6 MG PO (15:24)
--- NOTE | 2020-05-28 17:10 | PCM.PN.ID ---
Patient Problems: Active and Suspected Problems (Last Reviewed 02/15/20 @ 12:46 by Becka Villalobos) COVID-19 (Acute) Hypoxia (Acute) Pneumonia (Acute) Sepsis (Acute) Acute respiratory failure with hypoxia (Acute) Subjective: Feeling much better, no fever, no dyspnea - Physical Exam Vitals/I&O's: Vital Signs Temp Pulse Resp BP Pulse Ox 97.7 F L 72 20 H 118/69 94 05/28/20 14:00 05/28/20 14:00 05/28/20 14:00 05/28/20 14:00 05/28/20 14:32 Oxygen Flow Rate (L/min) 92 Oxygen Delivery Method Room Air Weight: 126 kg Body Mass Index (BMI) 37.0 Intake and Output for Last 24 Hours 05/26/20 05/27/20 05/28/20 23:59 23:59 23:59 Intake Total 1590 / 2040 1480 / 2180 2510 / 2510 Output Total 1500 / 2050 950 / 1750 1550 / 1550 Balance 90 / -10 530 / 430 960 / 960 General: Alert, Cooperative, No apparent distress Lungs: Clear to auscultation, Normal air movement Cardiovascular: Regular rate, Regular Rhythm Abdomen: Soft, Non Tender, Non-Distended Skin: No rashes Microbiology Past 72 Hours 05/23/20 15:10 Blood Culture (Wb) - Right Hand Blood Culture - Final No growth in 5 days. 05/23/20 15:02 Blood Culture (Wb) - Left Forearm Blood Culture - Final No growth in 5 days. 05/25/20 11:15 Sputum, Expectorated/Coughed Gram Stain - Final 05/25/20 11:15 Sputum, Expectorated/Coughed Respiratory Culture - Final 05/23/20 16:35 Urine, Clean Catch Urine Culture - Final Culture exhibits no growth. Current Medications Acetaminophen (Acetaminophen 325 Mg Tablet) 650 mg PO Q6H PRN PRN PRN Reason: Pain Score 1-10/Temp > 100.7 F Acyclovir (Acyclovir 200 Mg Capsule) 400 mg PO BID [facility] Last Admin: 05/28/20 10:06 Dose: 400 mg Documented by: Al Hydroxide/Mg Hydroxide (Mag Hydrox/Al Hydrox/Simeth 30 Ml Udc) 30 ml PO Q6H PRN PRN PRN Reason: Gastric Burning Albuterol Sulfate (Albuterol 2.5 Mg/3 Ml Vial.Neb.) 2.5 mg INHALATION Q2H PRN PRN PRN Reason: Dyspnea, wheezing Allopurinol (Allopurinol 300 Mg Tablet) 300 mg PO DAILY [facility] Last Admin: 05/28/20 10:07 Dose: 300 mg Documented by: Atorvastatin Calcium (Atorvastatin Calcium 10 Mg Tablet) 10 mg PO QHS [facility] Last Admin: 05/27/20 22:41 Dose: 10 mg Documented by: Dexamethasone (Dexamethasone 4 Mg Tablet) 6 mg PO DAILY [facility] Stop: 06/02/20 10:01 Last Admin: 05/28/20 15:24 Dose: 6 mg Documented by: Enoxaparin Sodium (Enoxaparin 40 Mg/0.4 Ml Syringe) 40 mg SC DAILY [facility] Last Admin: 05/28/20 10:06 Dose: 40 mg Documented by: Famotidine (Famotidine 20 Mg Tablet) 20 mg PO BID [facility] Last Admin: 05/28/20 10:06 Dose: 20 mg Documented by: Gabapentin (Gabapentin 300 Mg Capsule) 300 mg PO TID [facility] Last Admin: 05/28/20 15:24 Dose: 300 mg Documented by: Guaifenesin (Guaifenesin 10 Ml Udc (200mg/10ml)) 20 ml PO Q4H PRN PRN PRN Reason: COUGH Levothyroxine Sodium (Levothyroxine 137 Mcg Tablet) 137 mcg PO DAILY [facility] Last Admin: 05/28/20 08:12 Dose: 137 mcg Documented by: Magnesium Hydroxide (Magnesium Hydroxide 30 Ml Udc) 30 ml PO DAILY PRN PRN PRN Reason: Constipation Nitroglycerin (Nitroglycerin (Inpatient Use) 0.4 Mg Tab.Subl) 0.4 mg SUBLINGUAL Q5M PRN PRN Reason: CARDIAC/CHEST PAIN Ondansetron HCl (Ondansetron 4 Mg/2 Ml Vial) 4 mg IV Q8H PRN PRN PRN Reason: NAUSEA/VOMITING Prochlorperazine Edisylate (Prochlorperazine 10 Mg/2 Ml Vial) 5 mg IV Q4H PRN PRN PRN Reason: Breakthrough nausea/vomiting Psyllium Hydrophilic Mucilloid (Psyllium 1 Packet) 1 packet PO DAILY PRN PRN PRN Reason: Constipation Senna/Docusate Sodium (Senna/Docusate Sodium 1 Tablet) 2 tablet PO BID PRN PRN PRN Reason: Constipation Sodium Chloride (0.9% Saline Lock 10 Ml Syringe) 10 - 40 ml IV UD PRN PRN Reason: SALINE FLUSH Last Admin: 05/28/20 11:42 Dose: 10 ml Documented by: Throat Lozenges (Benzocaine/Menthol 1 Lozenge) 1 lozenge MUCOUS MEM Q2H PRN PRN PRN Reason: SORE THROAT Medical Necessity - Tobacco Use Smoking Status: Never smoker Tobacco Use: Non-smoker Route of nutrition/ use of supplements: [] Nutritional Intake: [] IV Site: [] Cespedes Catheter: [] - Assessment/Plan Antibiotics: [] Assessment/Plan: [] Active and Suspected Problems (Last Reviewed 02/15/20 @ 12:46 by Becka Villalobos) COVID-19 (Acute) Hypoxia (Acute) Pneumonia (Acute) Sepsis (Acute) Acute respiratory failure with hypoxia (Acute) Normal PCT. No fever here. On dex. On remdesivir; 05/24 received plasma. Feeling much better today. O2 much improved, ok for d/c home. Will follow as needed
== END 2020-05-28 17:58 | disposition home or self-care (01) | DRG 177 ==
LOC: ED 16:06 → MS2 16:31 → ICU 17:27 → MS2 05-25 11:52 → ICU 05-28 08:51 → MS2 05-28 08:51
PROVIDERS: Internal Medicine Critical Care Medicine; Internal Medicine Infectious Disease; Admitting Provider Family Medicine; Emergency Provider Emergency Medicine; PCP Family Medicine; Visit Provider Family Medicine
DX: U07.1 COVID-19 (principal); J12.89 Other viral pneumonia; J96.01 Acute respiratory failure with hypoxia; J15.9 Unspecified bacterial pneumonia; Z68.41 Body mass index [BMI] 40.0-44.9, adult; N17.9 Acute kidney failure, unspecified; I12.9 Hypertensive chronic kidney disease with stage 1 through stage 4 chronic kidney disease, or unspecified chronic kidney disease; N18.30 Chronic kidney disease, stage 3 unspecified; D69.6 Thrombocytopenia, unspecified; D72.821 Monocytosis (symptomatic); G62.9 Polyneuropathy, unspecified; E78.5 Hyperlipidemia, unspecified; E03.9 Hypothyroidism, unspecified; M1A.9XX0 Chronic gout, unspecified, without tophus (tophi); Z23 Encounter for immunization; E66.01 Morbid (severe) obesity due to excess calories; Z79.890 Hormone replacement therapy; Z79.899 Other long term (current) drug therapy; Z96.652 Presence of left artificial knee joint
CPT/HCPCS: 36415; 71045; 80053; 82728; 83605; 83615; 83735; 83880; 84145; 84484; 85025; 85027; 85379; 85610; 85730; 86140; 86900; 86901; 87040; 87070; 87086; 87205; 87449; 87633; 87641; 97110; 97116; 97162; 97166; 97530; 99251; 99285; G0008; J7030; J7040; J7050; 90686; A4216; G0463

== ENCOUNTER → 2020-06-22 09:46 | Outpatient (CLI) | payer MEDICARE, SELFPAY ==
[2020-05-23 17:41] VITALS: BMI 37.0
[2020-06-22 12:24] LABS: Hematocrit 39.8 % (40-54); Hemoglobin 12.8 g/dL (13.0-16.5); Mean Corp Hgb Conc 32.2 g/dL (32-36); Mean Corpuscular Hgb 29.4 pg (27.0-32.0); Mean Corpuscular Volume 91.3 fL (80-94); Mean Platelet Vol. 13.2 fl (6.2-12.0); POSITIVE COUNT YES; POSITIVE DIFFERENTIAL YES; POSITIVE MORPHOLOGY YES; Platelet Count 80 K/mm3 (150-450); RBC Distribution Width CV 17.2 % (11.6-14.6); RBC Distribution Width SD 57.4 fl (35.1-43.9); Red Blood Count 4.36 M/mm3 (4.6-6.2); White Blood Count 14.1 K/mm3 (4.4-11.0)
[2020-06-22 12:48] LABS: ALB/GLOB Ratio 0.8 RATIO (0.9-2.4); AST(SGOT) 8 U/L (15-37); Alanine Aminotransfer ALT/SGPT 17 U/L (16-61); Albumin, Serum 3.3 g/dL (3.2-5.0); Alkaline Phosphatase 125 U/L (45-117); Anion Gap 5 (5-15); BUN 23 mg/dL (7-18); BUN/Creat Ratio 17.7 RATIO (10-20); Calcium,Total 8.9 mg/dL (8.5-10.1); Chloride 109 mmol/L (98-107); EST Glomerular Filtration Rate 57 mL/min (>60); Est Glom Filt Rate - Afr Amer 69 mL/min (>60); Globulin 3.9 g/dL (2.2-4.2); Glucose 100 mg/dL (74-106); Potassium 4.4 mmol/L (3.5-5.1); Protein, Total 7.2 g/dL (6.4-8.2); Sodium Level 140 mmol/L (136-145); T4 Free Direct 1.01 ng/dL (0.76-1.46); Thyroid Stim Hormone (TSH) 6.75 uIU/mL (0.358-3.74); Uric Acid 5.7 mg/dL (3.5-7.2)
[2020-06-22 12:49] LABS: Differential Indicated MANUAL DIFF
[2020-06-22 14:09] LABS: Basophil 1 % (0-1); Eosinophil 1 % (0-5); Lymphocyte 20 % (19-41); Metamyelocyte 5 % (0-1); Monocyte 20 % (0-10); Neutrophil-Segmented 53 % (47-70); Platelet Estimate SLT DEC (ADEQ); Red Cell Morphology NORM C+C NORMAL (NORM C&C); Total Cells Counted 100 (MANUAL DIFF)
[2020-06-22 14:10] LABS: Absolute Lymphocyte Count 2.82 X10^3/uL (0.83-4.51); Absolute Neutrophil Count 7.5 X10^3/uL (2.0-7.7); Lymphocyte # 2.82 X10^3/ul (4.0); Neutrophil # 7.47 X10^3/uL (2.7-7.7)
[2020-06-25 13:19] LABS: Pathologist Review Reviewed
== END ==
PROVIDERS: PCP Family Medicine; Visit Provider Family Medicine
DX: I10 Essential (primary) hypertension (principal); M10.9 Gout, unspecified; E03.9 Hypothyroidism, unspecified; D72.821 Monocytosis (symptomatic)
CPT/HCPCS: 36415; 80053; 84439; 84443; 84550; 85025

== ENCOUNTER → 2020-09-24 10:40 | Outpatient (CLI) | payer MEDICARE, SELFPAY ==
[2020-05-23 17:41] VITALS: BMI 37.0
[2020-09-24 12:47] LABS: Absolute Lymphocyte Count 1.57 X10^3/uL (0.83-4.51); Basophil# 0.03 X10^3/uL; Basophil% 0.3 % (0-1); Eosinophil# 0.09 X10^3/uL; Eosinophils% 0.9 % (0-5); Hematocrit 41.5 % (40-54); Hemoglobin 12.9 g/dL (13.0-16.5); Lymphocyte # 1.57 X10^3/ul (4.0); Lymphocyte % 15.4 % (19-41); Mean Corp Hgb Conc 31.1 g/dL (32-36); Mean Corpuscular Hgb 28.9 pg (27.0-32.0); Mean Corpuscular Volume 92.8 fL (80-94); Mean Platelet Vol. 12.8 fl (6.2-12.0); Monocyte# 3.26 X10^3/uL; Monocyte% 31.9 % (0-10); NRBC Flagged by Analyzer 0 % (0-5); Neutrophil # 4.97 X10^3/uL (2.7-7.7); Neutrophil % 48.7 % (47-70); POSITIVE DIFFERENTIAL YES; Platelet Count 107 K/mm3 (150-450); RBC Distribution Width CV 14.6 % (11.6-14.6); RBC Distribution Width SD 50.4 fl (35.1-43.9); Red Blood Count 4.47 M/mm3 (4.6-6.2); White Blood Count 10.2 K/mm3 (4.4-11.0)
[2020-09-24 12:51] LABS: Differential Indicated SCAN CRITERIA MET
[2020-09-24 13:11] LABS: AST(SGOT) 10 U/L (15-37); Alanine Aminotransfer ALT/SGPT 18 U/L (16-61); Albumin, Serum 3.7 g/dL (3.2-5.0); Alkaline Phosphatase 149 U/L (45-117); Anion Gap 6 (5-15); BUN 32 mg/dL (7-18); BUN/Creat Ratio 17.4 RATIO (10-20); Calcium,Total 8.8 mg/dL (8.5-10.1); Chloride 107 mmol/L (98-107); Creatinine, Serum 1.84 mg/dL (0.70-1.30); EST Glomerular Filtration Rate 38 mL/min (>60); Est Glom Filt Rate - Afr Amer 46 mL/min (>60); Globulin 3.7 g/dL (2.2-4.2); Glucose 85 mg/dL (74-106); Potassium 4.4 mmol/L (3.5-5.1); Protein, Total 7.4 g/dL (6.4-8.2); Sodium Level 140 mmol/L (136-145); Thyroid Stim Hormone (TSH) 0.96 uIU/mL (0.358-3.74)
== END ==
PROVIDERS: PCP Family Medicine; Visit Provider Family Medicine
DX: I10 Essential (primary) hypertension (principal); E03.9 Hypothyroidism, unspecified; M10.9 Gout, unspecified; D72.821 Monocytosis (symptomatic)
CPT/HCPCS: 36415; 80053; 84443; 85025

== ENCOUNTER → 2020-10-05 10:44 | Outpatient (CLI) | payer MEDICARE, SELFPAY ==
[2020-05-23 17:41] VITALS: BMI 37.0
[2020-10-05 12:24] LABS: Anion Gap 5 (5-15); BUN 34 mg/dL (7-18); BUN/Creat Ratio 20.4 RATIO (10-20); Calcium,Total 9.2 mg/dL (8.5-10.1); Chloride 108 mmol/L (98-107); Creatinine, Serum 1.67 mg/dL (0.70-1.30); EST Glomerular Filtration Rate 43 mL/min (>60); Est Glom Filt Rate - Afr Amer 52 mL/min (>60); Glucose 94 mg/dL (74-106); Potassium 4.4 mmol/L (3.5-5.1); Sodium Level 142 mmol/L (136-145)
== END ==
PROVIDERS: PCP Family Medicine; Visit Provider Family Medicine
DX: N17.9 Acute kidney failure, unspecified (principal)
CPT/HCPCS: 36415; 80048

== ENCOUNTER → 2020-10-15 09:47 | Outpatient (CLI) | payer MEDICARE, SELFPAY ==
[2020-05-23 17:41] VITALS: BMI 37.0
[2020-10-15 12:51] LABS: Anion Gap 6 (5-15); BUN 31 mg/dL (7-18); BUN/Creat Ratio 16.8 RATIO (10-20); Calcium,Total 9.2 mg/dL (8.5-10.1); Chloride 109 mmol/L (98-107); Creatinine, Serum 1.84 mg/dL (0.70-1.30); EST Glomerular Filtration Rate 38 mL/min (>60); Est Glom Filt Rate - Afr Amer 46 mL/min (>60); Glucose 109 mg/dL (74-106); Potassium 4.5 mmol/L (3.5-5.1); Sodium Level 140 mmol/L (136-145)
== END ==
PROVIDERS: PCP Family Medicine; Visit Provider Family Medicine
DX: N17.9 Acute kidney failure, unspecified (principal)
CPT/HCPCS: 36415; 80048

== ENCOUNTER → 2020-10-29 12:17 | Outpatient (CLI) | payer MEDICARE, SELFPAY ==
[2020-05-23 17:41] VITALS: BMI 37.0
--- NOTE | 2020-10-29 12:33 | US_ITS ---
STUDY: RENAL ULTRASOUND - COMPLETE REASON FOR EXAM: Male, 75 years old. ACUTE KIDNEY INJURY TECHNIQUE: Ultrasound evaluation of the kidneys was performed with real-time and static parada-scale imaging. COMPARISON: None. FINDINGS: RIGHT KIDNEY: Normal location of the right kidney, which is normal in size. The right kidney measures 10.6 cm x 6.3 cm x 5.6 cm. There is a normal cortex of the right kidney. The renal cortex measures 1.6 cm. There is no right renal mass or cyst. Multiple right intrarenal calculi are seen. The largest measures 1 cm x 0.7 cm x 0.5 cm. There is an extra-renal pelvis of the right kidney. There is no distention of the renal calyces. DISTAL RIGHT URETER: There is non-visualization of the distal right ureter. There is no demonstrated right ureterovesical junction calculus. There is a visualized right ureteral jet. LEFT KIDNEY: Normal location of the left kidney, which is normal in size. The left kidney measures 11.2 cm x 5.5 cm x 5.4 cm. There is a normal cortex of the left kidney. The renal cortex measures 1.3 cm. 2 cysts are seen. The larger measures 2.5 cm x 2.9 cm x 2.7 cm. There are no left renal calculi. There is no left hydronephrosis. DISTAL LEFT URETER: There is non-visualization of the distal left ureter. There is no demonstrated left ureterovesical junction calculus. There is a visualized left ureteral jet. BLADDER: The distended urinary bladder has a volume of 56 ml. There is a normal wall thickness of the distended urinary bladder. There is no demonstrated mass within the urinary bladder. There are no demonstrated bladder calculi. US/Kidney and Bladder IMPRESSION: Nonobstructive right intrarenal calculi. Left renal cyst. Electronically Signed: Chuck Rucker MD at 13:49 EDT , Service support ,
== END ==
PROVIDERS: PCP Family Medicine; Referring Provider Family Medicine; Visit Provider Family Medicine
DX: N17.9 Acute kidney failure, unspecified (principal)
CPT/HCPCS: 76770

== ENCOUNTER → 2020-11-06 15:09 | Outpatient (CLI) | payer MEDICARE, SELFPAY ==
[2020-05-23 17:41] VITALS: BMI 37.0
[2020-11-06 18:10] LABS: Absolute Lymphocyte Count 1.51 X10^3/uL (0.83-4.51); Absolute Neutrophil Count 3.8 X10^3/uL (2.0-7.7); Basophil# 0.03 X10^3/uL; Basophil% 0.4 % (0-1); Eosinophil# 0.12 X10^3/uL; Eosinophils% 1.5 % (0-5); Hematocrit 36.6 % (40-54); Hemoglobin 11.8 g/dL (13.0-16.5); Lymphocyte # 1.51 X10^3/ul (4.0); Lymphocyte % 19.1 % (19-41); Mean Corp Hgb Conc 32.2 g/dL (32-36); Mean Corpuscular Hgb 29.4 pg (27.0-32.0); Mean Platelet Vol. 13.5 fl (6.2-12.0); Monocyte% 29.1 % (0-10); NRBC Flagged by Analyzer 0 % (0-5); Neutrophil # 3.81 X10^3/uL (2.7-7.7); Neutrophil % 48.1 % (47-70); POSITIVE COUNT YES; POSITIVE DIFFERENTIAL YES; Platelet Count 98 K/mm3 (150-450); RBC Distribution Width CV 15.2 % (11.6-14.6); RBC Distribution Width SD 50.2 fl (35.1-43.9); Red Blood Count 4.02 M/mm3 (4.6-6.2); White Blood Count 7.9 K/mm3 (4.4-11.0)
[2020-11-06 18:17] LABS: Differential Indicated SCAN CRITERIA MET
[2020-11-06 18:39] LABS: ALB/GLOB Ratio 1.2 RATIO (0.9-2.4); AST(SGOT) 10 U/L (15-37); Alanine Aminotransfer ALT/SGPT 20 U/L (16-61); Albumin, Serum 3.9 g/dL (3.2-5.0); Alkaline Phosphatase 148 U/L (45-117); Anion Gap 5 (5-15); BUN 31 mg/dL (7-18); BUN/Creat Ratio 17.9 RATIO (10-20); Calcium,Total 8.7 mg/dL (8.5-10.1); Chloride 108 mmol/L (98-107); Creatinine, Serum 1.73 mg/dL (0.70-1.30); EST Glomerular Filtration Rate 41 mL/min (>60); Est Glom Filt Rate - Afr Amer 50 mL/min (>60); Globulin 3.3 g/dL (2.2-4.2); Glucose 90 mg/dL (74-106); Potassium 3.8 mmol/L (3.5-5.1); Protein, Total 7.2 g/dL (6.4-8.2); Sodium Level 140 mmol/L (136-145); T4 Free Direct 1.09 ng/dL (0.76-1.46); Thyroid Stim Hormone (TSH) 0.29 uIU/mL (0.358-3.74)
[2020-11-06 18:44] LABS: Differential Comment SCANNED
[2020-11-09 16:08] LABS: Albumin 3.6 g/dL (2.9-4.4); Alpha-1-Globulins 0.2 g/dL (0.0-0.4); Alpha-2-Globulins 0.6 g/dL (0.4-1.0); Cytoplasmic Ab (C-ANCA) <1:20 titer (Neg:<1:20); Gamma Globulin 1.1 g/dL (0.4-1.8); Immunoglobulin A 334 mg/dL (61-437); Immunoglobulin G 914 mg/dL (603-1613); Immunoglobulin M 109 mg/dL (15-143); PROEL- TOTAL PROTEIN 6.6 g/dL (6.0-8.5); PROELU- Albumin, Urine 58.3 % (.); PROELU- Alpha-1-Globulin,Ur 4.1 % (.); PROELU- Alpha-2-Globulin,Ur 10.2 % (.); PROELU- Beta Globulin, Ur 16.1 % (.); PROELU- Gamma Globulin, Ur 11.3 % (.); Total Protein, Ur 19.9 mg/dL (Not Estab.)
[2020-11-09 21:07] LABS: Perinuclear Ab (P-ANCA) <1:20 titer (Neg:<1:20)
== END ==
PROVIDERS: PCP Family Medicine; Referring Provider Family Medicine; Visit Provider Family Medicine
DX: E03.9 Hypothyroidism, unspecified (principal); I10 Essential (primary) hypertension; M10.9 Gout, unspecified; D72.821 Monocytosis (symptomatic); S37.009A Unspecified injury of unspecified kidney, initial encounter; N05.9 Unspecified nephritic syndrome with unspecified morphologic changes
CPT/HCPCS: 36415; 80053; 82784; 84165; 84166; 84439; 84443; 84550; 85025; 86038; 86256; 86334

== ENCOUNTER → 2021-01-04 10:09 | Outpatient (CLI) | payer MEDICARE, SELFPAY ==
[2020-05-23 17:41] VITALS: BMI 37.0
[2021-01-04 11:24] LABS: EXAGEN MAILED SPECIMEN
[2021-01-04 12:24] LABS: Erythrocyte Sedimentation Rate 12 mm/hr (0-20)
[2021-01-04 12:28] LABS: Absolute Lymphocyte Count 1.39 X10^3/uL (0.83-4.51); Absolute Neutrophil Count 2.4 X10^3/uL (2.0-7.7); Basophil# 0.02 X10^3/uL; Basophil% 0.4 % (0-1); Eosinophil# 0.13 X10^3/uL; Eosinophils% 2.3 % (0-5); Hematocrit 35.5 % (40-54); Hemoglobin 11.3 g/dL (13.0-16.5); Lymphocyte # 1.39 X10^3/ul (0.83-4.51); Lymphocyte % 24.3 % (19-41); Mean Corp Hgb Conc 31.8 g/dL (32-36); Mean Platelet Vol. 13.2 fl (6.2-12.0); Monocyte# 1.55 X10^3/uL; Monocyte% 27.1 % (0-10); NRBC Flagged by Analyzer 0 % (0-5); POSITIVE COUNT YES; POSITIVE DIFFERENTIAL YES; Platelet Count 53 K/mm3 (150-450); RBC Distribution Width CV 15.5 % (11.6-14.6); RBC Distribution Width SD 50.8 fl (35.1-43.9); White Blood Count 5.7 K/mm3 (4.4-11.0)
[2021-01-04 12:33] LABS: Differential Indicated SCAN CRITERIA MET
[2021-01-04 12:36] LABS: International Normalized Ratio 1.1; Prothrombin Time (Protime)PT. 13.9 SECONDS (11.7-14.9)
[2021-01-04 12:37] LABS: Partial Thromboplast Time 38.6 Seconds (24.1-36.2)
[2021-01-04 12:45] LABS: ALB/GLOB Ratio 1.1 RATIO (0.9-2.4); AST(SGOT) 8 U/L (15-37); Alanine Aminotransfer ALT/SGPT 15 U/L (16-61); Albumin, Serum 3.8 g/dL (3.2-5.0); Alkaline Phosphatase 134 U/L (45-117); Anion Gap 4 (5-15); BUN 27 mg/dL (7-18); BUN/Creat Ratio 15.1 RATIO (10-20); CRP 6.66 mg/L (0.0-3.0); Calcium,Total 8.6 mg/dL (8.5-10.1); Chloride 109 mmol/L (98-107); Creatinine, Serum 1.79 mg/dL (0.70-1.30); EST Glomerular Filtration Rate 40 mL/min (>60); Est Glom Filt Rate - Afr Amer 48 mL/min (>60); Globulin 3.4 g/dL (2.2-4.2); Glucose 94 mg/dL (74-106); Potassium 4.3 mmol/L (3.5-5.1); Protein, Total 7.2 g/dL (6.4-8.2); Sodium Level 141 mmol/L (136-145)
[2021-01-04 12:53] LABS: Atypical Lymphocyte 1+ %
[2021-01-04 12:54] LABS: Platelet Estimate MKD DEC (ADEQ)
[2021-01-04 13:10] LABS: Protein, Urine (Random) 20.4 mg/dL (<11.9); Protein:Creat Ratio 234 mg/g CRE (0-200)
[2021-01-06 09:07] LABS: Dilute Prothrombin Time (dPT) 34.2 sec (0.0-55.0); Dilute Russell Viper Venom 35.2 sec (0.0-47.0); Hexagonal Phase Phospholipid 0 sec (0-11); PTT-LA 39.6 sec (0.0-51.9); Thrombin Time 15.8 sec (0.0-23.0); dPT Confirm Ratio 0.93 Ratio (0.00-1.40)
[2021-01-06 09:38] LABS: Interpretation Comment: (.)
[2021-01-07 13:27] LABS: Pathologist Review Reviewed
== END ==
PROVIDERS: PCP Family Medicine; Referring Provider Internal Medicine Rheumatology; Visit Provider Internal Medicine Rheumatology
DX: M06.4 Inflammatory polyarthropathy (principal); R76.8 Other specified abnormal immunological findings in serum; M17.0 Bilateral primary osteoarthritis of knee; I10 Essential (primary) hypertension; E78.5 Hyperlipidemia, unspecified; N20.0 Calculus of kidney
CPT/HCPCS: 36415; 80053; 82570; 84156; 85025; 85598; 85610; 85652; 85670; 85730; 86140

== ENCOUNTER → 2021-02-11 15:15 | Outpatient (CLI) | payer MEDICARE, SELFPAY ==
[2020-05-23 17:41] VITALS: BMI 37.0
[2021-02-11 17:39] LABS: Absolute Lymphocyte Count 1.87 X10^3/uL (0.83-4.51); Absolute Neutrophil Count 5.7 X10^3/uL (2.0-7.7); Basophil# 0.05 X10^3/uL; Basophil% 0.4 % (0-1); Eosinophil# 0.08 X10^3/uL; Eosinophils% 0.6 % (0-5); Hematocrit 35.7 % (40-54); Hemoglobin 11.3 g/dL (13.0-16.5); Lymphocyte # 1.87 X10^3/ul (0.83-4.51); Lymphocyte % 13.9 % (19-41); Mean Corp Hgb Conc 31.7 g/dL (32-36); Mean Corpuscular Hgb 28.9 pg (27.0-32.0); Mean Corpuscular Volume 91.3 fL (80-94); Monocyte# 5.18 X10^3/uL; Monocyte% 38.6 % (0-10); NRBC Flagged by Analyzer 0 % (0-5); Neutrophil # 5.73 X10^3/uL (2.7-7.7); Neutrophil % 42.6 % (47-70); POSITIVE COUNT YES; POSITIVE DIFFERENTIAL YES; RBC Distribution Width CV 16.1 % (11.6-14.6); Red Blood Count 3.91 M/mm3 (4.6-6.2); White Blood Count 13.4 K/mm3 (4.4-11.0)
[2021-02-11 17:49] LABS: Pathologist Comment May follow
[2021-02-11 18:11] LABS: Vitamin D,25 Hydroxy 20.6 ng/mL
[2021-02-11 18:19] LABS: AST(SGOT) 7 U/L (15-37); Alanine Aminotransfer ALT/SGPT 15 U/L (16-61); Albumin, Serum 3.6 g/dL (3.2-5.0); Alkaline Phosphatase 131 U/L (45-117); Anion Gap 5 (5-15); BUN 28 mg/dL (7-18); BUN/Creat Ratio 13.1 RATIO (10-20); Calcium,Total 8.5 mg/dL (8.5-10.1); Chloride 103 mmol/L (98-107); Creatinine, Serum 2.14 mg/dL (0.70-1.30); EST Glomerular Filtration Rate 32 mL/min (>60); Est Glom Filt Rate - Afr Amer 39 mL/min (>60); Globulin 3.7 g/dL (2.2-4.2); Glucose 87 mg/dL (74-106); Potassium 3.8 mmol/L (3.5-5.1); Protein, Total 7.3 g/dL (6.4-8.2); Sodium Level 138 mmol/L (136-145); Uric Acid 6.2 mg/dL (3.5-7.2)
[2021-02-11 18:48] LABS: Differential Indicated SCAN CRITERIA MET; Platelet Count 47 K/mm3 (150-450)
[2021-02-11 18:50] LABS: Differential Comment SCANNED; Platelet Estimate MKD DEC (ADEQ)
[2021-02-11 18:57] LABS: RBC /Synovial Fluid 0.127 10^6/uL (0); Synovial Fld Mononuclear WBC % 13.6 %; Synovial Fld Polynuclear WBC % 86.4 %
[2021-02-11 20:40] LABS: AUTO B FLUID DILUENT BKGD CT WBC <0.1 RBC <0.01 (W<.1,R<.01); Appearance /Synovial Fluid Cloudy (CLEAR); Color / Synovial Fluid Red (Pale Yellow); Lymph 9 %; Monocyte /Synovial Fluid 4 %; Neutrophil 87 % (0-25); Source / Synovial Fluid ANKLE; Source- Body Fluid SYNOVIAL; Synovial Fld Mononuclear WBC # 8.922 10^3/ul
[2021-02-11 20:41] LABS: Body Fluid QC Type(s) BF2Q,BF3Q
[2021-02-12 13:13] LABS: Pathologist Review Reviewed
[2021-02-13 13:33] LABS: Pathologist Review Reviewed
== END ==
PROVIDERS: PCP Family Medicine; Referring Provider Internal Medicine Rheumatology; Visit Provider Podiatrist
DX: M10.9 Gout, unspecified (principal); E55.9 Vitamin D deficiency, unspecified; M06.4 Inflammatory polyarthropathy; R76.8 Other specified abnormal immunological findings in serum; M17.0 Bilateral primary osteoarthritis of knee; I10 Essential (primary) hypertension; E78.5 Hyperlipidemia, unspecified; N20.0 Calculus of kidney; N18.9 Chronic kidney disease, unspecified
CPT/HCPCS: 36415; 80053; 82306; 84550; 85025; 87070; 87075; 87205; 89050; 89051; 89060

== ENCOUNTER → 2021-03-27 07:44 | Outpatient (CLI) | payer MEDICARE, SELFPAY ==
[2020-05-23 17:41] VITALS: BMI 37.0
--- NOTE | 2021-03-27 07:47 | US_ITS ---
STUDY: RENAL ULTRASOUND - COMPLETE REASON FOR EXAM: Male, 75 years old. DEANNA TECHNIQUE: Ultrasound evaluation of the kidneys was performed with real-time and static parada-scale imaging. COMPARISON: 10/29/2020 FINDINGS: RIGHT KIDNEY: Normal location of the right kidney, which is normal in size. The right kidney measures 11.4 x 6 x 5.9 cm. There is a normal cortex of the right kidney. The renal cortex measures 1.5 cm. There are multiple cysts the largest measuring 5 x 5 x 5 mm.. There are no right renal calculi. There is mild right pelvocaliectasis in association with extrarenal pelvis. DISTAL RIGHT URETER: There is non-visualization of the distal right ureter. There is no demonstrated right ureterovesical junction calculus. There is a visualized right ureteral jet. LEFT KIDNEY: Normal location of the left kidney, which is normal in size. The left kidney measures 12.1 x 5.1 x 6 cm. There is a normal cortex of the left kidney. The renal cortex measures 0.5 cm. There are 3 cysts the largest measuring 3.2 x 2.4 x 2.3 cm. There is a nonobstructing calculus measuring 5 x 6 x 4 mm. There is no left hydronephrosis. DISTAL LEFT URETER: There is non-visualization of the distal left ureter. There is no demonstrated left ureterovesical junction calculus. There is a visualized left ureteral jet. Diffusely increased cortical echoes are seen bilaterally consistent with nonspecific renal parenchymal disease BLADDER: The distended urinary bladder has a volume of 130.73 ml. There is a normal wall thickness of the distended urinary bladder. There is no demonstrated mass within the urinary bladder. There are no demonstrated bladder calculi. 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 . Small bilateral cysts. Mild right renal pelvocaliectasis in association with extrarenal pelvis. Nonobstructing left renal calculus Electronically Signed: Prashant Brown MD at 16:57 EDT , Service support ,
== END ==
PROVIDERS: PCP Family Medicine; Referring Provider Internal Medicine Nephrology; Visit Provider Internal Medicine Nephrology
DX: N17.9 Acute kidney failure, unspecified (principal)
CPT/HCPCS: 76770

== ENCOUNTER → 2021-04-17 08:29 | Outpatient (CLI) | payer MEDICARE, SELFPAY ==
--- NOTE | 2021-04-17 08:31 | RAD_ITS ---
STUDY: X-RAY CHEST REASON FOR EXAM: Male, 75 years old. PRE-OP TECHNIQUE: PA and lateral views of the chest. COMPARISON: Comparison is made with prior study dated 05/24/2020. FINDINGS: The previously seen bilateral peripheral pulmonary infiltrates have cleared. Mild residual increased markings are seen at the lung bases just some mild scarring. There is no demonstrated pleural abnormality. Normal size heart. Normal mediastinum and mónica. Normal visualized pulmonary arteries. There is atherosclerotic tortuosity of the aortic arch and descending thoracic aorta. There are diffuse degenerative changes of the visualized thoracic spine. Is evidence of prior screw and amparo fixation of the lower thoracic and upper lumbar spines. Normal visualized ribs, clavicles, and shoulders. There is no demonstrated abnormality of the visualized soft tissue structures of the upper abdomen. RAD/Chest PA and Lateral IMPRESSION: Interval clearing of the bilateral pulmonary infiltrates with residual mild scarring of the lung bases Electronically Signed: Chuck Rucker MD at 8:59 EDT , Service support ,
[2021-04-17 10:48] LABS: AST(SGOT) 7 U/L (15-37); Alanine Aminotransfer ALT/SGPT 19 U/L (16-61); Albumin, Serum 3.9 g/dL (3.2-5.0); Alkaline Phosphatase 123 U/L (45-117); Globulin 3.8 g/dL (2.2-4.2); Protein, Total 7.7 g/dL (6.4-8.2)
== END ==
PROVIDERS: PCP Family Medicine; Referring Provider Family Medicine; Visit Provider Family Medicine
DX: Z01.818 Encounter for other preprocedural examination (principal)
CPT/HCPCS: 36415; 71046; 80076

== ENCOUNTER 2021-04-23 11:40 | Observation (INO) | payer MEDICARE, SELFPAY ==
[2021-04-23] VITALS (16 sets, daily range): BP systolic 106–134; BP diastolic 56–83; PULSE 62–96; RESP 16–18; TEMP 36.2–36.9; O2SAT 94–98; BMI 38.9; BMI 39.0
[2021-04-23] MEDS: Lactated Ringers 1,000 ML 100 ML IV ×4 (06:24→18:50)
[2021-04-23 06:45] LABS: Thyroid Stim Hormone (TSH) 3.83 uIU/mL (0.358-3.74)
--- NOTE | 2021-04-23 07:32 | RAD_ITS ---
STUDY: X-RAY - LEFT ANKLE REASON FOR EXAM: Intraoperative fluoroscopy for hindfoot arthrodesis. TECHNIQUE: 12 intraoperative images view(s) of the ankle. COMPARISON: None. FINDINGS: There are orthopedic screws transfixing arthrodesis of the posterior subtalar and talonavicular articulations. 90.3 seconds of fluoroscopy time was used. Electronically Signed: Darrian Hancock MD at 12:32 EDT Tel , Service support , RAD/Ankle 2 Views
[2021-04-23] MEDS: Bupivacaine Mpf 0.5% 30 ML VIAL (11:35)
[2021-04-23] MEDS: Lidocaine 1% (30 ml sdv) 30 ML Vial (11:35)
--- NOTE | 2021-04-23 11:40 | PCM.OPRPT ---
Problems Associated Problem List Diagnoses (1) Pain in left ankle and joints of left foot: Report of Operation Date of Procedure: 04/23/21 Pre-Operative Diagnosis: Left lower extremity pes planovalgus Left hindfoot arthritis Left sinus tarsitis Left posterior tibialis tendon dysfunction Post-Operative Diagnosis: Left lower extremity pes planovalgus Left hindfoot arthritis Left sinus tarsitis Left posterior tibialis tendon dysfunction Surgery/Procedure Performed:: 1. Arthrodesis of subtalar joint, left with internal fixation 2. Arthrodesis of talonavicular joint, left with internal fixation 3. Plication of posterior tibial tendon Description of Surgical Findings:: Materials: 2-0 Vicryl, 2-0 and 3-0 nylon, two 7.0 Arthrex FT compression screws, two 5.0 Arthrex FT compression screws, 4.5 cc roberson medical augment, cancellous bone chips Hemostasis: Well-padded pneumatic left thigh tourniquet 350 mmHg, 120 minutes, 15 minutes Complications: None The patient tolerated the procedure and anesthesia well. The patient was transported to the PACU with vital signs stable and vascular status intact to the surgical limb. To ice and elevate for pain and inflammation management. Postoperative x-rays were reviewed prior to leaving the operating room. There is deformity correction noted with arthrodesis of the subtalar and talonavicular joints with hardware in the desired trajectory and position. There is restored clinical arch also noted and the foot is now lined up under the leg. No acute injuries are noted. Postoperative orders were entered electronically. Surgeon: Tali Ellis materials technician: None (Marcelo Palomo, PGY3, DPM) Type of Anesthesia: General/Regional (Anesthesia provided preoperative popliteal block) and Local (10 cc of one-to-one mixture of 1% lidocaine plain and 0.5% Marcaine plain administered in saphenous nerve block fashion left lower extremity) Specimen's removed: None Drains: None Estimated Blood Loss (mL): < 200 mL Description of Procedure: Indications: This 75-year-old male with significant past medical history of monocytosis, neuropathy, history of vitamin D deficiency, history of gout, systemic lupus, hypertension, hyperlipidemia, obesity has had a chronic flatfoot deformity his entire life and recently had an exacerbation over the past year and a half. He denies having a specific traumatic event however has been unable to bear weight without severe pain and instability for at least the past 6 months. This is affecting his daily activities and he is unable to complete even basic daily tasks. He tries to use a knee roller. He had an ankle arthrodesis on contralateral right lower extremity limb with multiple healing complications. This also makes ambulation difficult as he does not have the motion available in this other limb. He has tried [id number] custom bracing, injections, medical work-up, activity modification, immobilization. He has failed conservative care. He was unable to bear weight without an immobilization boot in place and was evaluated in the clinical setting in which physical exam was performed including radiographs. He did not demonstrate any acute fractures however it is noted his talar head is uncovered by over 90% and he has anterior displacement of the cyma line, abnormal Meary's angle consistent with flat foot deformity, and significant divergent of the talocalcaneal angle on the AP and the lateral views. His ankle mortise appears well aligned. 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 His prominent planes of deformity include the frontal and sagittal planes. He has pain on palpation along the posterior tibial tendon at the prominent talar head also. He does not have reduced ankle joint dorsiflexion with the knee flexed and extended preoperative however this will be reevaluated during his surgical process. His primary location of palpation pain is consident with lateral column impingement. MRI was evaluated with pronounced tear of the posterior tibial tendon near the attachment point. He did also have arthritis of both the subtalar and talonavicular joints with subluxation of the talonavicular and subtalar joints. There was also clear lateral impingement occurring with the distal fibula in contact with the lateral calcaneal wall. There were also additional ankle pathologies noted however most of his clinical pain is to the sinus tarsi area and therefore foot position correction is the main focus at this time. His vascular status is intact. He has peripheral neuropathy. His preoperative clearance and history and physical from his primary care physician (Dr. Murrieta) were reviewed in detail. His preoperative diagnostic data was also reviewed including CBC, CMP, vitamin D, and EKG. The preoperative indications, planned procedure, possible benefits, risks, complications, and anticipated healing time and management were discussed in detail with patient. He understands and elects to proceed with surgery at this time. No guarantees were made. He understands risks and complications may include but are not limited to the following: pain, swelling, scarring, non or delayed healing, over or under correction, chronic pain syndrome, hardware failure, need for further surgery, allergic reactions, blood clots, loss of limb, function, life. The patient also understands there is an inherent risk with being in the hospital and undergoing a procedure during the time of COVID-19 pandemic. The patient understands precautions are being taken to prevent transmission. This patient understands the benefits and risks of having a procedure at this time versus waiting in which the benefits are reasonable at this time. I answered all of his questions. The informed surgical consent and surgical limbs were signed. Procedure in detail: The patient was transferred to the operating room via cart and placed on the operating table in the supine position. Final verification the patient, surgery, limb designation was performed via the time out procedure. IV antibiotics were administered preoperative as ordered. A bump was placed to allow good exposure to the surgical foot. Well-padded pneumatic left thigh tourniquet was placed. General anesthesia was initiated by the anesthesia team. A regional block was also administered by the anesthesia team preoperatively. The left lower extremity was prepped and draped in the usual aseptic manner. Next, an Esmarch bandage was used to exsanguinate the left lower extremity and the tourniquet was inflated at this time. Surgery proceeded in the following manner: Attention was next directed to the lateral aspect of the hindfoot in which a curvilinear incision was made distal to the distal fibula to the dorsal lateral foot adjacent to the extensor tendons to gain exposure to the subtalar joint and also the lateral aspect of the talonavicular joint. Care was taken at this point and throughout the remainder of the surgery to identify, protect, and retract all neurovascular structures. Blunt dissection was performed down to the extensor retinaculum which was gently reflected and tagged. The subtalar joint was exposed and the posterior and middle facets were well visualized. The peroneal tendons were also carefully protected and retracted without gross abnormality. The joint surfaces were denuded with instrumentation and the subchondral bone was further prepared with fish scaling, bur debridement, and drilling to optimize bleeding and healing potential. Cancellous bone chips and augment (growth factor enriched bone graft) were applied to the arthrodesis site. Next, an incision was made through the skin medially just distal to the medial malleolus in a curvilinear manner extending to the navicular cuneiform joint level to gain good exposure of the prominent talar head and talonavicular joint. Blunt dissection was performed down to the dorsal foot capsular layer taking care to protect and retract all neurovascular structures at this site as well. Linear incision was made over the dorsal medial aspect of the talonavicular joint and this was freed from the adjacent structures with a rivas elevator. Good visualization of the entire joint was achieved. These joint surfaces was also denuded with instrumentation (curettes and curved osteotomes), and additionally the subchondral bone was further prepared with the fish scaling, bur debridement, and drilling to create additional bleeding to optimize healing. Cancellous bone graft and augment was applied to this site as well. Good approximation was maintained with preservation of anatomic shape / reduction of prior subluxation was achieved. Mobilization of the hindfoot was possible after further release of the quad point where talus, navicular, calcaneus, and cuboid approximate. Temporary fixation was next applied across the subtalar joint with the hindfoot in the desired slight valgus position. Next, temporary fixation was also placed with the reduced talonavicular midfoot position taking care to have this in the proper valgus varus balance and also to reduce the sagittal and transverse planes of deformity. Proper position was confirmed with flouroscopy images including ankle (ap, lateral) and foot (ap, lateral, calcaneal axial) views. Next, internal fixation was applied across the subtalar joint and good compression was achieved. Proper AO fixation technique was utilized with the placement of two screws. Next, two Arthrex FT compression screws were applied across the talonavicular joint utilizing proper AO fixation technique and to gain good compression. Temporary fixation was removed and solid fixation was achieved with adequate reduction of the deformities. No acute injuries were noted. The hardware was stable and the deformity reduction was noted clinically and radiographically. Next, his posterior leg flexibility was evaluated for equinus with the Silverskold test now that the hindfoot position was corrected. He had at least neutral ankle joint dorsiflexion with the knee flexed and extended with more of a anjel end feel. Additional posterior tendon lengthening was not deemed appropriate at this time. Next, the foot was evaluated to see if any lateral column foot lengthening was necessary or if any additional metatarsal procedures were needed to address varus rotation. The foot appeared very plantigrade in a balanced manner and there was no need for additional corrections or procedures at this time. It is noted that the cyma line was reduced and full talar head coverage was achieved. He has a plantigrade foot which was confirmed clinically as well as radiographically. The hardware was in the desired position and trajectory. The foot was also stressed under intraoperative fluoroscopy and there was no gross laxity at the metatarsal level. The tourniquet was deflated at this time and brisk capillary refill time was noted to all digits of the left foot and there is no pulsatile bleeding noted. Minimal electrocauterization was required for hemostasis control and addition pressure was applied. The wound was irrigated with normal saline in a copious manner, and deep closure was performed. Deep closure to all incision sites was next performed with Vicryl suture. The skin was reapproximated with horizontal and simple suture techniques. A dressing consisting of Betadine soaked Adaptic, gauze, abdominal pads, Kerlix, and webril were applied. A well-padded posterior mold was placed with the foot in a neutral position. After procedure: The patient tolerated the procedure and anesthesia well. He was transported to the PACU with vital signs stable and vascular status intact to the left extremity. Postoperative x-rays were obtained and reviewed as noted previously. He was advised to ice and elevate for pain and inflammation management. IV and oral pain medication was ordered also. He was advised to maintain strict nonweightbearing status to the left lower extremity and to use crutches, walker, or knee roller for assistance. He was advised to keep his dressing clean, dry, and intact. He will be monitored under admission status until tomorrow to assist with pain control and medical management. He will resume DVT prophylaxis medication tomorrow. I will follow him closely in house. Medical management for his aforementioned comorbidities were discussed with the hospitalist physician and a consultation will be requested. Physical and occupational therapy will also help him tomorrow in regards to gait training to maintain a nonweightbearing status to the left lower extremity. Additional postoperative orders were entered electronically. Complications None Admit VTE Documentation VTE Present on Admission: No VTE Mechan Device Prophylaxis: SCD's VTE Pharm Prophylaxis ordered?: Yes
--- NOTE | 2021-04-23 11:40 | PCM.HP.STD ---
HPI - General HPI Narrative THEODORA COLMENARES, is a 75 M male with multiple comorbidities (monocytosis, obesity, hypertension, hyperlipidemia, hypothyroidism, sciatica, systemic lupus, prior vitamin D deficiency, history of thrombocytopenia, history of gout, neuropathy) and prior healing problems underwent limb salvage surgery including left lower extremity subtalar and talonavicular arthrodesis for treatment of severe symptomatic pes planovalgus. He has been nonweightbearing due to significant pain and deformity. His surgery was performed this morning. [facility] Medical History Arthritis Difficulty swallowing Foot drop High cholesterol History of edema History of renal disease History of steroid therapy Hx of thrombocytopenia Low iron Non-smoker Restless legs Sciatica Shortness of breath on exertion Thyroid disease Walker as ambulation aid Wears glasses Home Medications allopurinol 300 mg PO DAILY 03/15/14 [History Last Taken 05/23/20] potassium citrate [Urocit-K 15] 15 meq PO DAILY 03/15/14 [History Last Taken 05/23/20] simvastatin 20 mg PO QHS 03/15/14 [History Last Taken 05/22/20] gabapentin 300 mg PO TID 05/23/20 [History Last Taken 04/23/21 05:00] levothyroxine 137 mcg PO DAILY 05/23/20 [History Last Taken 04/23/21 05:00] hydroxychloroquine 200 mg tablet 200 mg PO DAILY 02/14/21 [History Last Taken Unknown] Allergy/AdvReac Type Severity Reaction Status Date / Time indomethacin Allergy Other Verified 04/23/21 06:09 Family History Mother Diabetes Surgical History History of arthroplasty of right ankle History of thyroidectomy Hx of lumbosacral spine surgery Total knee replacement status Social History Smoking Status: Never smoker ROS Review of Systems ROS Unobtainable: other Details: Constitutional Constitutional: Denies chills or weakness Cardiovascular Cardiovascular: Reports pedal edema; Denies leg ulcers or weakness in extremities Respiratory/Chest Respiratory/Chest: Denies dry cough Gastrointestinal Gastrointestinal: Denies vomiting Musculoskeletal Musculoskeletal: Denies muscle cramps Integumentary Integumentary: Denies wounds Neurologic Neurologic: Reports burning sensations, lack of coordination and numbness Vital Signs Vital Signs Vital Signs: 04/23/21 06:10 Temperature 97.6 F L Temperature Source Temporal Pulse Rate 71 Respiratory Rate 16 Respiratory Pattern Normal Blood Pressure 134/83 H Blood Pressure Mean 100 Blood Pressure Source Monitor Blood Pressure Position Semi-Fowlers Blood Pressure Location Left Arm Pulse Ox 97 Oxygen Delivery Method Room Air Weight Weight: 123.3 kg Body Mass Index (BMI) 38.9 Physical Exam Const alert and no apparent distress General Appearance: cooperative and comfortable HEENT normocephalic Resp clear to auscultation bilaterally Cardio regular rate and regular rhythm Extremity Extremity Narrative: No calf tenderness Diminished pulses Muscle wasting noted General Extremity: edema and no tenderness to palpation of joints or extremities; Negative for cyanosis Skin Skin Narrative: no purulence, no streaking, no odor, no infection. Postoperative dressing and splint clean, dry, and intact in position with improved deformity correction noted General Skin Exam: Negative for erythema Neuro Neuro Narrative: lack of normal epicritic sensation via light touch is consistent with neuropathy status Psych cooperative and affect normal Results Lab / Micro Data Result Diagrams: 04/23/21 14:37 04/23/21 14:37 Labs: Laboratory Results - last 24 hr 04/23/21 06:00: TSH 3.83 H Assessment & Plan Assessment/Plan (1) Secondary osteoarthritis, left ankle and foot: (2) Pain in left foot: (3) Flat foot [pes planus] (acquired), left foot: PLAN: Status post left lower extremity arthrodesis of subtalar and talonavicular joint with internal fixation for treatment of severe deformity and chronic pain Comorbidities noted Walking difficulty The patient tolerated the procedure and anesthesia well this morning. The patient was transported to the PACU with vital signs stable and vascular status intact to the surgical limb. To ice and elevate for pain and inflammation management. Postoperative x-rays were reviewed prior to leaving the operating room. Deformity correction noted with hardware in desired position and trajectory. No acute injuries are noted. He was admitted postoperative for pain control and medical management. He also needs to work with physical and Occupational Therapy to confirm if he is safe for him to go home where he would be a potential rehabilitation candidate pending bed availability; this was confirmed preoperatively. To maintain strict nonweightbearing status of left lower extremity with assistive device. To ice and elevate for pain and inflammation management. Oral and IV pain medications were ordered. To use incentive spirometer. DVT prophylaxis pharmacological medications will be ordered tomorrow after hemostasis continues to remain controlled. To optimize healing with nutritional supplementation and vitamin D supplementation. Hospitalist will be asked to be on consultation for medical management and this is greatly appreciated. Postoperative orders were entered electronically. Please do not hesitate to call if you have any questions. Tali Ellis DPM, FACFAS [facility] [phone]
--- NOTE | 2021-04-23 12:10 | RAD_ITS ---
STUDY: X-RAY - LEFT FOOT CLINICAL: Postoperative evaluation of posterior subtalar and talonavicular arthrodesis. TECHNIQUE: 3 view(s) of the foot. COMPARISON: Intraoperative images obtained the same day. FINDINGS: There are orthopedic screws transfixing arthrodesis of the posterior subtalar and talonavicular articulations without evidence of complication. Normal metatarsi. Normal metatarsophalangeal joint of the great toe. Normal tibial and fibular sesamoid bones. Normal interphalangeal joint of the great toe. Normal phalanges of the great toe. Normal second through fifth metatarsophalangeal joints. Normal interphalangeal joints and phalanges of the lesser toes. There is soft tissue swelling. RAD/Foot min 3 Views IMPRESSION: Arthrodesis of the posterior subtalar and talonavicular articulations. Electronically Signed: Darrian Hancock MD at 13:10 EDT Tel , Service support ,
--- NOTE | 2021-04-23 13:51 | CON.PCM.HO_ITS ---
Assessment & Plan Assessment/Plan (1) Posterior tibial tendinitis, left leg: (2) Flat foot [pes planus] (acquired), left foot: PLAN: This 75-year-old gentleman admitted after left foot surgery for secondary osteoarthritis of left ankle and foot. Patient had arthrodesis of left subtalar and talonavicular joint with internal fixation for treatment of severe deformity and chronic pain. 1. Left lower extremity pes planovalgus with hindfoot arthritis, sinus tarsitis and posterior tibialis tendon dysfunction: Patient had arthrodesis of left subtalar joint with internal fixation, arthrodesis of talonavicular joint and application of posterior tibialis tendon.Patient does not have any pain. Surgical management as per Dr. Ellis. VTE prophylaxis as per discretion of the surgeon when hemostasis is well controlled. 2. Monocytosis with chronic thrombocytopenia, MDS-MPD spectrum: As per patient last blood work in February 14, 2021,Platelet count is 79,000.Normal WBC count,H&H on lower side .Monocytosis with monocyte 31%, neutrophils 43%, lymphocytes 22%.Patient denies any history of chronic bruising, ecchymosis or bleeding.Repeat CBC today 3. Hypertension, dyslipidemia and hypothyroidism: Continue home medications.BMP ordered. 4. Other comorbidities include gout,Past history of osteomyelitis of right foot and chronic ulcer that has well healed and morbid obesity: VTE prophylaxis: As per discretion of the surgeon. HPI Consult Data Date of Consult: 04/23/21 HPI Narrative Reason for Consultation: Medical management for multiple comorbidities. HPI Narrative: THEODORA COLMENARES, is a 75 M With multiple comorbidities as listed below is being admitted After he had left foot surgery, after he had left foot surgery. The patient had arthrodesis of left subtalar joint with internal fixation, arthrodesis of talonavicular joint and application of posterior tibialis tendon. The patient has multiple comorbidities including chronic thrombocytopenia, monocytosis and had negative BCR ABL test for MPD And thought to be in MDS?MPD disorder.The patient follows Dr. Terrell. Besides this, patient has hypertension, hypothyroidism and history of right foot osteomyelitis with chronic ulcer for which he had surgery and has healed. The patient was seen in PACU. Currently does not have any chest pain, shortness of breath, palpitation. He does not have chronic lung disease or heart disease. Patient does not have smoking history. Denies pain at the left footWhich is wrapped with Boris wrap bandage. [facility] Medical History Arthritis Difficulty swallowing Foot drop High cholesterol History of edema History of renal disease History of steroid therapy Hx of thrombocytopenia Low iron Non-smoker Restless legs Sciatica Shortness of breath on exertion Thyroid disease Walker as ambulation aid Wears glasses Home Medications allopurinol 300 mg PO DAILY 03/15/14 [History Last Taken 05/23/20] potassium citrate [Urocit-K 15] 15 meq PO DAILY 03/15/14 [History Last Taken 05/23/20] simvastatin 20 mg PO QHS 03/15/14 [History Last Taken 05/22/20] gabapentin 300 mg PO TID 05/23/20 [History Last Taken 04/23/21 05:00] levothyroxine 137 mcg PO DAILY 05/23/20 [History Last Taken 04/23/21 05:00] hydroxychloroquine 200 mg tablet 200 mg PO DAILY 02/14/21 [History Last Taken Unknown] Allergy/AdvReac Type Severity Reaction Status Date / Time indomethacin Allergy Other Verified 04/23/21 06:09 Family History Mother Diabetes Surgical History History of arthroplasty of right ankle History of thyroidectomy Hx of lumbosacral spine surgery Total knee replacement status Social History Smoking Status: Never smoker ROS ROS Narrative Constitutional: No drowsiness or lethargy. HEENT: Reports systems reviewed and no addt'l complaints, except as documented Respiratory/Chest: Denies chest pain, shortness of breath at rest or with exertion Gastrointestinal: Denies coffee ground emesis, hematemesis or vomiting Genitourinary: Denies burning urination or new urinary tract symptoms Musculoskeletal: Left foot Boris wrap bandage. Status post surgery. Neurologic: Denies seizure-like activity skin: No ulcer. No rash Endocrinology: Reports systems reviewed and no addt'l complaints, except as documented Hematologic/Lymphatic: Reports systems reviewed and no addt'l complaints, except as documented Rest 12 ROS are negative except as mentioned in HPI Physical Exam Narrative General: Alert, Oriented x3, Cooperative, BMI 39.0 kg/m? HEENT: Atraumatic, PERRLA, EOMI, Normocephalic Oral: No Gingival or Mucosal Lesions/ Ulcerations Neck: Supple, No JVD, Negative Carotid Bruits Lungs: Air entry diminished in bilateral lung bases. No crepitation/rhonchi Cardiovascular: Regular rate, Regular Rhythm, Normal S1, Normal S2, No murmurs Abdomen: Bowel Sounds Present, Soft, Non Tender, Non-Distended : No renal angle tenderness. No suprapubic tenderness. Extremities: No edema, Capillary Refill Less than 3 Seconds Skin: No rashes, No breakdown Musculoskeletal: Left foot after surgery. Surgical dressing is dry.Right foot is well-healed. Neurological: Cranial nerves II-XII grossly intact, DTR 2+/4 and Symmetrical, Neuro grossly intact Psych/Mental Status: Normal Affect, Appropriate. Lab / Micro Data Labs: Laboratory Results - last 24 hr 04/23/21 06:00: TSH 3.83 H Radiology Impression Ankle X-Ray 04/23/21 07:32 Foot X-Ray 04/23/21 12:10 IMPRESSION: Arthrodesis of the posterior subtalar and talonavicular articulations. Electronically Signed: Darrian Hancock MD at 13:10 EDT Tel , Service support , Charges/Coding Visit Charges Office Visits / Consults: 04180 OP Consult L3
[2021-04-23 15:06] LABS: Absolute Lymphocyte Count 0.84 X10^3/uL (0.83-4.51); Absolute Neutrophil Count 9.7 X10^3/uL (2.0-7.7); Basophil# 0.02 X10^3/uL; Basophil% 0.2 % (0-1); Hematocrit 30.9 % (40-54); Hemoglobin 9.9 g/dL (13.0-16.5); Lymphocyte # 0.84 X10^3/ul (0.83-4.51); Lymphocyte % 7.4 % (19-41); Mean Corpuscular Hgb 28.9 pg (27.0-32.0); Mean Corpuscular Volume 90.4 fL (80-94); Monocyte# 0.49 X10^3/uL; Monocyte% 4.3 % (0-10); NRBC Flagged by Analyzer 0 % (0-5); Neutrophil # 9.67 X10^3/uL (2.7-7.7); Neutrophil % 85.1 % (47-70); POSITIVE COUNT YES; Platelet Count 86 K/mm3 (150-450); RBC Distribution Width CV 15.5 % (11.6-14.6); RBC Distribution Width SD 51.4 fl (35.1-43.9); Red Blood Count 3.42 M/mm3 (4.6-6.2); White Blood Count 11.4 K/mm3 (4.4-11.0)
[2021-04-23 15:22] LABS: Anion Gap 6 (5-15); BUN 33 mg/dL (7-18); BUN/Creat Ratio 17.5 RATIO (10-20); Calcium,Total 8.5 mg/dL (8.5-10.1); Chloride 109 mmol/L (98-107); Creatinine, Serum 1.89 mg/dL (0.70-1.30); EST Glomerular Filtration Rate 37 mL/min (>60); Est Glom Filt Rate - Afr Amer 45 mL/min (>60); Estimated Creatinine Clearance 35.41 ml/min; Glucose 175 mg/dL (74-106); Magnesium 1.9 mg/dL (1.6-2.6); Sodium Level 139 mmol/L (136-145)
[2021-04-23] MEDS: Juven (unflavored) Packet 1 PACKET PO (16:44)
[2021-04-23] MEDS: Ergocalciferol 1.25 MG (50, 000 UNIT) Capsule PO ×2 (16:44→18:54)
--- NOTE | 2021-04-23 19:51 | PCS.PANDOC ---
PANDEMIC DOCUMENTATION INITIATED: Date: 04/23/2021 Time: 1140
[2021-04-23] MEDS: Gabapentin 300 MG Capsule PO (21:37)
[2021-04-23] MEDS: Atorvastatin Calcium 10 MG Tablet PO (21:37)
[2021-04-24 02:30] VITALS: BP 104/63; PULSE 64; RESP 18; TEMP 36.8; O2SAT 96; BMI 39.0
[2021-04-24] MEDS: Lactated Ringers 1,000 ML 100 ML IV (03:58)
[2021-04-24] MEDS: oxyCODONE 5 MG Tablet PO (04:28)
[2021-04-24] MEDS: Levothyroxine 137 MCG Tablet PO (05:06)
[2021-04-24] MEDS: Gabapentin 300 MG Capsule PO ×2 (05:06→13:36)
[2021-04-24 06:20] VITALS: BP 106/60; PULSE 65; RESP 18; TEMP 36.7; O2SAT 95; BMI 39.0
--- NOTE | 2021-04-24 07:41 | PCM.PN.HOSP ---
Subjective Subjective Patient is a 75-year-old gentleman who underwent arthrodesis of left subtalar and talonavicular joint with internal fixation for treatment of severe deformity and chronic pain on 04/23/2021. Objective Data Objective Data Vital Signs: Vital Signs Temp Pulse Resp BP Pulse Ox 98.1 F 65 18 106/60 95 04/24/21 06:20 04/24/21 06:20 04/24/21 06:20 04/24/21 06:20 04/24/21 06:20 Oxygen Delivery Method Room Air Weight: 123.3 kg Body Mass Index (BMI) 38.9 Intake & Output: Intake and Output for Last 24 Hours 04/22/21 04/23/21 04/24/21 23:59 23:59 23:59 Intake Total 2580 / 2580 913.33 / 913.33 Output Total 1250 / 1250 400 / 400 Balance 1330 / 1330 513.33 / 513.33 Lab / Micro Data Result Diagrams: 04/24/21 09:16 04/24/21 09:16 Labs: Laboratory Results - last 24 hr 04/23/21 14:37: WBC 11.4 H, RBC 3.42 L, Hgb 9.9 L, Hct 30.9 L, MCV 90.4, MCH 28.9, MCHC 32.0, RDW Std Deviation 51.4 H, RDW Coeff of Gisela 15.5 H, Plt Count 86 L, MPV 12.0, Immature Gran % (Auto) 3.000 H, Neut % (Auto) 85.1 H, Lymph % (Auto) 7.4 L, [place] % (Auto) 4.3, Eos % (Auto) 0.0, Baso % (Auto) 0.2, Absolute Neuts (auto) 9.7 H, Absolute Lymphs (auto) 0.84, Nucleated RBC % 0 04/23/21 14:37: Sodium 139, Potassium 4.0, Chloride 109 H, Carbon Dioxide 24.0, Anion Gap 6, BUN 33 H, Creatinine 1.89 H, Estim Creat Clear Calc 35.41, Est GFR (MDRD) Af Amer 45 L, Est GFR (MDRD) Non-Af 37 L, BUN/Creatinine Ratio 17.5, Glucose 175 H, Calcium 8.5, Magnesium 1.9 Radiography Diagnostic Testing: Radiology Impression Ankle X-Ray 04/23/21 07:32 Foot X-Ray 04/23/21 12:10 IMPRESSION: Arthrodesis of the posterior subtalar and talonavicular articulations. Electronically Signed: Darrian Hancock MD at 13:10 EDT Tel , Service support , Physical Exam Narrative GENERAL: cooperative HEENT: Atraumatic; EYES; Anicteric, Normal Conjunctiva NECK; supple, normal thyroid, RESPIRATORY: Diminished to auscultation CARDIOVASCULAR: Regular S1 S2, GI: soft, normoactive bowel sounds, : No Renal angle tenderness; EXTREMITIES: No edema, no clubbing, MUSCULOSKELETAL: Left foot in surgical dressing NEURO: Awake; no lateralizing signs. SKIN: No Rash PSYCH; Flat affect Assessment & Plan Assessment/Plan (1) Posterior tibial tendinitis, left leg: (2) Flat foot [pes planus] (acquired), left foot: PLAN: Patient is a 75-year-old gentleman who underwent arthrodesis of left subtalar and talonavicular joint with internal fixation for treatment of severe deformity and chronic pain on 04/23/2021. 1. Status post arthrodesis of left subtalar and talonavicular joint with internal fixation On account of severe deformity and chronic pain on 04/23/2021 2. Monocytosis with chronic thrombocytopenia, MDS-MPD spectrum As per patient last blood work in February 14, 2021,Platelet count is 79,000.Normal WBC count,H&H on lower side .Monocytosis with monocyte 31%, neutrophils 43%, lymphocytes 22%.patient to follow-up with oncology on discharge 3. Hypertension - Blood pressure controlled, home medications continued with dose adjustment as needed 4. Dyslipidemia -Patient is on statin therapy, continued at home dose 5. Hypothyroidism - Patient is on levothyroxine home dose continued 6. Gout ?Patient is on allopurinol 7. Obesity with BMI of 39.0 ?Weight loss advised 8. DVT prophylaxis ?We will recommend early ambulation as soon as possible otherwise Eliquis may be a good option Charges/Coding Visit Charges Inpatient E&M: 15938 Subs Hosp L2
--- NOTE | 2021-04-24 07:44 | PN_ITS ---
Subjective Subjective This is 75-year-old male was seen bedside postoperative day #1 left lower extremity reconstructive flatfoot surgery for treatment of symptomatic pes planus with inability to walk. He had a subtalar and talonavicular joint arthrodesis with internal fixation. He denies fever, chill, nausea, vomiting, chest pain, shortness of breath, calf pain, constipation or urinary retention. Objective Data Objective Data Vital Signs: Vital Signs Temp Pulse Resp BP Pulse Ox 98.1 F 65 18 106/60 95 04/24/21 06:20 04/24/21 06:20 04/24/21 06:20 04/24/21 06:20 04/24/21 06:20 Oxygen Delivery Method Room Air Weight: 123.3 kg Body Mass Index (BMI) 38.9 Intake & Output: Intake and Output for Last 24 Hours 04/22/21 04/23/21 04/24/21 23:59 23:59 23:59 Intake Total 2580 / 2580 913.33 / 913.33 Output Total 1250 / 1250 400 / 400 Balance 1330 / 1330 513.33 / 513.33 Lab / Micro Data Result Diagrams: 04/23/21 14:37 04/23/21 14:37 Labs: Laboratory Results - last 24 hr 04/23/21 14:37: WBC 11.4 H, RBC 3.42 L, Hgb 9.9 L, Hct 30.9 L, MCV 90.4, MCH 28.9, MCHC 32.0, RDW Std Deviation 51.4 H, RDW Coeff of Gisela 15.5 H, Plt Count 86 L, MPV 12.0, Immature Gran % (Auto) 3.000 H, Neut % (Auto) 85.1 H, Lymph % (Auto) 7.4 L, [place] % (Auto) 4.3, Eos % (Auto) 0.0, Baso % (Auto) 0.2, Absolute Neuts (auto) 9.7 H, Absolute Lymphs (auto) 0.84, Nucleated RBC % 0 04/23/21 14:37: Sodium 139, Potassium 4.0, Chloride 109 H, Carbon Dioxide 24.0, Anion Gap 6, BUN 33 H, Creatinine 1.89 H, Estim Creat Clear Calc 35.41, Est GFR (MDRD) Af Amer 45 L, Est GFR (MDRD) Non-Af 37 L, BUN/Creatinine Ratio 17.5, Glucose 175 H, Calcium 8.5, Magnesium 1.9 Radiography Diagnostic Testing: Radiology Impression Ankle X-Ray 04/23/21 07:32 Foot X-Ray 04/23/21 12:10 IMPRESSION: Arthrodesis of the posterior subtalar and talonavicular articulations. Electronically Signed: Darrian Hancock MD at 13:10 EDT Tel , Service support , Physical Exam Const alert and no apparent distress General Appearance: cooperative and comfortable HEENT normocephalic Resp clear to auscultation bilaterally Cardio regular rate and regular rhythm Extremity Extremity Narrative: No calf tenderness; negative aguilar sign external rotation of limb at rest with proximal origin General Extremity: edema and no tenderness to palpation of joints or extremities; Negative for cyanosis Skin Skin Narrative: no purulence, no streaking, no odor, no infection. Postoperative dressing and splint clean, dry, and intact in position with improved deformity correction noted. no strikethrough noted General Skin Exam: Negative for erythema Neuro Neuro Narrative: lack of normal epicritic sensation via light touch is consistent with neuropathy status Psych cooperative and affect normal Assessment & Plan Assessment/Plan (1) Secondary osteoarthritis, left ankle and foot: (2) Pain in left foot: (3) Flat foot [pes planus] (acquired), left foot: PLAN: POD #1 Left lower extremity arthrodesis of subtalar and talonavicular joint with internal fixation for treatment of severe deformity and chronic pain Comorbidities noted Walking difficulty He is stable postoperative. He is afebrile and vital signs are stable. His labs also appear stable and were reviewed from yesterday. He does appear to have thrombocytopenia. He has mild leukocytosis which is likely reactive and he also does have a diagnosis of monocytosis. To maintain a strict nonweightbearing status to left lower extremity. He is struggled with this in the past and is scheduled to see physical and occupational therapy today to help determine if he is safe for home discharge versus long term/rehabilitation transition. To ice and elevate. His regional block is starting to wear off. I will touch base with him in a couple of hours to confirm if his pain is controlled with IV or oral pain medications and how he did with therapy. Discharge will be considered if everything goes well. The use DVT prophylaxis medication will be considered versus holding due to lack of high risk clotting status in combination with his thrombocytopenia. His platelet count was 86 yesterday. Medical management per primary team is greatly appreciated. Please do not hesitate to call if you have any questions. Tali Ellis DPM, [facility] [phone]
[2021-04-24 08:01] VITALS: BMI 39.0
[2021-04-24 09:05] VITALS: BP 121/71; PULSE 66; RESP 18; TEMP 36.5; O2SAT 99
[2021-04-24] MEDS: Juven (unflavored) Packet 1 PACKET PO (09:12)
[2021-04-24] MEDS: Allopurinol 300 MG Tablet PO (09:12)
[2021-04-24] MEDS: POTASSIUM CITRATE 5 MEQ TABLET.ER 15 MEQ PO (09:12)
[2021-04-24] MEDS: Hydroxychloroquine 200 MG Tablet PO (09:12)
[2021-04-24 09:27] LABS: Absolute Lymphocyte Count 0.99 X10^3/uL (0.83-4.51); Absolute Neutrophil Count 6.8 X10^3/uL (2.0-7.7); Basophil# 0.01 X10^3/uL; Basophil% 0.1 % (0-1); Eosinophil# 0.01 X10^3/uL; Eosinophils% 0.1 % (0-5); Hematocrit 30.1 % (40-54); Hemoglobin 9.4 g/dL (13.0-16.5); Lymphocyte # 0.99 X10^3/ul (0.83-4.51); Lymphocyte % 8.4 % (19-41); Mean Corp Hgb Conc 31.2 g/dL (32-36); Mean Corpuscular Hgb 28.7 pg (27.0-32.0); Mean Platelet Vol. 12.1 fl (6.2-12.0); Monocyte# 3.86 X10^3/uL; Monocyte% 32.7 % (0-10); NRBC Flagged by Analyzer 0 % (0-5); Neutrophil # 6.81 X10^3/uL (2.7-7.7); Neutrophil % 57.6 % (47-70); POSITIVE COUNT YES; POSITIVE DIFFERENTIAL YES; Platelet Count 82 K/mm3 (150-450); RBC Distribution Width CV 15.6 % (11.6-14.6); RBC Distribution Width SD 52.7 fl (35.1-43.9); Red Blood Count 3.27 M/mm3 (4.6-6.2); White Blood Count 11.8 K/mm3 (4.4-11.0)
[2021-04-24 09:28] LABS: Differential Indicated SCAN CRITERIA MET
[2021-04-24 09:39] LABS: Anion Gap 3 (5-15); BUN 32 mg/dL (7-18); BUN/Creat Ratio 20.6 RATIO (10-20); Calcium,Total 8.4 mg/dL (8.5-10.1); Chloride 108 mmol/L (98-107); Creatinine, Serum 1.55 mg/dL (0.70-1.30); EST Glomerular Filtration Rate 47 mL/min (>60); Est Glom Filt Rate - Afr Amer 57 mL/min (>60); Estimated Creatinine Clearance 43.17 ml/min; Glucose 106 mg/dL (74-106); Magnesium 1.8 mg/dL (1.6-2.6); Potassium 3.6 mmol/L (3.5-5.1); Sodium Level 140 mmol/L (136-145)
--- NOTE | 2021-04-24 12:00 | CASEMGMT ---
Addendum entered by Chadwick Ram 04/24/21 16:10: 1400: PT/OT notes have been reviewed. No additional therapy recommended. Per therapy, pt able to utilize knee scooter w/out difficulty and state do not feel pt would benefit from forearm crutches. Pt made aware and agrees. Original Note: RN LATONYA ROTO MIXER OPERATOR CM to room to meet with patient for initial transition planning/care coordination assessment. RN LATONYA introduced self and role at [facility]. Pt voices understanding and consents to assessment at this time. Pt resting in bed in no distress at this time. @ bedside. Pt is A/O at this time and answers all questions appropriately. Care providers, pharmacy, and demographics verified/updated at this time. PCP:Dr Sierra Specialists: Dr Ellis--podiatry, Dr Terrell--oncology, Dr Smith--nephrology Preferred Pharmacy: [facility] Insurance: [employer] Prescription Benefit: Yes Living Will/HPOA: Has LW and HPOA, who is his Heather LNOK:Heather Living Arrangements: Lives w/ and son in 2-story home w/basement. FFSU. Ramp entrance. Pt mostly independent w/ADL's-- assists as needed. DME: States has the following DME: tub bench, RTS, crutches, rails/grab bars, hand held shower, walker, knee scooter. Pt states he may be interested in forearm crutches. Encouraged to talk w/therapy about same when they come to do eval. HHC/SNF: No hx of SNF. Had HHC in past about 4-5 yrs ago when he had a wound vac. Does not remember name of agency. Pt/ made aware PT/OT will evaluate and give recommendations. Pt/ wish for pt to return home and states no concerns with going home at time of discharge. Pt/ deny need for SNF or HHC. CM to follow for any further discharge planning/needs. Pt voices no further concerns/needs at this time. Advised pt to ask for CM if any further questions/concerns/needs arise. Voices understanding. PLAN: Home w/spousal support and discharge plans in place. Bobbi HUERTA RN, CM
[2021-04-24 13:05] VITALS: BP 129/61; PULSE 82; RESP 18; TEMP 36.7; O2SAT 98
[2021-04-24 14:00] VITALS: BMI 39.0
--- NOTE | 2021-04-24 14:18 | CHAPLAIN ---
Type of Pastoral Visit _x__ Initial Visit ___ Follow-up Visit ___ On-call Visit ___ General Patient Visit ___ Spiritual Assessment ___ Family Conference ___ Bereavement ___ Rapid Response ___ Code Blue ___ Other (describe below) Pastoral Care Referral From _x__ Patient ___ Family ___ Nurse ___ Physician ___ Food Porter ___ Rubber Turner ___ Other (describe below) Sacrament/Intervention _x__ Active listening ___ Anointing ___ Roman Catholic ___ Bereavement ___ Communion _x__ Mi exploration ___ _x__ Life review _x__ Prayer ___ Reconciliation ___ Sacrament of Sick ___ Supportive presence ___ Wedding ___ Other (describe below) Pastoral Comments post surgery review by patient; pt gives life review and history of his mi; pt has positive outlook and has experienced numerous surgeries and states he understands what is coming; pt puts priority in God, prayer, and his mi community
--- NOTE | 2021-04-24 15:33 | DS.PCM_ITS ---
Providers Date of Admission: 04/23/21 Primary Care Physician: Dr. Aurelio Sierra MD Reason For Visit: LLE SUBTALAR JOINT ARTHRODESIS (DOUBLE, TALONAVICU Diagnosis Discharge Diagnosis (1) Posterior tibial tendinitis, left leg: Status: Acute Code(s): M76.822 - Posterior tibial tendinitis, left leg (2) Flat foot [pes planus] (acquired), left foot: Status: Acute Code(s): M21.42 - Flat foot [pes planus] (acquired), left foot Medications at Discharge Home Medications allopurinol 300 mg PO DAILY 03/15/14 potassium citrate [Urocit-K 15] 15 meq PO DAILY 03/15/14 simvastatin 20 mg PO QHS 03/15/14 gabapentin 300 mg PO TID 05/23/20 levothyroxine 137 mcg PO DAILY 05/23/20 hydroxychloroquine 200 mg tablet 200 mg PO DAILY 02/14/21 apixaban [Eliquis] 2.5 mg PO BID #28 tab 04/24/21 oxycodone-acetaminophen [Endocet] 1 tab PO Q6H PRN 5 Days #20 tab 04/24/21 Hospital Course Operations - (left lower extremity subtalar and talonavicular arthrodesis with plication of posterior tibial tendon) Summary of Care Provided Minutes Spent on Discharge: 30 Hospital Course: He was admitted after surgical correction. Pain management and medical observation was performed. He did well with PT/OT. He was discharged home. Physical Exam Const alert and no apparent distress General Appearance: cooperative and comfortable HEENT normocephalic Resp clear to auscultation bilaterally Cardio regular rate and regular rhythm Extremity Extremity Narrative: No calf tenderness; negative aguilar sign external rotation of limb at rest with proximal origin General Extremity: edema and no tenderness to palpation of joints or extremities; Negative for cyanosis Skin Skin Narrative: no purulence, no streaking, no odor, no infection. Postoperative dressing and splint clean, dry, and intact in position with improved deformity correction noted. no strikethrough noted General Skin Exam: Negative for erythema Neuro Neuro Narrative: lack of normal epicritic sensation via light touch is consistent with neuropathy status Psych cooperative and affect normal Weight / BMI Weight Weight: 123.3 kg Body Mass Index (BMI) 38.9 ABG / Lab / Microbiology Data Result Diagrams: 04/24/21 09:16 04/24/21 09:16 Laboratory: Laboratory Results - last 24 hr 04/24/21 09:16: WBC 11.8 H, RBC 3.27 L, Hgb 9.4 L, Hct 30.1 L, MCV 92.0, MCH 28.7, MCHC 31.2 L, RDW Std Deviation 52.7 H, RDW Coeff of Gisela 15.6 H, Plt Count 82 L, MPV 12.1 H, Immature Gran % (Auto) 1.100 H, Neut % (Auto) 57.6, Lymph % (Auto) 8.4 L, [place] % (Auto) 32.7 H, Eos % (Auto) 0.1, Baso % (Auto) 0.1, Absolute Neuts (auto) 6.8, Absolute Lymphs (auto) 0.99, Nucleated RBC % 0, Diff Path Review December04/24/21 09:16: Sodium 140, Potassium 3.6, Chloride 108 H, Carbon Dioxide 29.0, Anion Gap 3 L, BUN 32 H, Creatinine 1.55 H, Estim Creat Clear Calc 43.17, Est GFR (MDRD) Af Amer 57 L, Est GFR (MDRD) Non-Af 47 L, BUN/Creatinine Ratio 20.6 H , Glucose 106, Calcium 8.4 L, Magnesium 1.8 D/C Instructions Discharge Diet: No restrictions Discharge Activity: May Shower (only with non weightbearing status and use of shower bag) Ice area for (Minutes): 15 (apply ice to back of knee each hour only if needed for pain control) Weight Bearing Status: No weight bearing Keep extremity elevated above heart level: Left Leg Call your doctor if your incision/area has: Continuous Slow Oozing, Sudden Increased Bleeding, Increased Pain/ Swelling, Increased Redness, Foul Smelling Discharge and Swelling at the incision site Call your doctor if you observe: Fever of 101 or Higher, Coldness, Increased Pain, Numbness or Tingling, Calf discomfort and Uncontrolled pain Change Dressing in: do not change dressing Cleanse incision/area with: Keep Dressing Clean & Dry Please Follow Up With: aTli Ellis DPM When: [facility] Meaningful Use Info Meaningful Use Diagnoses (Choose all that apply): None applicable Discharge Plan Admission Admit Date/Time: 04/23/21 11:40 Primary Reason for Your Visit: s/p foot reconstruction (left) Attending Provider: Tali Ellis Primary Care Provider: Aurelio Sierra Instructions Additional Instructions / Restrictions: -Maintain a strict nonweightbearing status to the left surgical lower extremity. Use assistive devices. -Elevate your surgical limb hourly and avoid laying directly on the incision site which is located on both sides of the hindfoot. -Ice for no more than 15 minutes behind the left knee each hour if needed for pain. -Take your pain and DVT prophylaxis medication as prescribed in a safe manner. -Keep your dressing and splint clean, dry, and intact until you follow-up with the [facility] next week. Call sooner if you have any questions or c oncerns. Discharge Orders/Prescriptions Prescriptions: New oxycodone-acetaminophen [Endocet] 7.5-325 mg tablet 1 tab PO Q6H PRN (Reason: pain) 5 Days Qty: 20 RF: 0 Eliquis 2.5 mg tablet 2.5 mg PO BID Qty: 28 RF: 0 No Action hydroxychloroquine 200 mg tablet 200 mg PO DAILY RF: 0 simvastatin 20 MG tablet 20 mg PO QHS RF: 0 allopurinol 300 MG tablet 300 mg PO DAILY RF: 0 potassium citrate [Urocit-K 15] 15 MEQ tablet extended release 15 meq PO DAILY RF: 0 gabapentin 300 MG capsule 300 mg PO TID RF: 0 levothyroxine 137 MCG tablet 137 mcg PO DAILY RF: 0 Referrals / Follow Up: Tali Ellis DPM [STAFF PHYSICIAN] - In 1 Week (Call [phone] if you have any questions or concerns prior to your follow-up visit.) Aurelio Sierra MD [Primary Care Provider] - Disposition Discharge Orders: Discharge Patient (Routine); Ordered 04/24/21 Ordered By: Dr. Tali Ellis
[2021-04-24 16:14] VITALS: BP 118/61; PULSE 81; RESP 16; TEMP 37.1; O2SAT 96
[2021-04-24 16:16] VITALS: BMI 39.0
[2021-04-25 12:39] LABS: Pathologist Review Reviewed
== END 2021-04-24 16:40 | disposition home or self-care (01) | DRG 505 ==
LOC: MS2 04-24 08:11
PROVIDERS: Anesthesiology; Internal Medicine; Admitting Provider Podiatrist; PCP Family Medicine; Referring Provider Podiatrist; Visit Provider Podiatrist
PROC: (CPT 28730; principal; 2021-04-23 07:15)
DX: M19.272 Secondary osteoarthritis, left ankle and foot (principal); M32.9 Systemic lupus erythematosus, unspecified; D69.6 Thrombocytopenia, unspecified; M76.822 Posterior tibial tendinitis, left leg; G89.29 Other chronic pain; Q66.6 Other congenital valgus deformities of feet; Q66.52 Congenital pes planus, left foot; D72.821 Monocytosis (symptomatic); I10 Essential (primary) hypertension; E78.5 Hyperlipidemia, unspecified; E89.0 Postprocedural hypothyroidism; R13.10 Dysphagia, unspecified; G62.9 Polyneuropathy, unspecified; M10.9 Gout, unspecified; E55.9 Vitamin D deficiency, unspecified; E66.9 Obesity, unspecified; Z79.899 Other long term (current) drug therapy; Z79.890 Hormone replacement therapy; Z68.38 Body mass index [BMI] 38.0-38.9, adult; Z86.16 Personal history of COVID-19
CPT/HCPCS: 28730; 27685; 01480; 64445; 64447; 96360; 96361 ×3; 36415; 73600; 73630; 76000; 80048; 83735; 84443; 85025; 97161; 97166; 99218; 99251; C1713; J7120; G0378; G0463; J2405

== ENCOUNTER → 2021-06-12 10:03 | Outpatient (CLI) | payer MEDICARE, SELFPAY ==
--- NOTE | 2021-06-12 10:08 | RAD_ITS ---
STUDY: X-RAY - LEFT FOOT CLINICAL: Follow-up left posterior subtalar and talonavicular arthrodesis. TECHNIQUE: 3 view(s) of the foot. COMPARISON: Radiographs 04/23/2021. FINDINGS: There are intact orthopedic screws transfixing the arthrodesis of the posterior subtalar and talonavicular articulations without evidence of complication. Normal metatarsi. Normal metatarsophalangeal joint of the great toe. Normal tibial and fibular sesamoid bones. Normal interphalangeal joint of the great toe. Normal phalanges of the great toe. Normal second through fifth metatarsophalangeal joints. Normal interphalangeal joints and phalanges of the lesser toes. There is an overlying splint. RAD/Foot min 3 Views IMPRESSION: Arthrodesis of the posterior subtalar and talonavicular articulations without demonstrated complication. Electronically Signed: Darrian Hancock MD at 15:00 EST Tel , Service support ,
== END ==
PROVIDERS: PCP Family Medicine; Referring Provider Podiatrist; Visit Provider Podiatrist
DX: M79.672 Pain in left foot (principal); Z98.1 Arthrodesis status
CPT/HCPCS: 73630

== ENCOUNTER → 2021-07-15 09:41 | Outpatient (CLI) | payer MEDICARE, SELFPAY ==
--- NOTE | 2021-07-15 09:48 | RAD_ITS ---
STUDY: X-RAY - LEFT FOOT CLINICAL: Male, 76 years old. Pain, decreased range of motion. Previous surgery TECHNIQUE: 3 view(s) of the foot. COMPARISON: None. FINDINGS: Stable osteopenia There are intact orthopedic screws transfixing the arthrodesis of the posterior subtalar and talonavicular articulations without evidence of complication. Normal metatarsi. Normal metatarsophalangeal joint of the great toe. Normal tibial and fibular sesamoid bones. Normal interphalangeal joint of the great toe. Normal phalanges of the great toe. Normal second through fifth metatarsophalangeal joints. Age consistent PIP and DIP joint arthrosis. Vascular calcifications suggest underlying diabetes RAD/Foot min 3 Views IMPRESSION: Osteopenia with stable arthrodesis of the posterior subtalar and talonavicular articulations. No demonstrated complications or evidence of acute traumatic abnormality Electronically Signed: Colten Rodríguez MD at 14:25 EST , Service support ,
== END ==
PROVIDERS: PCP Family Medicine; Referring Provider Podiatrist; Visit Provider Podiatrist
DX: M19.272 Secondary osteoarthritis, left ankle and foot (principal)
CPT/HCPCS: 73630

== ENCOUNTER → 2021-07-18 10:36 | Outpatient (CLI) | payer MEDICARE, SELFPAY | LOC: LAB 10:38 → RAD 10:47 → LAB 11:23 | PROVIDERS: PCP Family Medicine; Referring Provider Podiatrist; Visit Provider Podiatrist | DX: M19.272 Secondary osteoarthritis, left ankle and foot (principal); E55.9 Vitamin D deficiency, unspecified | CPT/HCPCS: 36415; 82306 ==

== ENCOUNTER 2021-10-24 12:40 | Outpatient (CLI) | payer MEDICARE, SELFPAY ==
--- NOTE | 2021-10-24 12:49 | CT_ITS ---
STUDY: CT LEFT ANKLE WITHOUT CONTRAST ENHANCEMENT OF 1300 HOURS ON 10/24/2021 REASON FOR EXAM: 76-year-old male; evaluate for left ankle arthritis. RADIATION DOSAGE (If Supplied By Facility): CTDIvol = ( 15.35 ) mGy, DLP = ( 385.69 ) mGycm TECHNIQUE: Thin section transaxial imaging of the ankle was obtained, with sagittal and coronal reconstructed images. Individualized dose optimization techniques were used for this CT. COMPARISON: None. FINDINGS: Mild demineralization. Fusion of the left talus to the calcaneus with 2 large screws. In addition, there is fusion of the talus to the left tarsonavicular bone, with a single surgical screw. The remaining talar bones have a normal appearance. The remaining intra-articular joint spaces are normal. There is asymmetry of the ankle joint with widening medially. The lateral talar-tibial joint is narrowed. There is old fragmentation of the medial malleolus. Mild osteophytic degenerative changes of the ankle joint. The distal fibula has normal appearance. There is no evidence of fractures or dislocations. CT/Extremity Lower without Contra IMPRESSION: 1. Mild demineralization. 2. No fractures or dislocations. 3. Fusion of the left talus and the left calcaneus with 2 large screws. 4. Fusion of the talus to the left tarsonavicular bone with a single surgical screw. 5. Asymmetry of the ankle joint with radial widening. 6. The lateral talar-tibial joint is narrowed. 7. Old fragmentation of the medial malleolus. 8. Normal appearing lateral malleolus. Electronically Signed: Brock Beck MD at 22:27 EDT ,
== END 2021-10-24 23:59 | disposition home or self-care (01) ==
LOC: CT 12:41
PROVIDERS: PCP Family Medicine; Referring Provider Podiatrist; Visit Provider Podiatrist
DX: M19.072 Primary osteoarthritis, left ankle and foot (principal); M96.89 Other intraoperative and postprocedural complications and disorders of the musculoskeletal system; M79.672 Pain in left foot
CPT/HCPCS: 73700

== ENCOUNTER → 2021-12-17 | Outpatient (CLI) | payer MEDICARE, SELFPAY ==
[2021-12-17 15:24] LABS: Absolute Lymphocyte Count 1.44 X10^3/uL (0.83-4.51); Absolute Neutrophil Count 2.9 X10^3/uL (2.0-7.7); Basophil# 0.03 X10^3/uL; Basophil% 0.5 % (0-1); Eosinophil# 0.07 X10^3/uL; Eosinophils% 1.1 % (0-5); Hematocrit 37.1 % (40-54); Hemoglobin 11.5 g/dL (13.0-16.5); Lymphocyte # 1.44 X10^3/ul (0.83-4.51); Lymphocyte % 22.6 % (19-41); Mean Corpuscular Hgb 27.6 pg (27.0-32.0); Mean Corpuscular Volume 89.2 fL (80-94); Mean Platelet Vol. 13.1 fl (6.2-12.0); Monocyte# 1.78 X10^3/uL; Monocyte% 27.9 % (0-10); NRBC Flagged by Analyzer 0 % (0-5); Neutrophil # 2.91 X10^3/uL (2.7-7.7); Neutrophil % 45.7 % (47-70); POSITIVE COUNT YES; POSITIVE DIFFERENTIAL YES; Platelet Count 91 K/mm3 (150-450); RBC Distribution Width CV 16.8 % (11.6-14.6); RBC Distribution Width SD 54.4 fl (35.1-43.9); Red Blood Count 4.16 M/mm3 (4.6-6.2); White Blood Count 6.4 K/mm3 (4.4-11.0)
[2021-12-17 15:38] LABS: ALB/GLOB Ratio 1.1 RATIO (0.9-2.4); AST(SGOT) 8 U/L (15-37); Alanine Aminotransfer ALT/SGPT 14 U/L (16-61); Albumin, Serum 3.8 g/dL (3.2-5.0); Alkaline Phosphatase 111 U/L (45-117); Anion Gap 5 (5-15); BUN 22 mg/dL (7-18); BUN/Creat Ratio 12.8 RATIO (10-20); Chloride 109 mmol/L (98-107); Creatinine, Serum 1.72 mg/dL (0.70-1.30); EST Glomerular Filtration Rate 41 mL/min (>60); Est Glom Filt Rate - Afr Amer 50 mL/min (>60); Globulin 3.5 g/dL (2.2-4.2); Glucose 85 mg/dL (74-106); Protein, Total 7.3 g/dL (6.4-8.2); Sodium Level 142 mmol/L (136-145)
[2021-12-17 16:22] LABS: Differential Indicated SCAN CRITERIA MET
[2021-12-17 17:28] LABS: Differential Comment SCANNED
== END | disposition home or self-care (01) ==
LOC: MTLAB 13:14
PROVIDERS: PCP Family Medicine; Referring Provider Internal Medicine Rheumatology; Visit Provider Internal Medicine Rheumatology
DX: M06.4 Inflammatory polyarthropathy (principal); R76.8 Other specified abnormal immunological findings in serum; M17.0 Bilateral primary osteoarthritis of knee; M19.041 Primary osteoarthritis, right hand; I12.9 Hypertensive chronic kidney disease with stage 1 through stage 4 chronic kidney disease, or unspecified chronic kidney disease; E78.5 Hyperlipidemia, unspecified; N20.0 Calculus of kidney; N18.9 Chronic kidney disease, unspecified; M19.072 Primary osteoarthritis, left ankle and foot
CPT/HCPCS: 36415; 80053; 85025

== ENCOUNTER → 2022-01-02 | Outpatient (CLI) | payer MEDICARE, SELFPAY ==
[2022-01-02 16:03] LABS: Anion Gap 7 (5-15); BUN 29 mg/dL (7-18); BUN/Creat Ratio 19.7 RATIO (10-20); Calcium,Total 8.7 mg/dL (8.5-10.1); Chloride 106 mmol/L (98-107); Creatinine, Serum 1.47 mg/dL (0.70-1.30); EST Glomerular Filtration Rate 50 mL/min (>60); Est Glom Filt Rate - Afr Amer 60 mL/min (>60); Glucose 131 mg/dL (74-106); Potassium 4.4 mmol/L (3.5-5.1); Sodium Level 139 mmol/L (136-145)
[2022-01-02 18:01] LABS: Protein, Urine (Random) 18.8 mg/dL (<11.9); Protein:Creat Ratio 176 mg/g CRE (0-200)
== END | disposition home or self-care (01) ==
LOC: MTLAB 13:17
PROVIDERS: PCP Family Medicine; Referring Provider Nurse Practitioner Adult Health; Visit Provider Nurse Practitioner Adult Health
DX: N18.31 Chronic kidney disease, stage 3a (principal)
CPT/HCPCS: 36415; 80048; 82570; 84156

== ENCOUNTER → 2022-04-12 | Outpatient (CLI) | payer MEDICARE, SELFPAY ==
[2022-04-12 10:30] LABS: Absolute Lymphocyte Count 1.46 X10^3/uL (0.83-4.51); Absolute Neutrophil Count 3.7 X10^3/uL (2.0-7.7); Basophil# 0.02 X10^3/uL; Basophil% 0.3 % (0-1); Eosinophil# 0.06 X10^3/uL; Eosinophils% 0.9 % (0-5); Hematocrit 39.2 % (40-54); Lymphocyte # 1.46 X10^3/ul (0.83-4.51); Lymphocyte % 21.7 % (19-41); Mean Corp Hgb Conc 30.6 g/dL (32-36); Mean Corpuscular Hgb 27.7 pg (27.0-32.0); Mean Corpuscular Volume 90.5 fL (80-94); Mean Platelet Vol. 12.6 fl (6.2-12.0); Monocyte# 1.37 X10^3/uL; Monocyte% 20.3 % (0-10); NRBC Flagged by Analyzer 0 % (0-5); Neutrophil # 3.71 X10^3/uL (2.7-7.7); POSITIVE COUNT YES; Platelet Count 92 K/mm3 (150-450); RBC Distribution Width CV 16.4 % (11.6-14.6); RBC Distribution Width SD 54.5 fl (35.1-43.9); Red Blood Count 4.33 M/mm3 (4.6-6.2); White Blood Count 6.7 K/mm3 (4.4-11.0)
[2022-04-12 10:51] LABS: AST(SGOT) 8 U/L (15-37); Alanine Aminotransfer ALT/SGPT 17 U/L (16-61); Albumin, Serum 3.7 g/dL (3.2-5.0); Alkaline Phosphatase 110 U/L (45-117); Anion Gap 6 (5-15); BUN 20 mg/dL (7-18); BUN/Creat Ratio 11.9 RATIO (10-20); Chloride 108 mmol/L (98-107); Creatinine, Serum 1.68 mg/dL (0.70-1.30); EST Glomerular Filtration Rate 43 mL/min (>60); Est Glom Filt Rate - Afr Amer 51 mL/min (>60); Globulin 3.7 g/dL (2.2-4.2); Glucose 125 mg/dL (74-106); Protein, Total 7.4 g/dL (6.4-8.2); Sodium Level 141 mmol/L (136-145)
== END | disposition home or self-care (01) ==
LOC: LAB 10:11
PROVIDERS: PCP Family Medicine; Referring Provider Internal Medicine Rheumatology; Visit Provider Internal Medicine Rheumatology
DX: M06.4 Inflammatory polyarthropathy (principal); R76.8 Other specified abnormal immunological findings in serum; M17.0 Bilateral primary osteoarthritis of knee; M19.071 Primary osteoarthritis, right ankle and foot; M19.072 Primary osteoarthritis, left ankle and foot; I12.9 Hypertensive chronic kidney disease with stage 1 through stage 4 chronic kidney disease, or unspecified chronic kidney disease; N18.9 Chronic kidney disease, unspecified; E78.5 Hyperlipidemia, unspecified; N20.0 Calculus of kidney; Z79.899 Other long term (current) drug therapy
CPT/HCPCS: 36415; 80053; 85025

== ENCOUNTER → 2022-05-02 | Outpatient (CLI) | payer MEDICARE, SELFPAY ==
[2022-05-02 12:20] LABS: Thyroid Stim Hormone (TSH) 1.35 uIU/mL (0.358-3.74)
== END | disposition home or self-care (01) ==
LOC: MTLAB 09:44
PROVIDERS: PCP Family Medicine; Referring Provider Family Medicine; Visit Provider Family Medicine
DX: E03.9 Hypothyroidism, unspecified (principal)
CPT/HCPCS: 36415; 84443

== ENCOUNTER → 2022-06-21 | Outpatient (CLI) | payer MEDICARE, SELFPAY ==
--- NOTE | 2022-06-21 08:45 | CT_ITS ---
STUDY: CT LEFT ANKLE WITHOUT CONTRAST REASON FOR EXAM: Male, 76 years old. Arthritis. Prior surgery. Valgus angle RADIATION DOSAGE (If Supplied By Facility): CTDIvol = ( 15.35 ) mGy, DLP = ( 328.12 ) mGycm TECHNIQUE: Thin section transaxial imaging of the ankle was obtained, with sagittal and coronal reconstructed images. 3-D reconstructions were also performed. Individualized dose optimization techniques were used for this CT. COMPARISON: None. FINDINGS: Normal visualized distal tibia and fibula. Narrowing of the tibiotalar articulation. Normal talar dome. There is fusion of the subtalar and talonavicular joints with transfixing metallic screws. Normal calcaneocuboid articulation. Arthrosis of navicular-cuneiform, cuneiform tarsal bones and intercuneiform articulations. Normal tarsometatarsal articulations and visualized metatarsi. Soft tissue swelling about the lateral ankle medial forefoot. There is no fluid collection or mass. CT/Extremity Lower without Contra IMPRESSION: Status post surgical fusion of the subtalar and talonavicular joints with internal fixation. There is no acute abnormality. 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 Electronically Signed: Efra Alberto DO at 21:08 EST ,
== END | disposition home or self-care (01) ==
PROVIDERS: PCP Family Medicine; Referring Provider Podiatrist Foot & Ankle Surgery; Visit Provider Podiatrist Foot & Ankle Surgery
DX: M19.072 Primary osteoarthritis, left ankle and foot (principal); M21.072 Valgus deformity, not elsewhere classified, left ankle; Z98.1 Arthrodesis status
CPT/HCPCS: 73700

== ENCOUNTER → 2022-10-08 | Outpatient (CLI) | payer MEDICARE, SELFPAY ==
[2022-10-08 10:32] LABS: Absolute Lymphocyte Count 1.48 X10^3/uL (0.83-4.51); Absolute Neutrophil Count 1.9 X10^3/uL (2.0-7.7); Basophil# 0.02 X10^3/uL; Basophil% 0.4 % (0-1); Eosinophil# 0.07 X10^3/uL; Eosinophils% 1.5 % (0-5); Hemoglobin 12.4 g/dL (13.0-16.5); Lymphocyte # 1.48 X10^3/ul (0.83-4.51); Lymphocyte % 30.8 % (19-41); Mean Corpuscular Hgb 27.7 pg (27.0-32.0); Mean Corpuscular Volume 89.3 fL (80-94); Monocyte# 1.27 X10^3/uL; Monocyte% 26.4 % (0-10); NRBC Flagged by Analyzer 0 % (0-5); Neutrophil # 1.86 X10^3/uL (2.7-7.7); Neutrophil % 38.6 % (47-70); POSITIVE COUNT YES; Platelet Count 70 K/mm3 (150-450); RBC Distribution Width CV 16.2 % (11.6-14.6); RBC Distribution Width SD 52.8 fl (35.1-43.9); Red Blood Count 4.48 M/mm3 (4.6-6.2); White Blood Count 4.8 K/mm3 (4.4-11.0)
[2022-10-08 10:46] LABS: AST(SGOT) 10 U/L (15-37); Alanine Aminotransfer ALT/SGPT 18 U/L (16-61); Albumin, Serum 3.7 g/dL (3.2-5.0); Alkaline Phosphatase 115 U/L (45-117); Anion Gap 8 (5-15); BUN 25 mg/dL (7-18); BUN/Creat Ratio 15.4 RATIO (10-20); Calcium,Total 9.3 mg/dL (8.5-10.1); Chloride 105 mmol/L (98-107); Creatinine, Serum 1.62 mg/dL (0.70-1.30); EST Glomerular Filtration Rate 44 mL/min (>60); Est Glom Filt Rate - Afr Amer 54 mL/min (>60); Globulin 3.6 g/dL (2.2-4.2); Glucose 137 mg/dL (74-106); Potassium 4.3 mmol/L (3.5-5.1); Protein, Total 7.3 g/dL (6.4-8.2); Sodium Level 139 mmol/L (136-145)
== END | disposition home or self-care (01) ==
LOC: MTLAB 08:10
PROVIDERS: PCP Family Medicine; Referring Provider Internal Medicine Rheumatology; Visit Provider Internal Medicine Rheumatology
DX: M06.4 Inflammatory polyarthropathy (principal); R76.8 Other specified abnormal immunological findings in serum; M17.0 Bilateral primary osteoarthritis of knee; M19.071 Primary osteoarthritis, right ankle and foot; I12.9 Hypertensive chronic kidney disease with stage 1 through stage 4 chronic kidney disease, or unspecified chronic kidney disease; E78.5 Hyperlipidemia, unspecified; N20.0 Calculus of kidney; N18.9 Chronic kidney disease, unspecified; M19.072 Primary osteoarthritis, left ankle and foot; Z79.899 Other long term (current) drug therapy
CPT/HCPCS: 36415; 80053; 85025

== ENCOUNTER → 2022-12-23 | Outpatient (CLI) | payer MEDICARE, SELFPAY ==
[2022-12-23 16:01] LABS: PSA,Total - Annual Screen 1.33 ng/mL (0.00-4.00)
== END | disposition home or self-care (01) ==
LOC: LAB 14:43
PROVIDERS: PCP Family Medicine; Referring Provider Urology; Visit Provider Urology
DX: Z12.5 Encounter for screening for malignant neoplasm of prostate (principal)
CPT/HCPCS: 36415; 84153; G0103

== ENCOUNTER → 2023-01-01 | Outpatient (CLI) | payer MEDICARE, SELFPAY ==
[2023-01-01 10:43] LABS: Hematocrit 38.7 % (40-54); Hemoglobin 12.1 g/dL (13.0-16.5); Mean Corp Hgb Conc 31.3 g/dL (32-36); Mean Corpuscular Hgb 27.9 pg (27.0-32.0); Mean Corpuscular Volume 89.4 fL (80-94); POSITIVE COUNT YES; Platelet Count 73 K/mm3 (150-450); RBC Distribution Width CV 16.9 % (11.6-14.6); RBC Distribution Width SD 55.1 fl (35.1-43.9); Red Blood Count 4.33 M/mm3 (4.6-6.2); White Blood Count 4.7 K/mm3 (4.4-11.0)
[2023-01-01 10:57] LABS: Protein:Creat Ratio 219 mg/g CRE (0-200)
[2023-01-01 11:00] LABS: Anion Gap 8 (5-15); BUN 24 mg/dL (7-18); BUN/Creat Ratio 13.9 RATIO (10-20); Calcium,Total 8.7 mg/dL (8.5-10.1); Chloride 110 mmol/L (98-107); Creatinine, Serum 1.73 mg/dL (0.70-1.30); EST Glomerular Filtration Rate 41 mL/min (>60); Est Glom Filt Rate - Afr Amer 50 mL/min (>60); Glucose 136 mg/dL (74-106); Potassium 4.1 mmol/L (3.5-5.1); Sodium Level 142 mmol/L (136-145)
[2023-01-01 11:02] LABS: PTHIN 98.5 pg/mL (18.4-80.1)
[2023-01-01 11:06] LABS: Vitamin D,25 Hydroxy 41.3 ng/mL
== END | disposition home or self-care (01) ==
LOC: MTLAB 08:09
PROVIDERS: PCP Family Medicine; Referring Provider Internal Medicine Nephrology; Visit Provider Internal Medicine Nephrology
DX: N18.31 Chronic kidney disease, stage 3a (principal)
CPT/HCPCS: 36415; 80048; 82306; 82570; 83970; 84156; 85027

== ENCOUNTER 2023-03-07 05:30 | Emergency (ER) | payer MEDICARE, SELFPAY ==
--- NOTE | 2023-03-07 05:31 | EKG12_ITS ---
Test Reason : CP Blood Pressure : / mmHG Vent. Rate : 068 BPM Atrial Rate : 068 BPM P-R Int : 170 ms QRS Dur : 084 ms QT Int : 398 ms P-R-T Axes : 004 014 009 degrees QTc Int : 423 ms Normal sinus rhythm Normal ECG Confirmed by JASS NAVA, LALA ([id number]), scientific publications editor KINDRA TAFOYA ([id number]) on 03/09/2023 1:25:37 PM Referred By: PEDRO Confirmed By:LALA REGAN MD
[2023-03-07 05:32] VITALS: BP 144/82; PULSE 70; RESP 20; TEMP 36.4; O2SAT 93; BMI 40.6
[2023-03-07] MEDS: Aspirin 325 MG Tablet PO (05:59)
[2023-03-07] MEDS: Orphenadrine 60 MG/2 ML Ampul IV (06:00)
--- NOTE | 2023-03-07 06:00 | RAD_ITS ---
INDICATION: pain EXAMINATION/TECHNIQUE: X-RAY - XR Ribs Unilateral W/ PA Chest Min 3 Views COMPARISON: 04/17/2021 FINDINGS: SOFT TISSUES: No soft tissue swelling or gas. BONES: No displaced fracture. No sclerotic or destructive changes observed. VISUALIZED LUNGS: Clear. No pneumothorax. RAD/Ribs Uni Min 3V w/PA Chest IMPRESSION: No evidence of displaced rib fracture. Electronically Signed: Radha Murphy MD at 6:51 EDT ,
[2023-03-07] MEDS: Ketorolac 15 MG/ML Vial IV (06:03)
[2023-03-07 06:04] LABS: Hematocrit 41.1 % (40-54); Hemoglobin 12.8 g/dL (13.0-16.5); Mean Corp Hgb Conc 31.1 g/dL (32-36); Mean Corpuscular Hgb 27.8 pg (27.0-32.0); Mean Corpuscular Volume 89.3 fL (80-94); POSITIVE COUNT YES; POSITIVE DIFFERENTIAL YES; POSITIVE MORPHOLOGY YES; Platelet Count 63 K/mm3 (150-450); RBC Distribution Width CV 17.2 % (11.6-14.6); RBC Distribution Width SD 55.2 fl (35.1-43.9); White Blood Count 7.9 K/mm3 (4.4-11.0)
[2023-03-07 06:05] LABS: Differential Indicated MANUAL DIFF
[2023-03-07 06:15] LABS: D-Dimer Quantitative (DVT/PE) 1.41 FEU/ug/m (0.27-0.49)
--- NOTE | 2023-03-07 06:18 | CT_ITS ---
STUDY: CTA CHEST REASON FOR EXAM: Male, 77 years old. chest pain with elevated d-dimer RADIATION DOSAGE (If Supplied By Facility): CTDIvol = ( 21.34 ) mGy, DLP = ( 706.06 ) mGycm TECHNIQUE: The examination was performed with the intravenous administration of IV 100mL Isovue-370. Post-processing of the angiographic images was performed, with multiplanar reformation and 3D reconstruction. Individualized dose optimization techniques were used for this CT. COMPARISON: FINDINGS: Normal enhancement of the main pulmonary artery and right and left pulmonary arteries. Normal enhancement of the bilateral peripheral pulmonary arteries. There is no demonstrated pulmonary embolism. Normal thoracic aorta and visualized great vessels. There is no demonstrated aortic dissection. Normal heart and pericardium. Normal mediastinum. Normal hilar regions. Normal visualized trachea and bronchi. There is dependent atelectasis in the lung bases. Small bilateral pleural effusions are noted more prominent on the left There are scattered subpleural reticular interstitial opacities with ill-defined groundglass opacities more prominent in the upper lobes may represent mild chronic interstitial lung disease. Normal chest wall structures. Normal osseous structures. Normal visualized upper abdomen. CT/CTA Chest W/WO Contrast IMPRESSION: Mild chronic interstitial lung disease. Small bilateral pleural effusions. No demonstrated pulmonary embolism or arterial dissection. Electronically Signed: Radha Murphy MD at 7:52 EDT ,
--- NOTE | 2023-03-07 06:20 | EX.ED.DYSGE1 ---
HPI History of Present Illness Chief Complaint: Chest Pain Informant: patient and spouse/S.O. Narrative Narrative: Patient is a 77-year-old male with past medical history of hypertension hypothyroidism hyperlipidemia as well as previous orthopedic surgeries to bilateral ankles knees and rods in his spine. He states on Thursday he was out shoveling gravel. He states he did not have sudden onset of pain but a few hours later noticed some pain in the left chest wall. He states the pain resolved that evening and he was able to sleep. He denies any repeat trauma or excessive activity since she will be in the gravel but has noted increasing pain to his left chest wall. He states the pain is worse with motion and inspiration. He denies any recent travel surgery or history of DVT/PE. He states that he has had a cough for the past few weeks as well. However he denies any fevers chills or shortness of breath. As his pain is slowly been worsening he has concern this could be cardiac in nature and therefore comes in for evaluation [facility] Medical History Arthritis Difficulty swallowing Foot drop High cholesterol History of edema History of renal disease History of steroid therapy Hx of thrombocytopenia Low iron Non-smoker Restless legs Sciatica Shortness of breath on exertion Thyroid disease Walker as ambulation aid Wears glasses Home Medications allopurinol 300 mg tablet 300 mg PO DAILY GOUT 03/15/14 [History Last Taken 05/23/20] potassium citrate 15 mEq (1,620 mg) tablet,extended release (Urocit-K 15) 15 meq PO DAILY supplement 03/15/14 [History Last Taken 05/23/20] simvastatin 20 mg tablet 20 mg PO QHS cholesterol lowering 03/15/14 [History Last Taken 05/22/20] gabapentin 300 mg capsule 300 mg PO TID NERVE PAIN 05/23/20 [History Last Taken 04/23/21 05:00] levothyroxine 137 mcg tablet 137 mcg PO DAILY THYROID 05/23/20 [History Last Taken 04/23/21 05:00] hydroxychloroquine 200 mg tablet 200 mg PO DAILY 02/14/21 [History Last Taken Unknown] methocarbamol 500 mg tablet 500 mg PO 4X/DAY PRN PRN Muscle pain/spasm #40 tabs 03/07/23 [Rx Last Taken Unknown] oxycodone-acetaminophen 5 mg-325 mg tablet (Percocet) 1 tab PO Q6H PRN pain 3 days #12 tabs 03/07/23 [Rx Last Taken Unknown] Allergy/AdvReac Type Severity Reaction Status Date / Time indomethacin Allergy Other Verified 03/07/23 05:32 Family History Mother Diabetes Surgical History History of arthroplasty of left ankle History of arthroplasty of right ankle History of root canal procedure History of thyroidectomy Hx of lumbosacral spine surgery Total knee replacement status Social History Smoking Status: Never smoker ROS ROS ED Constitutional Constitutional ED: Denies chills or fever(s) Eyes Eyes: Denies change in vision ENT ENT ED: Denies sore throat Cardiovascular Cardiovascular: Reports chest pain; Denies palpitations or racing heartbeat Respiratory/Chest Respiratory/Chest: Reports cough; Denies dyspnea Gastrointestinal Gastrointestinal: Denies abdominal pain, diarrhea, nausea or vomiting Genitourinary Genitourinary ED: Denies dysuria or hematuria Musculoskeletal Musculoskeletal: Denies back pain or myalgias Integumentary Denies Abrasions or rash Neurologic Neurologic: Denies headache(s) or paresthesias Hematologic/Lymphatic Hematologic/Lymphatic: Denies easy bleeding or easy bruising EXAM Physical Exam Const Vital Signs: 03/07/23 05:32 03/07/23 06:43 Temperature 97.6 F L Temperature Source Temporal Pulse Rate 70 61 Respiratory Rate 20 H 16 Blood Pressure 144/82 H Blood Pressure Mean 102 Pulse Ox 93 97 Oxygen Delivery Method Room Air Room Air Positive well nourished, well developed and obese General Appearance ED: well developed Nutritional Appearance: obese HEENT HEENT Narrative: Normocephalic atraumatic Eyes PERRL and EOMs intact bilaterally General Eye ED: Negative for scleral icterus Neck supple and no JVD Neck Narrative: No nuchal rigidity or meningeal signs Chest Wall Chest Narrative: Along the left anterior lateral chest wall rib regions 6-9 patient has reproducible pain with palpation. This pain is the same pain patient's been experiencing. There is no overlying bony deformity. No crepitance palpated. Resp normal respiratory effort and clear to auscultation bilaterally Cardio regular rate and regular rhythm Rate: other Other Details: Radial and carotid pulses are equal and symmetric GI normal to inspection, nondistended, normoactive bowel sounds, non-tender and non-distended GI Narrative: No voluntary guarding or rigidity. No pulsatile mass or fluid wave Auscultation: normoactive bowel sounds Palpation: soft Back/Spine Back/Spine Narrative: No CVA tenderness Extremity normal to inspection Extremity Narrative: No asymmetric edema no pitting edema negative Homans' sign bilaterally Neuro oriented x3 and CN's II-XII intact bilaterally Sensorium / Orientation: alert Psych mental status grossly normal Skin no rashes or lesions noted and skin turgor normal Skin Narrative: No overlying abrasions or ecchymosis to suggest trauma. No overlying erythema or warmth to suggest infection. MDM MDM MDM Narrative Medical decision making narrative: Patient presented to the ER with complaint of constant chest pain for approximately 24 hours. The pain began shortly after he began shoveling gravel which indicates this is most likely musculoskeletal in nature. However he does have multiple risk factors for cardiovascular disease and therefore basic blood work with troponin was obtained. As the pain worsened with inspiration a D-dimer was added. Differential diagnosis includes pneumonia versus pneumothorax versus rib fracture versus acute coronary syndrome versus pulmonary embolus. EKG shows normal sinus rhythm and troponin is 7 and as he has had a constant chest pain for 24 hours this effectively rules out acute coronary syndrome. The patient's D-dimer was elevated however and therefore a CTA was obtained. CTA revealed no PE rib fracture pneumothorax or pleural effusion indicating that the chest pain is most likely musculoskeletal in nature. The patient was treated with Toradol and Norflex and had resolution of his pain. Therefore at this time as work-up reveals no signs of acute coronary syndrome no acute lung pathology such as pneumonia or rib fracture or pneumothorax or pulm embolus and patient's had resolution of pain with treatment he is otherwise safe for discharge History & Record Review Discussion w/independent historian: Patient and Significant other Lab Data Attestation: I reviewed the patient's lab results. Labs: Laboratory Results - last 24 hr 03/07/23 03/07/23 05:25 05:35 WBC 7.9 RBC 4.60 Hgb 12.8 L Hct 41.1 MCV 89.3 MCH 27.8 MCHC 31.1 L RDW Std Deviation 55.2 H RDW Coeff of Gisela 17.2 H Plt Count 63 L MPV TNP Neut % (Auto) Not Reportable Absolute Neuts (auto) 4.1 Absolute Lymphs (auto) 1.73 Total Counted 100 Neutrophils % (Manual) 46 L Band Neutrophils % 6 H Lymphocytes % (Manual) 22 Monocytes % (Manual) 25 H Myelocytes % 1 H Diff Path Review May foll Platelet Estimate MOD DEC RBC Morphology NORM C+C PT 14.6 INR 1.1 APTT 36.0 D-Dimer Quant (PE/DVT) 1.41 H* Sodium 140 Potassium 4.0 Chloride 108 H Carbon Dioxide 25.0 Anion Gap 7 BUN 22 H Creatinine 1.62 H Estim Creat Clear Calc 40.05 Est GFR (MDRD) Af Amer 53 L Est GFR (MDRD) Non-Af 44 L BUN/Creatinine Ratio 13.6 Glucose 141 H Calcium 8.5 Troponin I High Sens 7 Radiography Diagnostic Testing: Clinical Impression(s) from Imaging Studies Ribs w/Chest X-Ray 03/07/23 06:00 IMPRESSION: No evidence of displaced rib fracture. Electronically Signed: Radha Murphy MD at 6:51 EDT , Chest CTA 03/07/23 06:18 IMPRESSION: Mild chronic interstitial lung disease. Small bilateral pleural effusions. No demonstrated pulmonary embolism or arterial dissection. Electronically Signed: Radha Murphy MD at 7:52 EDT , 1 view chest with left rib x-rays as interpreted by the emergency medicine physician reveals no acute rib fracture or pneumothorax infiltrate or pleural effusion Discharge Plan Triage Chief Complaint: Chest Pain ED Provider: Jose Alejandro Rucker Dx/Rx/DC Orders Clinical Impression: Intercostal muscle strain, Contusion of rib on left side, Thrombocytopenia, Hypertension Instructions: ED Rib Contusion or Minor Fracture, ED Chest Wall Strain Prescriptions: New methocarbamol 500 mg tablet 500 mg PO 4X/DAY PRN PRN (Reason: Muscle pain/spasm) Qty: 40 1RF oxycodone-acetaminophen [Percocet] 5-325 mg tablet 1 tab PO Q6H PRN (Reason: pain) 3 Days Qty: 12 0RF No Action hydroxychloroquine 200 mg tablet 200 mg PO DAILY simvastatin 20 MG tablet 20 mg PO QHS allopurinol 300 MG tablet 300 mg PO DAILY potassium citrate [Urocit-K 15] 15 MEQ tablet extended release 15 meq PO DAILY Patient Comments: UNKNOWN DOSE. gabapentin 300 MG capsule 300 mg PO TID levothyroxine 137 MCG tablet 137 mcg PO DAILY Primary Care Provider: Thomas Murrieta Referrals: Thomas Murrieta DO [Primary Care Provider] - Activity Restrictions/Additional Instructions: Your work-up today showed no sign of cardiac event/heart attack blood clot pneumonia or rib fracture indicating this is bruising to the rib bone as well as irritation to the rib muscles. Take the prescribed medication as directed to help control the pain and return to the ER should you have any further concerns Disposition Disposition: Home, Self Care
[2023-03-07 06:22] LABS: Anion Gap 7 (5-15); BUN 22 mg/dL (7-18); BUN/Creat Ratio 13.6 RATIO (10-20); Calcium,Total 8.5 mg/dL (8.5-10.1); Chloride 108 mmol/L (98-107); Creatinine, Serum 1.62 mg/dL (0.70-1.30); EST Glomerular Filtration Rate 44 mL/min (>60); Est Glom Filt Rate - Afr Amer 53 mL/min (>60); Estimated Creatinine Clearance 40.05 ml/min; Glucose 141 mg/dL (74-106); Sodium Level 140 mmol/L (136-145); Troponin-I HS 7 pg/mL (3.0-78.0)
[2023-03-07] MEDS: 0.9% Normal Saline 1,000 ML 999 ML IV (06:23)
[2023-03-07 06:30] LABS: Absolute Neutrophil Count 4.1 X10^3/uL (2.0-7.7); Lymphocyte 22 % (19-41); Lymphocyte # 1.73 X10^3/ul (0.83-4.51); Monocyte 25 % (0-10); Myelocyte 1 % (0-0); Neutrophil-Band 6 % (0-5); Neutrophil-Segmented 46 % (47-70); Platelet Estimate MOD DEC (ADEQ); Red Cell Morphology NORM C+C NORMAL (NORM C&C); Total Cells Counted 100 (MANUAL DIFF)
[2023-03-07 06:31] LABS: Absolute Lymphocyte Count 1.73 X10^3/uL (0.83-4.51)
[2023-03-07 06:43] VITALS: PULSE 61; RESP 16; O2SAT 97
[2023-03-07 06:55] LABS: International Normalized Ratio 1.1; Prothrombin Time (Protime)PT. 14.6 SECONDS (11.7-14.9)
[2023-03-07 08:17] VITALS: BP 131/74; PULSE 56; RESP 17; O2SAT 94
[2023-03-10 15:28] LABS: Pathologist Review Reviewed
== END 2023-03-07 08:19 | disposition home or self-care (01) ==
PROVIDERS: Emergency Provider Emergency Medicine; PCP Family Medicine; Visit Provider Emergency Medicine
DX: S29.011A Strain of muscle and tendon of front wall of thorax, initial encounter (principal); D69.6 Thrombocytopenia, unspecified; S20.212A Contusion of left front wall of thorax, initial encounter; X58.XXXA Exposure to other specified factors, initial encounter; I10 Essential (primary) hypertension; E78.00 Pure hypercholesterolemia, unspecified; E03.9 Hypothyroidism, unspecified; E66.9 Obesity, unspecified; Z79.890 Hormone replacement therapy; Z79.899 Other long term (current) drug therapy
CPT/HCPCS: 71101; 71275; 80048; 84484; 85025; 85379; 85610; 85730; 93005; 96361; 96374; 96375; 99283; J7030; Q9967; A4216

== ENCOUNTER → 2023-04-14 | Outpatient (CLI) | payer MEDICARE, SELFPAY ==
[2023-04-14 08:54] LABS: Absolute Lymphocyte Count 1.38 X10^3/uL (0.83-4.51); Absolute Neutrophil Count 2.7 X10^3/uL (2.0-7.7); Basophil# 0.03 X10^3/uL; Basophil% 0.5 % (0-1); Eosinophil# 0.22 X10^3/uL; Eosinophils% 3.7 % (0-5); Hematocrit 38.5 % (40-54); Lymphocyte # 1.38 X10^3/ul (0.83-4.51); Lymphocyte % 23.4 % (19-41); Mean Corp Hgb Conc 31.2 g/dL (32-36); Mean Corpuscular Hgb 27.9 pg (27.0-32.0); Mean Corpuscular Volume 89.5 fL (80-94); Monocyte# 1.49 X10^3/uL; Monocyte% 25.2 % (0-10); NRBC Flagged by Analyzer 0 % (0-5); Neutrophil # 2.67 X10^3/uL (2.7-7.7); Neutrophil % 45.2 % (47-70); POSITIVE COUNT YES; Platelet Count 81 K/mm3 (150-450); RBC Distribution Width CV 16.5 % (11.6-14.6); RBC Distribution Width SD 53.8 fl (35.1-43.9); White Blood Count 5.9 K/mm3 (4.4-11.0)
[2023-04-14 09:25] LABS: AST(SGOT) 9 U/L (15-37); Alanine Aminotransfer ALT/SGPT 13 U/L (16-61); Albumin, Serum 3.7 g/dL (3.2-5.0); Alkaline Phosphatase 105 U/L (45-117); Anion Gap 5 (5-15); BUN 25 mg/dL (7-18); BUN/Creat Ratio 15.7 RATIO (10-20); Calcium,Total 8.6 mg/dL (8.5-10.1); Chloride 106 mmol/L (98-107); Creatinine, Serum 1.59 mg/dL (0.70-1.30); EST Glomerular Filtration Rate 45 mL/min (>60); Est Glom Filt Rate - Afr Amer 55 mL/min (>60); Globulin 3.8 g/dL (2.2-4.2); Glucose 114 mg/dL (74-106); Potassium 3.9 mmol/L (3.5-5.1); Protein, Total 7.5 g/dL (6.4-8.2); Sodium Level 138 mmol/L (136-145)
== END | disposition home or self-care (01) ==
LOC: LAB 07:33
PROVIDERS: PCP Family Medicine; Referring Provider Internal Medicine Rheumatology; Visit Provider Internal Medicine Rheumatology
DX: M06.4 Inflammatory polyarthropathy (principal); R76.8 Other specified abnormal immunological findings in serum; Z79.899 Other long term (current) drug therapy
CPT/HCPCS: 36415; 80053; 85025

== ENCOUNTER → 2023-05-13 | Outpatient (CLI) | payer MEDICARE, SELFPAY ==
[2023-05-13 12:55] LABS: T4 Free Direct 1.07 ng/dL (0.76-1.46); Thyroid Stim Hormone (TSH) 5.66 uIU/mL (0.358-3.74)
== END | disposition home or self-care (01) ==
LOC: BFHLAB 08:53
PROVIDERS: PCP Nurse Practitioner Family; Referring Provider Nurse Practitioner Family; Visit Provider Nurse Practitioner Family
DX: E03.9 Hypothyroidism, unspecified (principal)
CPT/HCPCS: 36415; 84439; 84443

== ENCOUNTER → 2023-10-28 | Outpatient (CLI) | payer MEDICARE, SELFPAY ==
[2023-10-28 12:17] LABS: Absolute Neutrophil Count 2.2 X10^3/uL (2.0-7.7); Basophil# 0.03 X10^3/uL; Basophil% 0.6 % (0-1); Eosinophil# 0.08 X10^3/uL; Eosinophils% 1.5 % (0-5); Hematocrit 38.4 % (40-54); Hemoglobin 11.9 g/dL (13.0-16.5); Lymphocyte % 23.9 % (19-41); Mean Corpuscular Hgb 27.8 pg (27.0-32.0); Mean Corpuscular Volume 89.7 fL (80-94); Monocyte% 31.3 % (0-10); NRBC Flagged by Analyzer 0 % (0-5); Neutrophil # 2.24 X10^3/uL (2.7-7.7); POSITIVE COUNT YES; POSITIVE DIFFERENTIAL YES; Platelet Count 72 K/mm3 (150-450); RBC Distribution Width CV 17.6 % (11.6-14.6); RBC Distribution Width SD 57.7 fl (35.1-43.9); Red Blood Count 4.28 M/mm3 (4.6-6.2); White Blood Count 5.4 K/mm3 (4.4-11.0)
[2023-10-28 12:38] LABS: Differential Indicated SCAN CRITERIA MET
[2023-10-28 13:21] LABS: Platelet Estimate MOD DEC (ADEQ)
[2023-10-28 13:39] LABS: AST(SGOT) 11 U/L (15-37); Alanine Aminotransfer ALT/SGPT 16 U/L (16-61); Albumin, Serum 3.5 g/dL (3.2-5.0); Alkaline Phosphatase 117 U/L (45-117); Anion Gap 8 (5-15); BUN 20 mg/dL (7-18); BUN/Creat Ratio 11.8 RATIO (10-20); Calcium,Total 9.2 mg/dL (8.5-10.1); Chloride 111 mmol/L (98-107); EST Glomerular Filtration Rate 42 mL/min (>60); Est Glom Filt Rate - Afr Amer 51 mL/min (>60); Globulin 3.4 g/dL (2.2-4.2); Glucose 131 mg/dL (74-106); Protein, Total 6.9 g/dL (6.4-8.2); Sodium Level 143 mmol/L (136-145)
[2023-10-28 16:14] LABS: Pathologist Review Reviewed
== END | disposition home or self-care (01) ==
LOC: MTLAB 09:46
PROVIDERS: PCP Nurse Practitioner Family; Referring Provider Internal Medicine Rheumatology; Visit Provider Internal Medicine Rheumatology
DX: M06.00 Rheumatoid arthritis without rheumatoid factor, unspecified site (principal); R76.8 Other specified abnormal immunological findings in serum; Z79.899 Other long term (current) drug therapy
CPT/HCPCS: 36415; 80053; 85025

== ENCOUNTER → 2023-11-11 | Outpatient (CLI) | payer MEDICARE, SELFPAY ==
[2023-11-11 12:25] LABS: Vitamin B12 372 pg/mL (211-911)
[2023-11-11 12:38] LABS: Ferritin 36 ng/mL (26-388); Iron 43 ug/dL (65-175); Iron Binding Capacity,Total 364 ug/dL (250-450); PERCENT IRON SATURATION 11.8 % (15.0-55.0); T4 Free Direct 1.39 ng/dL (0.76-1.46); Thyroid Stim Hormone (TSH) 0.15 uIU/mL (0.358-3.74)
== END | disposition home or self-care (01) ==
LOC: BFHLAB 09:14
PROVIDERS: PCP Nurse Practitioner Family; Visit Provider Nurse Practitioner Family
DX: E03.9 Hypothyroidism, unspecified (principal); D64.9 Anemia, unspecified; E55.9 Vitamin D deficiency, unspecified
CPT/HCPCS: 36415; 82306; 82607; 82728; 82746; 83540; 83550; 84439; 84443

== ENCOUNTER → 2024-01-04 | Outpatient (CLI) | payer MEDICARE, SELFPAY ==
[2024-01-04 10:34] LABS: Hematocrit 41.7 % (40-54); Hemoglobin 13.3 g/dL (13.0-16.5); Mean Corp Hgb Conc 31.9 g/dL (32-36); Mean Corpuscular Hgb 28.8 pg (27.0-32.0); Mean Corpuscular Volume 90.3 fL (80-94); POSITIVE COUNT YES; Platelet Count 66 K/mm3 (150-450); RBC Distribution Width CV 15.9 % (11.6-14.6); RBC Distribution Width SD 52.4 fl (35.1-43.9); Red Blood Count 4.62 M/mm3 (4.6-6.2); White Blood Count 5.2 K/mm3 (4.4-11.0)
[2024-01-04 10:36] LABS: Scan Indicated on CBC? Y/N NO
[2024-01-04 10:50] LABS: Vitamin D,25 Hydroxy 45.2 ng/mL
[2024-01-04 10:53] LABS: Albumin, Serum 3.6 g/dL (3.2-5.0); BUN 18 mg/dL (7-18); BUN/Creat Ratio 12.2 RATIO (10-20); Chloride 108 mmol/L (98-107); Creatinine, Serum 1.47 mg/dL (0.70-1.30); EST Glomerular Filtration Rate 49 mL/min (>60); Est Glom Filt Rate - Afr Amer 60 mL/min (>60); Glucose 153 mg/dL (74-106); Phosphorus 2.4 mg/dL (2.5-4.9); Potassium 3.8 mmol/L (3.5-5.1); Sodium Level 140 mmol/L (136-145)
[2024-01-04 11:03] LABS: Protein, Urine (Random) 16.9 mg/dL (<11.9); Protein:Creat Ratio 139 mg/g CRE (0-200)
== END | disposition home or self-care (01) ==
PROVIDERS: PCP Nurse Practitioner Family; Referring Provider Internal Medicine Nephrology; Visit Provider Internal Medicine Nephrology
DX: N18.31 Chronic kidney disease, stage 3a (principal)
CPT/HCPCS: 36415; 80069; 82306; 82570; 83970; 84156; 85027

== ENCOUNTER → 2024-04-22 | Outpatient (CLI) | payer MEDICARE, SELFPAY ==
[2024-04-22 15:19] LABS: Absolute Lymphocyte Count 1.32 X10^3/uL (0.83-4.51); Absolute Neutrophil Count 2.3 X10^3/uL (2.0-7.7); Basophil# 0.03 X10^3/uL; Basophil% 0.5 % (0-1); Eosinophil# 0.02 X10^3/uL; Eosinophils% 0.4 % (0-5); Hematocrit 40.3 % (40-54); Hemoglobin 12.6 g/dL (13.0-16.5); Lymphocyte # 1.32 X10^3/ul (0.83-4.51); Lymphocyte % 23.9 % (19-41); Mean Corp Hgb Conc 31.3 g/dL (32-36); Mean Corpuscular Hgb 28.5 pg (27.0-32.0); Mean Corpuscular Volume 91.2 fL (80-94); Mean Platelet Vol. 13.3 fl (6.2-12.0); Monocyte# 1.74 X10^3/uL; Monocyte% 31.5 % (0-10); NRBC Flagged by Analyzer 0 % (0-5); Neutrophil # 2.32 X10^3/uL (2.7-7.7); Neutrophil % 41.9 % (47-70); POSITIVE COUNT YES; POSITIVE DIFFERENTIAL YES; Platelet Count 68 K/mm3 (150-450); RBC Distribution Width SD 54.1 fl (35.1-43.9); Red Blood Count 4.42 M/mm3 (4.6-6.2); White Blood Count 5.5 K/mm3 (4.4-11.0)
[2024-04-22 15:21] LABS: Differential Indicated SCAN CRITERIA MET
[2024-04-22 15:47] LABS: ALB/GLOB Ratio 1.1 RATIO (0.9-2.4); AST(SGOT) 11 U/L (15-37); Alanine Aminotransfer ALT/SGPT 15 U/L (16-61); Albumin, Serum 3.6 g/dL (3.2-5.0); Alkaline Phosphatase 96 U/L (45-117); Anion Gap 6 (5-15); BUN 24 mg/dL (7-18); BUN/Creat Ratio 15.9 RATIO (10-20); Calcium,Total 9.5 mg/dL (8.5-10.1); Chloride 110 mmol/L (98-107); Creatinine, Serum 1.51 mg/dL (0.70-1.30); EST Glomerular Filtration Rate 48 mL/min (>60); Est Glom Filt Rate - Afr Amer 58 mL/min (>60); Globulin 3.3 g/dL (2.2-4.2); Glucose 123 mg/dL (74-106); Potassium 3.9 mmol/L (3.5-5.1); Protein, Total 6.9 g/dL (6.4-8.2); Sodium Level 141 mmol/L (136-145); Uric Acid 6.4 mg/dL (3.5-7.2)
[2024-04-22 16:29] LABS: Differential Comment SCANNED
[2024-04-22 16:30] LABS: Platelet Estimate MOD DEC (ADEQ)
== END | disposition home or self-care (01) ==
LOC: BFHLAB 11:29
PROVIDERS: PCP Nurse Practitioner Family; Visit Provider Nurse Practitioner Family
DX: M06.00 Rheumatoid arthritis without rheumatoid factor, unspecified site (principal); R76.8 Other specified abnormal immunological findings in serum; Z79.899 Other long term (current) drug therapy
CPT/HCPCS: 36415; 80053; 84550; 85025

== ENCOUNTER → 2024-05-25 | Outpatient (CLI) | payer MEDICARE, SELFPAY ==
[2024-05-25 12:23] LABS: Absolute Lymphocyte Count 1.48 X10^3/uL (0.83-4.51); Absolute Neutrophil Count 3.2 X10^3/uL (2.0-7.7); Basophil# 0.03 X10^3/uL; Basophil% 0.4 % (0-1); Eosinophil# 0.09 X10^3/uL; Eosinophils% 1.3 % (0-5); Hematocrit 41.8 % (40-54); Hemoglobin 13.3 g/dL (13.0-16.5); Lymphocyte # 1.48 X10^3/ul (0.83-4.51); Mean Corp Hgb Conc 31.8 g/dL (32-36); Mean Corpuscular Hgb 28.8 pg (27.0-32.0); Mean Corpuscular Volume 90.5 fL (80-94); Mean Platelet Vol. 14.1 fl (6.2-12.0); Monocyte# 1.94 X10^3/uL; Monocyte% 27.5 % (0-10); NRBC Flagged by Analyzer 0 % (0-5); Neutrophil # 3.24 X10^3/uL (2.7-7.7); POSITIVE COUNT YES; POSITIVE DIFFERENTIAL YES; Platelet Count 64 K/mm3 (150-450); RBC Distribution Width CV 16.2 % (11.6-14.6); RBC Distribution Width SD 53.4 fl (35.1-43.9); Red Blood Count 4.62 M/mm3 (4.6-6.2); White Blood Count 7.1 K/mm3 (4.4-11.0)
[2024-05-25 12:24] LABS: Differential Indicated SCAN CRITERIA MET
[2024-05-25 12:44] LABS: Vitamin D,25 Hydroxy 51.5 ng/mL
[2024-05-25 12:48] LABS: ALB/GLOB Ratio 1.1 RATIO (0.9-2.4); AST(SGOT) 8 U/L (15-37); Alanine Aminotransfer ALT/SGPT 18 U/L (16-61); Albumin, Serum 3.8 g/dL (3.2-5.0); Alkaline Phosphatase 103 U/L (45-117); Anion Gap 3 (5-15); BUN 22 mg/dL (7-18); BUN/Creat Ratio 13.8 RATIO (10-20); Calcium,Total 8.9 mg/dL (8.5-10.1); Chloride 107 mmol/L (98-107); Cholesterol 105 mg/dL (200); EST Glomerular Filtration Rate 45 mL/min (>60); Est Glom Filt Rate - Afr Amer 54 mL/min (>60); Globulin 3.5 g/dL (2.2-4.2); Glucose 93 mg/dL (74-106); High Density Lipoprotein 24 mg/dL; Iron 45 ug/dL (65-175); PSA,Total - Annual Screen 1.23 ng/mL (0.00-4.00); Potassium 4.2 mmol/L (3.5-5.1); Protein, Total 7.3 g/dL (6.4-8.2); Sodium Level 138 mmol/L (136-145); T4 Free Direct 1.03 ng/dL (0.76-1.46); Triglycerides 136 mg/dL; Very Low Density Lipoprotein 27 mg/dL (5-40)
[2024-05-25 14:25] LABS: Differential Comment SCANNED; Platelet Estimate MKD DEC (ADEQ)
== END | disposition home or self-care (01) ==
LOC: BFHLAB 10:56
PROVIDERS: PCP Nurse Practitioner Family; Referring Provider Nurse Practitioner Family; Visit Provider Nurse Practitioner Family
DX: I10 Essential (primary) hypertension (principal); E78.5 Hyperlipidemia, unspecified; E03.9 Hypothyroidism, unspecified; E61.1 Iron deficiency; E55.9 Vitamin D deficiency, unspecified
CPT/HCPCS: 36415; 80053; 80061; 82306; 83540; 84153; 84439; 84443; 85025; G0103

== ENCOUNTER → 2024-10-18 | Outpatient (CLI) | payer MEDICARE, SELFPAY ==
[2024-10-18 10:48] LABS: Absolute Lymphocyte Count 0.45 X10^3/uL (0.83-4.51); Absolute Neutrophil Count 3.2 X10^3/uL (2.0-7.7); Basophil# 0.01 X10^3/uL; Basophil% 0.2 % (0-1); Eosinophil# 0.02 X10^3/uL; Eosinophils% 0.4 % (0-5); Hemoglobin 13.8 g/dL (13.0-16.5); Lymphocyte # 0.45 X10^3/ul (0.83-4.51); Lymphocyte % 9.3 % (19-41); Mean Corp Hgb Conc 32.9 g/dL (32-36); Mean Corpuscular Volume 91.3 fL (80-94); Monocyte# 1.07 X10^3/uL; Monocyte% 22.2 % (0-10); NRBC Flagged by Analyzer 0 % (0-5); Neutrophil # 3.15 X10^3/uL (2.7-7.7); Neutrophil % 65.4 % (47-70); POSITIVE COUNT YES; POSITIVE DIFFERENTIAL YES; Platelet Count 54 K/mm3 (150-450); RBC Distribution Width CV 15.9 % (11.6-14.6); RBC Distribution Width SD 52.5 fl (35.1-43.9); White Blood Count 4.8 K/mm3 (4.4-11.0)
[2024-10-18 11:55] LABS: ALB/GLOB Ratio 1.4 RATIO (0.9-2.4); AST(SGOT) 17 U/L (<=37); Alanine Aminotransfer ALT/SGPT 15 U/L (<=46); Albumin, Serum 4.3 g/dL (3.4-4.8); Alkaline Phosphatase 110 U/L (40-129); Anion Gap 13 (5-15); BUN 21 mg/dL (4-19); BUN/Creat Ratio 11.2 RATIO (10-20); Calcium,Total 9.3 mg/dL (7.6-11.0); Carbon Dioxide 24.9 mmol/L (21.0-32.0); Chloride 106 mmol/L (98-108); Creatinine, Serum 1.85 mg/dL (0.70-1.20); EST Glomerular Filtration Rate 37 (>60); Globulin 3.2 g/dL (2.2-4.2); Glucose 134 mg/dL (70-99); Potassium 4.1 mmol/L (3.3-5.1); Protein, Total 7.4 g/dL (5.9-8.4); Sodium Level 144 mmol/L (133-145); Total Bilirubin 0.89 mg/dL (0.00-1.30); Uric Acid 6.9 mg/dL (3.5-7.2)
== END | disposition home or self-care (01) ==
LOC: LAB 10:11
PROVIDERS: PCP Nurse Practitioner Family; Referring Provider Internal Medicine Rheumatology; Visit Provider Internal Medicine Rheumatology
DX: M06.00 Rheumatoid arthritis without rheumatoid factor, unspecified site (principal); R76.8 Other specified abnormal immunological findings in serum; Z79.899 Other long term (current) drug therapy
CPT/HCPCS: 36415; 80053; 84550; 85025

== ENCOUNTER → 2025-01-20 | Outpatient (CLI) | payer MEDICARE, SELFPAY ==
[2025-01-20 15:35] LABS: Hematocrit 41.9 % (40-54); Hemoglobin 13.5 g/dL (13.0-16.5); Mean Corp Hgb Conc 32.2 g/dL (32-36); Mean Corpuscular Hgb 29.4 pg (27.0-32.0); Mean Corpuscular Volume 91.3 fL (80-94); POSITIVE COUNT YES; Platelet Count 73 K/mm3 (150-450); RBC Distribution Width CV 15.7 % (11.6-14.6); RBC Distribution Width SD 52.2 fl (35.1-43.9); Red Blood Count 4.59 M/mm3 (4.6-6.2); White Blood Count 6.1 K/mm3 (4.4-11.0)
[2025-01-20 15:55] LABS: PTHIN 64 pg/mL (11-61)
[2025-01-20 16:16] LABS: Anion Gap 12 (5-15); BUN 26 mg/dL (4-19); BUN/Creat Ratio 16.2 RATIO (10-20); Calcium,Total 9.7 mg/dL (7.6-11.0); Carbon Dioxide 23.5 mmol/L (21.0-32.0); Chloride 105 mmol/L (98-108); Creatinine, Serum 1.58 mg/dL (0.70-1.20); EST Glomerular Filtration Rate 44 (>60); Glucose 125 mg/dL (70-99); Phosphorus 3.4 mg/dL (2.7-4.5); Potassium 4.6 mmol/L (3.3-5.1); Sodium Level 140 mmol/L (133-145); Vitamin D,25 Hydroxy 57.6 ng/mL (30-100)
[2025-01-20 16:44] LABS: Protein, Urine (Random) 10.3 mg/dL (0.0-12.0); Protein:Creat Ratio 98 mg/g CRE (0-200)
== END | disposition home or self-care (01) ==
LOC: BFHLAB 11:26
PROVIDERS: PCP Nurse Practitioner Family; Visit Provider Internal Medicine Nephrology
DX: N18.31 Chronic kidney disease, stage 3a (principal)
CPT/HCPCS: 36415; 80069; 82306; 82570; 83970; 84156; 85027

== ENCOUNTER → 2025-06-20 | Outpatient (CLI) | payer MEDICARE, SELFPAY ==
[2025-06-20 17:38] LABS: Hematocrit 41.3 % (40-54); Hemoglobin 13.1 g/dL (13.0-16.5); Immature Granulocytes Count 0.190 X10^3/uL (0.0-0.0); Mean Corp Hgb Conc 31.7 g/dL (32-36); Mean Corpuscular Volume 92.0 fL (80-94); Mean Platelet Vol. 13.1 fl (6.2-12.0); NRBC Flagged by Analyzer 0 % (0-5); POSITIVE COUNT YES; POSITIVE DIFFERENTIAL YES; Platelet Count 73 K/mm3 (150-450); RBC Distribution Width CV 16.0 % (11.6-14.6); RBC Distribution Width SD 54.0 fl (35.1-43.9); Red Blood Count 4.49 M/mm3 (4.6-6.2); White Blood Count 7.6 K/mm3 (4.4-11.0)
[2025-06-20 17:57] LABS: Differential Indicated SCAN CRITERIA MET
[2025-06-20 18:05] LABS: AST(SGOT) 13 U/L (<=37); Alanine Aminotransfer ALT/SGPT 15 U/L (<=46); Albumin, Serum 4.1 g/dL (3.4-4.8); Alkaline Phosphatase 99 U/L (40-129); Anion Gap 12 (5-15); BUN 25 mg/dL (4-19); BUN/Creat Ratio 15.3 RATIO (10-20); Calcium,Total 9.5 mg/dL (7.6-11.0); Carbon Dioxide 26.2 mmol/L (21.0-32.0); Chloride 104 mmol/L (98-108); Globulin 3.0 g/dL (2.2-4.2); Glucose 112 mg/dL (70-99); Potassium 3.9 mmol/L (3.3-5.1); Uric Acid 6.2 mg/dL (3.5-7.2)
[2025-06-20 19:15] LABS: Differential Comment SCANNED
== END | disposition home or self-care (01) ==
LOC: MTLAB 16:17
PROVIDERS: PCP Nurse Practitioner Family; Referring Provider Internal Medicine Rheumatology; Visit Provider Internal Medicine Rheumatology
DX: M06.00 Rheumatoid arthritis without rheumatoid factor, unspecified site (principal); Z79.899 Other long term (current) drug therapy
CPT/HCPCS: 36415; 80053; 84550; 85025